=== PATIENT | female | born 1990 | race Caucasian/White ===

== ENCOUNTER → 2016-09-16 | Outpatient (CLI) | payer BC ==
[~2016-09-16] MED LIST: HYDR-5688 PO; IBUP-1450 PO; PRENTAB26 PO
== END | disposition home or self-care (01) ==
LOC: C.LABSPEC 17:40
PROVIDERS: ATTEND Obstetrics & Gynecology
DX: Z34.83 Encounter for supervision of other normal pregnancy, third trimester (principal)

== ENCOUNTER → 2016-09-21 | Outpatient (CLI) | payer BC ==
[2016-09-21 08:37] LABS: BASO % 0.3 %; BASO ABS # 0.02 K/uL (0-0.2); COMPLETE YES; EOS % 0.8 %; HEMATOCRIT 36.2 % (37-47); IG% 0.3 %; LYMPH % 18.8 %; LYMPH ABS # 1.37 K/uL (1.2-3.4); MEAN CELL VOLUME 92.8 fL (80-100); MEAN CORPUSCULAR HEMOGLOBIN 32.3 pg (25-34); MEAN CORPUSCULAR HGB CONC 34.8 g/dl (32-36); MEAN PLATELET VOLUME 12.1 fL (7.4-10.4); MONO % 7.8 %; PLATELET COUNT 153 K/uL (130-400)
[2016-09-21 08:56] LABS: ALT/SGPT 14 U/L (12-78); AST/SGOT 20 U/L (15-37); CREATININE 0.62 mg/dl (0.60-1.20)
[2016-09-21 09:01] LABS: URIC ACID 3.7 mg/dl (2.6-7.2)
[2016-09-21 10:10] LABS: URINE TOTAL PROTEIN 5.1 mg/dl (0-11.9)
[2016-09-21 11:58] LABS: CREATININE 0.62 mg/dl (0.6-1.2); URINE TOTAL PROTEIN CALC 183.6 mg/24 hr (0-149.1)
== END | disposition home or self-care (01) ==
LOC: C.LAB 07:44
PROVIDERS: ATTEND Obstetrics & Gynecology
DX: O13.9 Gestational [pregnancy-induced] hypertension without significant proteinuria, unspecified trimester (principal)

== ENCOUNTER 2016-09-25 07:48 | Inpatient (IN) | payer BC ==
[~2016-09-25] VITALS: Ht 162.6 cm; Wt 79.1 kg
[~2016-09-25 07:48] MED LIST changes: -HYDR-5688 PO; -IBUP-1450 PO
[2016-09-25] MEDS ORDERED: MISOPROSTOL 25 MCG TAB ONE (08:40)
[2016-09-25 08:46] VITALS: Ht 162.6 cm; Wt 79.1 kg
[2016-09-25] MEDS ORDERED: LACTATED RINGER'S 1000ML 1,000 ML IV PRN (09:19)
[2016-09-25] MEDS ORDERED: MISOPROSTOL 25 MCG TAB PV PRN (09:30)
[2016-09-25 10:10] LABS: HEMATOCRIT 35.8 % (37-47); MEAN CORPUSCULAR HEMOGLOBIN 32.5 pg (25-34); MEAN CORPUSCULAR HGB CONC 34.6 g/dl (32-36); MEAN PLATELET VOLUME 12.2 fL (7.4-10.4); PLATELET COUNT 160 K/uL (130-400); RED BLOOD COUNT 3.81 M/uL (4.2-5.4); WHITE BLOOD COUNT 8.26 K/uL (4.8-10.8)
[2016-09-25 10:37] LABS: CREATININE 0.59 mg/dl (0.60-1.20)
[2016-09-25 10:38] LABS: ALKALINE PHOSPHATASE 141 U/L (45-117); ALT/SGPT 16 U/L (12-78); AST/SGOT 16 U/L (15-37)
[2016-09-25] MEDS ORDERED: LACTATED RINGER'S 1000ML 500 ML IV PRN ×2 (14:32→16:27)
[2016-09-25] MEDS ORDERED: OXYTOCIN 30 UNITS/500ML NSS IV PRN ×2 (14:45→20:00)
[2016-09-25] MEDS ORDERED: BUPIVACAINE 0.25% 30 ML VIAL ONE (15:14)
[2016-09-25] MEDS ORDERED: FENTANYL CITRATE INJ 50 MCG/1 ML 2 ML VIAL ONE (15:15)
[2016-09-25] MEDS ORDERED: FENTANYL 2MCG/ML ROPIV 1.25MG/ML 100ML BAG EPI ONE (15:15)
[2016-09-25] MEDS ORDERED: EpHEDrine SULFATE INJ 50 MG/ML AMP ONE (15:15)
[2016-09-25] MEDS: LACTATED RINGER'S 1000ML 1,000 ML IV SCH ×2 (16:10→17:19)
[2016-09-25] MEDS ORDERED: NALOXONE HCL INJ 1 MG in SODIUM CHLORIDE 0.9% 1000ML 1,000 ML IV PRN (16:27)
[2016-09-25] MEDS ORDERED: NALBUPHINE HCL INJ 10 MG/ML AMP IV PRN (16:30)
[2016-09-25] MEDS ORDERED: NALOXONE HCL INJ 0.4 MG/1 ML VIAL/CARP IV PRN (16:30)
[2016-09-25] MEDS ORDERED: EpHEDrine SULFATE INJ 50 MG/ML AMP IV PRN (16:30)
[2016-09-25] MEDS ORDERED: FENTANYL 2MCG/ML ROPIV 1.25MG/ML 100ML BAG EPI PRN (16:30)
[2016-09-25] MEDS ORDERED: DiphenhydrAMINE HCL 50 MG/ML VIAL IV PRN (16:30)
[2016-09-25] MEDS ORDERED: PROMETHAZINE HCL INJ 25 MG in SODIUM CHLORIDE 0.9% 50ML 50 ML IV PRN (16:30)
[2016-09-25] MEDS ORDERED: ONDANSETRON INJ 2 MG/ML 2 ML VIAL IV PRN (16:30)
--- NOTE | 2016-09-25 18:28 | Medical Student: [facility] ---
Med Student History & Physical Date of Service Sep 25, 2016. Chief Complaint Induction History of Present Illness Source: patient FAN: 10/13/16 Jie Gramajo is a 26 year old female at 37-3 weeks gestation who presents to labor and delivery for induction of labor due to gestational hypertension. Her prior was a normal spontaneous vaginal deliver at 39 -6 weeks gestation, complicated by hypertension at time of delivery and post hemorrhage. At her office visit 9 days ago, she had a BP of 140/94, and at her visit 2 days ago a BP of 140/82. She has had no proteinuria, no seizures, and no signs or symptoms of organ failure. Her current has otherwise been unremarkable. She is blood type O negative with a negative antibody screen.She was given an anti-D immunoglobin on 07/22/16. GBS negative as of 09/16/16. Her family history is notable for 2 cousins with CP. OB History 08/27/13 - at 39-6 weeks of female child. Hypertension at time of delivery and post hemorrhage. 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 Past Surgical History Appendectomy and wisdom teeth removal Family History History of heart disease in Paternal Grandfather History of DM and breast cancer in maternal grandmother History of Hypertension and depression in paternal grandmother Family history of cerebral palsy Social History Smoking Status: Never Smoker Drug Use: none Marital Status: , in relationship Housing status: lives with family Occupational Status: employed Allergies Coded Allergies: No Known Allergies (Verified , 08/29/13) Home Medications Multivit/Min/Iron/Fol Ac/Pren ( Vitamin), 1 TAB PO DAILY Review of Systems Constitutional: No chills, No fever, No problem reported, No sweats, No weakness, No weight loss Eyes: No diplopia, No discharge, No eye pain, No problem reported, No redness, No worsening of vision ENT: No hearing loss, No nasal symptoms, No problem reported, No sore throat, No trouble swallowing, No unusual epistaxis Respiratory: No cough, No problem reported, No sputum, No wheezing Cardiovascular: No chest pain, No palpitations, No problem reported Abdomen: No GI bleeding, No diarrhea, No nausea, No problem reported, No vomiting Musculoskeletal: No problem reported Genitourinary - Female: + , No hematuria, No vaginal bleeding Neurologic: No numbness/tingling, No problem reported, No weakness Psychiatric: No depression symptoms, No problem reported Endocrine: No problem reported Hematologic / Lymphatic: No abnormal bleeding/bruising, No problem reported Integumentary: No itch, No problem reported, No rash Physical Exam General Appearance: WD/WN, + mild distress Head: normocephalic, atraumatic ENT: hearing grossly normal Neck: supple, no adenopathy, trachea midline Respiratory/Chest: chest non-tender, lungs clear, normal breath sounds, no respiratory distress, no accessory muscle use Cardiovascular: regular rate, rhythm, no gallop, no JVD, normal peripheral pulses Genitourinary - Female: uterus normal shape and size Monitoring External Monitor: monitoring and tocodynamometer is reassuring with early decelerations, normal rate, and frequent contractions Laboratory Results 09/25/16 09:35 09/25/16 09:35 Test 09/25/16 09:35 Red Blood Count 3.81 M/uL (4.2-5.4) Mean Corpuscular Volume 94.0 fL (80-100) Mean Corpuscular Hemoglobin 32.5 pg (25-34) Mean Corpuscular Hemoglobin Concent 34.6 g/dl (32-36) RDW Standard Deviation 43.3 fL (36.4-46.3) RDW Coefficient of Variation 12.7 % (11.5-14.5) Mean Platelet Volume 12.2 fL (7.4-10.4) Est Creatinine Clear Calc Drug Dose 149.7 ml/min Estimated GFR () 148.7 Estimated GFR (Non- 128.3 Total Bilirubin 0.2 mg/dl (0.2-1) Direct Bilirubin < 0.1 mg/dl (0-0.2) Aspartate Amino Transf (AST/SGOT) 16 U/L (15-37) Alanine Aminotransferase (ALT/SGPT) 16 U/L (12-78) Alkaline Phosphatase 141 U/L (45-117) Total Protein 6.2 gm/dl (6.4-8.2) Albumin 2.6 gm/dl (3.4-5.0) Assessment and Plan Induce delivery with IV 25 mcg of misoprostol and 0.002 units/min oxytocin, increasing by 0.002 units/min every 30 minutes up to 0.02 units/min maximum. Provide epidural anesthesia if patient desires. Regular checks, examinations, and monitoring of progression of labor. Monitor blood pressure. Continue to monitor FHR and contractions. Provide IV fluids as needed.
[2016-09-25] MEDS ORDERED: HYDROCORTISONE ACETATE 25 MG SUPP PR PRN (20:00)
[2016-09-25] MEDS ORDERED: BENZOCAINE 20% AER SPR 82.5 GM CAN EXT PRN (20:00)
[2016-09-25] MEDS ORDERED: LANOLIN OINT EXT PRN ×2 (20:00)
[2016-09-25] MEDS ORDERED: DIPHTHERIA/TETANUS/PERTUSSIS 0.5 ML SYR/VIAL IM. ONE (20:00)
[2016-09-25] MEDS ORDERED: ACETAMINOPHEN/CODEINE 300/30MG TAB PO PRN ×2 (20:00)
[2016-09-25] MEDS ORDERED: SUPERCREAM 0.870 % 15GM JAR EXT PRN (20:00)
[2016-09-25] MEDS ORDERED: ACETAMINOPHEN 325 MG TAB PO PRN (20:00)
--- NOTE | 2016-09-25 20:00 | Medical Student: [facility] ---
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 Subjective conversation w/ patient, conversation w/ family, review of studies Ambulation: limited ambulation Voiding: no voiding problems Notes: Jie is 7cm Dilated, 100% effacement, and -2 station. She is currently receiving 0.007 units/min of oxytocin via IV. She had a mention of nausea, and this was addressed with 4 mg Ondansetron. She is now feeling better and the nausea is resolved. However, shortly after placement of her epidural, she developed a weak sensation of her arms. This has seemed to improved some, but still is present. She can however beader tender her arms, they just feel heavy to her. She denies any pain at this time and appears comfortable. The FHR monitor and tocodynamometer are reassuring with contractions about every 4 minutes with occasional early FHR decelerations, moderate variability, baseline in the 140's, no late decelerations, and no variable decelerations. Review of Systems Constitutional: No chills, No fever, No problem reported Respiratory: No problem reported, No shortness of breath Cardiac: No chest pain, No problem reported Breast: No problem reported Abdomen: No nausea, No problem reported Female : No abnormal vaginal bleeding, No incontinence, No problem reported Objective Physical Exam General Appearance: WELL-APPEARING, WD/WN, uncomfortable Laboratory Results Last 24 Hours Test 09/25/16 09:35 White Blood Count 8.26 K/uL Red Blood Count 3.81 M/uL Hemoglobin 12.4 g/dL Hematocrit 35.8 % Mean Corpuscular Volume 94.0 fL Mean Corpuscular Hemoglobin 32.5 pg Mean Corpuscular Hemoglobin Concent 34.6 g/dl RDW Standard Deviation 43.3 fL RDW Coefficient of Variation 12.7 % Platelet Count 160 K/uL Mean Platelet Volume 12.2 fL Creatinine 0.59 mg/dl Est Creatinine Clear Calc Drug Dose 149.7 ml/min Estimated GFR () 148.7 Estimated GFR (Non- 128.3 Total Bilirubin 0.2 mg/dl Direct Bilirubin < 0.1 mg/dl Aspartate Amino Transf (AST/SGOT) 16 U/L Alanine Aminotransferase (ALT/SGPT) 16 U/L Alkaline Phosphatase 141 U/L Total Protein 6.2 gm/dl Albumin 2.6 gm/dl Assessment and Plan Continue Routine Care: Active phase of stage 1 of labor: Continue to monitor, provide oxytocin, and fluids as needed. Anticipate imminent delivery.
--- NOTE | 2016-09-25 20:05 | Medical Student: [facility] ---
Medical Student Delivery Note Female child delivered at 19:42 by induced vaginal delivery. No lacerations requiring sutures. 3 vessels present in cord. Cord blood gas obtained. Placenta delivered with all lobes intact and no abnormalities notable. Mother is stable and recovering well. No complications were encountered during the delivery.
--- NOTE | 2016-09-25 20:34 | Anesthesia Procedure Note ---
Anesthesia Epidural Removal Nt Date & Time Sep 25, 2016 at 20:33 Vital Signs Pain Intensity: 0.0 Notes Mental Status: alert / awake / arousable, participated in evaluation Nausea / Vomiting: adequately controlled Pain: adequately controlled Airway Patency, RR, SpO2: stable & adequate BP & HR: stable & adequate Hydration State: stable & adequate Neuraxial Anesthesia: was administered Anesthetic Complications: no major complications apparent, pt satisfied with anesthetic care Epidural: removed without complications, with tip intact
--- NOTE | 2016-09-25 20:43 | DELIVERY SUMMARY ---
DATE OF OPERATION: 09/25/2016 FINDINGS: A viable female infant with Apgars of 8 and 9. Baby delivered over intact perineum. Cord gases, cord blood samples obtained. Placenta delivered spontaneously. Estimated blood loss was 300 mL. LABOR NOTE: The patient is a 26-year-old 2, para 1 with an EDC of 13 October by first trimester ultrasound, who is admitted at 37+ weeks gestational age for an induction for gestational hypertension. The patient received the diagnosis at 36 weeks gestational age with elevated blood pressures with normal PIH labs. She was admitted for the induction. The patient's first remarkable for a hemorrhage requiring a D\T\C. The patient's blood type is O negative, antibody negative, she received RhoGAM on July 22. She is rubella immune, hepatitis B negative. She declined the quad screen. She had the normal 1 hour Glucola x2 and a negative 3rd trimester beta strep culture done. Upon admission, the patient's blood pressure 135/85. She was 1-2 cm dilated, 50% effaced and minus 2 station. Tracing was category 1. She received Cytotec 25 mcg intravaginally for cervical ripening and induction, 4 hours later there had been minimal change. She had artificial rupture of membranes of the clear fluid. heart rate tracing was still category 1. Tracing and contractions increased in intensity and anesthesia was consulted and an epidural was placed. Following placement of the epidural, there had been no cervical change, so Pitocin was initiated per induction protocol. The patient over the next 6 hours progressed to full dilatation. She pushed for approximately 10 minutes delivering the viable female infant. Cord was clamped and cut. Cord gases, cord blood samples obtained. Placenta was delivered spontaneously. Inspection of the perineum showed no lacerations. Estimated blood loss was 300 mL. Sponge and needle count was correct. I attest to the content of the Intraoperative Record and any orders documented therein. Any exceptio ns are noted below.
[2016-09-25] MEDS: IBUPROFEN 600 MG TAB PO PRN (21:03)
[2016-09-25] MEDS: DOCUSATE SODIUM 100 MG CAP PO SCH (21:05)
[2016-09-25 22:45] VITALS: BP 110/63; PULSE 97; TEMP 36.9
[2016-09-26] MEDS: IBUPROFEN 600 MG TAB PO PRN ×4 (03:47→17:48)
[2016-09-26 04:05] VITALS: BP 120/69; PULSE 64; TEMP 36.7
--- NOTE | 2016-09-26 06:50 | Progress Note ---
Subjective Sep 26, 2016. Subjective conversation w/ patient Ambulation: ambulating normally Voiding: no voiding problems Passing Gas: Yes Diet Tolerance: Regular Diet Lochia: Small Feeding Type: Breast Feeding Pain: No pain reported this morning Review of Systems Constitutional: No chills, No fever Respiratory: No cough, No shortness of breath Cardiac: No chest pain Breast: No breast pain Abdomen: No nausea, No pain, No vomiting Female : No dysuria Objective Vital Signs Date Time Temp Pulse Resp B/P Pulse Ox O2 Delivery O2 Flow Rate FiO2 09/26/16 04:05 36.7 64 18 120/69 Room Air 09/25/16 22:45 Room Air 09/25/16 22:45 36.9 97 20 110/63 Room Air Physical Exam General Appearance: WELL-APPEARING, WD/WN, NO APPARENT DISTRESS Respiratory/Chest: lungs clear, normal breath sounds Cardiovascular: regular rate, rhythm, no gallop, no murmur Abdomen: normal bowel sounds, non tender, soft Fundus: Firm, Relation to Umbilicus (At umbilicus) Extremities: no calf tenderness Laboratory Results Last 24 Hours Test 09/25/16 09:35 09/26/16 04:44 White Blood Count 8.26 K/uL Red Blood Count 3.81 M/uL Hemoglobin 12.4 g/dL Hematocrit 35.8 % Mean Corpuscular Volume 94.0 fL Mean Corpuscular Hemoglobin 32.5 pg Mean Corpuscular Hemoglobin Concent 34.6 g/dl RDW Standard Deviation 43.3 fL RDW Coefficient of Variation 12.7 % Platelet Count 160 K/uL Mean Platelet Volume 12.2 fL Creatinine 0.59 mg/dl Est Creatinine Clear Calc Drug Dose 149.7 ml/min Estimated GFR () 148.7 Estimated GFR (Non- 128.3 Total Bilirubin 0.2 mg/dl Direct Bilirubin < 0.1 mg/dl Aspartate Amino Transf (AST/SGOT) 16 U/L Alanine Aminotransferase (ALT/SGPT) 16 U/L Alkaline Phosphatase 141 U/L Total Protein 6.2 gm/dl Albumin 2.6 gm/dl Medications Current Inpatient Medications Medications (Trade) Dose Ordered Sig/Sami Route Start Time Stop Time Status Last Admin Dose Admin Lactated Ringer's 1,000 ml @ 125 mls/hr Q8H IV 09/25/16 09:19 09/27/16 09:18 1/11/17 16:10 125 MLS/HR Lactated Ringer's (Lr 1000ml) 1,000 ml @ 999 mls/hr Q1H1M PRN IV 09/25/16 09:19 10/25/16 09:18 09/25/16 16:10 999 MLS/HR Misoprostol 25 mcg 25 mcg Q4H PRN PV 09/25/16 09:30 10/25/16 09:29 Lactated Ringer's (Lr 1000ml) 500 ml @ 999 mls/hr Q31M PRN IV 09/25/16 14:32 10/25/16 14:31 Oxytocin (Pitocin IV) 30 units UD PRN IV 09/25/16 20:00 10/25/16 19:59 Benzocaine (Dermoplast Aero Spr) 1 appln PRN PRN EXT 09/25/16 20:00 10/25/16 19:59 Cocaine HCl (Supercream 0.870% Cr) BID PRN EXT 09/25/16 20:00 10/09/16 19:59 Hydrocortisone Acetate (Anusol Hc Supp) 25 mg BID PRN [place] 09/25/16 20:00 10/25/16 19:59 Lanolin (Lanolin Oint) PRN PRN EXT 09/25/16 20:00 10/25/16 19:59 Prenat Multivit/ [place]/Iron/Folic Ac ( Vitamin Tab) 1 tab DAILY PO 09/26/16 08:00 10/26/16 07:59 Ibuprofen (Motrin Tab) 600 mg Q4H PRN PO 09/25/16 20:00 10/25/16 19:59 09/26/16 03:47 600 MG Acetaminophen (Tylenol Tab) 650 mg Q6H PRN PO 09/25/16 20:00 10/25/16 19:59 Acetaminophen/ Codeine Phosphate (Tylenol w/ Codeine #3 Tab) 1 tab Q4H PRN PO 09/25/16 20:00 10/25/16 19:59 Acetaminophen/ Codeine Phosphate (Tylenol w/ Codeine #3 Tab) 2 tab Q4H PRN PO 09/25/16 20:00 10/25/16 19:59 Bisacodyl (Dulcolax Tab) 5 mg 20 PO 09/26/16 20:00 09/26/16 20:01 Docusate Sodium (coLACE CAP) 100 mg BID PO 09/25/16 20:00 10/25/16 19:59 09/25/16 21:05 100 MG Ferrous Sulfate (Feosol Tab) 325 mg DAILY PO 09/26/16 08:00 10/26/16 07:59 Assessment and Plan Post- Day#: 1 Continue Routine Care: - Vital Signs reviewed and WNL (temp max 36.7) - Blood Type: O-, GBS- , Rubella Immune - Patient doing well clinically - Encourage Ambulation today - Pain well controlled - Tolerating PO Diet Well Resident Physician Supervision Note: I interviewed and examined the patient. Discussed with Dr. Mirza and agree with findings and plan as documented in the note. Any exceptions or clarifications are listed here: [None] Documented By: Bahman Ventura
--- NOTE | 2016-09-26 06:59 | Medical Student: [facility] ---
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 Subjective conversation w/ patient, physical exam, chart review Ambulation: ambulating normally Voiding: no voiding problems, no incontinence Passing Gas: Yes Diet Tolerance: Regular Diet Lochia: Moderate Feeding Type: Breast Feeding Notes: Jie is approximately 11 hours post delivery of a female via induced vaginal delivery. There were no complications at the time of delivery. Today she feels well, no complaints in particular. She says vaginal bleeding is still occurring but has greatly decreased over the night. She has not had a bowel movement but says she is passing gas. There are no difficulties with urination. She is eating well. She has started attempting to breast feed. She denies any fevers. Denies feelings of depression. Her BP was 120/69 as of this morning. In general, she appears to be recovering well and has no concerns at this time. Review of Systems Constitutional: No chills, No fever, No problem reported, No sweats Respiratory: No cough, No problem reported, No shortness of breath Cardiac: No chest pain, No claudication, No problem reported Breast: No problem reported Abdomen: No constipation, No diarrhea, No nausea, No problem reported, No vomiting Female : + vaginal discharge (lochia), No dysuria, No incontinence, No urinary frequency Objective Vital Signs Date Time Temp Pulse Resp B/P Pulse Ox O2 Delivery O2 Flow Rate FiO2 09/26/16 04:05 36.7 64 18 120/69 Room Air 09/25/16 22:45 Room Air 09/25/16 22:45 36.9 97 20 110/63 Room Air Physical Exam General Appearance: WELL-APPEARING, WD/WN, NO APPARENT DISTRESS Respiratory/Chest: lungs clear, normal breath sounds, no respiratory distress, no accessory muscle use Cardiovascular: regular rate, rhythm, no murmur Fundus: Firm, Non-Tender, Relation to Umbilicus (Approximately at the level of the umbilicus) Laboratory Results Last 24 Hours Test 09/25/16 09:35 09/26/16 04:44 White Blood Count 8.26 K/uL Red Blood Count 3.81 M/uL Hemoglobin 12.4 g/dL Hematocrit 35.8 % Mean Corpuscular Volume 94.0 fL Mean Corpuscular Hemoglobin 32.5 pg Mean Corpuscular Hemoglobin Concent 34.6 g/dl RDW Standard Deviation 43.3 fL RDW Coefficient of Variation 12.7 % Platelet Count 160 K/uL Mean Platelet Volume 12.2 fL Creatinine 0.59 mg/dl Est Creatinine Clear Calc Drug Dose 149.7 ml/min Estimated GFR () 148.7 Estimated GFR (Non- 128.3 Total Bilirubin 0.2 mg/dl Direct Bilirubin < 0.1 mg/dl Aspartate Amino Transf (AST/SGOT) 16 U/L Alanine Aminotransferase (ALT/SGPT) 16 U/L Alkaline Phosphatase 141 U/L Total Protein 6.2 gm/dl Albumin 2.6 gm/dl Assessment and Plan Day Number: 1 Continue Routine Care: Jie is recovering well and I did not identify any concerns at this time. She should continue to try to breast feed, ambulate, have a regular diet, and her vitals be monitored.
[2016-09-26 07:41] LABS: HEMATOCRIT 34.5 % (37-47)
[2016-09-26 08:30] VITALS: BP 122/81; PULSE 74; TEMP 36.4
[2016-09-26] MEDS: PRENATAL VITAMIN TAB PO SCH (08:38)
[2016-09-26] MEDS: DOCUSATE SODIUM 100 MG CAP PO SCH ×2 (08:38→20:16)
[2016-09-26] MEDS: FERROUS SULFATE 325 MG TAB PO SCH (08:38)
[2016-09-26 12:00] VITALS: BP 126/81; PULSE 58; TEMP 36.5
[2016-09-26 15:45] VITALS: BP 139/92; PULSE 62; TEMP 36.6
[2016-09-26] MEDS ORDERED: BISACODYL 5 MG TABEC PO SCH (20:00)
[2016-09-26 20:20] VITALS: BP 119/71; PULSE 79; TEMP 36.6; O2SAT 96
[2016-09-27 00:05] VITALS: BP 119/68; PULSE 68; TEMP 36.5; O2SAT 95
[2016-09-27] MEDS: IBUPROFEN 600 MG TAB PO PRN ×3 (00:50→09:30)
[2016-09-27 04:10] VITALS: BP 117/74; PULSE 71; TEMP 36.6; O2SAT 97
--- NOTE | 2016-09-27 06:46 | Progress Note ---
Subjective Sep 27, 2016. Subjective conversation w/ patient, physical exam Ambulation: ambulating normally Voiding: no voiding problems, no incontinence Passing Gas: Yes Diet Tolerance: Regular Diet Lochia: Small Feeding Type: Breast Feeding Pain: No pain reported this morning Review of Systems Constitutional: No chills, No fever Respiratory: No cough, No shortness of breath Cardiac: No chest pain Breast: No breast pain Abdomen: No nausea, No pain, No vomiting Female : No dysuria Objective Vital Signs Date Time Temp Pulse Resp B/P Pulse Ox O2 Delivery O2 Flow Rate FiO2 09/27/16 04:10 36.6 71 18 117/74 97 Room Air 09/27/16 00:05 36.5 68 16 119/68 95 Room Air 09/27/16 00:05 95 Room Air 09/26/16 20:20 36.6 79 20 119/71 96 Room Air 09/26/16 15:45 Room Air 09/26/16 15:45 36.6 62 18 139/92 Room Air 09/26/16 12:00 36.5 58 18 126/81 Room Air 09/26/16 08:30 36.4 74 18 122/81 Room Air 09/26/16 08:30 Room Air Physical Exam General Appearance: WELL-APPEARING, WD/WN, NO APPARENT DISTRESS Respiratory/Chest: lungs clear, normal breath sounds Cardiovascular: regular rate, rhythm, no gallop, no murmur Abdomen: non tender, soft Fundus: Firm, Relation to Umbilicus (At level of umbilicus) Extremities: no calf tenderness Laboratory Results Last 24 Hours Test 09/26/16 07:20 Hemoglobin 11.9 g/dL Hematocrit 34.5 % Medications Current Inpatient Medications Medications (Trade) Dose Ordered Sig/Sami Route Start Time Stop Time Status Last Admin Dose Admin Lactated Ringer's 1,000 ml @ 125 mls/hr Q8H IV 09/25/16 09:19 09/27/16 09:18 09/25/16 16:10 125 MLS/HR Lactated Ringer's (Lr 1000ml) 1,000 ml @ 999 mls/hr Q1H1M PRN IV 09/25/16 09:19 10/25/16 09:18 09/25/16 16:10 999 MLS/HR Misoprostol 25 mcg 25 mcg Q4H PRN PV 09/25/16 09:30 10/25/16 09:29 Lactated Ringer's (Lr 1000ml) 500 ml @ 999 mls/hr Q31M PRN IV 09/25/16 14:32 10/25/16 14:31 Oxytocin (Pitocin IV) 30 units UD PRN IV 09/25/16 20:00 10/25/16 19:59 Benzocaine (Dermoplast Aero Spr) 1 appln PRN PRN EXT 09/25/16 20:00 10/25/16 19:59 Cocaine HCl (Supercream 0.870% Cr) BID PRN EXT 09/25/16 20:00 10/09/16 19:59 Hydrocortisone Acetate (Anusol Hc Supp) 25 mg BID PRN [place] 09/25/16 20:00 10/25/16 19:59 Lanolin (Lanolin Oint) PRN PRN EXT 09/25/16 20:00 10/25/16 19:59 Prenat Multivit/ [place]/Iron/Folic Ac ( Vitamin Tab) 1 tab DAILY PO 09/26/16 08:00 10/26/16 07:59 09/26/16 08:38 1 TAB Ibuprofen (Motrin Tab) 600 mg Q4H PRN PO 09/25/16 20:00 10/25/16 19:59 09/27/16 05:59 600 MG Acetaminophen (Tylenol Tab) 650 mg Q6H PRN PO 09/25/16 20:00 10/25/16 19:59 Acetaminophen/ Codeine Phosphate (Tylenol w/ Codeine #3 Tab) 1 tab Q4H PRN PO 09/25/16 20:00 10/25/16 19:59 Acetaminophen/ Codeine Phosphate (Tylenol w/ Codeine #3 Tab) 2 tab Q4H PRN PO 09/25/16 20:00 10/25/16 19:59 Docusate Sodium (coLACE CAP) 100 mg BID PO 09/25/16 20:00 10/25/16 19:59 09/26/16 20:16 100 MG Ferrous Sulfate (Feosol Tab) 325 mg DAILY PO 09/26/16 08:00 10/26/16 07:59 09/26/16 08:38 325 MG Assessment and Plan Post- Day#: 2 Continue Routine Care: - Vital Signs reviewed and WNL (temp max 36.6) - Blood Type: O+, GBS- , Rubella Immune - Patient doing well clinically - Ambulating well - Pain well controlled - Tolerating PO Diet - Discharge today Resident Physician Supervision Note: I was present with Dr. Mirza during the history and exam. I discussed the case with the resident and agree with the findings and plan as documented in the note. Any exceptions or clarifications are listed here: Pt doing well. Bps good. D/c home instructions reviewed. f/u 6wks pp check. Documented By: Anne Banks
--- NOTE | 2016-09-27 06:48 | Discharge Instructions ---
Discharge Instructions Admission Reason for Admission: Induction Discharge Discharge Diagnosis / Problem: Vaginal Delivery Discharge Goals Goal(s): Routine recovery after delivery Medications Continue Dispensed Medications: supercream, dermaplast, tucks, lansinoh Activity Recommendations Activity Limitations: per Instructions/Follow-up section . Instructions / Follow-Up Instructions / Follow-Up ACTIVITY RECOMMENDATIONS: * Gradual return to full activity over the next 2-3 weeks. * No lifting - nothing heavier than baby over the next 2-3 weeks. * Do not engage in vigorous exercise, sexual activity or sports until cleared by your physician. * Do not drive or operate any motorized equipment until cleared by your physician. * You may shower/bathe daily. MEDICATIONS: For discomfort or pain, you may use Acetaminophen (Tylenol), Ibuprofen (Advil), or Naproxen (Aleve) following the package directions. For constipation you may use Colace following the package directions. BREAST CARE: If you are not breast feeding: * Wear a supportive bra 24 hours a day for one to two weeks. * Avoid stimulating your breasts and nipples as much as possible during the first few weeks after delivery. * When taking a shower, have the warm water hit your back, not breasts. * When your breasts feel full, apply ice packs. Usually three to four times a day helps ease the discomfort. * Take a mild pain medication (Tylenol / Motrin) when you are uncomfortable. If breast feeding: * Use breast milk to lubricate nipples. Lansinoh cream may be used for sore nipples. You do not need to remove cream prior to breast feeding. If using a different brand of cream, check the label for directions regarding removal of cream prior to nursing. * Wear a supportive bra. * If having problems with breasts or breast feeding, call a oncology consultant or your health care provider. EPISIOTOMY CARE: After delivery, if you have an episiotomy (stitches), the following steps will ease discomfort and aid healing. * For the first 24 hours after delivery, place ice packs next to your episiotomy to help reduce swelling. * After the first 24 hour-period, sitz baths, either portable or in the tub, are suggested. A shower with a shower arm sprayed over the episiotomy may be comforting. * Colleen care should be done after each voiding and bowel movement. Squirt warm water from a plastic bottle over the perineum (region of the body between the anus and urinary opening) and pat dry. * Use Dermoplast to ease discomfort. Shake container. [place] directly over the episiotomy. Place a Tucks on a clean sanitary pad next to your episiotomy. SPECIAL CARE INSTRUCTIONS: When you are discharged from the hospital, it is important for you to follow the instructions listed below: * During the first week at home, you should be able to care for yourself and your baby. In addition, the usual light household activities are encouraged. * Limit your activities to the way you feel. Do not try to clean the house or move furniture. Be sensible. * If you actively engage in sports and have done so up until the time of your delivery, you may resume these activities as soon as you feel able. This may take up to one month or even longer. Use good judgment. * Continue to take your vitamins for at least six weeks after the of your baby. * Your diet need not be limited unless you were on a special diet before your delivery. Breast-feeding mothers need around 2500 calories per day and at least 64-80 ounces of fluid per day (8 to 10 glasses). * You should eat foods from the four major food groups. Crash diets or fad diets are to be avoided. Eating lean meats, fresh fruits and vegetables, low-fat dairy products, high fiber foods and a regular exercise program, will help you get back to your pre- weight without putting your health at risk. * Constipation is sometimes a problem after delivery. Take a mild laxative as needed. If breast feeding, Milk of Magnesia is acceptable to use. You may use a suppository or Fleets enema if no episiotomy. * A daily shower or tub bath is suggested. Be sure to thoroughly and gently dry the perineum. * A bloody vaginal discharge will usually continue until around four weeks post . A small amount of bleeding may continue for as long as six weeks. Vaginal discharge changes from the bright red bleeding after delivery to pink then brownish and finally yellowish-pink before becoming white and disappearing. * Bleeding may increase with activity. Your first period may come in 4-8 weeks. If you are breast feeding, your period may be delayed even longer. * [place] (sex) can begin whenever both you and your partner feel comfortable and do not have any form of genital infection. It is recommended that you wait at least six weeks for internal and external healing to occur. If you have questions, please talk to your health care practitioner. A condom should be used to prevent infection and . * Foreplay, gentle intercourse and lubrication is very important the first several times to prevent pain. A water-based lubricant such as K-Y jelly or Astroglide may be used. * If you have RH negative blood and your baby is RH positive, you will receive RHOGAM by injection prior to discharge. The nurse will give you a card to keep with you that has the date and place that you received RHOGAM after delivery. * During your care, you had a Rubella screen done to check for the presence of rubella antibodies in your blood. If your test was negative, you will receive a Rubella vaccine prior to discharge. This vaccine may cause a fever, soreness at the injection site and flu-like symptoms. If these symptoms persist, notify your health care practitioner. is not advised for one month after a Rubella vaccine. * Verbalizes understanding of car seat law as reviewed with patient nursing. * Car Seat hand-out given and reviewed with patient by nursing. * Shaken baby information reviewed with patient by nursing. Call you doctor if: * Heavy bleeding (saturating several pads an hour) or passing clots the size of your fist. * A fever >101 degrees F (38.3 degrees C) on two occasions four hours apart and /or chills. * Unusual pain in the pelvic or vaginal areas. * "Baby Blues" lasting longer than two weeks. If you have any questions or concerns, call your health care practitioner at . FOLLOW UP VISIT: * Please call the office at to schedule a 6 week examination. It is important you keep this appointment. It is important for you to make arrangements for either yearly or twice yearly check-ups thereafter. Current Hospital Diet Patient's current hospital diet: Regular OB Diet Discharge Diet Recommended Diet: Regular Diet Pending Studies Studies pending at discharge: no Medical Emergencies . Who to Call and When: Medical Emergencies: If at any time you feel your situation is an emergency, please call 911 immediately. . Non-Emergent Contact Non-Emergency issues call your: Supervisor Film Processing . . "Provider Documentation" section prepared by Orlin Mirza. VTE Core Measure Inpt VTE Proph given/why not?: Treatment not indicated
[2016-09-27 08:00] VITALS: BP 113/68; TEMP 36.5
[2016-09-27] MEDS: DOCUSATE SODIUM 100 MG CAP PO SCH (09:28)
[2016-09-27] MEDS: PRENATAL VITAMIN TAB PO SCH (09:28)
[2016-09-27] MEDS: FERROUS SULFATE 325 MG TAB PO SCH (09:28)
[2016-09-27 10:05] VITALS: BP_DIAS 68; PULSE 71; TEMP 36.5
[2017-03-07] MEDS ORDERED: IBUP-1450 PO (05:43)
[2017-03-07] MEDS ORDERED: HYDR-5688 PO (07:15)
== END 2016-09-27 10:15 | disposition home or self-care (01) | DRG 775 ==
LOC: C.LD 07:48 → C.OBG 22:37
PROVIDERS: ADMIT Obstetrics & Gynecology; ATTEND Obstetrics & Gynecology
PROC: 10907ZC Drainage of Amniotic Fluid, Therapeutic from Products of Conception, Via Natural or Artificial Opening (ICD-10-PCS; principal; 2016-09-25)
PROC: 10E0XZZ Delivery of Products of Conception, External Approach (ICD-10-PCS; principal; 2016-09-25)
PROC: 3E0P7GC Introduction of Other Therapeutic Substance into Female Reproductive, Via Natural or Artificial Opening (ICD-10-PCS; principal; 2016-09-25)
PROC: 3E033VJ Introduction of Other Hormone into Peripheral Vein, Percutaneous Approach (ICD-10-PCS; principal; 2016-09-25)
DX: O13.4 Gestational [pregnancy-induced] hypertension without significant proteinuria, complicating childbirth (principal); O36.0130 Maternal care for anti-D [Rh] antibodies, third trimester, not applicable or unspecified; Z68.41 Body mass index [BMI] 40.0-44.9, adult; Z37.0 Single live birth; O76 Abnormality in fetal heart rate and rhythm complicating labor and delivery; Z3A.37 37 weeks gestation of pregnancy

== ENCOUNTER 2016-10-25 18:34 | Emergency (ER) | payer BC ==
[~2016-10-25] VITALS: Ht 162.6 cm; Wt 70.6 kg
[2016-10-25] MEDS ORDERED: METHYLERGONOVINE MALEATE 0.2 MG TAB PO ONE (18:37)
[2016-10-25 18:51] VITALS: Ht 162.6 cm; Wt 70.6 kg
[2016-10-25] MEDS ORDERED: ONDANSETRON INJ 2 MG/ML 2 ML VIAL IV STA (19:23)
[2016-10-25] MEDS ORDERED: SODIUM CHLORIDE 0.9% 1000ML 1,000 ML IV STA (19:23)
--- NOTE | 2016-10-25 19:39 | EMERGENCY ROOM VISIT NOTE ---
History Report prepared by Antonio: King Bennett Under the Supervision of: Angelina PerazaO. First contact with patient: 19:20 Chief Complaint: ED VAG BLEEDING Stated Complaint: BLEEDING, 4 WEEKS POSTPARDUM,CLOTS,LIGHTHEAD,DIZZY History of Present Illness The patient is a 26 year old female who presents to the Emergency Room with complaints of worsening vaginal bleeding beginning a few hours prior to arrival. She currently rates her discomfort as a 5/10 in severity. The patient associates dizziness, nausea, and abdominal cramping with today's symptoms. She states she was driving today, when she sneezed or coughed and felt a large gush of blood. The patient notes she went to the restroom and expelled a clot the size of her hand. She states the bleeding has worsened since then. The patient notes she is four weeks . The patient notes she is O- and was given a shot of RhoGAM. She states she delivered her second child vaginally at 36 weeks. The patient notes she had a hemorrhage immediately following her first and experienced retained products. She denies vomiting, urinary symptoms, fevers, chills, swelling in the legs, and tobacco or alcohol use. 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 Review of Systems See HPI for pertinent positives & negatives. A total of 10 systems reviewed and were otherwise negative. Past Medical & Surgical Medical Problems: (1) Appendectomy (2) Complicated (3) Gestational [-induced] hypertension without significant proteinuria , third trimester (4) Scoliosis Family History Cancer Diabetes mellitus Heart disease Hypertension Lung disease Social History Smoking Status: Never Smoker Alcohol Use: none Drug Use: none Marital Status: , in relationship Housing Status: lives with family Occupation Status: employed Current/Historical Medications Scheduled Multivit/Min/Iron/Fol Ac/Pren ( Vitamin), 1 TAB PO DAILY Allergies Coded Allergies: No Known Allergies (Verified , 10/25/16) Physical Exam Vital Signs Date Time Temp Pulse Resp B/P Pulse Ox O2 Delivery O2 Flow Rate FiO2 10/25/16 23:55 66 16 116/71 100 Mask 7 10/25/16 23:46 36.5 95 16 131/84 100 Mask 7 10/25/16 22:28 71 18 114/68 98 Room Air 10/25/16 20:55 68 18 108/73 99 Room Air 10/25/16 19:57 66 10/25/16 18:51 36.9 114 18 128/85 99 Room Air Physical Exam GENERAL: Patient is awake, alert, and mildly anxious appearing but overall comfortable. EYES: The conjunctivae are clear. The pupils are round and reactive. EARS, NOSE, MOUTH AND THROAT: The nose is without any evidence of any deformity. Mucous membranes are moist tongue is midline NECK: The neck is nontender and supple. RESPIRATORY: Normal respiratory effort is noted there is no evidence of wheezing rhonchi or rales CARDIOVASCULAR: Regular rate and rhythm noted there no murmurs rubs or gallops normal S1 normal S2 GASTROINTESTINAL: The abdomen is soft. Bowel sounds are present in all quadrants. Abdomen is nontender PELVIC EXAM: External genitalia were normal in appearance. There were no lesions. Speculum exam revealed no active bleeding. There was tissue noted in the cervical os. Manual exam revealed cervical os was open to fingertip. There was no uterine tenderness. There was no adnexal fullness or tenderness noted. MUSCULOSKELETAL/EXTREMITIES: There is no evidence of gross deformity full range of motion is noted in the hips and shoulders SKIN: There is no obvious evidence of any rash. There are no petechiae, pallor or cyanosis noted. NEUROLOGIC: Patient is awake alert and oriented x3. Medical Decision & Procedures ER Provider Diagnostic Interpretation: US results as stated below per my review and radiologist interpretation. PELVIC ULTRASOUND CLINICAL HISTORY: Vaginal bleeding 4 weeks . COMPARISON STUDY: Pelvic ultrasound June 20, 2009. TECHNIQUE: Transabdominal sonography of the pelvis was performed. Transvaginal imaging was not performed in this patient. FINDINGS: The uterus measures 9.1 x 6 x 6.6 cm. The endometrium is thickened, measuring 2.1 cm in thickness. The endometrium is heterogeneous. There is a 2.3 x 1.9 cm heterogeneous echogenic focus adjacent to the endometrium within the uterine fundus with increased adjacent vascularity. The right ovary measures 3 x 1.8 x 2.3 cm and the left measures 3.6 x 2 x 2.7 cm. The ovaries are partially obscured on this examination. Color flow is identified within each ovary. IMPRESSION: Thickened endometrium with a heterogeneous 2.3 cm echogenic focus adjacent to the endometrium within the uterine fundus with increased vascularity within the adjacent myometrium. The findings suggest retained products of conception. Electronically signed by: Kris Aden M.D. 10/25/2016 8:42 PM Laboratory Results 10/25/16 19:38 Red Blood Count 4.35, Mean Corpuscular Volume 91.5, Mean Corpuscular Hemoglobin 32.2, Mean Corpuscular Hemoglobin Concent 35.2, Mean Platelet Volume 9.8, Neutrophils (%) (Auto) 75.7, Lymphocytes (%) (Auto) 17.5, Monocytes (%) (Auto) 5.6, Eosinophils (%) (Auto) 0.8, Basophils (%) (Auto) 0.2, Neutrophils # (Auto) 7.57, Lymphocytes # (Auto) 1.75, Monocytes # (Auto) 0.56, Eosinophils # (Auto) 0.08, Basophils # (Auto) 0.02 10/25/16 19:38 Test 10/25/16 19:38 10/25/16 19:47 White Blood Count 10.00 K/uL (4.8-10.8) Red Blood Count 4.35 M/uL (4.2-5.4) Hemoglobin 14.0 g/dL (12.0-16.0) Hematocrit 39.8 % (37-47) Mean Corpuscular Volume 91.5 fL (80-100) Mean Corpuscular Hemoglobin 32.2 pg (25-34) Mean Corpuscular Hemoglobin Concent 35.2 g/dl (32-36) Platelet Count 236 K/uL (130-400) Mean Platelet Volume 9.8 fL (7.4-10.4) Neutrophils (%) (Auto) 75.7 % Lymphocytes (%) (Auto) 17.5 % Monocytes (%) (Auto) 5.6 % Eosinophils (%) (Auto) 0.8 % Basophils (%) (Auto) 0.2 % Neutrophils # (Auto) 7.57 K/uL (1.4-6.5) Lymphocytes # (Auto) 1.75 K/uL (1.2-3.4) Monocytes # (Auto) 0.56 K/uL (0.11-0.59) Eosinophils # (Auto) 0.08 K/uL (0-0.5) Basophils # (Auto) 0.02 K/uL (0-0.2) RDW Standard Deviation 40.0 fL (36.4-46.3) RDW Coefficient of Variation 11.9 % (11.5-14.5) Immature Granulocyte % (Auto) 0.2 % Immature Granulocyte # (Auto) 0.02 K/uL (0.00-0.02) Prothrombin Time 10.5 SECONDS (9.0-12.0) Prothromb Time International Ratio 1.0 (0.9-1.1) Activated Partial Thromboplast Time 26.8 SECONDS (21.0-31.0) Partial Thromboplastin Ratio 1.0 Anion Gap 12.0 mmol/L (3-11) Est Creatinine Clear Calc Drug Dose 144.2 ml/min Estimated GFR () 149.5 Estimated GFR (Non- 129.0 BUN/Creatinine Ratio 24.5 (10-20) Calcium Level 8.7 mg/dl (8.5-10.1) Total Bilirubin 0.3 mg/dl (0.2-1) Aspartate Amino Transf (AST/SGOT) 14 U/L (15-37) Alanine Aminotransferase (ALT/SGPT) 25 U/L (12-78) Alkaline Phosphatase 81 U/L (45-117) Total Protein 7.6 gm/dl (6.4-8.2) Albumin 3.7 gm/dl (3.4-5.0) Globulin 3.9 gm/dl (2.5-4.0) Albumin/Globulin Ratio 0.9 (0.9-2) Human Chorionic Gonadotropin, Quant 87 mIU/mL Urine Color YELLOW Urine Appearance CLEAR (CLEAR) Urine pH 6.0 (4.5-7.5) Urine Specific [place] 1.004 (1.000-1.030) Urine Protein NEG (NEG) Urine Glucose (UA) NEG (NEG) Urine Ketones NEG (NEG) Urine Occult Blood 3+ (NEG) Urine Nitrite NEG (NEG) Urine Bilirubin NEG (NEG) Urine Urobilinogen NEG (NEG) Urine Leukocyte Esterase NEG (NEG) Urine WBC (Auto) 1-5 /hpf (0-5) Urine RBC (Auto) 10-30 /hpf (0-4) Urine Hyaline Casts (Auto) 0 /lpf (0-5) Urine Epithelial Cells (Auto) 5-10 /lpf (0-5) Urine Bacteria (Auto) NEG (NEG) Laboratory results per my review. Medications Administered Medications (Trade) Dose Ordered Sig/Sami Route Start Time Stop Time Status Last Admin Dose Admin Ondansetron HCl 4 mg 4 mg NOW STAT IV 10/25/16 19:23 10/25/16 19:25 DC 10/25/16 19:43 4 MG Sodium Chloride (Nss 1000ml) 1,000 ml @ 999 mls/hr Q1H1M STAT IV 10/25/16 19:23 10/25/16 20:23 DC 10/25/16 19:44 999 MLS/HR Doxycycline Hyclate (Vibramycin Cap) 100 mg TODAY@2230 PO 10/25/16 22:30 10/25/16 23:59 10/25/16 22:30 100 MG Methylergonovine Maleate (Methergine Inj) 0.2 mg ONE ONCE IM 10/25/16 23:28 10/25/16 23:29 DC 10/25/16 23:28 0.2 MG ED Course 1920: The patient was evaluated in room B5. A complete history and physical examination were performed. 1922: Ordered Sodium Chloride 1,000 ml @ 999 mls/hr IV, Zofran Inj 4 mg. 2047: I spoke to MARK Marks (PEST CONTROL OPERATOR) about the patient's case, and she will perform a pelvic exam. 2209: I spoke to MARK Marks (PEST CONTROL OPERATOR) about the patient's case, and she will take the patient to the OR to perform a D&E. Medical Decision Etiologies such as ectopic , dysfunction uterine bleeding, bleeding dyscrasia, trauma, infection, as well as others were entertained. Nursing notes reviewed. The patient is a 26-year-old female who presented to the emergency department for an evaluation of vaginal bleeding. The patient is 4 weeks . She has no abdominal tenderness on physical exam. Her cervix was open and she had some retained products noted on ultrasound. She was not febrile. Her white blood cell count was not elevated. Her vital signs are hemoglobin are stable. I discussed her case with the on-call octavio Hinson PEST CONTROL OPERATOR physician. She has agreed to evaluate patient in the emergency [place] for further management and disposition. The patient was treated with IV fluids and IV antiemetics in the emergency department. On subsequent reevaluation she was feeling much better. Given the patient's findings on ultrasound as well as pelvic exam the on-call [facility] PEST CONTROL OPERATOR physician is felt that this may require surgical management for further management of this retained products. The patient was agreeable this plan. Consults Time Called: 2044 Consulting Physician: MARK Marks (PEST CONTROL OPERATOR) Returned Call: 2047 I spoke to MARK Marks (PEST CONTROL OPERATOR) about the patient's case, and she will perform a pelvic exam. Additional Consults: Time Called: 2207 Consulted Physician: MARK Marks (PEST CONTROL OPERATOR) Returned Call: 2209 Additional Comments: I spoke to MARK Marks (PEST CONTROL OPERATOR) about the patient's case, and she will follow the patient for further evaluation. Impression Primary Impression: Retained products of conception Additional Impression: hemorrhage of vagina Scribe Attestation The scribe's documentation has been prepared under my direction and personally reviewed by me in its entirety. I confirm that the note above accurately reflects all work, treatment, procedures, and medical decision making performed by me. Departure Information Dispostion Being Evaluated By Surgeon (MARK Marks (PEST CONTROL OPERATOR)) Referrals RV. Marcum MD (PCP) Problem Qualifiers
[2016-10-25 19:48] LABS: BASO % 0.2 %; BASO ABS # 0.02 K/uL (0-0.2); COMPLETE YES; EOS % 0.8 %; HEMATOCRIT 39.8 % (37-47); IG% 0.2 %; LYMPH % 17.5 %; LYMPH ABS # 1.75 K/uL (1.2-3.4); MEAN CELL VOLUME 91.5 fL (80-100); MEAN CORPUSCULAR HEMOGLOBIN 32.2 pg (25-34); MEAN CORPUSCULAR HGB CONC 35.2 g/dl (32-36); MEAN PLATELET VOLUME 9.8 fL (7.4-10.4); MONO % 5.6 %; NEUT % 75.7 %; PLATELET COUNT 236 K/uL (130-400); RED BLOOD COUNT 4.35 M/uL (4.2-5.4)
[2016-10-25 20:05] LABS: PROTHROMBIN TIME (PATIENT) 10.5 SECONDS (9.0-12.0)
[2016-10-25 20:07] LABS: BUN/CREATININE RATIO 24.5 (10-20); CALCIUM 8.7 mg/dl (8.5-10.1); CREATININE 0.58 mg/dl (0.60-1.20); POTASSIUM 3.5 mmol/L (3.5-5.1)
[2016-10-25 20:10] LABS: ALB/GLOB RATIO 0.9 (0.9-2)
--- NOTE | 2016-10-25 20:43 | DIAGNOSTIC IMAGING REPORT ---
PELVIC ULTRASOUND CLINICAL HISTORY: Vaginal bleeding 4 weeks . COMPARISON STUDY: Pelvic ultrasound June 20, 2009. TECHNIQUE: Transabdominal sonography of the pelvis was performed. Transvaginal imaging was not performed in this patient. FINDINGS: The uterus measures 9.1 x 6 x 6.6 cm. The endometrium is thickened, measuring 2.1 cm in thickness. The endometrium is heterogeneous. There is a 2.3 x 1.9 cm heterogeneous echogenic focus adjacent to the endometrium within the uterine fundus with increased adjacent vascularity. The right ovary measures 3 x 1.8 x 2.3 cm and the left measures 3.6 x 2 x 2.7 cm. The ovaries are partially obscured on this examination. Color flow is identified within each ovary. IMPRESSION: Thickened endometrium with a heterogeneous 2.3 cm echogenic focus adjacent to the endometrium within the uterine fundus with increased vascularity within the adjacent myometrium. The findings suggest retained products of conception. Electronically signed by: Kris Aden M.D. 10/25/2016 8:42 PM Dictated Date/Time: 10/25/2016 8:39 PM
[2016-10-25 20:45] LABS: URINE APPEARANCE CLEAR (CLEAR); URINE BILIRUBIN NEG (NEG); URINE COLOR YELLOW; URINE NITRITE NEG (NEG); URINE SPECIFIC GRAVITY 1.004 (1.000-1.030); UROBILINOGEN NEG (NEG)
[2016-10-25 20:48] LABS: MANUAL MICROSCOPIC REQUIRED? NO; REVIEW REQ? NO
[2016-10-25] MEDS ORDERED: PROPOFOL IV EMULSION 10 MG/ML 20 ML VIAL IV ONE (22:27)
[2016-10-25] MEDS ORDERED: DEXAMETHASONE SOD INJ 4 MG/ML VIAL ONE (22:27)
[2016-10-25] MEDS ORDERED: ONDANSETRON INJ 2 MG/ML 2 ML VIAL ONE (22:27)
[2016-10-25] MEDS ORDERED: SUCCINYLCHOLINE CHLORIDE 20 MG/ML 10 ML VIAL IV ONE (22:27)
[2016-10-25] MEDS ORDERED: LIDOCAINE HCL 2% 2 ML VIAL (20MG/ML) ONE (22:27)
[2016-10-25] MEDS ORDERED: ROCURONIUM BROMIDE 10 MG/ML 5 ML VIAL ONE (22:27)
[2016-10-25 22:28] VITALS: O2SAT 98
[2016-10-25] MEDS ORDERED: MIDAZOLAM HCL 1 MG/ML 2ML VIAL ONE (22:28)
[2016-10-25] MEDS ORDERED: FENTANYL CITRATE INJ 50 MCG/1 ML 2 ML VIAL ONE (22:28)
[2016-10-25] MEDS ORDERED: DOXYCYCLINE HYCLATE 100 MG CAP PO SCH (22:30)
[2016-10-25] MEDS ORDERED: DOXYCYCLINE HYCLATE 100 MG CAP PO ONE (22:32)
[2016-10-25] MEDS ORDERED: KETOROLAC TROMETHAMINE 30 MG/ML VIAL ONE (22:35)
[2016-10-25] MEDS ORDERED: LACTATED RINGER'S 1000ML 1,000 ML IV PRN (22:57)
--- NOTE | 2016-10-25 22:59 | History & Physical Bridge Note ---
H&P Re-Evaluation Bridge Note: I have examined the patient, reviewed the History & Physical and in the interval since the performance of the History & Physical I have noted the following changes of clinical significance: No changes noted. The history and physical is dictated. We are proceeding as this is emergent.
[2016-10-25] MEDS ORDERED: DiphenhydrAMINE HCL 50 MG/ML VIAL IV PRN (23:00)
[2016-10-25] MEDS ORDERED: FENTANYL CITRATE INJ 50 MCG/1 ML 2 ML VIAL IV PRN (23:00)
[2016-10-25] MEDS ORDERED: METOCLOPRAMIDE HCL INJ 5 MG/ML 2 ML VIAL IV PRN (23:00)
[2016-10-25] MEDS ORDERED: ONDANSETRON INJ 2 MG/ML 2 ML VIAL IV PRN ×2 (23:00→23:45)
[2016-10-25] MEDS ORDERED: OXYTOCIN INJ 10 UNITS/ML VIAL ONE ×3 (23:26→23:52)
[2016-10-25] MEDS ORDERED: METHYLERGONOVINE MALEATE 0.2 MG/ML AMP IM ONE (23:28)
[2016-10-25] MEDS ORDERED: DOXYCYCLINE HYCLATE 100 MG CAP PO STA (23:40)
--- NOTE | 2016-10-25 23:43 | [facility] Post Operative Brief Note ---
Immediate Operative Summary Operative Date Oct 25, 2016. Pre-Operative Diagnosis Delayed Hemorrhage, Abnormal u/s findings. Post-Operative Diagnosis Same, retained pocs Procedure(s) Performed Dilation and Evacuation and [place] With Ultrasound Guidance Surgeon Dr. Banks Exhaust Emissions Inspector Surgeon(s) none Estimated Blood Loss 150ml Findings large pocs/retained placenta fragment. uterus sounds to 9cm preprocedure. Os dilated about 1cm. Small mobile and firm postop. U/S findings with no evidence of retained tissues post procedure. Fluids (cc crystalloids) 1000 Specimens A. Products of Conception - Retained Placenta Drains none Anesthesia general Complication(s) None Disposition Recovery Room / PACU
[2016-10-25] MEDS ORDERED: PROMETHAZINE HCL INJ 25 MG in SODIUM CHLORIDE 0.9% 50ML 50 ML IV PRN (23:45)
[2016-10-25] MEDS ORDERED: IBUPROFEN 600 MG TAB PO PRN (23:45)
[2016-10-25] MEDS ORDERED: KETOROLAC TROMETHAMINE 30 MG/ML VIAL IV. PRN (23:45)
[2016-10-25] MEDS ORDERED: OXYTOCIN INJ 20 UNITS in LACTATED RINGER'S 1000ML 1,000 ML IV SCH (23:45)
[2016-10-25] MEDS ORDERED: OXYCODONE/ACETAMINOPHEN 5-325 TAB PO PRN ×2 (23:45)
--- NOTE | 2016-10-25 23:47 | Discharge Instructions ---
Discharge Instructions Admission Reason for Admission: Bleeding, 4 Weeks Postpardum,Clots,Lighthead,Dizzy Discharge Discharge Diagnosis / Problem: after surgery Discharge Goals Goal(s): Routine recovery after surgery Activity Recommendations Activity Limitations: as noted below . Instructions / Follow-Up Instructions / Follow-Up ACTIVITY RECOMMENDATIONS: * Avoid tampons, douching, hot tubs, pools, and intercourse until bleeding has stopped and after your 6 week appt. * May shower as usual. * No strenuous activity for 24-48 hours. After 24-48 hours, you may do anything you feel like doing (driving and sports are okay). SPECIAL CARE INSTRUCTIONS: Special Diet: * Mild nausea may occur in the immediate post-operative period. * Take clear liquids such as tea, cola or bouillon until all nausea has subsided; you may then resume your normal diet. Special Care: * Light bleeding and vaginal spotting can last from a few days to 3-4 weeks. Call your doctor if bleeding becomes heavier than the heaviest part of your period. * Check your temperature twice a day for one week. If it goes above 100.4 degrees Fahrenheit (38.0 Celsius), notify your doctor. * Call your doctor's office for an appointment for 6 weeks if you have not already made it. * Please hand picker and take course of flagyl antibiotic for 5 days as directed on bottle * Please take methergine tabs sent home with you from hospital in 3 additional doses, first about 6am on 10/26/16 and then every 6hrs until done. FOLLOW-UP VISIT: As noted above Current Hospital Diet Patient's current hospital diet: Discharge Diet Recommended Diet: Regular Diet Procedures Procedures Performed: Dilation and Evacuation and [place] With Ultrasound Guidance Pending Studies Studies pending at discharge: yes List of pending studies: pathology Medical Emergencies . Who to Call and When: Medical Emergencies: If at any time you feel your situation is an emergency, please call 911 immediately. . Non-Emergent Contact Non-Emergency issues call your: Transfer And Line Up Worker Call Non-Emergent contact if: you have a fever, your pain is not controlled, you have any medication questions . . "Provider Documentation" section prepared by Anne Banks. VTE Core Measure Inpt VTE Proph given/why not?: Treatment not indicated
--- NOTE | 2016-10-25 23:54 | DIAGNOSTIC IMAGING REPORT ---
ULTRASOUND OF THE PELVIS FOR INTRAOPERATIVE GUIDANCE CLINICAL HISTORY: Retained products of conception. COMPARISON STUDY: Pelvic ultrasound performed the same day 10/25/16. FINDINGS: 27 intraoperative sonographic images of the uterus from a D\T\C procedure are presented. Only the wafer polishing worker was present during the procedure. The initial sonographic images show complex echogenic material filling the endometrial canal which measure up to 2.6 cm in thickness. This shows internal vascularity on color imaging and is consistent with retained products of conception. Progressive images show this material been removed, and this has resolved on the final images. There is only trace fluid remaining within the endometrial canal. IMPRESSION: Intraoperative images of the uterus from a D\T\C procedure as above. See operative report for detailed findings. Electronically signed by: Clark Dorman M.D. 10/25/2016 11:53 PM Dictated Date/Time: 10/25/2016 11:47 PM
--- NOTE | 2016-10-25 23:54 | GYNECOLOGICAL CONSULTATION ---
DATE OF CONSULTATION: 10/25/2016 CHIEF COMPLAINT: Heavy vaginal bleeding 4 weeks . HISTORY OF PRESENT ILLNESS: A 26-year-old 2, para 1-0-0-1, now 4 weeks post- from a normal spontaneous vaginal delivery who I am asked to see in consult by Dr. Hylton for the above chief complaint. The patient called earlier this evening, noting that she was in her usual state of health when she suddenly passed a large clot the size of her fist, followed by some heavy bleeding that dripped down her leg and was continuing to flow. She noticed feeling "funny" and due to this was instructed that she would likely need to proceed to the Emergency Department. I was called by the Emergency Department upon this patient's evaluation. At that time she had noted to have much slowed bleeding. Her hemoglobin was 14. She had an ultrasound performed that showed a 9.1 x 6 x 6.6 cm uterus with an area of the endometrium measuring 2.3 x 1.9 cm that was echogenic and adjacent to an area within the fundus with increased vascularity. The concern was raised for products of conception. The patient underwent a pelvic exam by the ER physician who noted that the cervical os was patent. There was some apparent tissue at the os. OB HISTORY: Spontaneous vaginal delivery x2. First complicated by immediate hemorrhage, requiring immediate D\\T\\C. GYNECOLOGIC HISTORY: No abnormal Pap smears, no STDs. PAST MEDICAL HISTORY: None. PAST SURGICAL HISTORY: Open appendectomy, D\\T\\C x1. ALLERGIES: None. MEDICATIONS: Vitamins. SOCIAL HISTORY: No tobacco or alcohol. FAMILY HISTORY: Noncontributory. REVIEW OF SYSTEMS: As noted per the HPI. The patient currently denies any problems with chest pain or shortness of breath. She feels overall well. She is pumping at the bedside. PHYSICAL EXAMINATION: VITAL SIGNS: Temp 36.9, pulse 68, respirations 18, blood pressure 108/73, pulse ox 99% on room air. ABDOMEN: Soft, nontender, nondistended with no rebound or guarding. EXTREMITIES: Nontender calves. BACK: Without any CVA tenderness. VAGINAL: Per ER physician. ASSESSMENT: 1. Delayed hemorrhage. 2. Abnormal ultrasound findings suspicious for retained products of conception. PLAN: I discussed with the patient and her spouse, her treatment options. She could naturally do nothing and see if the tissue, if there was any, would pass spontaneously. She could also use outpatient oral medications to contract the uterus to try to pass any remaining tissue. She also could elect to proceed with surgical dilatation, evacuation and curettage. She is aware of the risks, alternatives and complications of each and desires the latter. She does not want to wait. Consent form is reviewed and signed. She last ate at 4:30. The anesthesia md and the operating room have been notified. She is aware that she will require some antibiotics preoperatively as well as postoperatively. Naturally, her risks include bleeding, infection, risk of anesthesia, scarring to her uterus, further hemorrhage requiring further treatments or surgeries, delayed complications, perforation of uterus. Again, she desires to proceed. CAROLIN
--- NOTE | 2016-10-26 00:03 | Anesthesiology Progress Note ---
Anesthesia Post Op Note Date & Time Oct 26, 2016 at 00:03 Vital Signs Pain Intensity: 5.0 Vital Signs Past 12 Hours Date Time Temp Pulse Resp B/P Pulse Ox O2 Delivery O2 Flow Rate FiO2 10/25/16 23:55 66 16 116/71 100 Mask 7 10/25/16 23:46 36.5 95 16 131/84 100 Mask 7 10/25/16 22:28 71 18 114/68 98 Room Air 10/25/16 20:55 68 18 108/73 99 Room Air 10/25/16 19:57 66 10/25/16 18:51 36.9 114 18 128/85 99 Room Air Notes Mental Status: alert / awake / arousable, participated in evaluation Pt Amnestic to Procedure: Yes Nausea / Vomiting: adequately controlled Pain: adequately controlled Airway Patency, RR, SpO2: stable & adequate BP & HR: stable & adequate Hydration State: stable & adequate Anesthetic Complications: no major complications apparent Pt doing very well.
[2016-10-26 00:27] VITALS: BP 106/69; PULSE 63; TEMP 36.5; O2SAT 99
[2016-10-26 00:55] VITALS: BP 109/57; PULSE 67; O2SAT 100
--- NOTE | 2016-10-26 02:25 | OPERATIVE REPORT ---
DATE OF OPERATION: 10/25/2016 PREOPERATIVE DIAGNOSES: 1. Delayed hemorrhage. 2. Abnormal ultrasound findings. POSTOPERATIVE DIAGNOSES: 1. Same. 2. Retained placental tissue. PROCEDURE: 1. Dilatation and evacuation and curettage. 2. Ultrasound guidance. SURGEON: Dr. Anne Banks. FURNITURE RENTAL CONSULTANT: None. ANESTHESIA: General. IV FLUIDS: 1 liter. ESTIMATED BLOOD LOSS: 150 mL. FINDINGS: Uterus sounds to 9 cm. Products of conception/retained tissue noted at the fundus. Large amount of tissue particularly placental fragment removed, uterus small and mobile post-procedure with no evidence of retained tissue by ultrasound. INDICATIONS: A 26-year-old 2, para 1-0-0-1 now 4 weeks from normal vaginal delivery with acute onset of heavy vaginal bleeding and ultrasound findings suspicious for retained products of conception. She desired surgical management and alternatives and complications were reviewed. DESCRIPTION OF PROCEDURE: The patient was taken to the operating room and identified. After adequate general anesthesia was obtained, she was placed in the dorsal lithotomy position and prepped and draped in the usual sterile fashion. Ultrasound was present. With abdominal ultrasound in place, the bladder was drained to an appropriate level such that visualization could still be clear. A weighted speculum and anterior retractor were placed. Cervix was grasped in its anterior lip with an Allis clamp. The cervix was already dilated. An 8 mm suction curette was gently placed through the cervical os into the uterine cavity after the uterus was gently sounded. The suction curettage took place in multiple passes. There persisted to be an echogenic foci at the fundus for which a medium curet was used to curettage the uterus to a gritty consistency in multiple passes. With multiple followed passes with the suction curette, a large chunk of tissue approximately 2 x 1 cm was removed. The uterus was recurettaged a gritty consistency and additional passes with the suction curette removed any remaining tissue and clot. The ultrasound findings were most consistent with no further retained tissue. IM Methergine 0.2 mg was administered as well as dilute Pitocin. The bleeding was monitored and the uterus did contract down. The bleeding seemed under good control. At this point the procedure was terminated. The patient was returned to supine position after all the instruments were removed. She was awoken from anesthesia and transferred to the recovery room in stable condition. All sponge, lap, needle counts were correct x2. The patient is notably Rh negative; however, did receive RhoGAM of full dose approximately 4 weeks ago . I attest to the content of the Intraoperative Record and any orders documented therein. Any exceptio ns are noted below.
[2016-10-26] MEDS ORDERED: METHYLERGONOVINE MALEATE 0.2 MG TAB PO SCH (06:00)
[2017-03-07] MEDS ORDERED: IBUP-1450 PO (05:43)
[2017-03-07] MEDS ORDERED: HYDR-5688 PO (07:15)
== END 2016-10-25 22:39 | disposition still patient (30) ==
LOC: C.EDB 18:36
DX: O72.2 Delayed and secondary postpartum hemorrhage (principal); Z98.890 Other specified postprocedural states; Z80.9 Family history of malignant neoplasm, unspecified; Z83.3 Family history of diabetes mellitus; Z82.49 Family history of ischemic heart disease and other diseases of the circulatory system

== ENCOUNTER → 2017-02-17 | Outpatient (CLI) | payer BC ==
[~2017-02-17] MED LIST changes: +HYDR-5688 PO; +IBUP-1450 PO
--- NOTE | 2017-02-17 16:01 | MAMMOGRAPHY REPORT ---
BILATERAL DIGITAL DIAGNOSTIC MAMMOGRAM TOMOSYNTHESIS WITH CAD AND TARGETED RIGHT ULTRASOUND: 02/17/2017 CLINICAL HISTORY: 27-year-old lactating female 4 months presents with a palpable lump in t he upper outer quadrant of the right breast that she noticed approximately 2 weeks prior to delivery and does not feel as though it has changed in size since that time. No skin erythema or blood-tinged nipple discharge. Family history of breast cancer = grandmother. TECHNIQUE: Bilateral CC and MLO 2-D digital and tomosynthesis images, spot magnification right CC an d ML views were obtained. Current study was also evaluated with a Computer Aided Detection (CAD) sys tem. COMPARISON: No prior exams were available for comparison. BREAST COMPOSITION: The tissue of both breasts is extremely dense, which lowers the sensitivity of m ammography. FINDINGS: Given the patient's age less than 30, the evaluation began with real-time high-resolution ultrasound focus in the area of palpable lump pointed out by the patient (the 9:00 right breast appro ximately 12 cm from the nipple). On palpation, there is a firm mass approximately 3 cm in diameter. On ultrasound, in the 9:00 axis, 12 cm from the nipple, there is an ill-defined hypoechoic shadowing mass that extends inferiorly to the 8:00 axis and superior to the 9:30 axis. There are internal susanne ear reflectors which could represent microcalcifications and some of the borders of this mass are lob ulated and angular. It measures approximately 31.4 x 21.6 x 31.7 mm. Additional sonographic evaluat ion of the lateral right breast demonstrates a second mass with angular borders, hypoechoic and solid in appearance. This is located in the 9:00 axis, 2 cm from the nipple and measures 12.3 x 10.2 x 13 .1 mm. Given the possible calcifications associated with ill-defined palpable mass in the 9:00 axis, which are suspicious findings, unilateral right mammography was performed. Ultimately bilateral liz mography was performed to provide comparison purposes of the left breast. Bilateral CC and MLO 2-D digital digital and tomosynthesis images and spot magnification views of the right breast were obtained. In the upper outer approximate 9:00 to 10:00 posterior right breast, th ere is a lobulated and angular solid mass with associated fine pleomorphic microcalcification and mil d associated architectural distortion. This mass measures approximately 4.6 x 4.4 x 3.6 cm. The ass ociated microcalcifications 3.8 x 2.4 cm but are predominantly within the mass. There are other mass es identified within the right breast. The most conspicuous is located in the 12:30 posterior right breast measuring 13 x 13 x 14 mm. This also has associated fine pleomorphic microcalcification. Ano ther 8 mm cluster of pleomorphic microcalcification is identified in the upper outer middle to anteri or right breast and the other mass identified on ultrasound in the 9:00 right breast is not as well s een mammographically but thought to be located in the lateral anterior aspect of the breast. There i s a 10 mm round, circumscribed mass in the far posterior superior right breast projecting over the pe ctoralis muscle on the MLO view (tomosynthesis slice 23) that could represent a lymph node. Addition al evaluation with ultrasound was performed in the right axilla and medial superior right breast. There is no evidence of a suspicious mass, focal area of architectural distortion or suspicious micro calcifications in the left breast. Additional targeted ultrasound was performed in the upper inner quadrant of the right breast and righ t axilla. In the 12:30 axis, 8 cm from the nipple, there is an angular solid hypoechoic mass with as sociated microcalcification measuring 15.5 x 10.7 x 15.0 mm. Internal vascularity is demonstrated. In the right axilla, there is a lobulated hypoechoic to anechoic solid-appearing mass that could repr esent an abnormal enlarged lymph node. The cortex measures 1.2 cm. This is indeterminate and defini tive characterization with tissue sampling is recommended. The 10 mm circumscribed mass is not defini tely identified on ultrasound. IMPRESSION: ACR BI-RADS CATEGORY 4C: MODERATE SUSPICION FOR MALIGNANCY, TARGETED ULTRASOUND ACR BI-R ADS CATEGORY 4C: MODERATE SUSPICION FOR MALIGNANCY 1. Ultrasound guided core needle biopsy 2 is recommended in the right breast, for a dominant suspic ious palpable mass with associated fine pleomorphic microcalcification in the 9:00 axis that measures approximately 4 cm, and another solid-appearing mass with associated clustered microcalcification in the 12:30 right breast that measures 1.5 cm, concerning for multicentric disease. 2. Ultrasound-guided core biopsy is also recommended for morphologically abnormal right axillary lym ph node with a cortex measuring up to 1.2 cm. These results and recommendations were discussed with the patient at the time of the exam. She tenta tively scheduled the right breast biopsies prior to leaving our department. It was explained to the patient that since she is currently lactating, there is a small risk of milk fistulae from the proced ures. Approximately 10% of breast cancers are not detected with mammography. A negative mammographic report should not delay biopsy if a clinically suggestive mass is present. Dora Puente M.D. ay/:02/17/2017 15:07:39 Assembly Machine Set Up Mechanic: Samina BECK(Arley)(Kvng), [facility] letter sent: Abnormal 4/5 BI-RADS Code: ACR BI-RADS Category 4C: Moderate Suspicion For Malignancy Ultrasound BI-RADS: ACR BI- RADS Category 4C: Moderate Suspicion For Malignancy
== END | disposition home or self-care (01) ==
LOC: C.MAMM 13:51
PROVIDERS: ATTEND Internal Medicine
DX: N63 Unspecified lump in breast (principal); R92.0 Mammographic microcalcification found on diagnostic imaging of breast

== ENCOUNTER → 2017-03-05 | Outpatient (CLI) | payer BC ==
--- NOTE | 2017-03-06 09:05 | MAMMOGRAPHY REPORT ---
FINE NEEDLE ASPIRATION RIGHT BREAST: 03/05/2017 CLINICAL HISTORY: Ultrasound-guided fine-needle aspiration of a morphologically abnormal right axilla ry lymph node. Patient has a history of recent biopsy proven multicentric right breast cancer. COMPARISON: Comparison is made to exams dated: 02/17/2017 mammogram, 02/19/2017 mammogram, 02/19/2017 ultr asound biopsy, and 02/17/2017 ultrasound - [facility]. PROCEDURE: After explaining the risks, benefits and alternatives of the procedure to the patient, inf ormed consent was obtained both verbally and in writing. A time out was performed and the right axil la was agreed as the site for fine needle aspiration. The skin of the right axilla was cleansed with Betadine, and prepped and draped in the usual sterile fashion. 1% buffered lidocaine without epinephrine was administered subcutaneously and intraparenchy hernandez as local anesthesia. A 22-gauge needle was advanced to the site of the morphologically abnorma l lymph node and aspiration was performed. The aspirate was rinsed in CytoLyt. This was repeated 2 more times with a 22-gauge needles and additional blood-tinged fluid was rinsed in CytoLyt. The kelvin ent tolerated the procedure well and there was no immediate competition. The samples were sent to [facility] pathology department in an appropriately labeled container. IMPRESSION: FINE NEEDLE ASPIRATION Status post ultrasound-guided fine-needle aspiration of a morphologically abnormal right axillary lym ph node. The patient will receive notification of the results from her referring physician. Dora Puente M.D. ay/:03/05/2017 15:49:42 Attending Technologist: Chance BECK(Arley)(M), [facility] [employer] Supervisor: Dr. Dora Puente, [facility]
== END | disposition home or self-care (01) ==
LOC: C.MAMM 14:29
PROVIDERS: ATTEND Internal Medicine
DX: N64.89 Other specified disorders of breast (principal); C77.3 Secondary and unspecified malignant neoplasm of axilla and upper limb lymph nodes

== ENCOUNTER → 2017-03-05 | Outpatient (CLI) | payer BC ==
[2017-03-05 15:42] LABS: BASO % 0.7 %; BASO ABS # 0.05 K/uL (0-0.2); COMPLETE YES; EOS % 0.9 %; HEMATOCRIT 41.4 % (37-47); IG% 0.1 %; LYMPH % 27.9 %; LYMPH ABS # 2.07 K/uL (1.2-3.4); MEAN CELL VOLUME 88.3 fL (80-100); MEAN CORPUSCULAR HEMOGLOBIN 29.6 pg (25-34); MEAN CORPUSCULAR HGB CONC 33.6 g/dl (32-36); MEAN PLATELET VOLUME 10.8 fL (7.4-10.4); MONO % 9.2 %; NEUT % 61.2 %; PLATELET COUNT 240 K/uL (130-400); RED BLOOD COUNT 4.69 M/uL (4.2-5.4); WHITE BLOOD COUNT 7.41 K/uL (4.8-10.8)
[2017-03-05 15:50] LABS: BLOOD UREA NITROGEN 16 mg/dl (7-18); BUN/CREATININE RATIO 20.2 (10-20); CALCIUM 8.7 mg/dl (8.5-10.1); CARBON DIOXIDE 27 mmol/L (21-32); CHLORIDE 105 mmol/L (98-107); CREATININE 0.78 mg/dl (0.60-1.20); GLUCOSE 84 mg/dl (70-99); POTASSIUM 3.8 mmol/L (3.5-5.1); SODIUM 140 mmol/L (136-145)
== END | disposition home or self-care (01) ==
LOC: C.LAB1850 14:13
PROVIDERS: ATTEND Internal Medicine
DX: C50.911 Malignant neoplasm of unspecified site of right female breast (principal)

== ENCOUNTER → 2017-03-07 | Day surgery (SDC) | payer BC ==
[2017-03-06 14:16] VITALS: BMI 25.0
[~2017-03-07] VITALS: Ht 162.6 cm; Wt 65.9 kg
[~2017-03-07] MED LIST changes: +ATROPINE SULFATE 0.1 MG/ML 5ML SYR IV PRN; +CEFAZOLIN 2000 MG/60 ML D5W 60 ML IV SCH; +CEFAZOLIN SOD 1 GM VIAL ONE; +CONRAY 60% 50 ML VIAL ONE; +EpHEDrine SULFATE INJ 50 MG/ML AMP IV PRN; +FENTANYL CITRATE INJ 50 MCG/1 ML 2 ML VIAL IV PRN; +FENTANYL CITRATE INJ 50 MCG/1 ML 2 ML VIAL ONE; +FLUMAZENIL 0.1 MG/1 ML 10 ML VIAL IV PRN; +HEPARIN SOD (PORCINE) 1000 UNIT/ML 10 ML VIAL ONE; +HYDROCODONE/ACETAMOPHEN 5/325MG TAB PO PRN; +LACTATED RINGER'S 1000ML 1,000 ML IV SCH; +LACTATED RINGER'S 1000ML 500 ML IV ONE; +LIDOCAINE HCL 1% 20 ML VIAL ONE; +MIDAZOLAM HCL 1 MG/ML 2ML VIAL ONE; +MoRPHine SULFATE 2 MG/ML CARP IV PRN; +NALOXONE HCL 0.4 MG/1 ML VIAL/CARP IV PRN; +ONDANSETRON INJ 2 MG/ML 2 ML VIAL IV PRN; +ONDANSETRON INJ 2 MG/ML 2 ML VIAL ONE; +PROMETHAZINE HCL INJ 12.5 MG in SODIUM CHLORIDE 0.9% 50ML 50 ML IV PRN; +PROPOFOL IV EMULSION 10 MG/ML 20 ML VIAL IV ONE; +THROMBIN FOR SOLN 20000 UNIT KIT ONE
[2017-03-07 05:37] VITALS: BP 107/68; PULSE 72; TEMP 36.9; O2SAT 97; Ht 162.6 cm; Wt 65.9 kg
--- NOTE | 2017-03-07 07:00 | History & Physical Bridge Note ---
H&P Re-Evaluation Bridge Note: I have examined the patient, reviewed the History & Physical and in the interval since the performance of the History & Physical I have noted the following changes of clinical significance: No changes noted
--- NOTE | 2017-03-07 07:17 | Discharge Instructions ---
Discharge Instructions Date of Service Mar 07, 2017. Visit Reason for Visit: Right Breast Cancer Discharge Discharge Diagnosis / Problem: A-port placement Discharge Goals Goal(s): Improve disease control Activity Recommendations Activity Limitations: as noted below Shower/Bathe: keep incision dry (for 2 days) Driving or Machine Use: resume 3 days after discharge (if not taking [place]) Anesthesia . Post Anesthesia Instructions: If you have had General Anesthesia or IV Sedation: * Do not drive today. * Resume driving when surgeon permits. * Do not make important decisions or sign legal documents today. * Call surgeon for: 1. Temperature elevations greater than 101 degrees F. 2. Uncontrollable pain. 3. Excessive bleeding. 4. Persistent nausea and vomiting. 5. Medication intolerance (nausea, vomiting or rash). * For nausea and vomiting use only clear liquids such as: tea, soda, bouillon until nausea subsides, then gradually increase diet as tolerated. * If you have any concerns or questions, call your surgeon's office. If physician is unavailable and it is an emergency, call 911 or go to the nearest emergency room. . Instructions / Follow-Up Instructions / Follow-Up Dr. Grimes's office in 2 weeks for suture removal, call [phone] if you do not already have an appt or if you have any questions Diet Recommendations Recommended Home Diet: no limitations Pending Studies Studies pending at discharge: no Medical Emergencies . Who to Call and When: Medical Emergencies: If at any time you feel your situation is an emergency, please call 911 immediately. . Non-Emergent Contact Non-Emergency issues call your: Surgeon Call Non-Emergent contact if: you have a fever, temperature is above 101.5, your pain is not controlled, wound has increased redness . . "Provider Documentation" section prepared by Mynor Garcia. .
--- NOTE | 2017-03-07 08:12 | [facility] Post Operative Brief Note ---
Immediate Operative Summary Operative Date Mar 07, 2017. Pre-Operative Diagnosis Right Breast Cancer Post-Operative Diagnosis Same as preop Procedure(s) Performed port placement Surgeon Dr. Grimes Sand Mixer Operator Surgeon(s) None Estimated Blood Loss 10cc Findings placed via Lt subclavian vein Specimens None per Surgeon Anesthesia local/ sedation Complication(s) None Disposition Recovery Room / PACU
--- NOTE | 2017-03-07 08:39 | OPERATIVE REPORT ---
DATE OF OPERATION: 03/07/2017 PREOPERATIVE DIAGNOSIS: Breast cancer. POSTOPERATIVE DIAGNOSIS: Same. NAME OF OPERATION: Port placement. STAFF SURGEON: Dr. Grimes. ANESTHESIA: 1% plain lidocaine with sedation. OPERATION AND FINDINGS: PROCEDURE: The patient was brought in the operating room and placed on the operating table in supine position. Her left chest was prepped and draped in usual fashion. Using 1% plain lidocaine, the skin and subcutaneous tissue over the left deltopectoral groove were anesthetized. Incision made carrying dissection down identifying the cephalic vein which appeared to be large enough for the catheter; however, I was unable to pass the catheter into the subclavian vein. I was unable to pass the wire through this vein, therefore it was ligated. I then placed the patient in Trendelenburg position. Using a puncture technique, the left subclavian vein was localized, a wire passed under fluoroscopy. A dilator and introducer passed over the wire. The dilator and wire removed. The catheter passed through the introducer into the superior vena cava and then the dilator and the introducer removed. The catheter was aspirated and flushed with heparinized solution. A pocket was fashioned in the subcutaneous tissue. The port was attached to the catheter, placed into the pocket and secured using 3-0 Prolene suture. The site was irrigated with antibiotic solution. Subcutaneous tissue was reapproximated using 2-0 chromic catgut suture then the skin reapproximated using 5-0 Prolene suture. The patient was transferred to recovery room in stable condition. I attest to the content of the Intraoperative Record and any orders documented therein. Any exception s are noted below.
--- NOTE | 2017-03-07 08:42 | Anesthesiology Progress Note ---
Anesthesia Post Op Note Date & Time Mar 07, 2017 at 08:41 Vital Signs Pain Intensity: 2 Vital Signs Past 12 Hours Date Time Temp Pulse Resp B/P (MAP) Pulse Ox O2 Delivery O2 Flow Rate FiO2 03/07/17 08:30 36.9 63 14 118/78 99 Nasal Cannula 2 03/07/17 08:20 84 18 124/78 100 Nasal Cannula 2 03/07/17 08:12 35.8 91 17 123/74 99 Nasal Cannula 2 03/07/17 05:37 36.9 72 18 107/68 (81) 97 Room Air Notes Mental Status: alert / awake / arousable, participated in evaluation Pt Amnestic to Procedure: Yes Nausea / Vomiting: adequately controlled Pain: adequately controlled Airway Patency, RR, SpO2: stable & adequate BP & HR: stable & adequate Hydration State: stable & adequate Anesthetic Complications: no major complications apparent
--- NOTE | 2017-03-07 08:56 | DIAGNOSTIC IMAGING REPORT ---
CHEST ONE VIEW PORTABLE CLINICAL HISTORY: port placement COMPARISON STUDY: 02/22/2013 FINDINGS: The cardiac and mediastinal contours remain stable. There is a minor thoracic scoliosis. There is no failure. There is no focal pulmonary consolidation. There has been interval placement of a left subclavian A-Port catheter. The tip projects over superior vena cava. There is no pneumothorax.[ IMPRESSION: No active disease in the chest. No evidence of pneumothorax status post placement of a left-sided A-Port catheter. The tip projects over the superior vena cava. Electronically signed by: Eric Neri M.D. 03/07/2017 8:54 AM Dictated Date/Time: 03/07/2017 8:53 AM
[2017-03-07 09:05] VITALS: BP 106/59; PULSE 73; TEMP 36.4; O2SAT 98
[2017-03-07 09:35] VITALS: BP 114/73; PULSE 73; TEMP 36.4; O2SAT 99
== END | disposition home or self-care (01) ==
LOC: C.OR 05:01
PROVIDERS: ATTEND Surgery
DX: C50.411 Malignant neoplasm of upper-outer quadrant of right female breast (principal); C77.3 Secondary and unspecified malignant neoplasm of axilla and upper limb lymph nodes; F43.22 Adjustment disorder with anxiety; M41.9 Scoliosis, unspecified; Z79.899 Other long term (current) drug therapy

== ENCOUNTER → 2017-03-10 | Outpatient (CLI) | payer BC ==
[~2017-03-10] MED LIST changes: -ATROPINE SULFATE 0.1 MG/ML 5ML SYR IV PRN; -CEFAZOLIN 2000 MG/60 ML D5W 60 ML IV SCH; +CEFAZOLIN 2000 MG/60 ML D5W IV SCH; -CEFAZOLIN SOD 1 GM VIAL ONE; -CONRAY 60% 50 ML VIAL ONE; -EpHEDrine SULFATE INJ 50 MG/ML AMP IV PRN; -FENTANYL CITRATE INJ 50 MCG/1 ML 2 ML VIAL IV PRN; -FENTANYL CITRATE INJ 50 MCG/1 ML 2 ML VIAL ONE; -FLUMAZENIL 0.1 MG/1 ML 10 ML VIAL IV PRN; -HEPARIN SOD (PORCINE) 1000 UNIT/ML 10 ML VIAL ONE; -HYDROCODONE/ACETAMOPHEN 5/325MG TAB PO PRN; -LIDOCAINE HCL 1% 20 ML VIAL ONE; -MIDAZOLAM HCL 1 MG/ML 2ML VIAL ONE; -MoRPHine SULFATE 2 MG/ML CARP IV PRN; -NALOXONE HCL 0.4 MG/1 ML VIAL/CARP IV PRN; -ONDANSETRON INJ 2 MG/ML 2 ML VIAL IV PRN; -ONDANSETRON INJ 2 MG/ML 2 ML VIAL ONE; -PROMETHAZINE HCL INJ 12.5 MG in SODIUM CHLORIDE 0.9% 50ML 50 ML IV PRN; -PROPOFOL IV EMULSION 10 MG/ML 20 ML VIAL IV ONE; -THROMBIN FOR SOLN 20000 UNIT KIT ONE
--- NOTE | 2017-03-10 15:15 | ECHOCARDIOGRAM REPORT ---
*NOTICE TO RECEIVING LIBERTARIAN AGENCY This information is strictly Confidential and protected under [place] law. [place] law prohibits you from making any further disclosure of this information unless further disclosure is expressly permitted by the written consent of the person to whom it pertains or is authorized by law. A general authorization for the release of medical or other information is not sufficient for this purpose. Hospital accepts no responsibility if the information is made available to any other person, INCLUDING THE PATIENT. Interpretation Summary * Name: JEANETTE CROSS Study Date: 03/10/2017 01:12 PM BP: 115/53 mmHg * Patient Location: [facility] HR: 70 * : 1990 (M/d/yyyy) Gender: Female Height: 64 in * Age: 27 yrs Ethnicity: CA Weight: 145 lb * Ordering Physician: Pablo Banks * Referring Physician: Pablo Banks * Performed By: Jaylen Roger RCS * * BSA: 1.7 m2 * Normal biventricular systolic function. * Normal chamber dimensions. * Trace mitral and pulmonic regurgitation. * No significant valvular abnormalities. Procedure Details * A complete two-dimensional transthoracic echocardiogram was performed (2D, M-mode, Doppler and color flow Doppler). Left Ventricle * The left ventricle is normal in size. * There is normal left ventricular wall thickness. * Ejection Fraction = 55-60%. * Left ventricular systolic function is normal. * The left ventricular wall motion is normal. Right Ventricle * The right ventricle is normal in size and function. * There is normal right ventricular wall thickness. Atria * The left atrial size is normal. * Right atrial size is normal. * No ASD detected; PFO is not assessed. Mitral Valve * The mitral valve is normal. * There is no mitral valve stenosis. * There is trace mitral regurgitation. Tricuspid Valve * The tricuspid valve is normal. * There is no tricuspid stenosis. * No tricuspid regurgitation. Aortic Valve * The aortic valve is trileaflet. * The aortic valve opens well. * Aortic stenosis is absent. * No aortic regurgitation is present. Pulmonic Valve * The pulmonic valve is not well seen, but is grossly normal. * There is no pulmonic valvular stenosis. * Trace pulmonic valvular regurgitation. Great Vessels * The aortic root is normal size. Pericardium/Pleural * There is no pericardial effusion. Great Vessels * Normal inferior vena cava diameter and respiratory variation suggests normal central venous pressure. MMode 2D Measurements and Calculations IVSd 0.83 cm IVSs 1.2 cm LVIDd 5.2 cm LVIDs 3.2 cm LVPWd 0.74 cm LVPWs 1.6 cm IVS/LVPW 1.1 FS 39.3 % EDV(Teich) 130.8 ml ESV(Teich) 40.0 ml EF(Teich) 69.4 % EDV(cubed) 142.4 ml ESV(cubed) 31.8 ml EF(cubed) 77.7 % % IVS thick 48.8 % % LVPW thick 113.2 % LV mass(C)d 143.6 grams LV mass(C)dI 84.2 grams/m\S\2 LV mass(C)s 153.3 grams LV mass(C)sI 89.8 grams/m\S\2 SV(Teich) 90.8 ml SI(Teich) 53.2 ml/m\S\2 SV(cubed) 110.6 ml SI(cubed) 64.8 ml/m\S\2 Ao root diam 2.6 cm Ao root area 5.3 cm\S\2 LA dimension 3.3 cm LA/Ao 1.3 LVAd ap4 22.4 cm\S\2 LVLd ap4 7.5 cm EDV(MOD-sp4) 55.2 ml EDV(sp4-el) 56.5 ml LVAs ap4 13.1 cm\S\2 LVLs ap4 5.8 cm ESV(MOD-sp4) 26.9 ml ESV(sp4-el) 25.2 ml EF(MOD-sp4) 51.2 % EF(sp4-el) 55.3 % LVAd ap2 28.7 cm\S\2 LVLd ap2 7.8 cm EDV(MOD-sp2) 89.4 ml EDV(sp2-el) 89.8 ml LVAs ap2 16.4 cm\S\2 LVLs ap2 6.3 cm ESV(MOD-sp2) 35.8 ml ESV(sp2-el) 36.4 ml EF(MOD-sp2) 60.0 % EF(sp2-el) 59.5 % LVLd %diff 3.4 % EDV(MOD-bp) 70.8 ml LVLs %diff 7.7 % ESV(MOD-bp) 32.0 ml EF(MOD-bp) 54.8 % SV(MOD-sp4) 28.3 ml SI(MOD-sp4) 16.6 ml/m\S\2 SV(MOD-sp2) 53.6 ml SI(MOD-sp2) 31.4 ml/m\S\2 SV(MOD-bp) 38.8 ml SI(MOD-bp) 22.8 ml/m\S\2 SV(sp4-el) 31.3 ml SI(sp4-el) 18.3 ml/m\S\2 SV(sp2-el) 53.4 ml SI(sp2-el) 31.3 ml/m\S\2 Doppler Measurements and Calculations MV E max servando 79.0 cm/sec MV A max servando 37.3 cm/sec MV E/A 2.1 MV dec time 0.35 sec Ao V2 max 134.2 cm/sec Ao max PG 7.2 mmHg Ao max PG (full) 3.0 mmHg LV V1 max PG 4.2 mmHg LV V1 max 102.5 cm/sec
== END | disposition home or self-care (01) ==
LOC: C.CPL 12:36
PROVIDERS: ATTEND Internal Medicine Hematology
DX: Z01.818 Encounter for other preprocedural examination (principal); C50.411 Malignant neoplasm of upper-outer quadrant of right female breast; C77.3 Secondary and unspecified malignant neoplasm of axilla and upper limb lymph nodes

== ENCOUNTER → 2017-03-10 | Outpatient (CLI) | payer BC ==
[~2017-03-10] MED LIST changes: -CEFAZOLIN 2000 MG/60 ML D5W IV SCH; -LACTATED RINGER'S 1000ML 1,000 ML IV SCH; -LACTATED RINGER'S 1000ML 500 ML IV ONE
--- NOTE | 2017-03-10 16:06 | DIAGNOSTIC IMAGING REPORT ---
PET/CT CLINICAL HISTORY: Right breast cancer. TECHNIQUE: A PET/CT was performed from the skull base through the upper thighs following intravenous injection of 15.41 mCi of F 18 FDG IV. The injection was performed at 7:45 AM on March 10, 2017 and imaging began at 8:49 AM on March 10, 2017. Unenhanced CT was performed for attenuation correction purposes and anatomic localization. COMPARISON STUDY: Chest CT February 22, [address] of the abdomen and pelvis December 30, 2005. FINDINGS: Head and neck: Uptake within the pharynx is symmetric and likely physiologic. There is no cervical lymphadenopathy. Chest: A left subclavian [id number] is in place. Minimal soft tissue gas and mild FDG uptake is postprocedural. No pulmonary nodules are visualized. Note is made of multiple moderately enlarged FDG avid right axillary lymph nodes. An index right axillary lymph node shown on image 69 of 263 measures 2.3 x 1.5 cm and has an SUV max of 3.9. There is also a borderline enlarged 1 cm right retropectoral lymph node shown on image 62 with mild FDG uptake with an SUV max of 1.6. A dominant mass within the upper outer quadrant of the right breast is better depicted on prior ultrasound and mammogram. This measures approximately 2.7 x 2.2 cm. The SUV max for this mass is 5.3. There is also a 1.4 x 1.4 cm mass within the upper inner quadrant of the right breast with an SUV max of 3.7. There are several smaller FDG avid right breast masses consistent with multicentric breast cancer. Abdomen and Pelvis: No suspicious FDG uptake is identified within the abdomen or the pelvis. There is no abdominal or pelvic lymphadenopathy. An IUD is in place. Musculoskeletal: Note is made of a 1 cm lytic lesion within the left posterior aspect of the L3 vertebral body with moderate FDG uptake. The SUV max of this lesion is 5.3. There is also mild FDG uptake within the left transverse process of C7 with an SUV max of 1.8. A corresponding lesion is not currently identified on the CT. IMPRESSION: 1. Multiple FDG avid right breast masses, including a dominant upper outer quadrant mass. The findings reflect multicentric right breast cancer. 2. Multiple moderately enlarged FDG avid right axillary lymph nodes consistent with galileo spread of disease. In addition, borderline enlarged right retropectoral lymph node suspicious for galileo spread of disease. 3. 1 cm FDG avid lytic lesion within the L3 vertebral body which is suspicious for a skeletal metastasis. An acute Schmorl's node could appear similar but is considered less likely. An MRI of the lumbar spine could be obtained for further evaluation. 4. Mild FDG uptake within the left transverse process of C7 which may reflect an additional skeletal metastasis. Electronically signed by: Kris Aden M.D. 03/10/2017 4:05 PM Dictated Date/Time: 03/10/2017 9:37 AM
== END | disposition home or self-care (01) ==
LOC: C.PET 07:20
PROVIDERS: ATTEND Internal Medicine Hematology
DX: C50.411 Malignant neoplasm of upper-outer quadrant of right female breast (principal); C77.3 Secondary and unspecified malignant neoplasm of axilla and upper limb lymph nodes

== ENCOUNTER → 2017-03-14 | Outpatient (CLI) | payer BC ==
[~2017-03-14] MED LIST changes: +GADAVIST IV PRN
--- NOTE | 2017-03-14 11:55 | DIAGNOSTIC IMAGING REPORT ---
LUMBAR SPINE MRI WITH AND WITHOUT CONTRAST HISTORY: Breast carcinoma BREAST CA TECHNIQUE: Multiplanar multisequence MRI of the lumbar spine was performed both before and after the intravenous administration of contrast. COMPARISON: PET scan 03/10/2017 FINDINGS: For the purpose of the report the L5-S1 disc space will be located on axial image of . Focus of diminished signal on T1 images posterior margin of the L3 vertebral body. This measures 1.0 x 1.4 cm. And shows is contrast enhancement as well as increased signal on T2 images. No additional enhancing foci are appreciated. Possibility of a punctate 3 mm focus of postcontrast enhancement posterior aspect of the L2 vertebral body is considered. No enhancement of the spinal canal contents are present is done in the sagittal images. There is a focus of potential meningeal enhancement, however posterior to the T10-T11 level based exclusively on the sagittal images. L1-L2: No significant central canal or neural foraminal narrowing. Possible focus of slight postcontrast enhancement right posterior aspect of the vertebral body measuring no more than 3 mm. L2-L3: No significant central canal or neural foraminal narrowing. L3-L4: Enhancing focus in the posterior aspect of the vertebral body measuring 10 x 8 mm in cross-section. L4-L5: No significant central canal or neural foraminal narrowing. L5-S1: No significant central canal or neural foraminal narrowing. IMPRESSION: 1. No evidence for disc herniation or spinal stenosis. 2. Probable metastatic deposit right posterior aspect L3 vertebral body 3. Possible 3 mm metastatic deposit right posterior aspect L2. 4. Potential meningeal metastatic deposit left lateral aspect spinal canal T10-T11. MRI of the thoracic spine is suggested as follow-up. Electronically signed by: Geronimo Trevino M.D. 03/14/2017 11:54 AM Dictated Date/Time: 03/14/2017 11:35 AM
--- NOTE | 2017-03-14 11:57 | DIAGNOSTIC IMAGING REPORT ---
CERVICAL SPINE MRI WITH AND WITHOUT CONTRAST HISTORY: Breast cancer. Abnormal PET/CT. TECHNIQUE: Multiplanar multisequence MRI of the cervical spine was performed both before and after the use of intravenous contrast. COMPARISON STUDY: PET CT 03/10/2017. FINDINGS: There is a 1 cm T2 hyperintense, T1 hypointense enhancing lesion within the left C7 transverse process. This corresponds to the PET CT abnormality and is consistent with a metastatic focus. This is best seen on sagittal STIR sequence image 15. No additional lesions identified within the cervical spine. The cervical spinal cord is normal in course, caliber, and signal intensity. The visualized posterior fossa is unremarkable. No disc herniations. No significant central canal or neural foraminal narrowing. Prevertebral soft tissues and the C1-C2 interval are intact. IMPRESSION: A 1 cm T2 hyperintense, T1 hypointense enhancing lesion within the left C7 transverse process. This corresponds to the PET CT abnormality and is consistent with a metastatic focus. Electronically signed by: Rafal Vigil M.D. 03/14/2017 11:55 AM Dictated Date/Time: 03/14/2017 11:47 AM
== END | disposition home or self-care (01) ==
LOC: C.MRIBC 09:35
PROVIDERS: ATTEND Internal Medicine Hematology
DX: C50.411 Malignant neoplasm of upper-outer quadrant of right female breast (principal); C77.3 Secondary and unspecified malignant neoplasm of axilla and upper limb lymph nodes; M89.9 Disorder of bone, unspecified; R93.7 Abnormal findings on diagnostic imaging of other parts of musculoskeletal system

== ENCOUNTER → 2017-03-27 | Outpatient (CLI) | payer BC ==
--- NOTE | 2017-03-28 14:09 | DIAGNOSTIC IMAGING REPORT ---
MRI OF THE THORACIC SPINE WITH AND WITHOUT CONTRAST CLINICAL HISTORY: Metastatic breast cancer. COMPARISON STUDY: PET/CT March 10, 2017 and MRI of the lumbar spine March 14, 2017. TECHNIQUE: Utilizing a 1.5 Kenzie magnet, multiplanar, multi echo imaging of the thoracic spine was performed pre and postcontrast administration. Injection of 6.3 cc of Gadavist IV was uneventful. FINDINGS: Alignment of the thoracic spine is anatomic. Vertebral body heights are maintained. There is slight dilatation of the central canal of the thoracic spine. No intracanalicular mass or fluid collection is present. There is no abnormal intracanalicular enhancement within the thoracic canal. The finding on MRI the lumbar spine of March 14, 2017 likely reflected normal vessels. Paravertebral soft tissues are unremarkable. A 9 mm enhancing T2 hyperintense focus within the right pedicle of T10 reflects a metastatic lesion. There is also a 1 cm metastasis within the left transverse process of C7. No additional lesions are identified. IMPRESSION: 1. 1 cm enhancing lesion within the left transverse process of C7 and 9 mm enhancing lesion within the right pedicle of T10 consistent with skeletal metastases. 2. No abnormal intracanalicular enhancement. The possible meningeal enhancement shown on MRI of the lumbar spine likely reflected normal vessels. Electronically signed by: Kris Aden M.D. 03/28/2017 2:08 PM Dictated Date/Time: 03/27/2017 4:07 PM
== END | disposition home or self-care (01) ==
LOC: C.MRI 14:47
PROVIDERS: ATTEND Internal Medicine Hematology
DX: C50.411 Malignant neoplasm of upper-outer quadrant of right female breast (principal); C79.51 Secondary malignant neoplasm of bone; C77.3 Secondary and unspecified malignant neoplasm of axilla and upper limb lymph nodes

== ENCOUNTER 2017-04-18 18:26 | Inpatient (IN) | payer BC ==
[~2017-04-18] VITALS: Ht 152.4 cm; Wt 62.2 kg
[~2017-04-18 18:26] MED LIST changes: -GADAVIST IV PRN
[2017-04-18] MEDS ORDERED: SODIUM CHLORIDE 0.9% 1000ML 1,000 ML IV STA (18:43)
[2017-04-18] MEDS ORDERED: ACETAMINOPHEN 325 MG TAB PO STA (18:43)
[2017-04-18] MEDS ORDERED: SODIUM CHLORIDE 0.9% 1000ML 1,000 ML IV ONE (18:43)
--- NOTE | 2017-04-18 18:44 | EMERGENCY ROOM VISIT NOTE ---
History Report prepared by Antonio: Brett Jimenes Under the Supervision of: Dr. César Terrell M.D. First contact with patient: 18:31 Chief Complaint: FEVER Stated Complaint: FEVER, NO RELIEF W/TYLENOL, CHEMO PT History of Present Illness The patient is a 27 year old female who presents to the Emergency Room after developing a persistent fever at 0000 this morning, 18.5 hours ago. The patient is currently receiving Adriamycin and Cytoxan as chemotherapy treatments for breast cancer. She most recently received the Cytoxan treatments this past Friday, five days ago. The patient went in for a nurse visit today and was given IV fluids and oral clindamycin for her fever. She also had low blood pressure readings on this visit. She was informed that if her fever worsened/ persisted she should come into the Emergency Department. Her fever worsened to 102.0 degrees after her visit with the nurse. The patient also notes that she has been coughing for the past two weeks. She was on Augmentin for a sinus infection recently as well. She denies any headaches, or urinary irregularities. The patient is currently complaining of low back pain, but this has become baseline as her breast cancer metastasized to her lumbar spine. She denies any vomiting or diarrhea recently. She is not on any Bactrim prophylactically. 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 A total of 10 systems reviewed and were otherwise negative. Past Medical & Surgical Medical Problems: (1) Appendectomy (2) Complicated (3) FUO (fever of unknown origin) (4) Gestational [-induced] hypertension without significant proteinuria , third trimester (5) Scoliosis Old medical records were reviewed. Nurse's notes were reviewed and I agree with. Family History Cancer Diabetes mellitus Heart disease Hypertension Lung disease Social History Smoking Status: Never Smoker Alcohol Use: none Drug Use: none Marital Status: , in relationship Housing Status: lives with family Occupation Status: employed Current/Historical Medications Scheduled Multivit/Min/Iron/Fol Ac/Pren ( Vitamin), 1 TAB PO DAILY Scheduled PRN Hydrocodone/Acetaminophen 5MG/325MG ([place] 5MG/325MG), 1 TABLET PO Q4H PRN for Pain Ibuprofen (Motrin), 600 MG PO Q6H PRN for Pain Allergies Coded Allergies: No Known Allergies (Verified , 04/18/17) Physical Exam Vital Signs Date Time Temp Pulse Resp B/P (MAP) Pulse Ox O2 Delivery O2 Flow Rate FiO2 04/18/17 21:03 37.7 111 18 117/70 96 04/18/17 20:41 111 18 117/70 96 Room Air 04/18/17 18:27 37.7 133 16 109/75 99 Room Air Physical Exam General: Young female who has a frequent dry cough, NAD. HEENT: Normal cephalic atraumatic. Pupils are equal round and reactive to light. Extraocular movements are intact. Oropharynx is pink with moist mucous membranes. No swelling of the mouth lips or tongue. Neck: Supple with a midline trachea. No meningeal signs or stiffness, no JVD or bruits. No Stridor. Chest: There is a port present in the left chest. Clear to auscultation bilaterally. No wheezes or rhonchi. No increased work of breathing. Heart: Tachycardic rate and normal rhythm. Abdomen: Soft nontender, nondistended without rebound guarding or rigidity. Extremities: No cyanosis clubbing or edema. No calf tenderness or assymetry Spine/Back. Non tender to palpation. No CVA tenderness Skin: Good turgor without rashes. Neurologic exam: Cranial nerves two through 12 are intact. Motor and sensation are intact and symmetrical throughout. Medical Decision & Procedures ER Provider Diagnostic Interpretation: Radiology results as stated below per my review and radiologist interpretation: CHEST ONE VIEW PORTABLE HISTORY: Atypical CHEST PAIN COMPARISON: Chest 03/07/2017. FINDINGS: The lungs are clear. Cardiac silhouette is normal in size. No pleural effusions. No pneumothorax. Left subclavian Port-A-Cath terminates in the SVC. IMPRESSION: No acute process. Electronically signed by: Rafal Vigil M.D. 04/18/2017 8:42 PM Dictated Date/Time: 04/18/2017 8:41 PM Laboratory Results 04/18/17 18:57 Red Blood Count 3.14, Mean Corpuscular Volume 90.8, Mean Corpuscular Hemoglobin 29.9, Mean Corpuscular Hemoglobin Concent 33.0, Mean Platelet Volume 9.6 04/18/17 18:57 Test 04/18/17 18:57 04/18/17 19:05 04/18/17 21:00 White Blood Count 1.43 K/uL (4.8-10.8) Red Blood Count 3.14 M/uL (4.2-5.4) Hemoglobin 9.4 g/dL (12.0-16.0) Hematocrit 28.5 % (37-47) Mean Corpuscular Volume 90.8 fL (80-100) Mean Corpuscular Hemoglobin 29.9 pg (25-34) Mean Corpuscular Hemoglobin Concent 33.0 g/dl (32-36) Platelet Count 140 K/uL (130-400) Mean Platelet Volume 9.6 fL (7.4-10.4) RDW Standard Deviation 48.3 fL (36.4-46.3) RDW Coefficient of Variation 14.7 % (11.5-14.5) Neutrophils % (Manual) 86.1 % Lymphocytes % (Manual) 11.3 % Monocytes % (Manual) 0.9 % Metamyelocytes % 1.7 % Neutrophils # (Manual) 1.23 K/uL (1.4-6.5) Total Absolute Neutrophils 1.23 K/uL (1.4-6.5) Lymphocytes # (Manual) 0.16 K/uL (1.2-3.4) Total Absolute Lymphocytes 0.16 K/uL (1.2-3.4) Monocytes # (Manual) 0.01 K/uL (0.11-0.59) Metamyelocytes # 0.02 K/uL (0-0) Toxic Granulation 1+ Dohle Bodies 2+ Anion Gap 8.0 mmol/L (3-11) Est Creatinine Clear Calc Drug Dose 154.8 ml/min Estimated GFR () > 150.0 Estimated GFR (Non- 136.3 BUN/Creatinine Ratio 17.1 (10-20) Calcium Level 7.4 mg/dl (8.5-10.1) Total Bilirubin 0.7 mg/dl (0.2-1) Direct Bilirubin 0.1 mg/dl (0-0.2) Aspartate Amino Transf (AST/SGOT) 12 U/L (15-37) Alanine Aminotransferase (ALT/SGPT) 16 U/L (12-78) Alkaline Phosphatase 68 U/L (45-117) Total Protein 6.5 gm/dl (6.4-8.2) Albumin 3.1 gm/dl (3.4-5.0) Lipase 112 U/L (73-393) Human Chorionic Gonadotropin, Qual NEG (NEG) Bedside Lactic Acid Venous 0.68 mmol/L (0.90-1.70) Laboratory studies as stated above per my review. Medications Administered Medications (Trade) Dose Ordered Sig/Sami Route Start Time Stop Time Status Last Admin Dose Admin Sodium Chloride 1,000 ml @ 999 mls/hr Q1H1M STAT IV 04/18/17 18:43 04/18/17 19:43 DC 04/18/17 19:20 999 MLS/HR Sodium Chloride 1,000 ml @ 200 mls/hr Q5H ONCE IV 04/18/17 18:43 04/18/17 23:42 04/18/17 19:19 200 MLS/HR Acetaminophen (Tylenol Tab) 650 mg NOW STAT PO 04/18/17 18:43 04/18/17 18:47 DC 04/18/17 19:19 650 MG Cefepime HCl 1000 mg/Dextrose 111.3 ml @ 200 mls/hr NOW STAT IV 04/18/17 18:46 04/18/17 19:19 DC 04/18/17 19:19 200 MLS/HR Cefepime HCl 1000 mg/Dextrose 111.3 ml @ 200 mls/hr NOW STAT IV 04/18/17 20:00 04/18/17 20:33 DC 04/18/17 20:37 200 MLS/HR ED Course 1831: Past medical records reviewed. The patient was evaluated in room B5, and a complete history and physical examination were performed. 3: Ordered Tylenol 650 mg PO, Sodium Chloride 1000 mL @ 200 mL/hr IV, Sodium Chloride 1000 mL @ 999 mL/hr IV. 1845: Ordered Cefepime HCl 111.3 mL @ 200 mL/hr IV. 1908: I checked on the patient at this time. She was comfortable, her lactic is not elevated. Her port has been accessed successfully. 1954: I discussed the case with Dr. Field - Oncology at this time. She agrees to admission for the patient. She also agrees with Cefepime dosing and does not suggest adding any Vancomycin. 1999: Ordered Cefepime HCl 111.3 mL @ 200 mL/hr IV. 2002: I discussed the case with the patient's mother at this time. I informed her of the Dr. Field consult. 2044: I discussed the case with Dr. Andreia FLORES Hospitalist. He will evaluate the patient for further treatment. I reevaluated the patient at this time. Her BP is still stable at 117 systolic. Medical Decision Differential Diagnosis includes; Fever, Sepsis, pneumonia, dehydration, electrolyte or metabolic abnormality. This patient comes in as described above. She is currently being treated for breast cancer and is on chemotherapy. She does have an a port. She was in her doctor's office today with a fever and had hypotension with a systolic blood pressure in the 80s. She was given IV fluids and went home and spiked a temperature to 102. She is tachycardic here but normotensive initially her a port was accessed she was given a fluid bolus. Blood work was obtained including blood cultures. The also gave her cefepime 1 g IV. I looked at her labs from [facility] while we are waiting for repeat labs here her white count was 5.1 with 97% neutrophils. She was neutropenic however when I rechecked her blood work here her and see has dropped to 1200 which is still not neutropenic but heading in that direction. I did give her an additional gram of cefepime she did receive IV hydration in the ER she's been normotensive her lactic is not elevated chest x-ray does not show pneumonia she has no signal electrode or metabolic abnormality blood and urine cultures are pending. I did discuss case with Dr. Boudreaux, the oncologist, who agrees with admitting the patient for IV antibiotics and observation. I discussed the case with Dr. Kolb as well who saw the patient ER and will admit her. Medication Reconcilliation Current Medication List: was personally reviewed by me Blood Pressure Screening Patient's blood pressure: Normal blood pressure Consults Time Called: 1947 Consulting Physician: Dr. Field - Oncology Returned Call: 1954 I discussed the case with Dr. Emir Ye at this time. She agrees to admission for the patient. She also agrees with Cefepime dosing and does not suggest adding any Vancomycin. Additional Consults: Time Called: 2039 Consulted Physician: Dr. Andreia FLORES Hospitalist Returned Call: 2044 Additional Comments: I discussed the case with Dr. Andreia FLORES Hospitalist. He will evaluate the patient for further treatment. Impression Primary Impression: Sepsis Additional Impressions: Neutropenic fever Breast cancer Scribe Attestation The scribe's documentation has been prepared under my direction and personally reviewed by me in its entirety. I confirm that the note above accurately reflects all work, treatment, procedures, and medical decision making performed by me. Departure Information Dispostion Being Evaluated By Hospitalist Referrals RV. Marcum MD (PCP) Patient Instructions My [facility] Problem Qualifiers
[2017-04-18] MEDS ORDERED: CEFEPIME IV 1,000 MG in DEXTROSE 5% 100ML 100 ML IV STA ×2 (18:46→20:00)
[2017-04-18 19:13] LABS: HEMATOCRIT 28.5 % (37-47); MEAN CELL VOLUME 90.8 fL (80-100); MEAN CORPUSCULAR HEMOGLOBIN 29.9 pg (25-34); MEAN PLATELET VOLUME 9.6 fL (7.4-10.4); PLATELET COUNT 140 K/uL (130-400); RED BLOOD COUNT 3.14 M/uL (4.2-5.4); WHITE BLOOD COUNT 1.43 K/uL (4.8-10.8)
[2017-04-18 19:30] LABS: ALT/SGPT 16 U/L (12-78); AST/SGOT 12 U/L (15-37); BLOOD UREA NITROGEN 8 mg/dl (7-18); BUN/CREATININE RATIO 17.1 (10-20); CALCIUM 7.4 mg/dl (8.5-10.1); CARBON DIOXIDE 23 mmol/L (21-32); CHLORIDE 106 mmol/L (98-107); CREATININE 0.48 mg/dl (0.60-1.20); GLUCOSE 101 mg/dl (70-99); POTASSIUM 3.2 mmol/L (3.5-5.1); SODIUM 137 mmol/L (136-145)
[2017-04-18 19:33] LABS: ALKALINE PHOSPHATASE 68 U/L (45-117)
[2017-04-18 19:44] LABS: PREG INTERNAL NEGATIVE QC NEG CLEAR BACKGROUND; PREG INTERNAL POSITIVE QC POS CONTROL LINE
[2017-04-18 19:52] LABS: COMPLETE YES; DOHLE BODIES 2+; LYMPH ABS # 0.16 K/uL (1.2-3.4); LYMPHOCYTE % 11.3 %; META ABS # 0.02 K/uL (0-0); METAMYELOCYTE % 1.7 %; NEUTROPHILS % 86.1 %; TOXIC GRANULATION 1+
--- NOTE | 2017-04-18 20:43 | DIAGNOSTIC IMAGING REPORT ---
CHEST ONE VIEW PORTABLE HISTORY: Atypical CHEST PAIN COMPARISON: Chest 03/07/2017. FINDINGS: The lungs are clear. Cardiac silhouette is normal in size. No pleural effusions. No pneumothorax. Left subclavian Port-A-Cath terminates in the SVC. IMPRESSION: No acute process. Electronically signed by: Rafal Vigil M.D. 04/18/2017 8:42 PM Dictated Date/Time: 04/18/2017 8:41 PM
[2017-04-18] MEDS ORDERED: MAGNESIUM HYDROXIDE SUSP 30 ML UDC PO PRN (21:00)
[2017-04-18] MEDS ORDERED: ZOLPIDEM TARTRATE 5 MG TAB PO PRN (21:00)
[2017-04-18] MEDS ORDERED: ACETAMINOPHEN 325 MG TAB PO PRN (21:00)
[2017-04-18] MEDS ORDERED: ALUMINUM/MAGNESIUM/SIMETH (MAALOX MAX) 30 ML UDC PO PRN (21:00)
[2017-04-18] MEDS ORDERED: CEFEPIME IV 1,000 MG in DEXTROSE 5% 100ML 100 ML IV SCH (21:00)
[2017-04-18] MEDS ORDERED: POLYETHYLENE (MIRALAX) 17 GM PACK PO PRN (21:00)
[2017-04-18 21:10] LABS: URINE APPEARANCE CLEAR (CLEAR); URINE BILIRUBIN NEG (NEG); URINE COLOR YELLOW; URINE NITRITE NEG (NEG); URINE PH 8.5 (4.5-7.5); URINE SPECIFIC GRAVITY 1.006 (1.000-1.030); UROBILINOGEN NEG (NEG)
[2017-04-18 21:30] LABS: MANUAL MICROSCOPIC REQUIRED? NO; REVIEW REQ? NO
[2017-04-18 21:32] VITALS: BP 110/71; PULSE 102; TEMP 36.8; O2SAT 95
--- NOTE | 2017-04-18 21:40 | History and Physical ---
History & Physical Date & Time of Service: Apr 18, 2017 at 20:59 Chief Complaint: Fever, No Relief W/Tylenol, Chemo Pt Primary Care Physician: RV. Marcum MD History of Present Illness Source: patient 27 y/o F Hx metastatic breast CA - post 3rd cycle of chemo with with Adriamycin and Cytoxan. Pt was recently treated with Augmentin for a sinus infection and related cough. She completed her antibiotics four days ago. She developed nausea, vomiting and then fevers over the past 2 days. She also describes generalized aches and pains. Her cough has persisted. She does not have SOB, diarrhea or dysuria. She is neutropenic on initial labs. She may have been hypotensive when she visited her MD earlier in the day. Past Medical/Surgical History Medical Problems: 1) Metastatic breast CA - spinal mets 2) Scoliosis 3) -induced hypertension 4) Appendectomy Family History Cancer Diabetes mellitus Heart disease Hypertension Lung disease Social History Smoking Status: Never Smoker Drug Use: none Marital Status: , in relationship Housing status: lives with family Occupational Status: employed Immunizations History of Influenza Vaccine: No History of Tetanus Vaccine?: Unknown History of Pneumococcal: No History of Hepatitis B Vaccine: Unknown Multi-Drug Resistant Organisms History of MDRO: No Allergies Coded Allergies: No Known Allergies (Verified , 04/18/17) Home Medications Scheduled Multivit/Min/Iron/Fol Ac/Pren ( Vitamin), 1 TAB PO DAILY Scheduled PRN Hydrocodone/Acetaminophen 5MG/325MG ([place] 5MG/325MG), 1 TABLET PO Q4H PRN for Pain Ibuprofen (Motrin), 600 MG PO Q6H PRN for Pain Review of Systems Constitutional: + fever, + chills, + sweats, + problem reported (generalized aches/pains) Eyes: No worsening of vision, No eye pain ENT: No hearing loss, No unusual epistaxis, No nasal symptoms Respiratory: + cough, + sputum, No wheezing, No shortness of breath Cardiovascular: No chest pain, No orthopnea, No PND Abdomen: No pain, No nausea, No vomiting Musculoskeletal: No joint pain Genitourinary - Female: No dysuria, No urinary frequency Neurologic: No memory loss, No paralysis, No weakness Psychiatric: No depression symptoms Endocrine: No fatigue Hematologic / Lymphatic: No abnormal bleeding/bruising Integumentary: No rash Allergic / Immunologic: No environmental allergies Physical Exam Vital Signs Date Time Temp Pulse Resp B/P (MAP) Pulse Ox O2 Delivery O2 Flow Rate FiO2 04/18/17 18:27 37.7 133 16 109/75 99 Room Air General Appearance: WD/WN, no apparent distress Head: normocephalic Eyes: normal inspection, PERRL, EOMI ENT: normal ENT inspection, pharynx normal Neck: supple, no JVD Respiratory/Chest: chest non-tender, lungs clear, normal breath sounds, + pertinent finding (PORT in L chest - no induration) Cardiovascular: regular rate, rhythm, no edema, no gallop, no JVD Abdomen/GI: normal bowel sounds, non tender, soft Back: normal inspection, no CVA tenderness, no muscle spasm, normal range of motion Extremities/Musculoskelatal: normal inspection, no calf tenderness, normal capillary refill 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 as tested, no motor/sensory deficits, alert, oriented x 3 Skin: normal color, warm/dry, no rash Diagnostics Laboratory Results Results Past 24 Hours Test 04/18/17 18:57 04/18/17 19:05 Range/Units White Blood Count 1.43 4.8-10.8 K/uL Red Blood Count 3.14 4.2-5.4 M/uL Hemoglobin 9.4 12.0-16.0 g/dL Hematocrit 28.5 37-47 % Mean Corpuscular Volume 90.8 80-100 fL Mean Corpuscular Hemoglobin 29.9 25-34 pg Mean Corpuscular Hemoglobin Concent 33.0 32-36 g/dl Platelet Count 140 130-400 K/uL Mean Platelet Volume 9.6 7.4-10.4 fL RDW Standard Deviation 48.3 36.4-46.3 fL RDW Coefficient of Variation 14.7 11.5-14.5 % Neutrophils % (Manual) 86.1 % Lymphocytes % (Manual) 11.3 % Monocytes % (Manual) 0.9 % Metamyelocytes % 1.7 % Neutrophils # (Manual) 1.23 1.4-6.5 K/uL Total Absolute Neutrophils 1.23 1.4-6.5 K/uL Lymphocytes # (Manual) 0.16 1.2-3.4 K/uL Total Absolute Lymphocytes 0.16 1.2-3.4 K/uL Monocytes # (Manual) 0.01 0.11-0.59 K/uL Metamyelocytes # 0.02 0-0 K/uL Toxic Granulation 1+ Dohle Bodies 2+ Sodium Level 137 136-145 mmol/L Potassium Level 3.2 3.5-5.1 mmol/L Chloride Level 106 98-107 mmol/L Carbon Dioxide Level 23 21-32 mmol/L Anion Gap 8.0 3-11 mmol/L Blood Urea Nitrogen 8 7-18 mg/dl Creatinine 0.48 0.60-1.20 mg/dl Est Creatinine Clear Calc Drug Dose 154.8 ml/min Estimated GFR () > 150.0 Estimated GFR (Non- 136.3 BUN/Creatinine Ratio 17.1 10-20 Random Glucose 101 70-99 mg/dl Calcium Level 7.4 8.5-10.1 mg/dl Total Bilirubin 0.7 0.2-1 mg/dl Direct Bilirubin 0.1 0-0.2 mg/dl Aspartate Amino Transf (AST/SGOT) 12 15-37 U/L Alanine Aminotransferase (ALT/SGPT) 16 12-78 U/L Alkaline Phosphatase 68 45-117 U/L Total Protein 6.5 6.4-8.2 gm/dl Albumin 3.1 3.4-5.0 gm/dl Lipase 112 73-393 U/L Human Chorionic Gonadotropin, Qual NEG NEG Bedside Lactic Acid Venous 0.68 0.90-1.70 mmol/L Microbiology Results 04/18/17 Blood Culture, Received Pending 04/18/17 Blood Culture, Received Pending CXR normal Impression Assessment and Plan 27 y/o F Hx metastatic breast CA - post 3rd cycle of chemo with with Adriamycin and Cytoxan. Pt was recently treated with Augmentin for a sinus infection and related cough. She completed her antibiotics four days ago. She developed nausea, vomiting and then fevers over the past 2 days. She also describes generalized aches and pains. Her cough has persisted. She does not have SOB, diarrhea or dysuria. She is neutropenic on initial labs. She may have been hypotensive when she visited her MD earlier in the day. 1) FUO - potential sources include respiratory/sinus, GI and line-related. Pt started on Cefepime. She was treated with a course of Augmentin recently however, so we will add Vanc pending culture results. 2) CA - received Cytoxan 5 days ago - f/u as outpt 3) Neutropenia and anemia - we will trend her CBC and may need to consult H/O if progresses or persists 4) Hypokalemia - repleated Full code - Heparin prophylaxis Total time for this admit including review of labs, meds, EKG - discussion with pt and ER attending - 35 min Level of Care Med/Surg Resuscitation Status FULL RESUSCITATION VTE Prophylaxis VTE Risk Assessment Done? Y/N: Yes Risk Level: Moderate Given or contraindicated: Enoxaparin (Lovenox)SQ
[2017-04-18] MEDS ORDERED: POTASSIUM CHLORIDE 20 MEQ TABCR PO ONE (22:00)
[2017-04-18] MEDS ORDERED: MAGNESIUM SULFATE 1GM / D5W 1 GM in PREMIXED IN D5W 100 ML IV SCH (22:00)
[2017-04-18 22:09] VITALS: BP 110/71; PULSE 102; TEMP 36.8; O2SAT 95; BMI 24.4
[2017-04-18] MEDS: NSS + 20MEQ KCL 1000ML 1,000 ML IV SCH (22:14)
[2017-04-18 22:25] LABS: PARTIAL THROMBOPLASTIN RATIO 1.2
[2017-04-18] MEDS ORDERED: VANCOMYCIN INJ 1,600 MG in SODIUM CHLORIDE 0.9% 500ML 500 ML IV SCH (22:30)
[2017-04-18] MEDS ORDERED: VANCOMYCIN CONSULT ACTIVE PRN (22:30)
[2017-04-18] MEDS ORDERED: CEFEPIME CONSULT ACTIVE PRN ×2 (22:30)
--- NOTE | 2017-04-18 22:36 | Pharmacy Progress Note ---
Pharmacy Antibiotic Consult Date of Service: Apr 18, 2017. Pharmacy Dosing Scope Pharmacy is consulted to initiate VANCOMYCIN / CEFEPIME IV dosing therapy, order appropriate labs and adjust drug dose/frequency. Subjective The patient is a 27 year old female admitted on Apr 18, 2017 at 20:49. Objective Height (Feet): 5 Height (Inches): 4.00 Weight (Kilograms): 64.600 Lab Results (24hrs): Test 04/18/17 18:57 04/18/17 19:05 04/18/17 21:00 White Blood Count 1.43 K/uL (4.8-10.8) Red Blood Count 3.14 M/uL (4.2-5.4) Hemoglobin 9.4 g/dL (12.0-16.0) Hematocrit 28.5 % (37-47) Mean Corpuscular Volume 90.8 fL (80-100) Mean Corpuscular Hemoglobin 29.9 pg (25-34) Mean Corpuscular Hemoglobin Concent 33.0 g/dl (32-36) Platelet Count 140 K/uL (130-400) Mean Platelet Volume 9.6 fL (7.4-10.4) RDW Standard Deviation 48.3 fL (36.4-46.3) RDW Coefficient of Variation 14.7 % (11.5-14.5) Neutrophils % (Manual) 86.1 % Lymphocytes % (Manual) 11.3 % Monocytes % (Manual) 0.9 % Metamyelocytes % 1.7 % Neutrophils # (Manual) 1.23 K/uL (1.4-6.5) Total Absolute Neutrophils 1.23 K/uL (1.4-6.5) Lymphocytes # (Manual) 0.16 K/uL (1.2-3.4) Total Absolute Lymphocytes 0.16 K/uL (1.2-3.4) Monocytes # (Manual) 0.01 K/uL (0.11-0.59) Metamyelocytes # 0.02 K/uL (0-0) Toxic Granulation 1+ Dohle Bodies 2+ Prothrombin Time 11.0 SECONDS (9.0-12.0) Prothromb Time International Ratio 1.0 (0.9-1.1) Activated Partial Thromboplast Time 31.1 SECONDS (21.0-31.0) Partial Thromboplastin Ratio 1.2 Sodium Level 137 mmol/L (136-145) Potassium Level 3.2 mmol/L (3.5-5.1) Chloride Level 106 mmol/L (98-107) Carbon Dioxide Level 23 mmol/L (21-32) Anion Gap 8.0 mmol/L (3-11) Blood Urea Nitrogen 8 mg/dl (7-18) Creatinine 0.48 mg/dl (0.60-1.20) Est Creatinine Clear Calc Drug Dose 154.8 ml/min Estimated GFR () > 150.0 Estimated GFR (Non- 136.3 BUN/Creatinine Ratio 17.1 (10-20) Random Glucose 101 mg/dl (70-99) Calcium Level 7.4 mg/dl (8.5-10.1) Total Bilirubin 0.7 mg/dl (0.2-1) Direct Bilirubin 0.1 mg/dl (0-0.2) Aspartate Amino Transf (AST/SGOT) 12 U/L (15-37) Alanine Aminotransferase (ALT/SGPT) 16 U/L (12-78) Alkaline Phosphatase 68 U/L (45-117) Total Protein 6.5 gm/dl (6.4-8.2) Albumin 3.1 gm/dl (3.4-5.0) Lipase 112 U/L (73-393) Human Chorionic Gonadotropin, Qual NEG (NEG) Bedside Lactic Acid Venous 0.68 mmol/L (0.90-1.70) Urine Color YELLOW Urine Appearance CLEAR (CLEAR) Urine pH 8.5 (4.5-7.5) Urine Specific [place] 1.006 (1.000-1.030) Urine Protein NEG (NEG) Urine Glucose (UA) NEG (NEG) Urine Ketones NEG (NEG) Urine Occult Blood TRACE (NEG) Urine Nitrite NEG (NEG) Urine Bilirubin NEG (NEG) Urine Urobilinogen NEG (NEG) Urine Leukocyte Esterase NEG (NEG) Urine WBC (Auto) 0 /hpf (0-5) Urine RBC (Auto) 0-4 /hpf (0-4) Urine Hyaline Casts (Auto) 0 /lpf (0-5) Urine Epithelial Cells (Auto) 5-10 /lpf (0-5) Urine Bacteria (Auto) NEG (NEG) Micro Results: * 04/18/17 -- Blood Cx x 2 -- pending * 04/18/17 -- Urine Cx -- pending Assessment & Plan 27yo female with hx of metastatic breast cancer, ordered VANCOMYCIN / CEFEPIME for neutropenia/confirmed bacteremia. Renal function is good. VANCOMYCIN: * Loading dose: VANCOMYCIN 1600mg (~25mg/kg) IV X 1 dose then VANCOMYCIN 1000mg (~15mg/kg) IV every 8 hours. * Estimated Pk parameters: Vd ~0.7 L/kg Ke ~0.133 t 1/2 ~6 hours * Goal trough level estimate: between 15 - 20 mcg/mL. * Trough level has been ordered for: @ 0600. Pharmacy will continue to follow and will adjust dose/frequency as necessary. Thank you
[2017-04-18 23:41] VITALS: BP 108/72; PULSE 117; TEMP 36.6; O2SAT 100
[2017-04-19] VITALS (7 sets, daily range): BP systolic 97–121; BP diastolic 64–77; PULSE 95–122; TEMP 36.7–38.1; O2SAT 97–100
[2017-04-19] MEDS: ONDANSETRON INJ 2 MG/ML 2 ML VIAL IV PRN (01:12)
[2017-04-19] MEDS ORDERED: BENZONATATE 100MG CAP PO ONE (01:31)
[2017-04-19] MEDS ORDERED: HYDROCODONE/HOMATROPINE SYRUP 5MG/1.5MG 5ML UDP PO STA (01:31)
[2017-04-19] MEDS: NSS + 20MEQ KCL 1000ML 1,000 ML IV SCH (02:58)
[2017-04-19] MEDS: CEFEPIME IV 2000 MG in DEXTROSE 5% 100ML IV SCH ×3 (04:46→20:03)
[2017-04-19] MEDS: VANCOMYCIN INJ 1,000 MG in SODIUM CHLORIDE 0.9% 250ML 250 ML IV SCH ×3 (06:14→21:12)
[2017-04-19 07:04] LABS: BLOOD UREA NITROGEN 7 mg/dl (7-18); BUN/CREATININE RATIO 15.7 (10-20); CALCIUM 6.8 mg/dl (8.5-10.1); CARBON DIOXIDE 24 mmol/L (21-32); CHLORIDE 112 mmol/L (98-107); CREATININE 0.42 mg/dl (0.60-1.20); GLUCOSE 94 mg/dl (70-99); MAGNESIUM 2.5 mg/dl (1.8-2.4); POTASSIUM 4.3 mmol/L (3.5-5.1); SODIUM 140 mmol/L (136-145)
[2017-04-19 07:36] LABS: HEMATOCRIT 23.2 % (37-47); MEAN CELL VOLUME 91.7 fL (80-100); MEAN CORPUSCULAR HEMOGLOBIN 31.6 pg (25-34); MEAN CORPUSCULAR HGB CONC 34.5 g/dl (32-36); MEAN PLATELET VOLUME 9.8 fL (7.4-10.4); PLATELET COUNT 131 K/uL (130-400); RED BLOOD COUNT 2.53 M/uL (4.2-5.4); WHITE BLOOD COUNT 0.74 K/uL (4.8-10.8)
[2017-04-19 07:37] LABS: DOHLE BODIES 2+; GIANT PLATELETS 1+; TOXIC GRANULATION 2+
[2017-04-19 07:38] LABS: BASO ABS # 0.01 K/uL (0-0.2); BASOPHIL % 1.4 %; COMPLETE YES; LYMPH ABS # 0.24 K/uL (1.2-3.4); LYMPHOCYTE % 32.6 %; NEUTROPHILS % 65.3 %
[2017-04-19] MEDS: BENZONATATE 100MG CAP PO SCH ×3 (08:36→20:03)
[2017-04-19] MEDS: PRENATAL VITAMIN TAB PO SCH (08:36)
[2017-04-19] MEDS: ENOXAPARIN 40 MG/0.4 ML SYR SQ SCH (08:37)
[2017-04-19] MEDS: HYDROCODONE/ACETAMOPHEN 5/325MG TAB PO PRN ×3 (08:37→23:53)
--- NOTE | 2017-04-19 09:39 | Progress Note ---
Progress Note Date of Service Apr 19, 2017. Progress Note ID consult Dictated # [id number] A/P: 1. Neutropenic Fever -continue abx, follow cultures -check sputum culture as well with cough -Will follow, thank you
--- NOTE | 2017-04-19 10:18 | Family Medicine Progress Note ---
Progress Note Date of Service Apr 19, 2017. Subjective Pt evaluation today including: conversation w/ patient, physical exam, chart review, lab review, review of studies Pain: none PO Intake: good Voiding: no voiding problems Patient with cough that intermittently is productive of yellow/green sputum. No fevers, chills, nausea or vomiting overnight. Still having some muscle aches intermittent headaches, no photophobia, neck stiffness, confusion, dysuria, haematuria Abdominal pain, diarrhea, constipation No joint pain or rashes No pain around port site, no chest pain or palpitations Additional Comments: see note for ROS Medications Current Inpatient Medications Medications (Trade) Dose Ordered Sig/Sami Route Start Time Stop Time Status Last Admin Dose Admin Vancomycin HCl 1000 mg/Sodium Chloride 270 ml @ 125 mls/hr Q8H IV 04/19/17 06:00 05/03/17 05:59 04/19/17 06:14 125 MLS/HR Acetaminophen/ Hydrocodone Bitart ([place] 5/325 Tab) 1 tab Q4H PRN PO 04/18/17 20:45 05/02/17 20:44 04/19/17 08:37 1 TAB Ibuprofen (Motrin Tab) 600 mg Q6H PRN PO 04/18/17 20:45 05/18/17 20:44 Prenat Multivit/ [place]/Iron/Folic Ac ( Vitamin Tab) 1 tab DAILY PO 04/19/17 08:00 05/19/17 08:59 04/19/17 08:36 1 TAB Enoxaparin Sodium (Lovenox Inj) 40 mg Q24H SQ 04/19/17 09:00 05/19/17 08:59 04/19/17 08:37 40 MG Acetaminophen (Tylenol Tab) 650 mg Q4H PRN PO 04/18/17 21:00 05/18/17 20:59 Al Hydrox/Mg Hydrox/Simethicone (Maalox Max Susp) 15 ml Q4H PRN PO 04/18/17 21:00 05/18/17 20:59 Magnesium Hydroxide (Milk Of Magnesia Susp) 30 ml Q6H PRN PO 04/18/17 21:00 05/18/17 20:59 Polyethylene (Miralax Powder Packet) 17 gm DAILY PRN PO 04/18/17 21:00 05/18/17 20:59 Zolpidem Tartrate (Ambien Tab) 5 mg HSZ PRN PO 04/18/17 21:00 05/18/17 20:59 04/19/17 01:12 5 MG Ondansetron HCl (Zofran Inj) 4 mg Q6H PRN IV 04/18/17 21:00 05/18/17 20:59 04/19/17 01:12 4 MG Vancomycin HCl (Consult) 1 ea UD PRN N/A 04/18/17 22:30 05/18/17 22:29 Cefepime HCl 2000 mg/Dextrose 112.5 ml @ 225 mls/hr Q8H IV 04/19/17 04:00 05/03/17 03:59 04/19/17 04:46 225 MLS/HR Cefepime HCl (Consult) 1 ea UD PRN N/A 04/18/17 22:30 05/18/17 22:29 Heparin Sodium (Porcine) (Heparin 100 Unit/ml 5ml Flush) 5 ml PRN PRN IV 04/19/17 00:30 05/19/17 00:29 04/19/17 09:07 5 ML Benzonatate (Tessalon Perles Cap) 100 mg TID PO 04/19/17 08:00 05/19/17 07:59 04/19/17 08:36 100 MG Objective Vital Signs Date Time Temp Pulse Resp B/P (MAP) Pulse Ox O2 Delivery O2 Flow Rate FiO2 04/19/17 07:05 36.7 122 22 121/77 (92) 98 Room Air 04/19/17 00:30 Room Air 04/18/17 23:41 36.6 117 18 108/72 (84) 100 Room Air 04/18/17 22:09 36.8 102 20 110/71 95 Room Air 04/18/17 21:32 36.8 102 20 110/71 (84) 95 Room Air 04/18/17 21:03 37.7 111 18 117/70 96 04/18/17 20:41 111 18 117/70 96 Room Air 04/18/17 18:27 37.7 133 16 109/75 99 Room Air Physical Exam General Appearance: WD/WN, no apparent distress Eyes: normal inspection, EOMI ENT: + pharyngeal erythema Neck: supple, no adenopathy, no JVD, no carotid bruits, trachea midline Respiratory/Chest: lungs clear, no respiratory distress, no accessory muscle use Cardiovascular: regular rate, rhythm, no edema, no murmur Abdomen: normal bowel sounds, non tender, soft Extremities: non-tender, no pedal edema, no calf tenderness Neurologic/Psychiatric: alert, normal mood/affect, oriented x 3 Skin: normal color, warm/dry, no rash Laboratory Results Results Past 24 Hours Test 04/18/17 18:57 04/18/17 19:05 04/18/17 21:00 04/19/17 05:48 Range/Units White Blood Count 1.43 0.74 4.8-10.8 K/uL Red Blood Count 3.14 2.53 4.2-5.4 M/uL Hemoglobin 9.4 8.0 12.0-16.0 g/dL Hematocrit 28.5 23.2 37-47 % Mean Corpuscular Volume 90.8 91.7 80-100 fL Mean Corpuscular Hemoglobin 29.9 31.6 25-34 pg Mean Corpuscular Hemoglobin Concent 33.0 34.5 32-36 g/dl Platelet Count 140 131 130-400 K/uL Mean Platelet Volume 9.6 9.8 7.4-10.4 fL RDW Standard Deviation 48.3 49.7 36.4-46.3 fL RDW Coefficient of Variation 14.7 15.0 11.5-14.5 % Neutrophils % (Manual) 86.1 65.3 % Lymphocytes % (Manual) 11.3 32.6 % Monocytes % (Manual) 0.9 0.7 % Metamyelocytes % 1.7 % Neutrophils # (Manual) 1.23 0.48 1.4-6.5 K/uL Total Absolute Neutrophils 1.23 0.48 1.4-6.5 K/uL Lymphocytes # (Manual) 0.16 0.24 1.2-3.4 K/uL Total Absolute Lymphocytes 0.16 0.24 1.2-3.4 K/uL Monocytes # (Manual) 0.01 0.01 0.11-0.59 K/uL Metamyelocytes # 0.02 0-0 K/uL Toxic Granulation 1+ 2+ Dohle Bodies 2+ 2+ Prothrombin Time 11.0 9.0-12.0 SECONDS Prothromb Time International Ratio 1.0 0.9-1.1 Activated Partial Thromboplast Time 31.1 21.0-31.0 SECONDS Partial Thromboplastin Ratio 1.2 Sodium Level 137 140 136-145 mmol/L Potassium Level 3.2 4.3 3.5-5.1 mmol/L Chloride Level 106 112 98-107 mmol/L Carbon Dioxide Level 23 24 21-32 mmol/L Anion Gap 8.0 4.0 3-11 mmol/L Blood Urea Nitrogen 8 7 7-18 mg/dl Creatinine 0.48 0.42 0.60-1.20 mg/dl Est Creatinine Clear Calc Drug Dose 154.8 176.9 ml/min Estimated GFR () > 150.0 > 150.0 Estimated GFR (Non- 136.3 142.5 BUN/Creatinine Ratio 17.1 15.7 10-20 Random Glucose 101 94 70-99 mg/dl Calcium Level 7.4 6.8 8.5-10.1 mg/dl Total Bilirubin 0.7 0.2-1 mg/dl Direct Bilirubin 0.1 0-0.2 mg/dl Aspartate Amino Transf (AST/SGOT) 12 15-37 U/L Alanine Aminotransferase (ALT/SGPT) 16 12-78 U/L Alkaline Phosphatase 68 45-117 U/L Total Protein 6.5 6.4-8.2 gm/dl Albumin 3.1 3.4-5.0 gm/dl Lipase 112 73-393 U/L Human Chorionic Gonadotropin, Qual NEG NEG Bedside Lactic Acid Venous 0.68 0.90-1.70 mmol/L Urine Color YELLOW Urine Appearance CLEAR CLEAR Urine pH 8.5 4.5-7.5 Urine Specific [place] 1.006 1.000-1.030 Urine Protein NEG NEG Urine Glucose (UA) NEG NEG Urine Ketones NEG NEG Urine Occult Blood TRACE NEG Urine Nitrite NEG NEG Urine Bilirubin NEG NEG Urine Urobilinogen NEG NEG Urine Leukocyte Esterase NEG NEG Urine WBC (Auto) 0 0-5 /hpf Urine RBC (Auto) 0-4 0-4 /hpf Urine Hyaline Casts (Auto) 0 0-5 /lpf Urine Epithelial Cells (Auto) 5-10 0-5 /lpf Urine Bacteria (Auto) NEG NEG Basophils % (Manual) 1.4 % Basophils # (Manual) 0.01 0-0.2 K/uL Giant Platelets 1+ Ionized Calcium 1.00 1.12-1.32 mmol/l Magnesium Level 2.5 1.8-2.4 mg/dl Test 04/19/17 08:09 Range/Units 25-Hydroxy Vitamin D Total 26.9 30-100 ng/ml Microbiology Results 04/18/17 Blood Culture, Received Pending 04/18/17 Blood Culture, Received Pending 04/18/17 Urine Culture, Received Pending Assessment and Plan 27 y/o F Hx metastatic breast CA - post 3rd cycle of chemo with Adriamycin and Cytoxan. Patients last round of chemo was on Friday. Presented with persistent fever and was found to be neutropenic FUO - potential sources include respiratory/sinus, GI and line-related - on cefipime and vanc - blood cultures, urine cultures and sputum cultures pending - CXR normal and initial UA unremarkable - ID on board. Pt started on Cefepime - neutropenic precautions Metastatic Breast Cancer - received Cytoxan 6 days ago - f/u as outpt Neutropenia and anemia - we will trend her CBC - Hgb 8.0, WBC 0.7, ANC 0.48 Hypokalemia - repleated Low Vit D - will replete orally Full code - Heparin prophylaxis Resident Physician Supervision Note: I interviewed and examined the patient. Discussed with Dr. Rob and agree with findings and plan as documented in the note. Any exceptions or clarifications are listed here: None Documented By: Arias Zuniga feeling good. slight cough and sputum, low grade temp this afternoon but no true fever. explained treatment and rationale to pt who agrees vitals noted nad breathing unlabored no diaphoresis/pallor/icterus. neutropenic fever - subtle sx but with cough would have to favor respiratory source. continue treatment as above, continue to follow Continued [facility] stay due to: multiple IV medications needed
--- NOTE | 2017-04-19 10:26 | INFECT. DISEASE CONSULTATION ---
DATE OF CONSULTATION: 04/19/2017 DATE OF CONSULTATION: 04/19/2017 REQUESTING PHYSICIAN: Dr. Boswell. HISTORY OF PRESENT ILLNESS: This is a 27-year-old female who was admitted for neutropenic fever. She was recently diagnosed with metastatic breast cancer. She did have a port placed at the end of February to begin chemotherapy. She states she had just completed her third session. She does get Neulasta with each chemotherapy session but states she has not been neutropenic since she began treatment. She did have neutropenia on arrival and she also had a fever of 37.7 yesterday. She states that she has had a cough for the past 2-3 weeks which is intermittently productive. She was on Augmentin as an outpatient with little relief. Today she states she is feeling significantly better. She did have a chest x-ray in the Emergency Room, which was negative for infiltrate. She was started on vancomycin and cefepime. Blood and urine cultures are pending. Her urinalysis was unremarkable. Her white blood cell count today is only 0.7. She denies any cough on my exam today. She denies any shortness of breath, chest pain, pleuritic chest pain, wheezing or hemoptysis. She denies any nausea, vomiting, diarrhea or abdominal pain. She has no urinary complaints. She denies any recent scrapes or bruises. She denies any pain at the port site. She states it has been working well and she has not had any difficulty since it was placed at the end of February. All remaining review of systems were reviewed and are negative. PAST MEDICAL HISTORY: Significant for metastatic breast cancer to the spine, scoliosis, induced hypertension. PAST SURGICAL HISTORY: Significant for appendectomy. FAMILY HISTORY: Noncontributory. SOCIAL HISTORY: Negative for tobacco use, alcohol use or drug use. She lives with her family. She denies any recent sick contacts. ALLERGIES: She has no known drug allergies. CURRENT MEDICATIONS: Include Lovenox, vitamins, Tessalon Perles, vancomycin, cefepime, subQ heparin, Tylenol, Maalox, milk of magnesia, MiraLax, Ambien, Zofran, Percocet, Motrin. PHYSICAL EXAMINATION: VITAL SIGNS: Her T-max is 37.7. Her current temperature is 36.7, pulse is in the 120s, respiratory rate is 22, blood pressure is 121/77, oxygen saturation is 98-100% on room air. GENERAL: She is awake, alert and oriented x3. She is in no acute distress. HEAD, EYES, EARS, NOSE, AND THROAT: Mucous membranes are moist. Extraocular muscles are intact. HEART: Regular. There is no murmur. LUNGS: Clear bilaterally. ABDOMEN: Soft, nontender, nondistended. There is no lower extremity edema. SKIN: Without rash. Port site is clean, dry and intact. There is surrounding erythema, edema, induration, warmth or tenderness. LABORATORY STUDIES: CBC today reveals a white blood cell count of 0.74, hemoglobin 8 and platelets are 131. Chemistry panel reveals a sodium of 140, potassium 4.3, chloride 112, bicarbonate 24, BUN 7, creatinine 0.42. Glucose is 94. Vitamin D level is 26.9. test was negative in the Emergency Room. LFTs are within normal limits in the Emergency Room. A 04/18/2017 urinalysis is unremarkable. Blood and urine cultures are pending. Chest x-ray done in the Emergency Room shows no acute disease. ASSESSMENT AND PLAN: Neutropenic fever. At this time, she will be maintained on broad-spectrum antibiotics pending the results of blood and urine cultures. She does admit to some intermittent cough and a sputum culture should be collected as well. Thank you for this consultation.
[2017-04-19] MEDS ORDERED: COUGH DROP (SUGAR FREE) LOZ 24 LOZ/1 BOX ONE (12:24)
[2017-04-19] MEDS ORDERED: NURSING VERBAL MED ORDER ONE (13:30)
[2017-04-19] MEDS ORDERED: COUGH DROP (SUGAR FREE) LOZ 24 LOZ/1 BOX PO PRN (13:45)
[2017-04-19] MEDS: IBUPROFEN 600 MG TAB PO PRN (15:11)
[2017-04-20] VITALS (7 sets, daily range): BP systolic 98–114; BP diastolic 64–76; PULSE 87–101; TEMP 36.5–38; O2SAT 93–100; BMI 27.3
[2017-04-20] MEDS: IBUPROFEN 600 MG TAB PO PRN (02:16)
[2017-04-20] MEDS: CEFEPIME IV 2000 MG in DEXTROSE 5% 100ML IV SCH ×3 (03:30→20:26)
[2017-04-20] MEDS ORDERED: VANCOMYCIN TROUGH SCH (05:30)
[2017-04-20] MEDS: VANCOMYCIN INJ 1,000 MG in SODIUM CHLORIDE 0.9% 250ML 250 ML IV SCH (05:53)
[2017-04-20 07:03] LABS: HEMATOCRIT 26.1 % (37-47); MEAN CELL VOLUME 90.9 fL (80-100); MEAN PLATELET VOLUME 9.9 fL (7.4-10.4); PLATELET COUNT 149 K/uL (130-400); RED BLOOD COUNT 2.87 M/uL (4.2-5.4)
[2017-04-20 07:13] LABS: ALT/SGPT 16 U/L (12-78); AST/SGOT 14 U/L (15-37); BLOOD UREA NITROGEN 10 mg/dl (7-18); BUN/CREATININE RATIO 20.8 (10-20); CALCIUM 7.5 mg/dl (8.5-10.1); CARBON DIOXIDE 24 mmol/L (21-32); CHLORIDE 108 mmol/L (98-107); CREATININE 0.48 mg/dl (0.60-1.20); GLUCOSE 90 mg/dl (70-99); POTASSIUM 3.7 mmol/L (3.5-5.1); SODIUM 139 mmol/L (136-145)
[2017-04-20 07:15] LABS: ALB/GLOB RATIO 0.9 (0.9-2); ALKALINE PHOSPHATASE 51 U/L (45-117)
[2017-04-20 07:25] LABS: BASO ABS # 0.04 K/uL (0-0.2); COMPLETE YES; DOHLE BODIES 2+; LARGE PLATELETS 2+; LYMPH ABS # 0.36 K/uL (1.2-3.4); TOXIC GRANULATION 2+
[2017-04-20] MEDS: HYDROCODONE/ACETAMOPHEN 5/325MG TAB PO PRN ×3 (07:35→23:27)
[2017-04-20] MEDS: BENZONATATE 100MG CAP PO SCH ×3 (07:35→20:26)
[2017-04-20] MEDS: PRENATAL VITAMIN TAB PO SCH (07:35)
[2017-04-20] MEDS: ENOXAPARIN 40 MG/0.4 ML SYR SQ SCH (09:50)
--- NOTE | 2017-04-20 10:25 | Family Medicine Progress Note ---
Progress Note Date of Service Apr 20, 2017. Subjective Pt evaluation today including: conversation w/ patient, physical exam, chart review, lab review, conversation w/ php consultant, review of inpatient medication list Pain: pain under right breast when she coughs, also mild pain near port site Voiding: no voiding problems Patient with persistent cough with white sputum, pain with coughing underneath her right breast Vomited 3 times overnight in association with cough Jaspreet fever of 38 yesterday evening Has also started experiencing some pain on medial aspect of port site, but no erythema around port Constitutional: + fever, No chills Respiratory: + cough, + sputum, No wheezing, No shortness of breath, No hemoptysis Cardiovascular: + chest pain, No edema, No palpitations Abdomen: No pain, No nausea, No vomiting, No diarrhea Musculoskeletal: No joint pain, No muscle pain Female : No dysuria, No urinary frequency Skin: No rash, No itch, No new/changing skin lesions Medications Current Inpatient Medications Medications (Trade) Dose Ordered Sig/Sami Route Start Time Stop Time Status Last Admin Dose Admin Vancomycin HCl 1000 mg/Sodium Chloride 270 ml @ 125 mls/hr Q8H IV 04/19/17 06:00 05/03/17 05:59 04/20/17 05:53 125 MLS/HR Acetaminophen/ Hydrocodone Bitart ([place] 5/325 Tab) 1 tab Q4H PRN PO 04/18/17 20:45 05/02/17 20:44 04/20/17 07:35 1 TAB Ibuprofen (Motrin Tab) 600 mg Q6H PRN PO 04/18/17 20:45 05/18/17 20:44 04/20/17 02:16 600 MG Prenat Multivit/ Mandarin Chinese Teacher/Iron/Folic Ac ( Vitamin Tab) 1 tab DAILY PO 04/19/17 08:00 05/19/17 08:59 04/20/17 07:35 1 TAB Enoxaparin Sodium (Lovenox Inj) 40 mg Q24H SQ 04/19/17 09:00 05/19/17 08:59 04/20/17 09:50 40 MG Acetaminophen (Tylenol Tab) 650 mg Q4H PRN PO 04/18/17 21:00 05/18/17 20:59 Al Hydrox/Mg Hydrox/Simethicone (Maalox Max Susp) 15 ml Q4H PRN PO 04/18/17 21:00 05/18/17 20:59 Magnesium Hydroxide (Milk Of Magnesia Susp) 30 ml Q6H PRN PO 04/18/17 21:00 05/18/17 20:59 Polyethylene (Miralax Powder Packet) 17 gm DAILY PRN PO 04/18/17 21:00 05/18/17 20:59 Zolpidem Tartrate (Ambien Tab) 5 mg HSZ PRN PO 04/18/17 21:00 05/18/17 20:59 04/19/17 01:12 5 MG Ondansetron HCl (Zofran Inj) 4 mg Q6H PRN IV 04/18/17 21:00 05/18/17 20:59 04/19/17 01:12 4 MG Vancomycin HCl (Consult) 1 ea UD PRN N/A 04/18/17 22:30 05/18/17 22:29 Cefepime HCl 2000 mg/Dextrose 112.5 ml @ 225 mls/hr Q8H IV 04/19/17 04:00 05/03/17 03:59 04/20/17 03:30 225 MLS/HR Cefepime HCl (Consult) 1 ea UD PRN N/A 04/18/17 22:30 05/18/17 22:29 Heparin Sodium (Porcine) (Heparin 100 Unit/ml 5ml Flush) 5 ml PRN PRN IV 04/19/17 00:30 05/19/17 00:29 04/20/17 09:41 5 ML Benzonatate (Tessalon Perles Cap) 100 mg TID PO 04/19/17 08:00 05/19/17 07:59 04/20/17 07:35 100 MG Menthol (Nice Edgardo) 1 edgardo PRN PRN PO 04/19/17 13:45 05/19/17 13:44 Objective Vital Signs Date Time Temp Pulse Resp B/P (MAP) Pulse Ox O2 Delivery O2 Flow Rate FiO2 04/20/17 09:30 Room Air 04/20/17 07:29 36.5 87 16 105/67 (80) 98 04/20/17 03:30 36.7 93 16 107/66 (80) 94 Room Air 04/20/17 02:00 38.0 04/20/17 00:00 Room Air 04/19/17 23:22 37.0 97 18 111/72 (85) 100 Room Air 04/19/17 20:00 Room Air 04/19/17 19:45 36.7 95 18 97/64 (75) 97 Room Air 04/19/17 16:03 37.2 04/19/17 16:00 Room Air 04/19/17 15:34 38.1 98 18 108/69 (82) 97 Room Air 04/19/17 15:09 37.4 04/19/17 11:34 36.8 97 18 106/70 (82) 98 Room Air 04/19/17 10:16 Room Air Physical Exam General Appearance: WD/WN, no apparent distress ENT: hearing grossly normal, pharynx normal, + pharyngeal erythema Neck: no adenopathy, no JVD, no carotid bruits, trachea midline Respiratory/Chest: lungs clear, no respiratory distress, no accessory muscle use, + pertinent finding (chest tender just lateral to A-port, no erythema or warmth around port, patient also with mild pain to palpation along rib under rR breast) Cardiovascular: regular rate, rhythm, no JVD, no murmur Abdomen: normal bowel sounds, non tender, soft Extremities: no pedal edema, no calf tenderness, normal capillary refill Neurologic/Psychiatric: alert, normal mood/affect, oriented x 3 Skin: normal color, warm/dry, no rash Laboratory Results Results Past 24 Hours Test 04/20/17 05:50 Range/Units White Blood Count 0.50 4.8-10.8 K/uL Red Blood Count 2.87 4.2-5.4 M/uL Hemoglobin 8.6 12.0-16.0 g/dL Hematocrit 26.1 37-47 % Mean Corpuscular Volume 90.9 80-100 fL Mean Corpuscular Hemoglobin 30.0 25-34 pg Mean Corpuscular Hemoglobin Concent 33.0 32-36 g/dl Platelet Count 149 130-400 K/uL Mean Platelet Volume 9.9 7.4-10.4 fL Neutrophils (%) (Auto) 4.0 % Lymphocytes (%) (Auto) 72.0 % Monocytes (%) (Auto) 10.0 % Eosinophils (%) (Auto) 6.0 % Basophils (%) (Auto) 8.0 % Neutrophils # (Auto) 0.02 1.4-6.5 K/uL Lymphocytes # (Auto) 0.36 1.2-3.4 K/uL Monocytes # (Auto) 0.05 0.11-0.59 K/uL Eosinophils # (Auto) 0.03 0-0.5 K/uL Basophils # (Auto) 0.04 0-0.2 K/uL RDW Standard Deviation 49.1 36.4-46.3 fL RDW Coefficient of Variation 14.8 11.5-14.5 % Immature Granulocyte % (Auto) 0.0 % Immature Granulocyte # (Auto) 0.00 0.00-0.02 K/uL Toxic Granulation 2+ Dohle Bodies 2+ Large Platelets 2+ Sodium Level 139 136-145 mmol/L Potassium Level 3.7 3.5-5.1 mmol/L Chloride Level 108 98-107 mmol/L Carbon Dioxide Level 24 21-32 mmol/L Anion Gap 7.0 3-11 mmol/L Blood Urea Nitrogen 10 7-18 mg/dl Creatinine 0.48 0.60-1.20 mg/dl Est Creatinine Clear Calc Drug Dose 148.6 ml/min Estimated GFR () > 150.0 Estimated GFR (Non- 136.3 BUN/Creatinine Ratio 20.8 10-20 Random Glucose 90 70-99 mg/dl Calcium Level 7.5 8.5-10.1 mg/dl Total Bilirubin 0.5 0.2-1 mg/dl Aspartate Amino Transf (AST/SGOT) 14 15-37 U/L Alanine Aminotransferase (ALT/SGPT) 16 12-78 U/L Alkaline Phosphatase 51 45-117 U/L Total Protein 6.5 6.4-8.2 gm/dl Albumin 3.0 3.4-5.0 gm/dl Globulin 3.5 2.5-4.0 gm/dl Albumin/Globulin Ratio 0.9 0.9-2 Vancomycin Level Trough 6.0 SEE COMMENT mcg/ml Microbiology Results 04/20/17 Gram Stain, Received Pending 04/20/17 Sputum Culture, Received Pending Assessment and Plan 27 y/o F Hx metastatic breast CA - post 3rd cycle of chemo with Adriamycin and Cytoxan. Patients last round of chemo was on Friday. Presented with persistent fever and was found to be neutropenic Patient with persistence of cough with yellow sputum and pain with coughing under R breast, could either be pneumonia or mets from Breast Ca. Still unsure of source of infection wither could be Port site as patient has new symptoms near port site, pneumonia as patient has right sided chest pain with cough, could be endocarditis. FUO - potential sources Respiratory, line infection, heart, sinuses - on cefipime and vanc - blood cultures, and urine cultures negative to date and sputum cultures pending - CXR normal and initial UA unremarkable - ID on board. - neutropenic precautions - Repeat CT with no focal consolidations Metastatic Breast Cancer - received Cytoxan 6 days ago - f/u as outpt - phone her oncologist tomorrow to ask about dose of nupagen - Dr. Banks with [facility] is her oncologist Neutropenia and anemia - we will trend her CBC - Blood counts trending down (currently day 7 post chemo) Hypokalemia - repleated Low Vit D - will replete orally - 50,000 units per week for 8 weeks (first dose tomorrow) Full code - Heparin prophylaxis Resident Physician Supervision Note: I interviewed and examined the patient. Discussed with Dr. Rob and agree with findings and plan as documented in the note. Any exceptions or clarifications are listed here: None Documented By: Arias Zuniga feeling good except for cough. R sided CP w cough. had a fever last night otherwise feeling OK. vitals noted nad breathing unlabored no pallor or icterus, R middle lung field faint crackle, no r/w good effort. mildly tachycardic no r/m/g. ost/msk - R sided ribs ~4-5 exhaled/decreased ROM and somewhat TTP - muscle energy utilizing pec minor done x 3 w improvement, pt tolerated well neutropenic fever - seemed most c/w pneumonia - due to neg Xray and ?helping in determining course of abx coverage, CT chest obtained - clear. ?ENT vs viral given cough. continue empiric abx for now, follow cultures neutropenic worsening - seems in line w shweta for the chemo she was given. notes she got colony stimulating factor after treatment - will d/w heme/onc if repeated dosing would be of benefit. otherwise clinically appears improving chest pain/ rib somatic dysfunction - OMT as above Continued [facility] stay due to: multiple IV medications needed
--- NOTE | 2017-04-20 12:19 | Pharmacy Progress Note ---
Pharmacy Abx Dose Progress Nt Date of Service Apr 20, 2017. Pharmacy Dosing Scope The patient is currently receiving the following antimicrobial agents per Pharmacy consult: Vancomycin 1gm IV q8h (15mg/kg) Cefepime 2gm IV q8h Objective Height (Feet): 5 Height (Inches): 4.00 Weight (Kilograms): 63.100 Vital Signs (Past 12Hrs) Vital Signs Past 12 Hours Date Time Temp Pulse Resp B/P (MAP) Pulse Ox O2 Delivery O2 Flow Rate FiO2 04/20/17 11:54 36.7 91 16 98/64 (75) 100 Room Air 04/20/17 09:30 Room Air 04/20/17 07:29 36.5 87 16 105/67 (80) 98 04/20/17 03:30 36.7 93 16 107/66 (80) 94 Room Air 04/20/17 02:00 38.0 Lab Results (24Hrs) Laboratory Tests (24 Hours) Item Value Date Time Vancomycin Level Trough 6.0 mcg/ml 04/20/17 0550 Test 04/20/17 05:50 White Blood Count 0.50 K/uL (4.8-10.8) *L Red Blood Count 2.87 M/uL (4.2-5.4) L Hemoglobin 8.6 g/dL (12.0-16.0) L Hematocrit 26.1 % (37-47) L Mean Corpuscular Volume 90.9 fL (80-100) Mean Corpuscular Hemoglobin 30.0 pg (25-34) Mean Corpuscular Hemoglobin Concent 33.0 g/dl (32-36) Platelet Count 149 K/uL (130-400) Mean Platelet Volume 9.9 fL (7.4-10.4) Neutrophils (%) (Auto) 4.0 % Lymphocytes (%) (Auto) 72.0 % Monocytes (%) (Auto) 10.0 % Eosinophils (%) (Auto) 6.0 % Basophils (%) (Auto) 8.0 % Neutrophils # (Auto) 0.02 K/uL (1.4-6.5) *L Lymphocytes # (Auto) 0.36 K/uL (1.2-3.4) L Monocytes # (Auto) 0.05 K/uL (0.11-0.59) L Eosinophils # (Auto) 0.03 K/uL (0-0.5) Basophils # (Auto) 0.04 K/uL (0-0.2) Micro Results Date/Time Source Procedure Growth Status 04/18/17 19:05 Blood Blood Culture - Preliminary NO GROWTH TO DATE. Resulted 04/18/17 18:57 Blood Blood Culture - Preliminary NO GROWTH TO DATE. Resulted 04/20/17 07:35 Sputum Expectorated Sputum Gram Stain Pending Received 04/20/17 07:35 Sputum Expectorated Sputum Sputum Culture Pending Received 04/18/17 21:00 Urine , Clean Catch Urine Culture - Final NO GROWTH - LESS THAN 1,000 COLONIES/ML Complete Risk Factors for Resistance * Immunocompromised (chronic steroid therapy, chemotherapy, immunomodulators) * Antimicrobial use within the last 90 days (Augmentin prior to admission) Assessment & Plan Assessment 27 yo F with metastatic breast cancer admitted for neutropenic fever Day #3 of antimicrobial therapy Plan Vancomycin IV * Trough level of 6mcg/mL is: subtherapeutic * Change dose to: Vancomycin 1250mg IV q8h (~20mg/kg) * Goal trough level for neutropenic fever: 15-20mcg/mL * Trough level ordered for: 04/21/17 1400 dose * Increased dose rather than dosing interval due to both vanco/cefepime dosing at q8h & they are not compatible with each other Pharmacy will continue to follow and will adjust dose/frequency as necessary. Thank you.
[2017-04-20] MEDS: VANCOMYCIN INJ 1,250 MG in SODIUM CHLORIDE 0.9% 250ML 250 ML IV SCH ×2 (13:07→21:31)
--- NOTE | 2017-04-20 15:55 | DIAGNOSTIC IMAGING REPORT ---
CHEST CT WITHOUT INTRAVENOUS CONTRAST CT DOSE: 174.84 mGy.cm HISTORY: Persistent cough and atypical chest pain TECHNIQUE: Multiaxial CT images of the chest were performed without contrast. A dose lowering technique was utilized adhering to the principles of ALARA. COMPARISON: Chest CTA 02/22/2013. FINDINGS: The lungs are clear. The mediastinal vascular structures are within normal limits. No mediastinal or hilar lymphadenopathy. No pleural effusion or pneumothorax. Trace pericardial fluid. A 2.5 cm hypodense right adrenal gland nodule. This is consistent with a benign adenoma. Punctate density within the medial upper right breast which may represent a surgical clip or calcification. A few mildly enlarged right axillary lymph nodes comparison to the left. Dominant lymph node measures 1.6 x 1.2 cm. These have slightly increased in size. Limited views of the upper abdomen demonstrate a normal liver and spleen. No fractures. Left subclavian Port-A-Cath terminates in the distal SVC. Mild dextroscoliosis of the thoracic spine. IMPRESSION: 1. No focal lung consolidations to suggest pneumonia. 2. Trace pericardial fluid. 3. Mild right axillary lymphadenopathy. Please refer to the prior breast care center dedicated mammogram/ultrasound for further evaluation. Electronically signed by: Rafal Vigil M.D. 04/20/2017 3:54 PM Dictated Date/Time: 04/20/2017 3:42 PM
[2017-04-21 04:09] VITALS: BP 104/68; PULSE 92; TEMP 36.8; O2SAT 95
[2017-04-21] MEDS: CEFEPIME IV 2000 MG in DEXTROSE 5% 100ML IV SCH ×3 (04:13→20:56)
[2017-04-21] MEDS: VANCOMYCIN INJ 1,250 MG in SODIUM CHLORIDE 0.9% 250ML 250 ML IV SCH (06:01)
[2017-04-21 07:02] LABS: HEMATOCRIT 23.5 % (37-47); MEAN CELL VOLUME 89.7 fL (80-100); MEAN CORPUSCULAR HEMOGLOBIN 31.3 pg (25-34); MEAN CORPUSCULAR HGB CONC 34.9 g/dl (32-36); MEAN PLATELET VOLUME 10.4 fL (7.4-10.4); PLATELET COUNT 133 K/uL (130-400); RED BLOOD COUNT 2.62 M/uL (4.2-5.4)
[2017-04-21 07:04] VITALS: BP 102/63; PULSE 101; TEMP 36.6; O2SAT 97; BMI 27.5
[2017-04-21 07:09] LABS: CREATININE 0.32 mg/dl (0.60-1.20)
[2017-04-21 07:36] LABS: BASO ABS # 0.03 K/uL (0-0.2); BASOPHIL % 5.6 %; COMPLETE YES; EOSINOPHIL % 8.5 %; GIANT PLATELETS 3+; LYMPH ABS # 0.47 K/uL (1.2-3.4); LYMPHOCYTE % 78.9 %; META ABS # 0.01 K/uL (0-0); METAMYELOCYTE % 1.4 %; NEUTROPHILS % 1.4 %
[2017-04-21] MEDS: PRENATAL VITAMIN TAB PO SCH (08:01)
[2017-04-21] MEDS: BENZONATATE 100MG CAP PO SCH ×3 (08:02→20:53)
[2017-04-21] MEDS: ENOXAPARIN 40 MG/0.4 ML SYR SQ SCH (08:03)
[2017-04-21] MEDS: HYDROCODONE/ACETAMOPHEN 5/325MG TAB PO PRN (08:05)
[2017-04-21] MEDS ORDERED: ERGOCALCIFEROL 50,000 INTER.UNIT CAP PO SCH (09:00)
--- NOTE | 2017-04-21 11:06 | Progress Note ---
Subjective Date of Service: Apr 21, 2017. Subjective Pt evaluation today including: conversation w/ patient, physical exam, chart review, lab review pt still with intermittent fevers. tamx 37.9, having sweats with fever but denies rigors. still with cough, improving, did have episode of vomiting after coughing last night. ct chest negative. sputum culture obtained, pending. blood and urine culture negative. tolerating abx, remains on broad spectrum abx. counts remain low, wbc 0.6 today. has 5 y/o and 6month old at home. states all kids up to date with immunizations, 5 y/o recently had uti but otherwise no sick contacts. She states she is up to date with pertussis boosters and did have booster during recent . no hemopytsis. eating well. no abd pain, no diarrhea, no rash, no gu symptoms. remaining ros reviewed and are negative. Problem List Medical Problems: (1) Breast cancer Status: Acute (2) Neutropenic fever Status: Acute (3) Pneumonia Status: Acute (4) hemorrhage of vagina Status: Acute (5) Retained products of conception Status: Acute (6) Sepsis Status: Acute Objective Vital Signs Date Time Temp Pulse Resp B/P (MAP) Pulse Ox O2 Delivery O2 Flow Rate FiO2 04/21/17 09:00 Room Air 04/21/17 07:04 36.6 101 18 102/63 (76) 97 Room Air 04/21/17 04:09 36.8 92 18 104/68 (80) 95 Room Air 04/21/17 00:00 Room Air 04/20/17 23:46 37.3 92 18 112/76 (88) 93 Room Air 04/20/17 19:45 36.7 98 18 104/65 (78) 96 Room Air 04/20/17 15:56 Room Air 04/20/17 15:56 37.9 101 18 114/71 (85) 99 Room Air 04/20/17 11:54 36.7 91 16 98/64 (75) 100 Room Air Physical Exam General Appearance: WD/WN, no apparent distress Eyes: normal inspection, PERRL ENT: normal ENT inspection, pharynx normal Neck: supple, no adenopathy Respiratory/Chest: lungs clear, normal breath sounds, no respiratory distress Cardiovascular: regular rate, rhythm, no edema, no murmur, + tachycardia Abdomen: non tender, soft Extremities: non-tender, normal inspection, no pedal edema Neurologic/Psychiatric: alert, oriented x 3 Skin: normal color, warm/dry, no rash Comments: port c/d/i, no surrounding erythema, edema, induration, warmth, tenderness Laboratory Results Item Value Date Time Blood Culture - Preliminary Resulted 04/18/17 1857 Blood NO GROWTH TO DATE. Blood Culture - Preliminary Resulted 04/18/17 1905 Blood NO GROWTH TO DATE. Urine Culture - Final Complete 04/18/17 2100 Urine , Clean Catch NO GROWTH - LESS THAN 1,000 COLONIES/ML Gram Stain - Final Resulted 04/20/17 0735 Sputum Expectorated Sputum Last 24 Hours Test 04/21/17 05:43 White Blood Count 0.60 K/uL Red Blood Count 2.62 M/uL Hemoglobin 8.2 g/dL Hematocrit 23.5 % Mean Corpuscular Volume 89.7 fL Mean Corpuscular Hemoglobin 31.3 pg Mean Corpuscular Hemoglobin Concent 34.9 g/dl Platelet Count 133 K/uL Mean Platelet Volume 10.4 fL RDW Standard Deviation 47.9 fL RDW Coefficient of Variation 14.6 % Neutrophils % (Manual) 1.4 % Lymphocytes % (Manual) 78.9 % Monocytes % (Manual) 4.2 % Eosinophils % (Manual) 8.5 % Basophils % (Manual) 5.6 % Metamyelocytes % 1.4 % Neutrophils # (Manual) 0.01 K/uL Total Absolute Neutrophils 0.01 K/uL Lymphocytes # (Manual) 0.47 K/uL Total Absolute Lymphocytes 0.47 K/uL Monocytes # (Manual) 0.03 K/uL Eosinophils # (Manual) 0.05 K/uL Basophils # (Manual) 0.03 K/uL Metamyelocytes # 0.01 K/uL Giant Platelets 3+ Creatinine 0.32 mg/dl Est Creatinine Clear Calc Drug Dose 224.3 ml/min Estimated GFR () > 150.0 Estimated GFR (Non- > 150.0 Assessment and Plan (1) Neutropenic fever Assessment & Plan: continue abx for now, follow cultures. suggest heme onc eval , persistent neutropenia, ? g-csf. If she persists with fevers, would add fluconazole 400mg IV daily. will repeat blood cultures today. will also check legionella antigen and pertussis swab and ab although she states recent booster in Sep. will follow. Continued [facility] stay due to: multiple IV medications needed
[2017-04-21 11:55] VITALS: BP_SYST 95; BP_SYST 97; BP_DIAS 61; BP_DIAS 62; PULSE 74; TEMP 36.4; O2SAT 99
[2017-04-21] MEDS ORDERED: VANCOMYCIN TROUGH SCH (13:30)
--- NOTE | 2017-04-21 14:21 | DIAGNOSTIC IMAGING REPORT ---
BILATERAL LOWER EXTREMITY VENOUS DOPPLER HISTORY: Acute right-sided calf tenderness with history of breast cancer. COMPARISON STUDY: None. FINDINGS: There is normal compressibility, flow, and augmentation within the right lower extremity deep venous system. IMPRESSION: No DVT within the right lower extremity. Electronically signed by: Chace Sewell M.D. 04/21/2017 2:19 PM Dictated Date/Time: 04/21/2017 2:18 PM
--- NOTE | 2017-04-21 15:23 | Family Medicine Progress Note ---
Progress Note Date of Service Apr 21, 2017. Subjective Pt evaluation today including: conversation w/ patient, physical exam, chart review, lab review The patient was seen and examined at bedside. Pt is experiencing severe chills overnight and a new onset right calf pain. The calf pain has improved but is still present on calf flexion. Patient is resting comfortably in bed. Eating and urinating well. Still has cough. Tmax overnight was 37.3. Plan of care was described to the patient and all questions were answered. Constitutional: + fever, No chills, No sweats, No weight loss Respiratory: + cough, No sputum, No wheezing, No shortness of breath Cardiovascular: No chest pain Abdomen: No pain, No nausea, No vomiting, No diarrhea Musculoskeletal: + calf pain (right calf pain) Psychiatric: No depression symptoms Skin: No rash Objective Physical Exam General Appearance: WD/WN, no apparent distress Neck: supple, no adenopathy, thyroid normal, no JVD Respiratory/Chest: chest non-tender, lungs clear, normal breath sounds, no respiratory distress, no accessory muscle use Cardiovascular: regular rate, rhythm, no edema, no gallop, no JVD, no murmur Abdomen: normal bowel sounds, non tender, soft, no organomegaly, no pulsatile mass Extremities: normal range of motion, non-tender, normal inspection, + pertinent finding (no calf tenderness on exam bilaterally, right calf flexion produces pain in the distal right calf. ) Assessment and Plan 27F with a PMHx metastatic breast CA - post 3rd cycle of chemo with Adriamycin and Cytoxan. [facility] last round of chemo was on Friday. Presented with persistent fever and was found to be neutropenic. According to conversation with Dr. Boudreaux, she received a dose of GSF with her chemo and another Neupogen dose isn't indicated. Clinical symptoms including cough and night sweats persist. FUO - potential sources Respiratory, line infection, heart, sinuses. Leaning toward URI symptoms. - s/p cefipime and vanc (Vanco never reached therapeutic levels because it was being renally cleared too quickly). - Blood cultures, and urine cultures negative to date and sputum gram stain showed many yeast, sputum culture showed normal myron. - CXR normal and initial UA unremarkable. - ID (Dr. St) recommends broadening ABx coverage. Checking legionella antigen and pertussis swab and ab. - Continue neutropenic precautions. - Repeat CT with no focal consolidations. - Abx will be changed to Cefepime 2mg TID, Linezolid 600mg IV BID and Fluconasole 400mg BID IV. - Repeat Blood Cultures pending. Metastatic Breast Cancer - received Cytoxan 6 days ago - f/u as outpt - phone her oncologist tomorrow to ask about dose of nupagen - [id number] - Heme/onc on board. Neutropenia and anemia - we will trend her CBC - No Neupogen indicated at this time. - Consulted Heme/Onc with T[facility]. Hypokalemia - repleted, will monitor. Low Vit D - will replete orally - 50,000 units per week for 8 weeks (first dose tomorrow) Full code - Lovenox 40meq SQ Resident Physician Supervision Note: I interviewed and examined the patient. Discussed with Dr. Calles and agree with findings and plan as documented in the note. Any exceptions or clarifications are listed here: None Documented By: Arias Zuniga feeling ok only lower grade temp last night. no new sx. chest pain better, cough persists but improved. vitals noted nad breathing unlabored no pallor or icterus neutropenic fever - continue empiric abx pending culture results and further clinical developments. Dr Calles d/w [place] [facility] who did not feel colony stimulating factor would be of benefit. conitnue to follow. suspect WBC will start to trend up. continue supportive care Resident Involvement: Resident Care Provided Care Provided: Adult Hospital Medicine
[2017-04-21 15:34] VITALS: BP 102/58; PULSE 89; TEMP 36.5; O2SAT 100
[2017-04-21] MEDS: LINEZOLID 600MG / D5W IV SCH (16:00)
[2017-04-21] MEDS: FLUCONAZOLE 200MG / NSS IV SCH ×2 (17:50→19:26)
[2017-04-21 19:31] VITALS: BP 102/66; PULSE 106; TEMP 36.4; O2SAT 98
--- NOTE | 2017-04-21 20:02 | Medical Consult ---
Consultation Date of Consultation: Apr 21, 2017. Attending Physician: Arias Zuniga D.O. Reason for Consultation: Neutropenia in the setting of neoadjuvant chemotherapy for Stage IV breast cancer History of Present Illness Mrs. Gramajo is a 27 yo CF well known to [facility]. She has infiltrating ductal carcinoma, ER positive, IA negative, Her2/Sola-- negative , she was at least T2 N1 M0, stage IIB AT DIAGNOSIS. Then in staging evaluation , she had suspicious lesions in cervical, thoracic and lumbar spine. In March 2017, she had biopsy of L3 which was positive for breast primary. She still requires definitive breast surgery, so her primary medical oncologist, Dr. Banks , recommended to proceed with dose dense Adriamycin/Cytoxan with Neulasta support. Her 3rd cycle was 04/14/17. She will also have neoadjuvant Taxol subsequent to AC. She started on Zometa last week for bone metastasis. While at her appt for Zometa, she discussed with nursing that she was having fever. The covering medical oncologist wrote patient a Rx for Cipro; CBCD was negative for neutropenia in office. She also received 1 L NSS for mild dehydration. However, later on 04/18/17 she reported to [facility]. Current admission: 2 days prior to admission she was having nausea, vomiting and fever. She had generalized malaise and myalgia. She was treated for sinusitis with Augmentin prior to starting her 3rd cycle of chemotherapy; at the time her symptoms were almost resolved and she had no fever. On workup, she was noted to be neutropenic and was admitted for febrile neutropenia. She was started on vancomycin and cefepime. She has had pancultures; blood culture x2 to date negative. Her respiratory culture an urinary cultures were negative. ID has been consulted. Recommendations today include if fever persists since had on fluconazole. Question need for further G CSF. Additional history obtained from the patient at bedside. She continues to have a cough productive of green phlegm. She denies dyspnea. She does have some right-sided chest pain with cough. She does not have a headache currently. She has rhinorrhea and sore throat. She tends to have fever at night; she has had low-grade the last few nights of around 100 Fahrenheit. She also has of us is a vomiting when she has fever. She does not have significant nausea or bowel issues. She has no bleeding from any sites. She denies dysuria or urinary frequency. She did have right calf pain today, mainly with ambulation. Doppler obtained today of the right lower extremity was negative. Past Medical/Surgical History Medical Problems: (1) Breast cancer Status: Acute (2) Neutropenic fever Status: Acute (3) Pneumonia Status: Acute (4) hemorrhage of vagina Status: Acute (5) Retained products of conception Status: Acute (6) Sepsis Status: Acute Family History Cancer Diabetes mellitus Heart disease Hypertension Lung disease Social History Smoking Status: Never Smoker Drug Use: none Marital Status: , in relationship Housing Status: lives with family Occupation Status: employed Allergies Coded Allergies: No Known Allergies (Verified , 04/18/17) Current Inpatient Medications Current Inpatient Medications Medications (Trade) Dose Ordered Sig/Sami Route Start Time Stop Time Status Last Admin Dose Admin Acetaminophen/ Hydrocodone Bitart ([place] 5/325 Tab) 1 tab Q4H PRN PO 04/18/17 20:45 05/02/17 20:44 04/21/17 08:05 1 TAB Ibuprofen (Motrin Tab) 600 mg Q6H PRN PO 04/18/17 20:45 05/18/17 20:44 04/20/17 02:16 600 MG Prenat Multivit/ Streeter/Iron/Folic Ac ( Vitamin Tab) 1 tab DAILY PO 04/19/17 08:00 05/19/17 08:59 04/21/17 08:01 1 TAB Enoxaparin Sodium (Lovenox Inj) 40 mg Q24H SQ 04/19/17 09:00 05/19/17 08:59 04/21/17 08:03 40 MG Acetaminophen (Tylenol Tab) 650 mg Q4H PRN PO 04/18/17 21:00 05/18/17 20:59 Al Hydrox/Mg Hydrox/Simethicone (Maalox Max Susp) 15 ml Q4H PRN PO 04/18/17 21:00 05/18/17 20:59 Magnesium Hydroxide (Milk Of Magnesia Susp) 30 ml Q6H PRN PO 04/18/17 21:00 05/18/17 20:59 Polyethylene (Miralax Powder Packet) 17 gm DAILY PRN PO 04/18/17 21:00 05/18/17 20:59 Zolpidem Tartrate (Ambien Tab) 5 mg HSZ PRN PO 04/18/17 21:00 05/18/17 20:59 04/19/17 01:12 5 MG Ondansetron HCl (Zofran Inj) 4 mg Q6H PRN IV 04/18/17 21:00 05/18/17 20:59 04/19/17 01:12 4 MG Cefepime HCl 2000 mg/Dextrose 112.5 ml @ 225 mls/hr Q8H IV 04/19/17 04:00 05/03/17 03:59 04/21/17 12:37 225 MLS/HR Cefepime HCl (Consult) 1 ea UD PRN N/A 04/18/17 22:30 05/18/17 22:29 Heparin Sodium (Porcine) (Heparin 100 Unit/ml 5ml Flush) 5 ml PRN PRN IV 04/19/17 00:30 05/19/17 00:29 04/21/17 11:56 5 ML Benzonatate (Tessalon Perles Cap) 100 mg TID PO 04/19/17 08:00 05/19/17 07:59 04/21/17 14:40 100 MG Menthol (Nice Edgardo) 1 edgardo PRN PRN PO 04/19/17 13:45 05/19/17 13:44 Ergocalciferol (Vitamin D Cap) 50,000 interunit Mo@0900 PO 04/21/17 09:00 05/21/17 08:59 04/21/17 08:02 50,000 INTERUNIT Linezolid 600 mg/ Prmx 300 ml @ 200 mls/hr Q12H IV 04/21/17 16:00 04/28/17 15:59 04/21/17 16:00 200 MLS/HR Fluconazole/ Sodium Chloride 200 mg/Prmx 100 ml @ 100 mls/hr DAILY@1800,1900 IV 04/21/17 18:00 04/28/17 17:59 04/21/17 19:26 100 MLS/HR Review of Systems Constitutional: + fever, + chills ENT: + nasal symptoms, + sore throat Respiratory: + cough, + sputum, No shortness of breath Cardiovascular: + edema (RLE) Abdomen: + vomiting, No pain, No nausea, No diarrhea, No constipation, No GI bleeding Musculoskeletal: + calf pain (RLE) Genitourinary - Female: No dysuria, No urinary frequency, No hematuria Integumentary: No rash, No itch Physical Exam Date Time Temp Pulse Resp B/P (MAP) Pulse Ox O2 Delivery O2 Flow Rate FiO2 04/21/17 16:00 Room Air 04/21/17 15:34 36.5 89 18 102/58 (73) 100 Room Air 04/21/17 11:55 36.4 74 20 95/62 (73) 99 Room Air 97/61 (73) 04/21/17 09:00 Room Air 04/21/17 07:04 36.6 101 18 102/63 (76) 97 Room Air 04/21/17 04:09 36.8 92 18 104/68 (80) 95 Room Air 04/21/17 00:00 Room Air 04/20/17 23:46 37.3 92 18 112/76 (88) 93 Room Air 04/20/17 19:45 36.7 98 18 104/65 (78) 96 Room Air General Appearance: WD/WN, no apparent distress ENT: hearing grossly normal Neck: supple, no adenopathy Respiratory/Chest: lungs clear, normal breath sounds, no respiratory distress, no accessory muscle use Cardiovascular: regular rate, rhythm Abdomen/GI: normal bowel sounds, non tender, soft Extremities/Musculoskelatal: no calf tenderness, + pertinent finding (RLE >LLE) Neurologic/Psych: alert, normal mood/affect, oriented x 3 Skin: warm/dry, no rash Laboratory Results 04/19/17 05:48 Red Blood Count 2.53, Mean Corpuscular Volume 91.7, Mean Corpuscular Hemoglobin 31.6, Mean Corpuscular Hemoglobin Concent 34.5, Mean Platelet Volume 9.8 04/20/17 05:50 Red Blood Count 2.87, Mean Corpuscular Volume 90.9, Mean Corpuscular Hemoglobin 30.0, Mean Corpuscular Hemoglobin Concent 33.0, Mean Platelet Volume 9.9, Neutrophils (%) (Auto) 4.0, Lymphocytes (%) (Auto) 72.0, Monocytes (%) (Auto) 10.0, Eosinophils (%) (Auto) 6.0, Basophils (%) (Auto) 8.0, Neutrophils # (Auto ) 0.02, Lymphocytes # (Auto) 0.36, Monocytes # (Auto) 0.05, Eosinophils # (Auto ) 0.03, Basophils # (Auto) 0.04 04/21/17 05:43 Red Blood Count 2.62, Mean Corpuscular Volume 89.7, Mean Corpuscular Hemoglobin 31.3, Mean Corpuscular Hemoglobin Concent 34.9, Mean Platelet Volume 10.4 04/19/17 05:48 04/20/17 05:50 04/21/17 05:43 Test 04/18/17 21:00 04/19/17 05:48 04/19/17 08:09 04/20/17 05:50 Urine Color YELLOW Urine Appearance CLEAR (CLEAR) Urine pH 8.5 (4.5-7.5) Urine Specific [place] 1.006 (1.000-1.030) Urine Protein NEG (NEG) Urine Glucose (UA) NEG (NEG) Urine Ketones NEG (NEG) Urine Occult Blood TRACE (NEG) Urine Nitrite NEG (NEG) Urine Bilirubin NEG (NEG) Urine Urobilinogen NEG (NEG) Urine Leukocyte Esterase NEG (NEG) Urine WBC (Auto) 0 /hpf (0-5) Urine RBC (Auto) 0-4 /hpf (0-4) Urine Hyaline Casts (Auto) 0 /lpf (0-5) Urine Epithelial Cells (Auto) 5-10 /lpf (0-5) Urine Bacteria (Auto) NEG (NEG) White Blood Count 0.74 K/uL (4.8-10.8) 0.50 K/uL (4.8-10.8) Red Blood Count 2.53 M/uL (4.2-5.4) 2.87 M/uL (4.2-5.4) Hemoglobin 8.0 g/dL (12.0-16.0) 8.6 g/dL (12.0-16.0) Hematocrit 23.2 % (37-47) 26.1 % (37-47) Mean Corpuscular Volume 91.7 fL (80-100) 90.9 fL (80-100) Mean Corpuscular Hemoglobin 31.6 pg (25-34) 30.0 pg (25-34) Mean Corpuscular Hemoglobin Concent 34.5 g/dl (32-36) 33.0 g/dl (32-36) Platelet Count 131 K/uL (130-400) 149 K/uL (130-400) Mean Platelet Volume 9.8 fL (7.4-10.4) 9.9 fL (7.4-10.4) RDW Standard Deviation 49.7 fL (36.4-46.3) 49.1 fL (36.4-46.3) RDW Coefficient of Variation 15.0 % (11.5-14.5) 14.8 % (11.5-14.5) Neutrophils % (Manual) 65.3 % Lymphocytes % (Manual) 32.6 % Monocytes % (Manual) 0.7 % Basophils % (Manual) 1.4 % Neutrophils # (Manual) 0.48 K/uL (1.4-6.5) Total Absolute Neutrophils 0.48 K/uL (1.4-6.5) Lymphocytes # (Manual) 0.24 K/uL (1.2-3.4) Total Absolute Lymphocytes 0.24 K/uL (1.2-3.4) Monocytes # (Manual) 0.01 K/uL (0.11-0.59) Basophils # (Manual) 0.01 K/uL (0-0.2) Toxic Granulation 2+ 2+ Dohle Bodies 2+ 2+ Giant Platelets 1+ Anion Gap 4.0 mmol/L (3-11) 7.0 mmol/L (3-11) Est Creatinine Clear Calc Drug Dose 176.9 ml/min 148.6 ml/min Estimated GFR () > 150.0 > 150.0 Estimated GFR (Non- 142.5 136.3 BUN/Creatinine Ratio 15.7 (10-20) 20.8 (10-20) Calcium Level 6.8 mg/dl (8.5-10.1) 7.5 mg/dl (8.5-10.1) Ionized Calcium 1.00 mmol/l (1.12-1.32) Magnesium Level 2.5 mg/dl (1.8-2.4) 25-Hydroxy Vitamin D Total 26.9 ng/ml (30-100) Neutrophils (%) (Auto) 4.0 % Lymphocytes (%) (Auto) 72.0 % Monocytes (%) (Auto) 10.0 % Eosinophils (%) (Auto) 6.0 % Basophils (%) (Auto) 8.0 % Neutrophils # (Auto) 0.02 K/uL (1.4-6.5) Lymphocytes # (Auto) 0.36 K/uL (1.2-3.4) Monocytes # (Auto) 0.05 K/uL (0.11-0.59) Eosinophils # (Auto) 0.03 K/uL (0-0.5) Basophils # (Auto) 0.04 K/uL (0-0.2) Immature Granulocyte % (Auto) 0.0 % Immature Granulocyte # (Auto) 0.00 K/uL (0.00-0.02) Large Platelets 2+ Total Bilirubin 0.5 mg/dl (0.2-1) Aspartate Amino Transf (AST/SGOT) 14 U/L (15-37) Alanine Aminotransferase (ALT/SGPT) 16 U/L (12-78) Alkaline Phosphatase 51 U/L (45-117) Total Protein 6.5 gm/dl (6.4-8.2) Albumin 3.0 gm/dl (3.4-5.0) Globulin 3.5 gm/dl (2.5-4.0) Albumin/Globulin Ratio 0.9 (0.9-2) Vancomycin Level Trough 6.0 mcg/ml (SEE COMMENT) Test 04/21/17 05:43 04/21/17 12:55 04/21/17 15:03 04/21/17 15:10 White Blood Count 0.60 K/uL (4.8-10.8) Red Blood Count 2.62 M/uL (4.2-5.4) Hemoglobin 8.2 g/dL (12.0-16.0) Hematocrit 23.5 % (37-47) Mean Corpuscular Volume 89.7 fL (80-100) Mean Corpuscular Hemoglobin 31.3 pg (25-34) Mean Corpuscular Hemoglobin Concent 34.9 g/dl (32-36) Platelet Count 133 K/uL (130-400) Mean Platelet Volume 10.4 fL (7.4-10.4) RDW Standard Deviation 47.9 fL (36.4-46.3) RDW Coefficient of Variation 14.6 % (11.5-14.5) Neutrophils % (Manual) 1.4 % Lymphocytes % (Manual) 78.9 % Monocytes % (Manual) 4.2 % Eosinophils % (Manual) 8.5 % Basophils % (Manual) 5.6 % Metamyelocytes % 1.4 % Neutrophils # (Manual) 0.01 K/uL (1.4-6.5) Total Absolute Neutrophils 0.01 K/uL (1.4-6.5) Lymphocytes # (Manual) 0.47 K/uL (1.2-3.4) Total Absolute Lymphocytes 0.47 K/uL (1.2-3.4) Monocytes # (Manual) 0.03 K/uL (0.11-0.59) Eosinophils # (Manual) 0.05 K/uL (0-0.5) Basophils # (Manual) 0.03 K/uL (0-0.2) Metamyelocytes # 0.01 K/uL (0-0) Giant Platelets 3+ Est Creatinine Clear Calc Drug Dose 224.3 ml/min Estimated GFR () > 150.0 Estimated GFR (Non- > 150.0 Vancomycin Level Trough 7.0 mcg/ml (SEE COMMENT) Date/Time Source Procedure Growth Status 04/18/17 21:00 Urine , Clean Catch Urine Culture - Final NO GROWTH - LESS THAN 1,000 COLONIES/ML Complete CT chest from 04/20/17: No focal lung consolidations to suggest pneumonia. 2. Trace pericardial fluid. 3. Mild right axillary lymphadenopathy. RLE Doppler from 04/21/17: No DVT within the right lower extremity. Assessment & Plan 1. Febrile neutropenia secondary to chemotherapy, last Adriamycin/Cytoxan on * Patient received Neulasta on 04/15/17 * Will not require further G CSF as Neulasta to last for about 14 days * Pancultures are negative * ANC expected to increase in the next few days * Repeat blood culture x 2 today, bordetella studies and Legionella testing pending per ID * Per ID, to add on fluconazole is fever persists * Continue broad spectrum antibiotics per ID (linezolid, cefepime) * Strict neutropenia precautions * Check CBCD daily * Noninfectious cause less likely (CT chest on 04/20/17, limited for identification of PE because without contrast) 2. Stage IV hormonal positive, Her 2 negative breast cancer with bone metastasis * On neoadjuvant Adriamycin/Cytoxan with supportive Neulasta (to be followed by Taxol) prior to definitive surgical intervention * Zometa for bone metastasis 3. Anemia of multiple mechanisms * Including bone marrow suppression from recent chemotherapy * Acute major illness * Continue to monitor CBCD daily Thanks for the consult. Dr. Field is attending medical oncologist. Attending Note: Patient seen and examained and discussed with Payal Heredia PA-C and agree with her note 27 year old female with clinical stage IV breast ca with bone mets on AC with neulasta support, and zometa for bone mets, admitted with fever, source is unclear, but has cough. She is neutropenic. She received neulasta on 04/15/17. She has cough, states occasional greenish phlegm, no hemoptysis. Throat sore from cough sometimes, no thrush No shortness of breath. She states has cough at home now. Gen: awake and alert NAD Lungs: CTAB CV: S1 S2 RRR Abd: soft NT Ext no edema 27 year old female Breast cancer: D8 of Adrimaycin cytoxan chemo; she has already received neulasta on day 2 Neutropenic fever: continue BS antibiotics per ID. On cefepime and linezolid. Neutropenia precautions Monitor CBCw/diff.
[2017-04-22 00:08] VITALS: BP 103/70; PULSE 89; TEMP 36.7; O2SAT 97
[2017-04-22] MEDS: LINEZOLID 600MG / D5W IV SCH ×2 (03:05→16:00)
[2017-04-22 03:07] VITALS: BP 103/69; PULSE 90; TEMP 36.6; O2SAT 96
[2017-04-22] MEDS: CEFEPIME IV 2000 MG in DEXTROSE 5% 100ML IV SCH ×3 (04:39→20:59)
[2017-04-22] MEDS: ONDANSETRON INJ 2 MG/ML 2 ML VIAL IV PRN ×2 (05:32→14:12)
[2017-04-22 06:23] LABS: HEMATOCRIT 24.3 % (37-47); MEAN CELL VOLUME 89.7 fL (80-100); MEAN CORPUSCULAR HEMOGLOBIN 31.4 pg (25-34); MEAN PLATELET VOLUME 10.5 fL (7.4-10.4); PLATELET COUNT 143 K/uL (130-400); RED BLOOD COUNT 2.71 M/uL (4.2-5.4); WHITE BLOOD COUNT 0.92 K/uL (4.8-10.8)
[2017-04-22 06:24] VITALS: BMI 27.0
[2017-04-22 07:05] LABS: BLOOD UREA NITROGEN 5 mg/dl (7-18); CALCIUM 8.3 mg/dl (8.5-10.1); CARBON DIOXIDE 30 mmol/L (21-32); CHLORIDE 107 mmol/L (98-107); CREATININE 0.49 mg/dl (0.60-1.20); GLUCOSE 88 mg/dl (70-99); POTASSIUM 3.6 mmol/L (3.5-5.1); SODIUM 141 mmol/L (136-145)
[2017-04-22 07:19] VITALS: BP 92/64; PULSE 105; TEMP 36.6; O2SAT 98
[2017-04-22] MEDS: BENZONATATE 100MG CAP PO SCH ×3 (07:58→21:00)
[2017-04-22] MEDS: PRENATAL VITAMIN TAB PO SCH (07:58)
[2017-04-22] MEDS: ENOXAPARIN 40 MG/0.4 ML SYR SQ SCH (07:59)
--- NOTE | 2017-04-22 09:15 | Family Medicine Progress Note ---
Progress Note Date of Service Apr 22, 2017. Subjective Pt evaluation today including: conversation w/ patient, physical exam, chart review, lab review The patient was seen and examined at bedside. Afebrile overnight. Pt wants to go home - has two children at home. Patient is resting comfortably in bed. Eating and urinating well. Still has cough. Plan of care was described to the patient and all questions were answered. Constitutional: No chills, No sweats, No weight loss Respiratory: + cough, No sputum, No wheezing, No shortness of breath Cardiovascular: No chest pain Abdomen: No pain, No nausea, No vomiting, No diarrhea Musculoskeletal: no calf pain Psychiatric: No depression symptoms Skin: No rash Objective Physical Exam Neurologic/Psychiatric: alert, normal mood/affect, oriented x 3 Notes: General Appearance: WD/WN, no apparent distress Neck: supple, no adenopathy, thyroid normal, no JVD Respiratory/Chest: chest non-tender, lungs clear, normal breath sounds, no respiratory distress, no accessory muscle use Cardiovascular: regular rate, rhythm, no edema, no gallop, no JVD, no murmur Abdomen: normal bowel sounds, non tender, soft, no organomegaly, no pulsatile mass Extremities: normal range of motion, non-tender, normal inspection. Assessment and Plan 27F with a PMHx metastatic breast CA - post 3rd cycle of chemo with Adriamycin and Cytoxan. [facility] last round of chemo was on Friday. Presented with persistent fever and was found to be neutropenic. According to conversation with Dr. Boudreaux, she received a dose of G-CSF with her chemo and another Neupogen dose isn't indicated. Clinical symptoms including cough persist. FUO - potential sources Respiratory, line infection, heart, sinuses. Leaning toward URI symptoms. - s/p cefipime and vanc (Vanco never reached therapeutic levels because it was being renally cleared too quickly). - Blood cultures, and urine cultures negative to date and sputum gram stain showed many yeast, sputum culture showed normal myron. - CXR normal and initial UA unremarkable. - ID (Dr. St) recommends broadening ABx coverage. - Checking legionella antigen and pertussis swab and ab. - PENDING - Continue neutropenic precautions. - Repeat CT with no focal consolidations. - Abx - Continue Cefepime 2mg TID, Linezolid 600mg IV BID and Fluconazole 400mg BID IV. - Repeat Blood Cultures pending. - Appreciate ID and Heme/Onc recommendations as to when pt is appropriate for discharge. Metastatic Breast Cancer - received Cytoxan 6 days ago - f/u as outpt - phone her oncologist tomorrow to ask about dose of nupagen - Dr. Banks with [facility] is her oncologist. - Heme/onc ([facility]) on board. Neutropenia and anemia - WBC is improving albeit slowly. Consider target discharge WBC count >1000. - No Neupogen indicated at this time. - Heme/onc ([facility]) on board. Hypokalemia - Repleted, will monitor. Low Vit D - will replete orally - 50,000 units per week for 8 weeks (first dose tomorrow) Full code - Lovenox 40meq SQ Resident Physician Supervision Note: I interviewed and examined the patient. Discussed with Dr. Calles and agree with findings and plan as documented in the note. Any exceptions or clarifications are listed here: None Documented By: Arias Zuniga feeling ok. no further fevers. cough. vitals noted nad breathing unlabored no pallor or icterus neutropenic fever - improving. seems most likely respiratory source although cultures/etc not showing any telling findings. anticipate ongoing improvement. likely home once ANC > 1 Resident Involvement: Resident Care Provided Care Provided: Adult Hospital Medicine
[2017-04-22 11:26] VITALS: BP 98/62; PULSE 73; TEMP 36.6; O2SAT 97
--- NOTE | 2017-04-22 14:50 | Progress Note ---
Subjective Date of Service: Apr 22, 2017. Subjective cultures remain negative, sputum culture with nml myron. vanco level low, changed to zyvox, tolerating well. afebrile overnight, heme once eval yesterday , no need for additional g-csf, expect count recovery, wbc slightly better today. legionella antigen, pertussis swab pending. no overnight events. Problem List Medical Problems: (1) Breast cancer Status: Acute (2) Neutropenic fever Status: Acute (3) Pneumonia Status: Acute (4) hemorrhage of vagina Status: Acute (5) Retained products of conception Status: Acute (6) Sepsis Status: Acute Objective Vital Signs Date Time Temp Pulse Resp B/P (MAP) Pulse Ox O2 Delivery O2 Flow Rate FiO2 04/22/17 11:26 36.6 73 16 98/62 (74) 97 Room Air 04/22/17 08:00 Room Air 04/22/17 07:19 36.6 105 16 92/64 (73) 98 Room Air 04/22/17 03:07 36.6 90 16 103/69 (80) 96 Room Air 04/22/17 00:08 36.7 89 16 103/70 (81) 97 Room Air 04/21/17 23:53 Room Air 04/21/17 19:31 36.4 106 18 102/66 (78) 98 Room Air 04/21/17 16:00 Room Air 04/21/17 15:34 36.5 89 18 102/58 (73) 100 Room Air Laboratory Results Item Value Date Time Blood Culture - Preliminary Resulted 04/18/17 1857 Blood NO GROWTH TO DATE. Blood Culture - Preliminary Resulted 04/18/17 1905 Blood NO GROWTH TO DATE. Urine Culture - Final Complete 04/18/17 2100 Urine , Clean Catch NO GROWTH - LESS THAN 1,000 COLONIES/ML Gram Stain - Final Complete 04/20/17 0735 Sputum Expectorated Sputum Last 24 Hours Test 04/21/17 15:03 04/21/17 15:10 04/22/17 02:48 04/22/17 05:39 Vancomycin Level Trough 7.0 mcg/ml White Blood Count 0.92 K/uL Red Blood Count 2.71 M/uL Hemoglobin 8.5 g/dL Hematocrit 24.3 % Mean Corpuscular Volume 89.7 fL Mean Corpuscular Hemoglobin 31.4 pg Mean Corpuscular Hemoglobin Concent 35.0 g/dl RDW Standard Deviation 48.1 fL RDW Coefficient of Variation 14.7 % Platelet Count 143 K/uL Mean Platelet Volume 10.5 fL Sodium Level 141 mmol/L Potassium Level 3.6 mmol/L Chloride Level 107 mmol/L Carbon Dioxide Level 30 mmol/L Anion Gap 4.0 mmol/L Blood Urea Nitrogen 5 mg/dl Creatinine 0.49 mg/dl Est Creatinine Clear Calc Drug Dose 145.1 ml/min Estimated GFR () > 150.0 Estimated GFR (Non- 135.4 BUN/Creatinine Ratio 10.0 Random Glucose 88 mg/dl Calcium Level 8.3 mg/dl Assessment and Plan (1) Neutropenic fever Assessment & Plan: continue abx for now, no clear infection found. follow serologies, cultures. follow cbc. Continued [facility] stay due to: multiple IV medications needed
[2017-04-22 15:11] LABS: BASO % 4.5 %; BASO ABS # 0.04 K/uL (0-0.2); COMPLETE YES; EOS % 4.5 %; IG% 7.9 %; LARGE PLATELETS 2+; LYMPH % 42.7 %; LYMPH ABS # 0.38 K/uL (1.2-3.4); MONO % 22.5 %; NEUT % 17.9 %
[2017-04-22 16:06] VITALS: BP 110/70; PULSE 82; TEMP 36.6; O2SAT 98
--- NOTE | 2017-04-22 16:50 | Hematology/Oncology Prog Note ---
Hematology/Onc Progress Note Date of Service Apr 22, 2017. Subjective Patient was rounded on at bedside. She reports feeling stable, wants to go home. She has dry cough still. No dyspnea. She has no documented fever in past 24 hrs, had sweats though early this AM. She is eating well, no nausea or bowel issues. She has no further right calf pain. Review of Systems: Respiratory: + see HPI Abdomen: + see HPI Vital Signs Vital Signs Past 12 Hours Date Time Temp Pulse Resp B/P (MAP) Pulse Ox O2 Delivery O2 Flow Rate FiO2 04/22/17 16:06 36.6 82 18 110/70 (83) 98 Room Air 04/22/17 11:26 36.6 73 16 98/62 (74) 97 Room Air 04/22/17 08:00 Room Air 04/22/17 07:19 36.6 105 16 92/64 (73) 98 Room Air Physical Exam Constitutional: General Apperance: heathly-appearing Level of Distress: NAD Lungs: Respiratory Effort: no dyspnea Auscuitation: breath sounds normal Cardiovascular: Heart Auscultation: RRR Abdomen: Inspection & Palpation: soft, non-distended, no tenderness, guarding & rebound Extremities: no edema Laboratory 04/22/17 05:39 Red Blood Count 2.71, Mean Corpuscular Volume 89.7, Mean Corpuscular Hemoglobin 31.4, Mean Corpuscular Hemoglobin Concent 35.0, Mean Platelet Volume 10.5, Neutrophils (%) (Auto) 17.9, Lymphocytes (%) (Auto) 42.7, Monocytes (%) (Auto) 22.5, Eosinophils (%) (Auto) 4.5, Basophils (%) (Auto) 4.5, Neutrophils # (Auto ) 0.16, Lymphocytes # (Auto) 0.38, Monocytes # (Auto) 0.20, Eosinophils # (Auto ) 0.04, Basophils # (Auto) 0.04 04/22/17 05:39 Test 04/22/17 02:48 04/22/17 05:39 White Blood Count 0.92 K/uL (4.8-10.8) Red Blood Count 2.71 M/uL (4.2-5.4) Hemoglobin 8.5 g/dL (12.0-16.0) Hematocrit 24.3 % (37-47) Mean Corpuscular Volume 89.7 fL (80-100) Mean Corpuscular Hemoglobin 31.4 pg (25-34) Mean Corpuscular Hemoglobin Concent 35.0 g/dl (32-36) Platelet Count 143 K/uL (130-400) Mean Platelet Volume 10.5 fL (7.4-10.4) Neutrophils (%) (Auto) 17.9 % Lymphocytes (%) (Auto) 42.7 % Monocytes (%) (Auto) 22.5 % Eosinophils (%) (Auto) 4.5 % Basophils (%) (Auto) 4.5 % Neutrophils # (Auto) 0.16 K/uL (1.4-6.5) Lymphocytes # (Auto) 0.38 K/uL (1.2-3.4) Monocytes # (Auto) 0.20 K/uL (0.11-0.59) Eosinophils # (Auto) 0.04 K/uL (0-0.5) Basophils # (Auto) 0.04 K/uL (0-0.2) RDW Standard Deviation 48.1 fL (36.4-46.3) RDW Coefficient of Variation 14.7 % (11.5-14.5) Immature Granulocyte % (Auto) 7.9 % Immature Granulocyte # (Auto) 0.07 K/uL (0.00-0.02) Large Platelets 2+ Anion Gap 4.0 mmol/L (3-11) Est Creatinine Clear Calc Drug Dose 145.1 ml/min Estimated GFR () > 150.0 Estimated GFR (Non- 135.4 BUN/Creatinine Ratio 10.0 (10-20) Calcium Level 8.3 mg/dl (8.5-10.1) Assessment & Plan 1. Febrile neutropenia secondary to chemotherapy, last Adriamycin/Cytoxan on * Patient received Neulasta on 04/15/17 * Will not require further G CSF as Neulasta to last for about 14 days * Pancultures are negative * ANC increased slightly today * Repeat blood culture x 2 yesterday pending, bordetella studies and Legionella testing pending per ID * Continue broad spectrum antibiotics per ID (linezolid, cefepime) + fluconazole * Strict neutropenia precautions * Check CBCD daily * Counseled patient that would like ANC > 1000 prior to discharge as well ID to be involved to transition patient oral medications when appropriate 2. Stage IV hormonal positive, Her 2 negative breast cancer with bone metastasis * On neoadjuvant Adriamycin/Cytoxan with supportive Neulasta (to be followed by Taxol) prior to definitive surgical intervention * Zometa for bone metastasis 3. Anemia of multiple mechanisms * Including bone marrow suppression from recent chemotherapy * Acute major illness * Continue to monitor CBCD daily * Hgb stable
[2017-04-22] MEDS: FLUCONAZOLE 200MG / NSS IV SCH ×2 (17:54→19:30)
[2017-04-22 19:07] VITALS: BP 95/61; PULSE 78; TEMP 36.2; O2SAT 98
[2017-04-23 00:04] VITALS: BP 97/64; PULSE 75; TEMP 36.5; O2SAT 98
[2017-04-23] MEDS: LINEZOLID 600MG / D5W IV SCH ×2 (03:29→16:37)
[2017-04-23] MEDS: CEFEPIME IV 2000 MG in DEXTROSE 5% 100ML IV SCH ×3 (03:35→20:43)
[2017-04-23 04:39] VITALS: BP 100/65; PULSE 98; TEMP 36.6; O2SAT 98
[2017-04-23 05:11] VITALS: BMI 27.3
[2017-04-23 05:57] LABS: BLOOD UREA NITROGEN 6 mg/dl (7-18); BUN/CREATININE RATIO 10.5 (10-20); CALCIUM 8.2 mg/dl (8.5-10.1); CARBON DIOXIDE 29 mmol/L (21-32); CHLORIDE 105 mmol/L (98-107); CREATININE 0.56 mg/dl (0.60-1.20); GLUCOSE 116 mg/dl (70-99); POTASSIUM 3.5 mmol/L (3.5-5.1); SODIUM 140 mmol/L (136-145)
[2017-04-23 06:04] LABS: HEMATOCRIT 24.2 % (37-47); MEAN CELL VOLUME 89.3 fL (80-100); MEAN CORPUSCULAR HEMOGLOBIN 31.4 pg (25-34); MEAN CORPUSCULAR HGB CONC 35.1 g/dl (32-36); MEAN PLATELET VOLUME 10.6 fL (7.4-10.4); PLATELET COUNT 142 K/uL (130-400); RED BLOOD COUNT 2.71 M/uL (4.2-5.4); WHITE BLOOD COUNT 1.32 K/uL (4.8-10.8)
[2017-04-23 06:16] LABS: DOHLE BODIES 1+; LARGE PLATELETS 1+; TOXIC GRANULATION 1+; VACUOLIZATION 1+
[2017-04-23 06:25] LABS: BASO ABS # 0.28 K/uL (0-0.2); BASOPHIL % 21.4 %; COMPLETE YES; EOSINOPHIL % 9.5 %; LYMPHOCYTE % 45.3 %; NEUTROPHILS % 16.7 %
[2017-04-23] MEDS: BENZONATATE 100MG CAP PO SCH ×3 (08:23→20:43)
[2017-04-23] MEDS: PRENATAL VITAMIN TAB PO SCH (08:23)
[2017-04-23] MEDS: ENOXAPARIN 40 MG/0.4 ML SYR SQ SCH (08:24)
--- NOTE | 2017-04-23 10:25 | Progress Note ---
Subjective Date of Service: Apr 23, 2017. Subjective pt with improving ANC, not yet > 500. All culture negative. continues on broad spectrum abx. afebrile > 24 hours. heme onc following, no g csf for now. Legionella antigen pending, pertussis swab pending. No overnight events. Problem List Medical Problems: (1) Breast cancer Status: Acute (2) Neutropenic fever Status: Acute (3) Pneumonia Status: Acute (4) hemorrhage of vagina Status: Acute (5) Retained products of conception Status: Acute (6) Sepsis Status: Acute Objective Vital Signs Date Time Temp Pulse Resp B/P (MAP) Pulse Ox O2 Delivery O2 Flow Rate FiO2 04/23/17 08:00 Room Air 04/23/17 04:39 36.6 98 20 100/65 (77) 98 Room Air 04/23/17 00:04 36.5 75 18 97/64 (75) 98 Room Air 04/23/17 00:00 Room Air 04/22/17 19:07 36.2 78 20 95/61 (72) 98 Room Air 04/22/17 16:06 36.6 82 18 110/70 (83) 98 Room Air 04/22/17 16:00 Room Air 04/22/17 11:26 36.6 73 16 98/62 (74) 97 Room Air Laboratory Results Item Value Date Time Blood Culture - Preliminary Resulted 04/21/17 1157 Blood NO GROWTH TO DATE. Blood Culture - Preliminary Resulted 04/21/17 1153 Blood NO GROWTH TO DATE. Gram Stain - Final Complete 04/20/17 0735 Sputum Expectorated Sputum Urine Culture - Final Complete 04/18/17 2100 Urine , Clean Catch NO GROWTH - LESS THAN 1,000 COLONIES/ML Blood Culture - Preliminary Resulted 04/18/17 1905 Blood NO GROWTH TO DATE. Blood Culture - Preliminary Resulted 04/18/17 1857 Blood NO GROWTH TO DATE. Last 24 Hours Test 04/23/17 05:11 White Blood Count 1.32 K/uL Red Blood Count 2.71 M/uL Hemoglobin 8.5 g/dL Hematocrit 24.2 % Mean Corpuscular Volume 89.3 fL Mean Corpuscular Hemoglobin 31.4 pg Mean Corpuscular Hemoglobin Concent 35.1 g/dl Platelet Count 142 K/uL Mean Platelet Volume 10.6 fL RDW Standard Deviation 46.9 fL RDW Coefficient of Variation 14.6 % Neutrophils % (Manual) 16.7 % Lymphocytes % (Manual) 45.3 % Monocytes % (Manual) 7.1 % Eosinophils % (Manual) 9.5 % Basophils % (Manual) 21.4 % Neutrophils # (Manual) 0.22 K/uL Total Absolute Neutrophils 0.22 K/uL Lymphocytes # (Manual) 0.60 K/uL Total Absolute Lymphocytes 0.60 K/uL Monocytes # (Manual) 0.09 K/uL Eosinophils # (Manual) 0.13 K/uL Basophils # (Manual) 0.28 K/uL Toxic Granulation 1+ Toxic Vacuolation 1+ Dohle Bodies 1+ Large Platelets 1+ Sodium Level 140 mmol/L Potassium Level 3.5 mmol/L Chloride Level 105 mmol/L Carbon Dioxide Level 29 mmol/L Anion Gap 6.0 mmol/L Blood Urea Nitrogen 6 mg/dl Creatinine 0.56 mg/dl Est Creatinine Clear Calc Drug Dose 127.8 ml/min Estimated GFR () > 150.0 Estimated GFR (Non- 129.6 BUN/Creatinine Ratio 10.5 Random Glucose 116 mg/dl Calcium Level 8.2 mg/dl Assessment and Plan (1) Neutropenic fever Assessment & Plan: will stop fluconazole at this time, no yeast identified. continue zyvox and cefepime for now. all culture negative. has received multiple days abx to date. will continue pending count improvement. continue to monitor. Continued [facility] stay due to: multiple IV medications needed
[2017-04-23 11:18] VITALS: BP 100/67; PULSE 106; TEMP 36.8; O2SAT 98
--- NOTE | 2017-04-23 13:52 | Family Medicine Progress Note ---
Progress Note Date of Service Apr 23, 2017. Subjective Pt evaluation today including: conversation w/ patient, physical exam, chart review, lab review The patient was seen and examined at bedside. No acute overnight events. Cough persists. Pt is complaining that her left A Port is bothering her and would like it looked at, replaced or moved. Patient is resting comfortably in bed. Denies having any pain. Eating and urinating well. Eager to go home. Plan of care was described to the patient and all questions were answered. Constitutional: No chills, No sweats, No weight loss Respiratory: + cough, No sputum, No wheezing, No shortness of breath Cardiovascular: No chest pain Abdomen: No pain, No nausea, No vomiting, No diarrhea Musculoskeletal: no calf pain Psychiatric: No depression symptoms Skin: No rash Objective Physical Exam Notes: General Appearance: WD/WN, no apparent distress Neck: supple, no adenopathy, thyroid normal, no JVD Respiratory/Chest: chest non-tender, lungs clear, normal breath sounds, no respiratory distress, no accessory muscle use. (A port on Left Chest does not look inflamed, non tender) Cardiovascular: regular rate, rhythm, no edema, no gallop, no JVD, no murmur Abdomen: normal bowel sounds, non tender, soft, no organomegaly, no pulsatile mass Extremities: normal range of motion, non-tender, normal inspection. Neurologic/Psychiatric: alert, normal mood/affect, oriented x 3 Assessment and Plan 27F with a PMHx metastatic breast CA - post 3rd cycle of chemo with Adriamycin and Cytoxan. She follows with Dr. Banks in [facility]. Patients last round of chemo was on Friday. Presented with persistent fever and was found to be neutropenic. According to conversation with Dr. Boudreaux, she received a dose of G-CSF with her chemo and another Neupogen dose isn't indicated. Clinical symptoms including cough persist. FUO - potential sources Respiratory, line infection, heart, sinuses. Leaning toward URI symptoms. - s/p cefipime and vanc (Vanco never reached therapeutic levels because it was being renally cleared too quickly). - Blood cultures, and urine cultures negative to date and sputum gram stain showed many yeast, sputum culture showed normal myron. - CXR normal and initial UA unremarkable. - ID (Dr. St) recommends stopping Fluconazole. - Checking legionella antigen and pertussis swab and ab. - PENDING - Continue neutropenic precautions. - Repeat CT with no focal consolidations. - Abx - Continue Cefepime 2mg TID, Linezolid 600mg IV BID and stop Fluconazole 400mg BID IV. - Repeat Blood Cultures - no growth. - DC Goal with ANC >1 Metastatic Breast Cancer - received Cytoxan 6 days ago - f/u as outpt - phone her oncologist tomorrow to ask about dose of nupagen - [facility] her [facility]. - Heme/onc ([facility]) on board. Neutropenia and anemia - WBC is improving albeit slowly. Consider target discharge when ANC count > 1000. - No Neupogen indicated at this time. - Heme/onc ([facility]) on board. Hypokalemia - Repleted, will monitor. Low Vit D - will replete orally - 50,000 units per week for 8 weeks DVT Proph - Lovenox 40meq SQ Full code Resident Physician Supervision Note: I interviewed and examined the patient. Discussed with Dr. Calles and agree with findings and plan as documented in the note. Any exceptions or clarifications are listed here: None Documented By: Arias Zuniga feeling better no fevers. overall improved. no new complaints. ANC slowly trending up. vitals noted nad breathing unlabored no pallor or icterus neutropenic fever - improving. ANC slowly trending up. continue empiric abx, otherwise as above Resident Involvement: Resident Care Provided Care Provided: Adult Hospital Medicine
[2017-04-23 14:33] LABS: HEMATOCRIT 24.7 % (37-47); MEAN CELL VOLUME 89.8 fL (80-100); MEAN CORPUSCULAR HEMOGLOBIN 31.6 pg (25-34); MEAN CORPUSCULAR HGB CONC 35.2 g/dl (32-36); MEAN PLATELET VOLUME 10.4 fL (7.4-10.4); PLATELET COUNT 157 K/uL (130-400); RED BLOOD COUNT 2.75 M/uL (4.2-5.4); WHITE BLOOD COUNT 1.53 K/uL (4.8-10.8)
[2017-04-23 14:41] LABS: DOHLE BODIES 2+; GIANT PLATELETS 3+; SPHEROCYTE 1+; TOXIC GRANULATION 2+
[2017-04-23 14:56] LABS: BASO ABS # 0.17 K/uL (0-0.2); BASOPHIL % 11.3 %; COMPLETE YES; EOSINOPHIL % 3.5 %; LYMPH ABS # 0.52 K/uL (1.2-3.4); LYMPHOCYTE % 33.9 %; META ABS # 0.03 K/uL (0-0); METAMYELOCYTE % 1.7 %; NEUTROPHILS % 30.4 %
[2017-04-23 15:47] VITALS: BP 106/70; PULSE 100; TEMP 36.4; O2SAT 96
[2017-04-23 20:16] VITALS: BP 123/80; PULSE 90; TEMP 36.3; O2SAT 97
[2017-04-23] MEDS: HYDROCODONE/ACETAMOPHEN 5/325MG TAB PO PRN (22:22)
[2017-04-23 23:55] VITALS: BP 105/69; PULSE 83; TEMP 36.3; O2SAT 97
[2017-04-24] MEDS: CEFEPIME IV 2000 MG in DEXTROSE 5% 100ML IV SCH ×2 (04:06→11:55)
[2017-04-24] MEDS: LINEZOLID 600MG / D5W IV SCH (04:40)
[2017-04-24 05:57] LABS: HEMATOCRIT 24.8 % (37-47); MEAN CELL VOLUME 91.2 fL (80-100); MEAN CORPUSCULAR HEMOGLOBIN 30.5 pg (25-34); MEAN CORPUSCULAR HGB CONC 33.5 g/dl (32-36); MEAN PLATELET VOLUME 10.9 fL (7.4-10.4); PLATELET COUNT 154 K/uL (130-400); RED BLOOD COUNT 2.72 M/uL (4.2-5.4); WHITE BLOOD COUNT 2.82 K/uL (4.8-10.8)
[2017-04-24 06:23] LABS: DOHLE BODIES 2+; LARGE PLATELETS 1+; TOXIC GRANULATION 2+
[2017-04-24 06:31] LABS: BLOOD UREA NITROGEN 8 mg/dl (7-18); BUN/CREATININE RATIO 14.5 (10-20); CALCIUM 8.1 mg/dl (8.5-10.1); CARBON DIOXIDE 30 mmol/L (21-32); CHLORIDE 104 mmol/L (98-107); CREATININE 0.53 mg/dl (0.60-1.20); GLUCOSE 147 mg/dl (70-99); POTASSIUM 3.6 mmol/L (3.5-5.1); SODIUM 139 mmol/L (136-145)
[2017-04-24 06:55] LABS: BASO ABS # 0.31 K/uL (0-0.2); COMPLETE YES; EOSINOPHIL % 4.4 %; LYMPHOCYTE % 46.1 %; META ABS # 0.03 K/uL (0-0); METAMYELOCYTE % 1.1 %; MYELOCYTE % 2.2 %; NEUTROPHILS % 24.2 %
[2017-04-24 07:02] VITALS: Ht 152.4 cm; Wt 62.2 kg
[2017-04-24 07:28] VITALS: BP 99/64; PULSE 93; TEMP 36.4; O2SAT 97
[2017-04-24 08:00] VITALS: O2SAT 97
[2017-04-24] MEDS: BENZONATATE 100MG CAP PO SCH (08:25)
[2017-04-24] MEDS: PRENATAL VITAMIN TAB PO SCH (08:25)
[2017-04-24] MEDS: ENOXAPARIN 40 MG/0.4 ML SYR SQ SCH ×2 (08:25→08:26)
[2017-04-24] MEDS ORDERED: GUAIFENESIN/CODEINE 100MG/10MG 5ML UDC PO PRN (09:30)
[2017-04-24 10:33] LABS: LEGIONELLA ANTIGEN NOT DETECTED (NOT DETECTED)
[2017-04-24 10:45] VITALS: BP 103/58; PULSE 93; TEMP 36.6; O2SAT 98
--- NOTE | 2017-04-24 10:58 | Discharge Instructions ---
Discharge Instructions Date of Service Apr 24, 2017. Admission Reason for Admission: Fever Of Unknown Origin Discharge Discharge Diagnosis / Problem: Neutropenic Fever Discharge Goals Goal(s): Decrease discomfort, Improve function, Improve nutritional status, Learn about illness, Diagnostic testing Activity Recommendations Activity Limitations: per Instructions/Follow-up section . Instructions / Follow-Up Instructions / Follow-Up Please follow up with the following appointments: * Primary Care Shara Rea PA-C FridayApr 28 10am * Oncology JET Desai mani May 06 9:30AM. You have been waitlisted for an earlier appointment. As per recommendations from our Infectious Disease doctor, you do not need to be on Antibiotics on Discharge. Please be sure to wash your hands regularly and stay away from individuals who are sick or are exhibiting infectious symptoms. (cough, sneezing, fevers, chills) Current Hospital Diet Patient's current hospital diet: Regular Diet Discharge Diet Recommended Diet: Regular Diet Pending Studies Studies pending at discharge: no Medical Emergencies . Who to Call and When: Medical Emergencies: If at any time you feel your situation is an emergency, please call 911 immediately. . Non-Emergent Contact Non-Emergency issues call your: Primary Care Provider, Oncologist . . "Provider Documentation" section prepared by Geronimo Calles. . VTE Core Measure Inpt VTE Proph given/why not?: Enoxaparin (Lovenox)SQ Resident Involvement: Resident Care Provided Care Provided: Adult Hospital Medicine
[2017-04-24 11:16] VITALS: BP 103/58; PULSE 93; TEMP 36.6; O2SAT 98
[2017-04-24 14:33] LABS: BORDETELLA PERTUSSIS SOURCE Nasal Swab
--- NOTE | 2017-04-24 17:51 | Discharge Summary ---
Discharge Summary Date of Service Apr 24, 2017. (Geronimo Calles M.D.) Discharge Summary Admission Date: Apr 18, 2017 at 20:49 Discharge Date: Apr 24, 2017 Discharge Disposition: Home Principal Diagnosis: Neutropenic Fever Immunizations: Have You Had Influenza Vaccine: No History of Tetanus Vaccine?: Unknown History of Pneumococcal: No History of Hepatitis B Vaccine: Unknown Procedures: BILATERAL LOWER EXTREMITY VENOUS DOPPLER HISTORY: Acute right-sided calf tenderness with history of breast cancer. COMPARISON STUDY: None. FINDINGS: There is normal compressibility, flow, and augmentation within the right lower extremity deep venous system. IMPRESSION: No DVT within the right lower extremity. CHEST CT WITHOUT INTRAVENOUS CONTRAST CT DOSE: 174.84 mGy.cm HISTORY: Persistent cough and atypical chest pain TECHNIQUE: Multiaxial CT images of the chest were performed without contrast. A dose lowering technique was utilized adhering to the principles of ALARA. COMPARISON: Chest CTA 02/22/2013. FINDINGS: The lungs are clear. The mediastinal vascular structures are within normal limits. No mediastinal or hilar lymphadenopathy. No pleural effusion or pneumothorax. Trace pericardial fluid. A 2.5 cm hypodense right adrenal gland nodule. This is consistent with a benign adenoma. Punctate density within the medial upper right breast which may represent a surgical clip or calcification. A few mildly enlarged right axillary lymph nodes comparison to the left. Dominant lymph node measures 1.6 x 1.2 cm. These have slightly increased in size. Limited views of the upper abdomen demonstrate a normal liver and spleen. No fractures. Left subclavian Port-A-Cath terminates in the distal SVC. Mild dextroscoliosis of the thoracic spine. IMPRESSION: 1. No focal lung consolidations to suggest pneumonia. 2. Trace pericardial fluid. 3. Mild right axillary lymphadenopathy. Please refer to the prior breast care center dedicated mammogram/ultrasound for further evaluation. CHEST ONE VIEW PORTABLE HISTORY: Atypical CHEST PAIN COMPARISON: Chest 03/07/2017. FINDINGS: The lungs are clear. Cardiac silhouette is normal in size. No pleural effusions. No pneumothorax. Left subclavian Port-A-Cath terminates in the SVC. IMPRESSION: No acute process. (Geronimo Calles M.D.) Medication Reconciliation Continued Medications: Hydrocodone/Acetaminophen 5MG/325MG ([place] 5MG/325MG) Tab 1 TABLET PO Q4H PRN for Pain, #15 TAB Ibuprofen (Motrin) 600 Mg Tab 600 MG PO Q6H PRN for Pain, TAB TAKE WITH FOOD Multivit/Min/Iron/Fol Ac/Pren ( Vitamin) Tab 1 TAB PO DAILY, TAB pt stopped about a week ago, wasn't sure about pre op instructions..informed to hold am of surgery Discharge Exam The patient was seen and examined at bedside. No acute overnight events. Cough persists. Left A Port is no longer bother pt after it was looked at by the IV team. Patient is resting comfortably in bed. Denies having any pain. Eating and urinating well. Plan of care was described to the patient and all questions were answered. Constitutional: No chills, No sweats, No weight loss Respiratory: + cough, No sputum, No wheezing, No shortness of breath Cardiovascular: No chest pain Abdomen: No pain, No nausea, No vomiting, No diarrhea Musculoskeletal: no calf pain Psychiatric: No depression symptoms Skin: No rash Physical Exam Notes: General Appearance: WD/WN, no apparent distress Neck: supple, no adenopathy, thyroid normal, no JVD Respiratory/Chest: chest non-tender, lungs clear, normal breath sounds, no respiratory distress, no accessory muscle use. (A port on Left Chest does not look inflamed, non tender) Cardiovascular: regular rate, rhythm, no edema, no gallop, no JVD, no murmur Abdomen: normal bowel sounds, non tender, soft, no organomegaly, no pulsatile mass Extremities: normal range of motion, non-tender, normal inspection. Neurologic/Psychiatric: alert, normal mood/affect, oriented x 3 (Geronimo Calles M.D.) Hospital Course 27F with a PMHx metastatic breast CA - post 3rd cycle of chemo with Adriamycin and Cytoxan. She follows with Dr. Banks in [facility]. Patients last round of chemo was on Friday. Presented with persistent fever and was found to be neutropenic. According to conversation with Dr. Boudreaux, she received a dose of G-CSF with her chemo and another Neupogen dose isn't indicated. Pt was started on empiric broad spectrum antibiotics x 3 days and Fluconazole x 1 day. Blood cultures were negative. Pt's WBC and ANC count were trended up to 2.82 and 0.68 respectively and pt was cleared for discharged by Heme/ Onc team with close outpatient follow up. Per our infectious disease team it was decided that the pt did not need Abx on discharge. Follow up with PCP and Heme/ Onc was arranged prior to discharge. Bordetella Antigen was pending on discharge. Pt was discharged in good condition. Total Time Spent: Greater than 30 minutes This includes examination of the patient, discharge planning, medication reconciliation, and communication with other providers. (eGronimo Calles M.D.) Resident Physician Supervision Note: I interviewed and examined the patient. Discussed with Dr. Calles and agree with findings and plan as documented in the note. Any exceptions or clarifications are listed here: None Documented By: Arias Zuniga feeling good wants to go home OK to go by ID (no abx) and heme/onc (ongoing outpt f/u) - encouraged handwashing at home vitals noted nad breathing unlabored no pallor or icterus labs noted neutropenic fever - improved. stable for home. no need for further abx. outpt f/u (Arias Zuniga, D.O.) Discharge Instructions Please refer to the electronic Patient Visit Report (Discharge Instructions) for additional information. (Geronimo Calles M.D.) Follow-Up Primary Care Shara Rea PA-C FridayApr 28 10am Oncology JET [place] May 06 93 (Geronimo Calles M.D.) Additional Copies To RV. Marcum MD; Pablo Banks M.D. Resident Involvement: Resident Care Provided Care Provided: Adult [facility] Medicine (Geronimo Calles M.D.)
== END 2017-04-24 13:06 | disposition home or self-care (01) | DRG 809 ==
LOC: C.EDB 18:26 → C.4E 20:49 → ENRESERV 20:58
PROVIDERS: ADMIT Internal Medicine; ATTEND Family Medicine
DX: D70.1 Agranulocytosis secondary to cancer chemotherapy (principal); C79.51 Secondary malignant neoplasm of bone; T45.1X5A Adverse effect of antineoplastic and immunosuppressive drugs, initial encounter; C50.919 Malignant neoplasm of unspecified site of unspecified female breast; Z17.0 Estrogen receptor positive status [ER+]; D63.0 Anemia in neoplastic disease; M41.9 Scoliosis, unspecified; R00.0 Tachycardia, unspecified; Z90.49 Acquired absence of other specified parts of digestive tract; Z80.9 Family history of malignant neoplasm, unspecified; Z83.3 Family history of diabetes mellitus; Z82.49 Family history of ischemic heart disease and other diseases of the circulatory system; Z83.6 Family history of other diseases of the respiratory system; Z79.899 Other long term (current) drug therapy

== ENCOUNTER → 2017-05-22 | Outpatient (CLI) | payer BC ==
[~2017-05-22] MED LIST changes: +GADAVIST IV PRN
--- NOTE | 2017-05-23 09:40 | MAMMOGRAPHY REPORT ---
BREAST MRI OF BOTH BREASTS : 05/22/2017 CLINICAL HISTORY: 27-year-old woman with a history of multicentric right breast cancer and metastatic disease to a right axillary lymph node, undergoing new adjuvant chemotherapy. She presents for MRI assessment of both breasts. COMPARISON: Comparison is made to exams dated: 02/17/2017 ultrasound, 02/17/2017 mammogram, 02/19/2017 ult rasound biopsy, 02/19/2017 mammogram, 02/19/2017 ultrasound biopsy, and 02/19/2017 ultrasound biopsy - [facility]. TECHNIQUE: Using a 1.5 Kenzie magnet and dedicated breast coil, multisequence axial images were obtain ed through the breasts. After uneventful IV administration of 6 mL of Gadavist, dynamic multiphase c ontrast-enhanced axial images, and sagittal postcontrast were obtained. Temporal subtraction axial i mages and 3-D MIP images are provided. Everything was then reviewed on a 3-D workstation, [employer]. FINDINGS: Right breast: There is no significant background parenchymal enhancement. Multiple masses and non-ma ss enhancement are identified in the right breast, mostly throughout the right upper outer and upper inner quadrants. Susceptibility artifact from biopsy marker clips are noted within a right axillary lymph node, a spiculated mass in the posterior 9:00 right breast, and a spiculated mass in the 1:00 m iddle to posterior right breast. The dominant spiculated mass in the 9:00 posterior right breast cur rently measures 11 x 30 x 24 mm. It is difficult to accurately compare measurements to prior exams, but on a prior diagnostic ultrasound it measured 32 x 31 x 22 mm. It is surrounded by non-mass enhan cement and this mass abuts the pectoralis muscle. However, no enhancement is detected within the pec toralis muscle itself to suggest muscle invasion. There is a suspicious rim-enhancing ovoid mass in the 9:00 middle one third of the right breast measuring 12 x 7 x 6 mm. This likely corresponds to a hypoechoic mass seen in the 9:00 right breast, 2 cm from the nipple on prior ultrasound and measured 12 x 10 x 13 mm in February 2017. There is clumped and nodular non-mass enhancement occupying the 11:00 middle to anterior one third of the right breast measuring approximately 29 mm in transverse by 19 mm in AP dimension (axial page 51/116), suspicious for DCIS. The biopsied spiculated mass in the 1:00 axis currently measures 10 mm in craniocaudal by 6 m in transverse by 7 mm in AP dimension, previousl y 16 x 11 x 15 mm. Another enhancing irregular 7 mm mass is located inferior to the biopsied mass, a lso in the 1:00 axis. Non-mass enhancement surrounds both of these masses measuring approximately 2 x 3 cm within the upper inner middle one third of the right breast. No focal area of skin thickening or nipple retraction is identified in the right breast. These findings are compatible with residual multicentric disease in the right breast. The previously biopsied right axillary lymph node currently measures 23 x 13 mm and there has been si gnificant decrease in the cortical thickness comparing to the prior diagnostic ultrasound performed 0 02/17/2017. The cortical thickness currently measures approximately 4 mm, previously 12 mm. Currentl y, no retropectoral or intramammary lymphadenopathy is identified. Left breast: There is no significant background parenchymal enhancement. There is no suspicious enha ncing mass, suspicious non-mass enhancement, or suspicious kinetics within the left breast. No focal skin thickening or nipple retraction. No suspicious left axillary lymphadenopathy. IMPRESSION: ACR BI-RADS CATEGORY 6: KNOWN BIOPSY PROVEN MALIGNANCY 1. Persistent multicentric disease within the right breast, including at least 4 persistent measurab le masses located in the 9:00, and 1:00 axes, but also non-mass clumped and nodular enhancement surro unding and between the masses within the upper inner and upper outer quadrants of the right breast, s uspicious for DCIS. At least 3 of the dominant masses were previously measured on diagnostic ultraso und performed 02/17/2017 and they all demonstrate interval decrease in size by varying degrees, altho ugh accurate measurements are somewhat difficult given different imaging modalities. These findings are compatible with partial response to treatment. 2. The dominant mass in the 9:00 posterior right breast abuts the pectoralis muscle but no definite abnormal enhancement to suggest pectoralis muscle invasion. 3. A previously biopsied right axillary lymph node demonstrates significant interval decrease in size and cortical thickness, compatible with response to treatment. 4. No suspicious mass, non-mass enhancement or suspicious kinetics in the left breast. No suspiciou s left axillary lymphadenopathy. The patient will receive written notification of the results. Dora Puente M.D. ay/:05/22/2017 16:37:40 Screen Tender Helper: interior design director, [facility] letter sent: Birad 6 BI-RADS Code: ACR BI-RADS Category 6: Known Biopsy Proven Malignancy
== END | disposition home or self-care (01) ==
LOC: C.MRI 14:38
PROVIDERS: ATTEND Physician Assistant
DX: C50.411 Malignant neoplasm of upper-outer quadrant of right female breast (principal); C79.51 Secondary malignant neoplasm of bone

== ENCOUNTER → 2017-07-07 | Outpatient (CLI) | payer BC ==
[~2017-07-07] MED LIST changes: -GADAVIST IV PRN
--- NOTE | 2017-07-07 13:28 | DIAGNOSTIC IMAGING REPORT ---
PET/CT SKULL-THIGH CLINICAL HISTORY: 27 years-old Female with BREAST CANCER. History of multicentric right breast sided breast cancer with right axillary galileo metastasis. History of chemotherapy. Subsequent treatment strategy. Partial response suggested on comparison breast MRI. 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 TECHNIQUE: The patient was injected with 13.6 mCi of F-18 fluorodeoxyglucose (FDG) and an emission scan was performed from the skull vertex to the toes. Noncontrast CT was performed for attenuation correction and anatomic localization. The blood glucose level was 95 mg/dl. FINDINGS: HEAD AND NECK: There is a physiologic distribution of activity, with no hypermetabolic foci. CHEST: There is a physiologic distribution of activity, with no hypermetabolic mediastinal, hilar or pulmonary foci. Surgical clip of the upper medial right breast is present in place of the previously described FDG avid mass within this distribution. The previously described multifocal right breast masses seen on comparison PET CT are no longer identified. No focal areas of FDG uptake within the right chest wall. There is also resolution of the previously described FDG avid right axillary and subpectoral galileo metastasis with largest previously biopsied lymph node measuring 7 mm within the right axilla seen on image 66 series 2, previously measuring up to 2.3 x 1.6 cm within this distribution. Biopsy clip within the inferior lateral aspect right breast is noted on image 89 of series 2 without corresponding breast mass. ABDOMEN AND PELVIS: There is a physiologic distribution of activity within the liver, spleen, adrenal glands, gastrointestinal and urinary tracts, with no hypermetabolic foci. MUSCULOSKELETAL SYSTEM AND EXTREMITIES: There is a physiologic distribution of activity within the bone marrow, with no hypermetabolic foci. There is homogeneously increased tracer uptake throughout the skeletal structures suggesting post treatment changes with colony-stimulating factor. No significant radiotracer uptake identified within the previously mentioned 10 mm lytic lesion of L3 which is now partially sclerotic. Previous described metastasis at T10 and C7, also not well seen. No new skeletal metastasis identified. ADDITIONAL CT FINDINGS: Mild convex right curvature of the midthoracic spine. Left subclavian [id number] catheter terminates just proximal to the superior cavoatrial junction. Mild dependent bibasilar atelectasis. No definite pulmonary nodules or focal mass is identified. Imaged bowel and abdominal solid organs are within normal limits. No focal soft tissue abnormality. Moderate mucosal thickening of the paranasal sinuses with left maxillary sinus volume loss. There is also mildly increased FDG uptake within the left maxillary sinus suggesting inflammatory changes. IMPRESSION: 1. Findings compatible with positive response to therapy with no measurable right chest mass or significant hypermetabolic right breast activity identified. 2. Markedly decreased size of right axillary and subpectoral adenopathy. 3. Decreased radiotracer uptake with sclerosis noted involving the previously described lytic bony metastasis. 4. Homogeneously increased radiotracer uptake throughout all of the skeletal structures suggests post-therapeutic changes with colony-stimulating factor administration. The above report was generated using voice recognition software. It may contain grammatical, syntax or spelling errors. Electronically signed by: Chace Sewell M.D. 07/07/2017 1:27 PM Dictated Date/Time: 07/07/2017 1:02 PM
== END | disposition home or self-care (01) ==
LOC: C.PET 07:26
PROVIDERS: ATTEND Internal Medicine Hematology
DX: C50.411 Malignant neoplasm of upper-outer quadrant of right female breast (principal); Z17.0 Estrogen receptor positive status [ER+]; C77.3 Secondary and unspecified malignant neoplasm of axilla and upper limb lymph nodes; C79.51 Secondary malignant neoplasm of bone

== ENCOUNTER → 2017-08-29 | Outpatient (CLI) | payer BC | END | disposition home or self-care (01) | LOC: C.LABSPEC 17:23 | PROVIDERS: ATTEND Physician Assistant | DX: L29.8 Other pruritus (principal) ==

== ENCOUNTER 2017-09-26 13:33 | Emergency (ER) | payer BC, OTHER ==
[~2017-09-26] VITALS: Ht 162.6 cm; Wt 62.0 kg
[~2017-09-26 13:33] MED LIST changes: +APRE80CA; +CALC600T PO; +CHOL1000 PO; +FMR25 PO; -HYDR-5688 PO; +ONDA8TAB6 PO; -PRENTAB26 PO; +PROC1TAB5 PO; +RIBO200T PO; +TRAM-10 PO
[2017-09-26 13:36] VITALS: Ht 162.6 cm; Wt 62.0 kg
[2017-09-26] MEDS ORDERED: IBUP-1105 PO (14:21)
--- NOTE | 2017-09-26 14:47 | DIAGNOSTIC IMAGING REPORT ---
SINGLE VIEW CHEST CLINICAL HISTORY: Chest tightness. FINDINGS: An AP, portable, upright chest radiograph is compared to study dated 04/18/2017 and correlated with chest CT dated 04/20/2017. The examination is degraded by portable technique and patient rotation. A left subclavian central venous infusion port is unchanged in position. The cardiomediastinal silhouette is unremarkable. The lungs and pleural spaces are clear. No pneumothorax is seen. The bony thorax is grossly intact. A device projecting over the right lower chest may be related to the right breast. There is mild S-shaped thoracolumbar scoliosis. IMPRESSION: The lungs are clear. Electronically signed by: Clark Dorman M.D. 09/26/2017 2:46 PM Dictated Date/Time: 09/26/2017 2:44 PM
[2017-09-26 15:05] LABS: BASO % 1.1 %; BASO ABS # 0.03 K/uL (0-0.2); EOS % 1.4 %; EOS ABS # 0.04 K/uL (0-0.5); HEMOGLOBIN 11.1 g/dL (12.0-16.0); LYMPH % 30.1 %; LYMPH ABS # 0.84 K/uL (1.2-3.4); MEAN CORPUSCULAR HEMOGLOBIN 29.6 pg (25-34); MEAN CORPUSCULAR HGB CONC 33.6 g/dl (32-36); MEAN PLATELET VOLUME 9.1 fL (7.4-10.4); MONO % 6.5 %; MONO ABS # 0.18 K/uL (0.11-0.59); NEUT % 60.9 %; PLATELET COUNT 176 K/uL (130-400); RED CELL DISTRIBUTION WIDTH CV 13.7 % (11.5-14.5); RED CELL DISTRIBUTION WIDTH SD 42.6 fL (36.4-46.3); WHITE BLOOD COUNT 2.79 K/uL (4.8-10.8)
[2017-09-26 15:28] LABS: ALBUMIN 3.7 gm/dl (3.4-5.0); ALT/SGPT 18 U/L (12-78); AST/SGOT 8 U/L (15-37); BLOOD UREA NITROGEN 16 mg/dl (7-18); CALCIUM 9.1 mg/dl (8.5-10.1); CARBON DIOXIDE 29 mmol/L (21-32); CREATININE 0.81 mg/dl (0.60-1.20); GLUCOSE 90 mg/dl (70-99); SODIUM 138 mmol/L (136-145)
[2017-09-26 15:39] LABS: ALKALINE PHOSPHATASE 55 U/L (45-117); TOTAL PROTEIN 7.7 gm/dl (6.4-8.2)
[2017-09-26 16:20] VITALS: BP 112/71; PULSE 62; O2SAT 95
[2017-09-26] MEDS ORDERED: OPTIRAY 320 IV PRN (16:30)
--- NOTE | 2017-09-26 16:31 | DIAGNOSTIC IMAGING REPORT ---
CHEST CTA for PULMONARY ARTERIES CT DOSE: 193.18 mGy.cm HISTORY: Short of breath. TECHNIQUE: Multiaxial CT images of the chest were performed following the intravenous administration of contrast to evaluate the pulmonary arteries. Maximal intensity projection images were also obtained. A dose lowering technique was utilized adhering to the principles of ALARA. COMPARISON STUDY: Chest CT 04/20/2017. FINDINGS: No mediastinal or hilar lymphadenopathy. No pleural or pericardial effusions. 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 No right axillary lymphadenopathy. Right lymph node dissection identified within the axilla. The visualized liver and spleen are unremarkable. Stable 2.7 cm right adrenal gland nodule which likely represents a benign adenoma. No suspicious lytic or blastic osseous lesions identified. Normal caliber thoracic aorta with no evidence for dissection. No filling defects within the pulmonary arteries to suggest pulmonary embolus. No pneumothorax. The central airways are patent. The lungs are clear. IMPRESSION: 1. No evidence for pulmonary embolus. 2. Postoperative changes within the right breast. 3. No evidence for metastatic disease within the chest. Electronically signed by: Rafal Vigil M.D. 09/26/2017 4:30 PM Dictated Date/Time: 09/26/2017 4:22 PM
[2017-09-26 16:43] VITALS: TEMP 37
--- NOTE | 2017-09-26 16:43 | EMERGENCY ROOM VISIT NOTE ---
History First contact with patient: 13:48 Chief Complaint: CARDIAC ASSESSMENT Stated Complaint: CHEST PAIN, HEART RACING Nursing Triage Summary: pt to the ED with c/o heart is racing and feels like she can't take deep breath started today oncologist dr mills sent her here pt being tx for breast CA states she started a new med kisquali History of Present Illness The patient is a 27 year old female who presents to the Emergency Room with complaints of intermittent chest tightness and difficulty taking a deep breath. The patient states that for the past few days, she has noticed a few episodes of chest tightness and feeling like she is unable to take a full breath. These symptoms last for a few minutes at a time and then resolved. The patient reports that she has breast cancer with metastasis to the spine. She just started a new chemotherapy, oral Kisquali, which is cardiotoxic. She contacted her oncologist and was to come here for evaluation. The patient denies any history of cardiac problems. She is not a smoker. She denies any symptoms at this time. She denies any lightheadedness or syncope. She denies fevers, cough or recent illness. Review of Systems A complete 10 point review of systems was reviewed with the patient with pertinent positives and negatives as per history of present illness. All else were negative. Past Medical/Surgical History Medical Problems: (1) Appendectomy (2) Complicated (3) FUO (fever of unknown origin) (4) Gestational [-induced] hypertension without significant proteinuria , third trimester (5) Scoliosis Family History Cancer Diabetes mellitus Heart disease Hypertension Lung disease Social History Smoking Status: Never Smoker Alcohol Use: none Drug Use: none Marital Status: , in relationship Housing Status: lives with family Occupation Status: employed Current/Historical Medications Scheduled Calcium Carbonate (Calcium 600), 1 TAB PO DAILY Cholecalciferol (Vitamin D3), 1 TAB PO DAILY Ibuprofen (Ibuprofen), 800 MG PO UD Letrozole (Femara), 1 TAB PO DAILY Ribociclib Succinate (Kisqali), 3 TABS PO DIRECTED Scheduled PRN Ondansetron Hcl (Zofran), 8 MG PO Q8 PRN for Nausea Prochlorperazine Maleate (Compazine), 1 TAB PO Q6 PRN for Nausea or Vomiting Tramadol (Ultram), 50 MG PO Q6H PRN for Pain Physical Exam Vital Signs Date Time Temp Pulse Resp B/P (MAP) Pulse Ox O2 Delivery O2 Flow Rate FiO2 09/26/17 16:43 37.0 09/26/17 16:20 62 18 112/71 95 09/26/17 14:52 57 09/26/17 14:45 73 18 107/63 97 Room Air Physical Exam VITALS: Vitals are noted on the nurse's note and reviewed by myself. Vital signs stable. GENERAL: This is a 27-year-old female, in no acute distress, nondiaphoretic, well-developed well-nourished. SKIN: The skin was without rashes. EARS: External auditory canals clear, tympanic membranes pearly pineda without erythema or effusion bilaterally. EYES: Pupils equal round and reactive to light and accommodation. MOUTH: Mucous membranes moist. Tonsils are not enlarged. Pharynx without erythema or exudate. NECK: Supple without nuchal rigidity. No lymphadenopathy. HEART: Regular rate and rhythm without murmurs gallops or rubs. LUNGS: Clear to auscultation bilaterally without wheezes, rales or rhonchi. No retractions or accessory muscle use. NEURO: Patient was alert and oriented to person place and time. Medical Decision & Procedures ER Provider Diagnostic Interpretation: SINGLE VIEW CHEST FINDINGS: An AP, portable, upright chest radiograph is compared to study dated 04/18/2017 and correlated with chest CT dated 04/20/2017. The examination is degraded by portable technique and patient rotation. A left subclavian central venous infusion port is unchanged in position. The cardiomediastinal silhouette is unremarkable. The lungs and pleural spaces are clear. No pneumothorax is seen. The bony thorax is grossly intact. A device projecting over the right lower chest may be related to the right breast. There is mild S-shaped thoracolumbar scoliosis. IMPRESSION: The lungs are clear. CHEST CTA for PULMONARY ARTERIES FINDINGS: No mediastinal or hilar lymphadenopathy. No pleural or pericardial effusions. 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 No right axillary lymphadenopathy. Right lymph node dissection identified within the axilla. The visualized liver and spleen are unremarkable. Stable 2.7 cm right adrenal gland nodule which likely represents a benign adenoma. No suspicious lytic or blastic osseous lesions identified. Normal caliber thoracic aorta with no evidence for dissection. No filling defects within the pulmonary arteries to suggest pulmonary embolus. No pneumothorax. The central airways are patent. The lungs are clear. IMPRESSION: 1. No evidence for pulmonary embolus. 2. Postoperative changes within the right breast. 3. No evidence for metastatic disease within the chest. Laboratory Results 09/26/17 14:47 Red Blood Count 3.75, Mean Corpuscular Volume 88.0, Mean Corpuscular Hemoglobin 29.6, Mean Corpuscular Hemoglobin Concent 33.6, Mean Platelet Volume 9.1, Neutrophils (%) (Auto) 60.9, Lymphocytes (%) (Auto) 30.1, Monocytes (%) (Auto) 6.5, Eosinophils (%) (Auto) 1.4, Basophils (%) (Auto) 1.1, Neutrophils # (Auto) 1.70, Lymphocytes # (Auto) 0.84, Monocytes # (Auto) 0.18, Eosinophils # (Auto) 0.04, Basophils # (Auto) 0.03 09/26/17 14:47 Test 09/26/17 14:47 White Blood Count 2.79 K/uL (4.8-10.8) Red Blood Count 3.75 M/uL (4.2-5.4) Hemoglobin 11.1 g/dL (12.0-16.0) Hematocrit 33.0 % (37-47) Mean Corpuscular Volume 88.0 fL (80-100) Mean Corpuscular Hemoglobin 29.6 pg (25-34) Mean Corpuscular Hemoglobin Concent 33.6 g/dl (32-36) Platelet Count 176 K/uL (130-400) Mean Platelet Volume 9.1 fL (7.4-10.4) Neutrophils (%) (Auto) 60.9 % Lymphocytes (%) (Auto) 30.1 % Monocytes (%) (Auto) 6.5 % Eosinophils (%) (Auto) 1.4 % Basophils (%) (Auto) 1.1 % Neutrophils # (Auto) 1.70 K/uL (1.4-6.5) Lymphocytes # (Auto) 0.84 K/uL (1.2-3.4) Monocytes # (Auto) 0.18 K/uL (0.11-0.59) Eosinophils # (Auto) 0.04 K/uL (0-0.5) Basophils # (Auto) 0.03 K/uL (0-0.2) RDW Standard Deviation 42.6 fL (36.4-46.3) RDW Coefficient of Variation 13.7 % (11.5-14.5) Immature Granulocyte % (Auto) 0.0 % Immature Granulocyte # (Auto) 0.00 K/uL (0.00-0.02) D-Dimer 1460 ug/L FEU (0-500) Anion Gap 3.0 mmol/L (3-11) Est Creatinine Clear Calc Drug Dose 91.7 ml/min Estimated GFR () 117.0 Estimated GFR (Non- 100.9 BUN/Creatinine Ratio 19.4 (10-20) Calcium Level 9.1 mg/dl (8.5-10.1) Total Bilirubin 0.2 mg/dl (0.2-1) Aspartate Amino Transf (AST/SGOT) 8 U/L (15-37) Alanine Aminotransferase (ALT/SGPT) 18 U/L (12-78) Alkaline Phosphatase 55 U/L (45-117) Troponin I < 0.015 ng/ml (0-0.045) Total Protein 7.7 gm/dl (6.4-8.2) Albumin 3.7 gm/dl (3.4-5.0) Globulin 4.0 gm/dl (2.5-4.0) Albumin/Globulin Ratio 0.9 (0.9-2) Thyroid Stimulating Hormone (TSH) 0.147 uIu/ml (0.300-4.500) Human Chorionic Gonadotropin, Qual NEG (NEG) ECG Indication: chest pain Rate (beats per minute): 61 Rhythm: normal sinus Findings: no acute ischemic change, no ectopy Change: no significant change ED Course The patient was evaluated as above. Labs were drawn and IV access was obtained. She was placed on the erp manager. D-dimer was found to be elevated. CTA of the chest was ordered. Patient was reevaluated and findings were discussed. Discharge instructions were reviewed with the patient. The patient verbalized understanding of my assessment and treatment plan and was discharged home in good condition. Medical Decision Differential diagnosis includes pulmonary embolism, arrhythmia, cardiomyopathy, anxiety, pneumonia, pneumothorax, among others. The patient is a 27-year-old female with past medical history metastatic breast cancer currently on chemotherapy who presents today complaining of intermittent chest tightness/difficulty taking a deep breath. Patient is in no acute distress on exam and vitals within normal limits. At the time of my evaluation she was asymptomatic. Labs revealed leukopenia and anemia consistent with patient's current chemotherapy. Troponin was not elevated. EKG shows a normal sinus rhythm with no evidence of ischemia or ectopy. D-dimer was found to be elevated and CTA of the chest was performed which fortunately showed no pulmonary embolism. The patient remained on the erp manager and no arrhythmias were identified. The patient's current chemotherapy is cardiotoxic and she certainly may require further workup including Holter monitor and/or echocardiogram. However, I do feel this can be ordered and performed outpatient. Patient was encouraged to contact her oncologist for follow-up. She understands to return to the emergency department with any worsening or new/ concerning symptoms, specifically worsening chest pain, shortness of breath, dizziness or lightheadedness. The patient's case was reviewed with Dr. Hylton, ED attending physician, who agreed with my assessment and treatment plan. Based on the patient's presentation and work up, I feel the patient is stable for outpatient treatment. The patient was educated to return to the emergency department for any worsening of their current condition or new/concerning symptoms. She will follow up with her oncologist and PCP. Medication Reconcilliation Current Medication List: was personally reviewed by me Blood Pressure Screening Patient's blood pressure: Normal blood pressure Impression Primary Impression: Chest tightness Departure Information Dispostion Home / Self-Care Condition GOOD Referrals RV. Marcum MD (PCP) Patient Instructions My [facility] Additional Instructions Contact your oncologist to let them know that you were in the emergency department today. They may need to schedule further follow-up such as an echocardiogram or Holter monitor as an outpatient. Return to the emergency department with any worsening or constant chest pain, shortness of breath or any other new/concerning symptoms.
== END 2017-09-26 16:49 | disposition home or self-care (01) ==
LOC: C.EDB 13:35 → C.EDC 16:49
DX: R07.89 Other chest pain (principal); C79.51 Secondary malignant neoplasm of bone; C50.919 Malignant neoplasm of unspecified site of unspecified female breast; Z79.899 Other long term (current) drug therapy; Z80.9 Family history of malignant neoplasm, unspecified; Z83.3 Family history of diabetes mellitus; Z82.49 Family history of ischemic heart disease and other diseases of the circulatory system

== ENCOUNTER → 2017-10-27 | Day surgery (SDC) | payer BC, OTHER ==
[2017-10-23 15:23] VITALS: Ht 162.6 cm; Wt 60.0 kg
[~2017-10-27] VITALS: Ht 162.6 cm; Wt 60.0 kg
[~2017-10-27] MED LIST changes: -APRE80CA; -IBUP-1450 PO; +LIDOCAINE HCL 2% 2 ML VIAL (20MG/ML) ONE; +MBXC PO; +PROPOFOL IV EMULSION 10 MG/ML 20 ML VIAL IV ONE; +SODIUM CHLORIDE 0.9% 500ML 500 ML IV ONE
[2017-10-27 09:30] VITALS: TEMP 36.7
--- NOTE | 2017-10-27 09:46 | Endo History and Physical ---
History & Physical Date of Service: Oct 27, 2017. Chief Complaint: RECTAL BLEEDING Referring Physician: DR. CONNIE MANN History of Present Illness 27 yo referred for Rectal bleeding in setting of known metastatic breast ca on XRT and chemotherapy. Past Surgical History Hx Cardiac Surgery: No Hx Internal Defibrillator: No Hx Pacemaker: No Hx Abdominal Surgery: Yes (APPENDECTOMY) Hx of Implantable Prosthesis: No Hx Post-Op Nausea and Vomiting: No Hx Cancer Surgery: Yes (RIGHT MASTECTOMY WITH LYMPH NODES) Hx Thoracic Surgery: No Hx Orthopedic: No Hx Urinary Tract Surgery: No Family History None Social History Smoking Status: Never Smoker Hx Substance Use: No Hx Alcohol Use: No Allergies Coded Allergies: No Known Allergies (Verified , 10/27/17) Current Medications Reported Home Medications Medications Dose Route/Sig Max Daily Dose Days Date Category Dose Instructions Magic Swizzle - SUCRALFA/ALUM/MAG/DIPHEN/LIDO (Magic Swizzle) 240 Ml Susp 1 Tsp PO ACHS 10/13/17 Reported 100ml Sucralfate 50ml Maalox 50ml Diphenhydramine 40ml 2% Aq. Lidocaine Swish and Swallow Vitamin D3 (Cholecalciferol) 1,000 Unit Tab 1 Tab PO QAM 09/03/17 Reported Calcium 600 (Calcium Carbonate) 600 Mg Tab 1 Tab PO DAILY 09/03/17 Reported Kisqali (Ribociclib Succinate) 200 Mg Tab 3 Tabs PO DIRECTED 09/03/17 Reported Takes for 21 days followed by 1 week off Ultram (Tramadol HCl) 50 Mg Tab 50 Mg PO Q6H PRN 09/03/17 Reported Compazine (Prochlorperazine Maleate) 10 Mg Tab 1 Tab PO Q6 PRN 7 09/03/17 Reported Zofran (Ondansetron HCl) 8 Mg Tab 8 Mg PO Q8 PRN 09/03/17 Reported Femara (Letrozole) 2.5 Mg Tab 1 Tab PO QPM 09/03/17 Reported Vital Signs Weight (Kilograms): 60 Height (Feet): 5 Height (Inches): 4 Date Time Temp Pulse Resp B/P (MAP) Pulse Ox O2 Delivery O2 Flow Rate FiO2 10/27/17 09:30 36.7 70 18 114/63 (80) 100 Room Air Physical Exam General Appearance: WD/WN, no apparent distress Respiratory/Chest: Respiratory effort: no dyspnea Auscultation: breath sounds normal, CTA except as noted Cardiovascular: Apical Impulse: not displaced Heart Auscultation: RRR, normal S1, normal S2 Abdomen: Bowel Sounds: normal Inspection & Palpation: soft, non-distended Assessment and Plan Plan for colonoscopy for rectal bleeding
--- NOTE | 2017-10-27 10:56 | GI REPORT ---
Procedure Date: 10/27/2017 10:20 AM Procedure: Colonoscopy Indications: Rectal bleeding Medicines: Monitored Anesthesia Care Complications: No immediate complications. Estimated blood loss: None. Estimated Blood Loss: Estimated blood loss: none. Procedure: Pre-Anesthesia Assessment: - Pre-Anesthesia Assessment: - Prior to the procedure, a History and Physical was performed, and patient medications, allergies and sensitivities were reviewed. The patient's tolerance of previous anesthesia was reviewed. Please see [facility] for complete details. - The risks and benefits of the procedure and the sedation options and risks were discussed with the patient. All questions were answered and informed consent was obtained. - Patient identification and proposed procedure were verified prior to the procedure by the physician and the nurse. The procedure was verified in the pre-procedure area in the procedure room. After obtaining informed consent, the endoscope was passed carefully and meticuously under direct vision and only advanced when the lumen was clearly identified, C02 insuflation was utilized throughout the entirity of the procedure. Throughout the procedure, the patient's blood pressure, pulse, and oxygen saturations were monitored continuously. After I obtained informed consent, the scope was passed under direct vision. Throughout the procedure, the patient's blood pressure, pulse, and oxygen saturations were monitored continuously. The scope was introduced through the anus and advanced to the terminal ileum, with identification of the appendiceal orifice and IC valve. The colonoscopy was performed without difficulty. The patient tolerated the procedure well. The quality of the bowel preparation was good. Findings: A 3 mm polyp was found in the ascending colon. The polyp was sessile. The polyp was removed with a cold snare. Resection and retrieval were complete. The terminal ileum appeared normal. Internal hemorrhoids were found during retroflexion. The exam was otherwise without abnormality on direct and retroflexion views. Impression: - One 3 mm polyp in the ascending colon, removed with a cold snare. Resected and retrieved. - The examined portion of the ileum was normal. - Internal hemorrhoids. - The examination was otherwise normal on direct and retroflexion views. Recommendation: - Discharge patient to home (with escort). - Recommend hemorrhoid medication PRN. - Await pathology results. - Repeat colonoscopy for surveillance based on pathology results. Zan Correia MD 10/27/2017 10:55:55 AM This report has been signed electronically. Note Initiated On: 10/27/2017 10:20 AM I attest to the content of the Intraoperative Record and orders documented therein, exceptions below
--- NOTE | 2017-10-27 11:11 | Discharge Instructions ---
Endoscopy Patient Instructions Date / Procedure(s) Performed Oct 27, 2017. Colonoscopy Allergy Information Coded Allergies: No Known Allergies (Verified , 10/27/17) Discharge Date / Findings Oct 27, 2017. - One 3 mm polyp in the ascending colon, removed with a cold snare. Resected and retrieved. - The examined portion of the ileum was normal. - Internal hemorrhoids. - The examination was otherwise normal on direct and retroflexion views. You will be contacted with the pathology results. Provider Instructions Activity Restrictions - No exercising or heavy lifting for 24 hours. - Do not drink alcohol the day of the procedure. - Do not drive a car or operate machinery until the day after the procedure. - Do not make any important decisions or sign important papers in 24 hours after the procedure. Following Day: - Return to full activity which may include returning to work/school. Diet Start your diet with liquids and light foods (jello, soup, juice, toast). Then eat your usual diet if not nauseated. Treatment For Common After Affects For mild abdominal pain, bloating, or excessive gas: - Rest - Eat lightly - Lie on right side Follow-Up Information Follow-up with DR. CONNIE MANN as scheduled Anesthesia Information What You Should Know You have had a procedure that required some medicine to reduce anxiety and discomfort. This treatment is called moderate sedation. After receiving the treatment, you may be sleepy, but you will be able to breathe on your own. The effects of the treatment may last for several hours. Follow these instructions along with Activity/Diet recommendations noted above: * Do NOT do anything where dizziness or clumsiness would be dangerous. * Rest quietly at home today, then you can be up and about tomorrow. * Have a responsible person stay with you the rest of today. * You may have had an I.V. today. If so, you may take the dressing off later today. Recommendations Call your doctor if: * Trouble breathing * Continuous vomiting for more than 24 hours * Temperature above 101 degrees * Severe abdominal pain or bloating * Pain not relieved by pain medicine ordered * There is increased drainage or redness from any incision * A large amount of rectal bleeding greater than 2-3 tablespoons. (If you had a polyp/s removed or have hemorrhoids, a small amount of blood - from the rectum is to be expected.) * You have any unanswered questions or concerns. IN THE EVENT OF A SERIOUS EMERGENCY, GO TO THE NEAREST EMERGENCY ROOM Your discharge instructions were prepared by provider Zan Correia. Patient Instructions Signature Page Jie Gramajo Patient (or Guardian) Signature/Date: I have read and understand the instructions given to me by my caregivers. Caregiver/RN/Doctor Signature/Date: The above-named patient and/or guardian has received patient instructions on this date. + Original Patient Signature Page (only) stays with chart. Please make copy for patient.
--- NOTE | 2017-10-27 11:13 | Anesthesiology Progress Note ---
Anesthesia Post Op Note Date & Time Oct 27, 2017 at 11:13 Vital Signs Pain Intensity: 0 Vital Signs Past 12 Hours Date Time Temp Pulse Resp B/P (MAP) Pulse Ox O2 Delivery O2 Flow Rate FiO2 10/27/17 11:05 75 18 104/64 (77) 99 Room Air 10/27/17 10:50 85 18 98/61 (73) 97 Room Air 10/27/17 09:30 36.7 70 18 114/63 (80) 100 Room Air Notes Mental Status: alert / awake / arousable, participated in evaluation Pt Amnestic to Procedure: Yes Nausea / Vomiting: adequately controlled Pain: adequately controlled Airway Patency, RR, SpO2: stable & adequate BP & HR: stable & adequate Hydration State: stable & adequate Anesthetic Complications: no major complications apparent
[2017-10-27 11:20] VITALS: BP 106/61; PULSE 69; O2SAT 99
== END | disposition home or self-care (01) ==
LOC: C.GI 09:05
PROVIDERS: ATTEND Internal Medicine
DX: K62.5 Hemorrhage of anus and rectum (principal); D12.2 Benign neoplasm of ascending colon; K64.8 Other hemorrhoids; Z85.3 Personal history of malignant neoplasm of breast; Z90.89 Acquired absence of other organs; Z90.11 Acquired absence of right breast and nipple; Z79.899 Other long term (current) drug therapy; Z98.890 Other specified postprocedural states

== ENCOUNTER 2017-11-11 08:26 | Emergency (ER) | payer BC, OTHER ==
[~2017-11-11] VITALS: Ht 162.6 cm; Wt 57.6 kg
[~2017-11-11 08:26] MED LIST changes: -LIDOCAINE HCL 2% 2 ML VIAL (20MG/ML) ONE; -PROPOFOL IV EMULSION 10 MG/ML 20 ML VIAL IV ONE; -SODIUM CHLORIDE 0.9% 500ML 500 ML IV ONE
[2017-11-11 08:28] VITALS: Ht 162.6 cm; Wt 57.6 kg
[2017-11-11] MEDS ORDERED: PROMETHAZINE HCL INJ 6.25 MG in SODIUM CHLORIDE 0.9% 50ML 50 ML IV STA (08:39)
[2017-11-11] MEDS ORDERED: ONDANSETRON INJ 2 MG/ML 2 ML VIAL IV STA (08:39)
[2017-11-11] MEDS ORDERED: SODIUM CHLORIDE 0.9% 1000ML 1,000 ML IV STA (08:39)
[2017-11-11] MEDS ORDERED: DRGTP12 TOP (08:44)
[2017-11-11] MEDS ORDERED: RIBO200T PO (08:44)
--- NOTE | 2017-11-11 09:10 | EMERGENCY ROOM VISIT NOTE ---
History Report prepared by Antonio: Maddy Keys Under the Supervision of: Dr. Clark Ramirez M.D. First contact with patient: 08:34 Chief Complaint: VOMITING Stated Complaint: VOMITING,CHILLS,FOGGINESS Nursing Triage Summary: Pt had right mastectomy in 2016, currently undergoing radiation and on oral chemo. Yesterday started with n/v, "feeling foggy and lethargic." Pt states, "The last time I felt like this I was neutropenic." History of Present Illness The patient is a 27 year old female who presents to the Emergency Room with complaints of intermittent vomiting beginning yesterday morning. The patient has a history of breast cancer is currently being treated with oral chemotherapy and radiation therapy. She gets radiating every day Friday - Friday. She states that she was feeling well yesterday morning. She went to radiation and started feeling nauseated after her treatment. The patient states that she vomited in the parking lot while she was leaving radiation. She thought maybe it was because she hadn't eaten anything. She tried eating and still continued to experience nausea and vomiting. These symptoms have persisted , although she was able to sleep throughout the night. This morning she tried to drink an Ensure, but was unable to keep it down. She has tried using Zofran without any relief. The patient reports feeling hot and having chills. She states that she feels "foggy." She has felt this way in the past when she has been neutropenic. The patient denies sore throat, abdominal pain, diarrhea, and urinary symptoms. She denies eating anything unusual. She denies any sick contacts. Source of History: patient Onset: yesterday morning Position: abdomen Quality: other (vomiting) Timing: intermittent Modifying Factors (Worsening): drinking, other (radiation therapy) Associated Symptoms: + chills, + nausea, No sorethroat, No abdominal pain, No diarrhea, No urinary symptoms Review of Systems See HPI for pertinent positives & negatives. A total of 10 systems reviewed and were otherwise negative. Past Medical & Surgical Medical Problems: (1) Appendectomy (2) Breast cancer (3) Complicated (4) FUO (fever of unknown origin) (5) Gestational [-induced] hypertension without significant proteinuria , third trimester (6) Scoliosis Surgical Problems: (1) Hx of mastectomy Family History Cancer Diabetes mellitus Heart disease Hypertension Lung disease Social History Smoking Status: Never Smoker Smokeless Tobacco Use: No Alcohol Use: none Drug Use: none Marital Status: Housing Status: lives with family Occupation Status: employed Current/Historical Medications Scheduled Calcium Carbonate (Calcium 600), 1 TAB PO DAILY Cephalexin Monohydrate (Keflex), 500 MG PO TID Cholecalciferol (Vitamin D3), 1 TAB PO QAM Fentanyl (Fentanyl), 12 MCG TOP [id number] Letrozole (Femara), 1 TAB PO QPM Magic Swizzle (Magic Swizzle - SUCRALFA/ALUM/MAG/DIPHEN/LIDO), 1 TSP PO ACHS Ribociclib Succinate (Kisqali), 300 MG PO DAILY Scheduled PRN Ondansetron Hcl (Zofran), 8 MG PO Q8 PRN for Nausea Prochlorperazine Maleate (Compazine), 1 TAB PO Q6 PRN for Nausea or Vomiting Tramadol (Ultram), 50 MG PO Q6H PRN for Pain Allergies Coded Allergies: No Known Allergies (Verified , 10/27/17) Physical Exam Vital Signs Date Time Temp Pulse Resp B/P (MAP) Pulse Ox O2 Delivery O2 Flow Rate FiO2 11/11/17 13:18 37.0 75 18 95/57 98 11/11/17 10:00 37.0 60 18 101/55 99 Room Air 11/11/17 08:28 36.3 88 16 113/76 99 Room Air Physical Exam GENERAL: Patient is in no acute distress. HEENT: No acute trauma, normocephalic atraumatic, mucous membranes dry, no nasal congestion, no scleral icterus. No throat erythema or exudate. NECK: No stridor, no adenopathy, no meningismus, trachea is midline. LUNGS: Clear to auscultation bilaterally, no wheeze, no rhonchi, breath sounds equal. HEART: Without murmurs gallops or rubs, regular rate and rhythm. ABDOMEN: Soft, nontender, bowel sounds positive, no hernias, no peritonitis. EXTREMITIES: No cyanosis or edema, full range of motion of all the joints without pain or difficulty, no signs for acute trauma. NEUROLOGIC: Oriented x 3, no acute motor or sensory deficits, no focal weakness. SKIN: There is erythema to the right anterior chest and shoulder consistent with radiation therapy, no cellulitis. Medical Decision & Procedures Laboratory Results 11/11/17 09:55 Red Blood Count 3.38, Mean Corpuscular Volume 91.1, Mean Corpuscular Hemoglobin 31.4, Mean Corpuscular Hemoglobin Concent 34.4, Mean Platelet Volume 9.0, Neutrophils (%) (Auto) 84.2, Lymphocytes (%) (Auto) 9.1, Monocytes (%) (Auto) 5.4, Eosinophils (%) (Auto) 0.3, Basophils (%) (Auto) 1.0, Neutrophils # (Auto) 2.51, Lymphocytes # (Auto) 0.27, Monocytes # (Auto) 0.16, Eosinophils # (Auto) 0.01, Basophils # (Auto) 0.03 11/11/17 09:55 Test 11/11/17 09:20 11/11/17 09:55 Urine Color DK YELLOW Urine Appearance CLOUDY (CLEAR) Urine pH 7.5 (4.5-7.5) Urine Specific [place] 1.025 (1.000-1.030) Urine Protein NEG (NEG) Urine Glucose (UA) NEG (NEG) Urine Ketones 1+ (NEG) Urine Occult Blood NEG (NEG) Urine Nitrite NEG (NEG) Urine Bilirubin NEG (NEG) Urine Urobilinogen NEG (NEG) Urine Leukocyte Esterase LARGE (NEG) Urine WBC (Auto) >30 /hpf (0-5) Urine RBC (Auto) 0-4 /hpf (0-4) Urine Hyaline Casts (Auto) 10-30 /lpf (0-5) Urine Epithelial Cells (Auto) >30 /lpf (0-5) Urine Bacteria (Auto) NEG (NEG) Urine Renal Epithelial Cells 0-5 /lpf (0-5) Urine Pathogenic Casts 0-3 GRANULAR CASTS /lpf (0) White Blood Count 2.98 K/uL (4.8-10.8) Red Blood Count 3.38 M/uL (4.2-5.4) Hemoglobin 10.6 g/dL (12.0-16.0) Hematocrit 30.8 % (37-47) Mean Corpuscular Volume 91.1 fL (80-100) Mean Corpuscular Hemoglobin 31.4 pg (25-34) Mean Corpuscular Hemoglobin Concent 34.4 g/dl (32-36) Platelet Count 229 K/uL (130-400) Mean Platelet Volume 9.0 fL (7.4-10.4) Neutrophils (%) (Auto) 84.2 % Lymphocytes (%) (Auto) 9.1 % Monocytes (%) (Auto) 5.4 % Eosinophils (%) (Auto) 0.3 % Basophils (%) (Auto) 1.0 % Neutrophils # (Auto) 2.51 K/uL (1.4-6.5) Lymphocytes # (Auto) 0.27 K/uL (1.2-3.4) Monocytes # (Auto) 0.16 K/uL (0.11-0.59) Eosinophils # (Auto) 0.01 K/uL (0-0.5) Basophils # (Auto) 0.03 K/uL (0-0.2) RDW Standard Deviation 57.6 fL (36.4-46.3) RDW Coefficient of Variation 17.3 % (11.5-14.5) Immature Granulocyte % (Auto) 0.0 % Immature Granulocyte # (Auto) 0.00 K/uL (0.00-0.02) Anion Gap 5.0 mmol/L (3-11) Est Creatinine Clear Calc Drug Dose 89.5 ml/min Estimated GFR () 113.6 Estimated GFR (Non- 98.0 BUN/Creatinine Ratio 14.3 (10-20) Calcium Level 8.6 mg/dl (8.5-10.1) Magnesium Level 2.6 mg/dl (1.8-2.4) Total Bilirubin 0.4 mg/dl (0.2-1) Aspartate Amino Transf (AST/SGOT) 15 U/L (15-37) Alanine Aminotransferase (ALT/SGPT) 22 U/L (12-78) Alkaline Phosphatase 53 U/L (45-117) Total Protein 7.3 gm/dl (6.4-8.2) Albumin 3.5 gm/dl (3.4-5.0) Globulin 3.8 gm/dl (2.5-4.0) Albumin/Globulin Ratio 0.9 (0.9-2) Thyroid Stimulating Hormone (TSH) 0.041 uIu/ml (0.300-4.500) Free Thyroxine 1.12 ng/dl (0.80-1.60) Human Chorionic Gonadotropin, Qual NEG (NEG) Laboratory results reviewed by me. Medications Administered Medications (Trade) Dose Ordered Sig/Sami Route Start Time Stop Time Status Last Admin Dose Admin Ondansetron HCl (Zofran Inj) 4 mg NOW STAT IV 11/11/17 08:39 11/11/17 08:41 DC 11/11/17 09:49 4 MG Sodium Chloride 1,000 ml @ 999 mls/hr Q1H1M STAT IV 11/11/17 08:39 11/11/17 09:39 DC 11/11/17 09:48 999 MLS/HR Promethazine HCl 6.25 mg/Sodium Chloride 50.25 ml @ 204 mls/hr NOW STAT IV 11/11/17 08:39 11/11/17 08:53 DC 11/11/17 08:39 204 MLS/HR Ceftriaxone Sodium (Rocephin Inj) 1 gm NOW STAT IV 11/11/17 11:03 11/11/17 11:05 DC 11/11/17 11:21 1 GM Sodium Chloride 500 ml @ 999 mls/hr Q31M STAT IV 11/11/17 12:23 11/11/17 12:53 DC 11/11/17 12:37 999 MLS/HR Heparin Sodium (Porcine) (Heparin 100 Unit/ml 5ml Flush) 5 ml STK-MED ONCE .ROUTE 11/11/17 13:10 11/11/17 13:14 DC 11/11/17 13:10 5 ML ECG Per My Interpretation Indication: vomiting Rate (beats per minute): 56 Rhythm: sinus bradycardia Findings: other (no PVCs; no ST elevation) ED Course 0834: The patient was evaluated in room B5. A complete history and physical exam was performed. 0839: Promethazine HCl 6.25 mg/Sodium Chloride 50.25 ml @ 204 mls/hr IV, NSS 1000 ml @ 999 mls/hr IV, Zofran 4 mg IV 1101: I updated the patient on her results. 1103: Rocephin 1 gm IV 1221: I reassessed the patient at this time. She is feeling better and resting comfortably. I discussed the results and treatment plan with the patient. I answered all pertaining questions that she had. She expressed understanding and verbalized agreement. The patient will be discharged home. 1223: NSS 500 ml @ 999 mls/hr IV Medical Decision Differential diagnoses includes dehydration, electrolyte imbalance, neutropenia , anemia, viral illness, foodborne illness, UTI. The patient's white count and hemoglobin are both slightly low, these values are baseline for her. She was not technically neutropenic. No evidence for renal failure or for significant electrolyte abnormality. No evidence for hepatitis. testing returned negative. The patient appears to be in a euthyroid state. Urinalysis is suggestive of infection, urine culture is pending. The patient received IV saline, 1.5 L. She received IV Zofran and IV Phenergan. She was given a dose of IV ceftriaxone. The patient is doing better, she feels improved. She will be discharged with Keflex for the potential UTI. She will use her Zofran and Compazine at home for vomiting. If she develops a fever, if she is worsening, she will return for reassessment. The vomiting could be from her cancer and chemotherapy, certainly, the potential UTI could be contributing. Medication Reconcilliation Current Medication List: was personally reviewed by me Blood Pressure Screening Patient's blood pressure: Normal blood pressure Impression Primary Impression: Dehydration Additional Impressions: Vomiting UTI (urinary tract infection) H/O malignant neoplasm of breast Scribe Attestation The scribe's documentation has been prepared under my direction and personally reviewed by me in its entirety. I confirm that the note above accurately reflects all work, treatment, procedures, and medical decision making performed by me. Departure Information Dispostion Home / Self-Care Prescriptions Cephalexin Monohydrate (Keflex) 500 Mg Cap 500 MG PO TID for 7 Days, #21 CAP Prov: Clark Ramirez M.D. 11/11/17 Referrals RV. Marcum MD (PCP) Forms HOME CARE DOCUMENTATION FORM, IMPORTANT VISIT INFORMATION Patient Instructions My [facility] Additional Instructions fluids rest slowly advance the diet---crackers, soup, toast, gatorade use the zofran and compazine you have at home for nausea keflex 3x per day for 1 week return for worsening symptoms or fever Problem Qualifiers
[2017-11-11 10:06] LABS: BASO ABS # 0.03 K/uL (0-0.2); EOS % 0.3 %; EOS ABS # 0.01 K/uL (0-0.5); HEMATOCRIT 30.8 % (37-47); HEMOGLOBIN 10.6 g/dL (12.0-16.0); LYMPH % 9.1 %; LYMPH ABS # 0.27 K/uL (1.2-3.4); MEAN CELL VOLUME 91.1 fL (80-100); MEAN CORPUSCULAR HEMOGLOBIN 31.4 pg (25-34); MEAN CORPUSCULAR HGB CONC 34.4 g/dl (32-36); MONO % 5.4 %; MONO ABS # 0.16 K/uL (0.11-0.59); NEUT % 84.2 %; NEUT ABS # 2.51 K/uL (1.4-6.5); PLATELET COUNT 229 K/uL (130-400); RED CELL DISTRIBUTION WIDTH CV 17.3 % (11.5-14.5); RED CELL DISTRIBUTION WIDTH SD 57.6 fL (36.4-46.3); WHITE BLOOD COUNT 2.98 K/uL (4.8-10.8)
[2017-11-11 10:33] LABS: ALBUMIN 3.5 gm/dl (3.4-5.0); CALCIUM 8.6 mg/dl (8.5-10.1); CREATININE 0.83 mg/dl (0.60-1.20); POTASSIUM 3.8 mmol/L (3.5-5.1)
[2017-11-11 10:44] LABS: TOTAL PROTEIN 7.3 gm/dl (6.4-8.2)
[2017-11-11] MEDS ORDERED: CEFTRIAXONE SOD INJ 1 GM ADDVIAL IV STA (11:03)
[2017-11-11] MEDS ORDERED: SODIUM CHLORIDE 0.9% 500ML 500 ML IV STA (12:23)
[2017-11-11] MEDS ORDERED: CEPH500C PO (12:28)
[2017-11-11 13:18] VITALS: BP 95/57; PULSE 75; TEMP 37; O2SAT 98
== END 2017-11-11 13:20 | disposition home or self-care (01) ==
LOC: C.EDB 08:27
DX: E86.0 Dehydration (principal); R11.2 Nausea with vomiting, unspecified; N39.0 Urinary tract infection, site not specified; Z85.3 Personal history of malignant neoplasm of breast; Z08 Encounter for follow-up examination after completed treatment for malignant neoplasm; Z90.11 Acquired absence of right breast and nipple; M41.9 Scoliosis, unspecified; Z80.9 Family history of malignant neoplasm, unspecified; Z83.3 Family history of diabetes mellitus; Z82.49 Family history of ischemic heart disease and other diseases of the circulatory system; Z83.6 Family history of other diseases of the respiratory system; Z79.899 Other long term (current) drug therapy

== ENCOUNTER → 2017-11-24 | Outpatient (CLI) | payer BC, OTHER ==
[~2017-11-24] MED LIST changes: +DRGTP12 TOP; -MBXC PO; +ONDA-170 PO; -ONDA8TAB6 PO; +OXYC1TAB3 PO
== END | disposition home or self-care (01) ==
LOC: C.LABSPEC 15:57
PROVIDERS: ATTEND Internal Medicine
DX: N32.9 Bladder disorder, unspecified (principal)

== ENCOUNTER 2017-11-25 11:03 | Emergency (ER) | payer BC, OTHER ==
[~2017-11-25] VITALS: Ht 162.6 cm; Wt 58.5 kg
[~2017-11-25 11:03] MED LIST changes: -OXYC1TAB3 PO
[2017-11-25 11:10] VITALS: TEMP 36.9; Ht 162.6 cm; Wt 58.5 kg
[2017-11-25] MEDS ORDERED: ONDANSETRON INJ 2 MG/ML 2 ML VIAL IV STA (11:29)
[2017-11-25] MEDS ORDERED: MoRPHine SULFATE 4 MG/ML 1 ML CARP\\VIAL IV STA (11:29)
[2017-11-25] MEDS ORDERED: SODIUM CHLORIDE 0.9% 1000ML 1,000 ML IV STA ×2 (11:29→16:02)
--- NOTE | 2017-11-25 11:49 | EMERGENCY ROOM VISIT NOTE ---
History First contact with patient: 11:22 Chief Complaint: BACK PAIN Stated Complaint: N/V, CHILLS, L-BACK PAIN History of Present Illness The patient is a 27 year old female who presents to the Emergency Room via private vehicle with complaints of "nausea, vomiting, chills, low back pain". The patient states that she has a history of breast cancer. She undergoes radiation and oral chemotherapy. Last radiation treatment was this morning. She states that she was seen here about 2 weeks ago and was given IV antibiotics for UTI. She was sent home on p.o. Keflex. She states that the nausea and vomiting subsided however the urinary frequency persists. She states that this past Friday she developed left-sided flank pain, and chills. It has persisted and worsened since that time. She finished antibiotics this past Friday. She denies any chest pain or shortness of breath. Review of Systems A complete 10-point Review of Systems was discussed with the patient, with pertinent positives and negatives listed in the History of Present Illness. All remaining Review of Systems questions can be considered negative unless otherwise specified. Past Medical/Surgical History Medical Problems: (1) Appendectomy (2) Breast cancer (3) Complicated (4) FUO (fever of unknown origin) (5) Gestational [-induced] hypertension without significant proteinuria , third trimester (6) Scoliosis Surgical Problems: (1) Hx of mastectomy Family History Cancer Diabetes mellitus Heart disease Hypertension Lung disease Social History Smoking Status: Never Smoker Alcohol Use: none Drug Use: none Marital Status: Housing Status: lives with family Occupation Status: employed Current/Historical Medications Scheduled Calcium Carbonate (Calcium 600), 600 MG PO DAILY Cholecalciferol (Vitamin D3), 1,000 UNITS PO QAM Letrozole (Femara), 2.5 MG PO QPM Ribociclib Succinate (Kisqali), 300 MG PO DAILY Scheduled PRN Ondansetron Hcl (Zofran), 8 MG PO Q8 PRN for Nausea Oxycodone Ir (Roxicodone Ir), 1-2 TAB PO Q4H PRN for Pain Prochlorperazine Maleate (Compazine), 10 MG PO Q6 PRN for Nausea or Vomiting Tramadol (Ultram), 50 MG PO Q6H PRN for Pain Physical Exam Vital Signs Date Time Temp Pulse Resp B/P (MAP) Pulse Ox O2 Delivery O2 Flow Rate FiO2 11/25/17 15:44 85 18 95/54 98 Room Air 11/25/17 14:46 75 18 98/52 99 11/25/17 13:00 66 18 103/64 100 Room Air 11/25/17 12:32 84 18 113/65 100 Room Air 11/25/17 11:10 36.9 104 18 120/85 97 Room Air Physical Exam VITAL SIGNS - Vital signs and nursing notes were reviewed. Stable. Afebrile. Slightly tachycardic at 10 4 bpm. GENERAL -27-year-old female appearing her stated age who is in no acute distress. Communicates well with provider and answers questions appropriately. SKIN - Without rashes. No petechial or meningeal rash. HEAD - NC/AT. EYES - PERRL with EOMI bilaterally. Sclera anicteric. EARS - No deformities of external structures noted on gross examination bilaterally. External auditory canals without discharge or otorrhea. Tympanic membranes pearly pineda without retraction or bulging. No fluid or purulent material visualized behind the TM. Handle of malleus, umbo, cone of light, pars tensa/flaccid all easily visualized. NOSE - Midline and without cyanosis. No epistaxis or purulent drainage noted. MOUTH/OROPHARYNX - Without perioral cyanosis. Buccal mucosa pink and moist and without leukoplakia. Tongue midline with equal elevation of palate bilaterally. No tonsillar hypertrophy, erythema, or exudates noted. There dentition noted. No thrush noted. NECK - Neck with FROM. No meningismus. LUNGS - Chest wall symmetric without accessory muscle use, intercostals retractions, or central cyanosis. Normal vesicular breath sounds CTA B/L. No wheezes, rales, or rhonchi appreciated. CARDIAC - RRR with S1/S2. No murmur, rubs, or gallops appreciated. ABDOMEN - Abdominal contour normal without pulsations or visible masses. BS normoactive all four quadrants. No tenderness, palpable masses, hepatosplenomegaly, or ascites noted. Positive CVA tenderness left greater than right. EXTREMITIES - No clubbing or peripheral cyanosis. No pretibial edema present. +5 /5 strength noted in UE/LE bilaterally. NEUROLOGIC - Cranial nerves II through XII grossly intact. Sensory intact to light touch throughout. PSYCH - A&O, and cooperates fully with examiner. Pt is very pleasant and interacts well with examiner. Medical Decision & Procedures ER Provider Diagnostic Interpretation: ULTRASOUND KIDNEYS AND BLADDER CLINICAL HISTORY: Left flank pain. Recent urinary tract infection. COMPARISON STUDY: Abdominal CT dated 12/30/2005. TECHNIQUE: Real-time, grayscale, and color flow sonography of the kidneys and bladder is performed. Images are reviewed in the transverse and longitudinal planes. FINDINGS: Kidneys: The kidneys are normal in size and echotexture. The right kidney measures 11.9 cm in length and the left kidney measures 11.2 cm in length. There is no hydronephrosis. No shadowing renal calculi are identified. There is no sonographic evidence of contour deforming renal mass lesion. No perinephric fluid is identified. Bladder: The bladder is normal in appearance. A right ureteral jet was seen. IMPRESSION: Unremarkable sonographic assessment of the kidneys and bladder. Electronically signed by: Clark Dorman M.D. 11/25/2017 2:51 PM Dictated Date/Time: 11/25/2017 2:49 PM Laboratory Results 11/25/17 12:00 Red Blood Count 3.34, Mean Corpuscular Volume 91.6, Mean Corpuscular Hemoglobin 32.3, Mean Corpuscular Hemoglobin Concent 35.3, Mean Platelet Volume 8.8, Neutrophils (%) (Auto) 89.2, Lymphocytes (%) (Auto) 5.2, Monocytes (%) (Auto) 4.6, Eosinophils (%) (Auto) 0.3, Basophils (%) (Auto) 0.7, Neutrophils # (Auto) 2.73, Lymphocytes # (Auto) 0.16, Monocytes # (Auto) 0.14, Eosinophils # (Auto) 0.01, Basophils # (Auto) 0.02 11/25/17 12:00 Test 11/25/17 12:00 11/25/17 12:24 White Blood Count 3.06 K/uL (4.8-10.8) Red Blood Count 3.34 M/uL (4.2-5.4) Hemoglobin 10.8 g/dL (12.0-16.0) Hematocrit 30.6 % (37-47) Mean Corpuscular Volume 91.6 fL (80-100) Mean Corpuscular Hemoglobin 32.3 pg (25-34) Mean Corpuscular Hemoglobin Concent 35.3 g/dl (32-36) Platelet Count 137 K/uL (130-400) Mean Platelet Volume 8.8 fL (7.4-10.4) Neutrophils (%) (Auto) 89.2 % Lymphocytes (%) (Auto) 5.2 % Monocytes (%) (Auto) 4.6 % Eosinophils (%) (Auto) 0.3 % Basophils (%) (Auto) 0.7 % Neutrophils # (Auto) 2.73 K/uL (1.4-6.5) Lymphocytes # (Auto) 0.16 K/uL (1.2-3.4) Monocytes # (Auto) 0.14 K/uL (0.11-0.59) Eosinophils # (Auto) 0.01 K/uL (0-0.5) Basophils # (Auto) 0.02 K/uL (0-0.2) RDW Standard Deviation 56.1 fL (36.4-46.3) RDW Coefficient of Variation 16.6 % (11.5-14.5) Immature Granulocyte % (Auto) 0.0 % Immature Granulocyte # (Auto) 0.00 K/uL (0.00-0.02) Prothrombin Time 10.2 SECONDS (9.0-12.0) Prothromb Time International Ratio 1.0 (0.9-1.1) Activated Partial Thromboplast Time 25.9 SECONDS (21.0-31.0) Partial Thromboplastin Ratio 1.0 Anion Gap 6.0 mmol/L (3-11) Est Creatinine Clear Calc Drug Dose 101.8 ml/min Estimated GFR () 132.7 Estimated GFR (Non- 114.5 BUN/Creatinine Ratio 10.8 (10-20) Lactic Acid Level 0.8 mmol/L (0.4-2.0) Calcium Level 8.9 mg/dl (8.5-10.1) Magnesium Level 2.3 mg/dl (1.8-2.4) Total Bilirubin 0.4 mg/dl (0.2-1) Aspartate Amino Transf (AST/SGOT) 17 U/L (15-37) Alanine Aminotransferase (ALT/SGPT) 20 U/L (12-78) Alkaline Phosphatase 54 U/L (45-117) Total Creatine Kinase 88 U/L (26-192) Creatine Kinase MB < 0.5 ng/ml (0.5-3.6) Creatine Kinase MB Ratio (0-3.0) Total Protein 7.4 gm/dl (6.4-8.2) Albumin 3.6 gm/dl (3.4-5.0) Globulin 3.8 gm/dl (2.5-4.0) Albumin/Globulin Ratio 0.9 (0.9-2) Urine Color YELLOW Urine Appearance CLEAR (CLEAR) Urine pH 7.5 (4.5-7.5) Urine Specific [place] 1.010 (1.000-1.030) Urine Protein NEG (NEG) Urine Glucose (UA) NEG (NEG) Urine Ketones NEG (NEG) Urine Occult Blood NEG (NEG) Urine Nitrite NEG (NEG) Urine Bilirubin NEG (NEG) Urine Urobilinogen NEG (NEG) Urine Leukocyte Esterase NEG (NEG) Urine Test NEG (NEG) Medications Administered Medications (Trade) Dose Ordered Sig/Sami Route Start Time Stop Time Status Last Admin Dose Admin Sodium Chloride 1,000 ml @ 999 mls/hr Q1H1M STAT IV 11/25/17 11:29 11/25/17 12:29 DC 11/25/17 12:33 999 MLS/HR Morphine Sulfate (MoRPHine SULFATE INJ) 4 mg NOW STAT IV 11/25/17 11:29 11/25/17 11:33 DC 11/25/17 12:34 4 MG Ondansetron HCl (Zofran Inj) 4 mg NOW STAT IV 11/25/17 11:29 11/25/17 11:33 DC 11/25/17 12:34 4 MG Morphine Sulfate (MoRPHine SULFATE INJ) 2 mg NOW STAT IV 11/25/17 14:49 11/25/17 14:50 DC 11/25/17 15:44 2 MG Sodium Chloride 1,000 ml @ 999 mls/hr Q1H1M STAT IV 11/25/17 16:02 11/25/17 17:02 11/25/17 16:07 999 MLS/HR Medical Decision Patient was seen and evaluated as above. Review was performed of nursing notes and vital signs. After obtaining a thorough history and physical examination the above work up was performed. L flank pain with + CVA tenderness. She is hemodynamically stable. There is concern that this could be continuing of her previous UTI. Therefore IV access was established with blood cultures drawn, particularly because of her likely immunocompromised state. Bedside EKG was performed prior to administering Zofran because of the QT prolonging meds and it was noted to be normal sinus rhythm per my interpretation. CBC does reveal decreased white blood cell count which is similar to previous as well as decreased hemoglobin at 10.8 which is also similar to previous. Coags normal. Metabolic panel reveals no evidence of kidney or liver failure. Lactic acid negative. Patient urine is negative. UPT negative. Ultrasound was obtained of the kidneys and were negative. This was looking for any potential abnormality. I did offer the patient is CT scan of her abdomen and pelvis for further evaluation however the decision was made to refrain from further radiation and to see how she clinically feels. She was given morphine for here for pain 2. Blood pressure did drop a little bit I suspect secondary from this and was given 1 L of normal saline wide open. BP improved. There is no abdominal pain on exam. It is simply in the lumbar paraspinous musculature, L side. This could certainly be a muscular skeletal strain. I do not suspect any emergent etiology. She will be given oxycodone at home for pain. She is to call her family doctor to schedule follow-up. The patient was educated upon management, had questions answered prior to discharge, and was discharged home in good condition. Case was discussed with the attending physician. I attest that I have personally reviewed the patient medication list. I attest that I have reviewed the patient's blood pressure and it was found to be normal and low. In the evaluation and treatment of this patient the following differential diagnoses were entertained: Septic, UTI, pyelonephritis, renal calculi, musculoskeletal strain, metastasis of cancer, among others. Impression Primary Impression: Left flank pain Departure Information Dispostion Home / Self-Care Condition GOOD Prescriptions Oxycodone Ir (Roxicodone Ir) 5 Mg Tab 1-2 TAB PO Q4H Y for Pain, #15 TAB For Initial Treatment Prov: José Antonio Sherwood PA-C 11/25/17 Referrals RV. Marcum MD (PCP) Patient Instructions My [facility] Additional Instructions You have been treated in the Emergency Department for Back Pain/L flank pain. You have received pain medicine in the emergency department which impairs your ability to operate a vehicle. It is illegal for you to drive after receiving these medicines. You have been prescribed Oxy IR to be used for pain control. This is a narcotic medication. You cannot drive or consume alcohol while on this medicine. This medicine should only be used for pain that cannot be controlled with over-the- counter pain medicines. For pain control, you can use the following [id number] medicines: - Regular strength (325mg/tab) Tylenol (acetaminophen) 2 tabs every 4-6 hours as needed. Do not exceed 12 tablets in a 24 hour period. Avoid taking more than 3 grams (3000 mg) of Tylenol per day. This includes any other sources of acetaminophen you may take on a regular basis. - Regular strength (200 mg/tab) Advil (ibuprofen) 1-2 tabs every 4-6 hours as needed. Do not exceed a dose of 3200 mg per day. If this is an acute injury, ice can be applied to the area of pain for the first 3 days to help decrease pain and inflammation. After the first 3 days, a heating pad can be used over the area for continued soothing relief. You should schedule a follow-up appointment as soon as possible with your Primary Care Provider for further evaluation and treatment of your back pain/ flank pain. Return to the Emergency Department if your current symptoms worsen despite treatment course outlined above, or if you develop any of the following symptoms : intractable pain despite aforementioned treatment course, loss of control of your bowel or bladder, numbness or tingling in your groin, or development of a fever.
[2017-11-25 12:20] LABS: BASO % 0.7 %; BASO ABS # 0.02 K/uL (0-0.2); EOS % 0.3 %; EOS ABS # 0.01 K/uL (0-0.5); HEMATOCRIT 30.6 % (37-47); HEMOGLOBIN 10.8 g/dL (12.0-16.0); LYMPH % 5.2 %; LYMPH ABS # 0.16 K/uL (1.2-3.4); MEAN CELL VOLUME 91.6 fL (80-100); MEAN CORPUSCULAR HEMOGLOBIN 32.3 pg (25-34); MEAN CORPUSCULAR HGB CONC 35.3 g/dl (32-36); MEAN PLATELET VOLUME 8.8 fL (7.4-10.4); MONO % 4.6 %; MONO ABS # 0.14 K/uL (0.11-0.59); NEUT % 89.2 %; NEUT ABS # 2.73 K/uL (1.4-6.5); PLATELET COUNT 137 K/uL (130-400); RED CELL DISTRIBUTION WIDTH CV 16.6 % (11.5-14.5); RED CELL DISTRIBUTION WIDTH SD 56.1 fL (36.4-46.3); WHITE BLOOD COUNT 3.06 K/uL (4.8-10.8)
[2017-11-25 12:28] LABS: PTT PATIENT 25.9 SECONDS (21.0-31.0)
[2017-11-25 12:37] LABS: ALBUMIN 3.6 gm/dl (3.4-5.0); ALT/SGPT 20 U/L (12-78); BLOOD UREA NITROGEN 8 mg/dl (7-18); CALCIUM 8.9 mg/dl (8.5-10.1); CARBON DIOXIDE 27 mmol/L (21-32); CREATININE 0.73 mg/dl (0.60-1.20); GLUCOSE 82 mg/dl (70-99); POTASSIUM 3.8 mmol/L (3.5-5.1); SODIUM 136 mmol/L (136-145)
[2017-11-25 12:42] LABS: ALKALINE PHOSPHATASE 54 U/L (45-117); AST/SGOT 17 U/L (15-37); CKMB < 0.5 ng/ml (0.5-3.6); TOTAL PROTEIN 7.4 gm/dl (6.4-8.2)
[2017-11-25] MEDS ORDERED: MoRPHine SULFATE 2 MG/ML CARP IV STA (14:49)
--- NOTE | 2017-11-25 14:52 | DIAGNOSTIC IMAGING REPORT ---
ULTRASOUND KIDNEYS AND BLADDER CLINICAL HISTORY: Left flank pain. Recent urinary tract infection. COMPARISON STUDY: Abdominal CT dated 12/30/2005. TECHNIQUE: Real-time, grayscale, and color flow sonography of the kidneys and bladder is performed. Images are reviewed in the transverse and longitudinal planes. FINDINGS: Kidneys: The kidneys are normal in size and echotexture. The right kidney measures 11.9 cm in length and the left kidney measures 11.2 cm in length. There is no hydronephrosis. No shadowing renal calculi are identified. There is no sonographic evidence of contour deforming renal mass lesion. No perinephric fluid is identified. Bladder: The bladder is normal in appearance. A right ureteral jet was seen. IMPRESSION: Unremarkable sonographic assessment of the kidneys and bladder. Electronically signed by: Clark Dorman M.D. 11/25/2017 2:51 PM Dictated Date/Time: 11/25/2017 2:49 PM
[2017-11-25] MEDS ORDERED: OXYC1TAB3 PO (15:03)
[2017-11-25 15:44] VITALS: O2SAT 98
[2017-11-25 17:12] VITALS: BP 112/63; PULSE 85
== END 2017-11-25 17:15 | disposition home or self-care (01) ==
LOC: C.EDB 11:05 → C.EDC 17:15
DX: R10.12 Left upper quadrant pain (principal); R10.32 Left lower quadrant pain; C50.919 Malignant neoplasm of unspecified site of unspecified female breast; M41.9 Scoliosis, unspecified; Z90.10 Acquired absence of unspecified breast and nipple; Z83.3 Family history of diabetes mellitus; Z82.49 Family history of ischemic heart disease and other diseases of the circulatory system

== ENCOUNTER 2017-11-27 11:14 | Emergency (ER) | payer BC, OTHER ==
[~2017-11-27 11:14] MED LIST changes: -DRGTP12 TOP; +OXYC1TAB3 PO
[2017-11-27 11:21] VITALS: TEMP 36.5
[2017-11-27] MEDS ORDERED: PROCHLORPERAZINE 5 MG/ML 2 ML VIAL IV STA (11:42)
[2017-11-27] MEDS ORDERED: AMPICILLIN IV 1 GM in SODIUM CHLOR 0.9% AD-VAN 50ML 50 ML IV STA (11:42)
[2017-11-27] MEDS ORDERED: SODIUM CHLORIDE 0.9% 1000ML 1,000 ML IV STA (11:42)
[2017-11-27] MEDS ORDERED: MoRPHine SULFATE 10 MG/ML CARP/VIAL IV STA (11:42)
[2017-11-27 12:24] LABS: BASO % 0.7 %; BASO ABS # 0.02 K/uL (0-0.2); EOS % 0.4 %; EOS ABS # 0.01 K/uL (0-0.5); HEMOGLOBIN 12.5 g/dL (12.0-16.0); LYMPH % 3.2 %; LYMPH ABS # 0.09 K/uL (1.2-3.4); MEAN CELL VOLUME 91.6 fL (80-100); MEAN CORPUSCULAR HEMOGLOBIN 32.7 pg (25-34); MEAN CORPUSCULAR HGB CONC 35.7 g/dl (32-36); MEAN PLATELET VOLUME 8.7 fL (7.4-10.4); MONO % 4.2 %; MONO ABS # 0.12 K/uL (0.11-0.59); NEUT % 91.5 %; PLATELET COUNT 152 K/uL (130-400); RED CELL DISTRIBUTION WIDTH CV 16.3 % (11.5-14.5); RED CELL DISTRIBUTION WIDTH SD 54.4 fL (36.4-46.3); WHITE BLOOD COUNT 2.84 K/uL (4.8-10.8)
[2017-11-27] MEDS ORDERED: MoRPHine SULFATE 4 MG/ML 1 ML CARP\\VIAL ONE (12:26)
[2017-11-27] MEDS ORDERED: MoRPHine SULFATE 2 MG/ML CARP ONE (12:27)
[2017-11-27 12:38] LABS: BLOOD UREA NITROGEN 12 mg/dl (7-18); CALCIUM 9.7 mg/dl (8.5-10.1); CARBON DIOXIDE 28 mmol/L (21-32); CREATININE 0.83 mg/dl (0.60-1.20); GLUCOSE 88 mg/dl (70-99); POTASSIUM 3.9 mmol/L (3.5-5.1); SODIUM 136 mmol/L (136-145)
[2017-11-27] MEDS ORDERED: PROC1TAB5 PO (13:51)
--- NOTE | 2017-11-27 13:52 | EMERGENCY ROOM VISIT NOTE ---
History First contact with patient: 11:25 Chief Complaint: VOMITING Stated Complaint: N/V, UTI Nursing Triage Summary: pt to the ED with c/o lower back pain and n/v that won't stop pt states this has been ongoing since friday and was seen here and given IVF sent home History of Present Illness The patient is a 27 year old female who presents to the Emergency Room with complaints of persistent nausea and vomiting. 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 She is currently getting radiation to her lower back. She has chronic low back pain secondary to the metastases. The patient is currently on oral chemo 3 weeks on 1 week off. The patient is currently taking oral chemo this coming Friday will be her last dose and she will have 1 week off. The patient was seen at her PCP on Friday and was just called yesterday and was told that she had a UTI and was placed on ampicillin. The patient states that she cannot keep anything down therefore she has been vomiting up the ampicillin after taking it. The patient is currently taking Phenergan at home for the nausea and vomiting without any relief. The patient was seen here on Friday for similar symptoms. She was hydrated and given the Phenergan to take at home at this is not working. The patient denies any urinary symptoms of frequency, urgency or dysuria. The patient denies any fever. She states she just feels very tired. Review of Systems 10 system review was performed and was negative unless stated otherwise history of present illness. Past Medical/Surgical History Medical Problems: (1) Appendectomy (2) Breast cancer (3) Complicated (4) FUO (fever of unknown origin) (5) Gestational [-induced] hypertension without significant proteinuria , third trimester (6) Scoliosis Surgical Problems: (1) Hx of mastectomy Metastatic cancer to the lumbar spine Family History Cancer Diabetes mellitus Heart disease Hypertension Lung disease Social History Smoking Status: Never Smoker Alcohol Use: none Drug Use: none Marital Status: Housing Status: lives with family Occupation Status: employed Current/Historical Medications Scheduled Calcium Carbonate (Calcium 600), 600 MG PO DAILY Cholecalciferol (Vitamin D3), 1,000 UNITS PO QAM Letrozole (Femara), 2.5 MG PO QPM Ribociclib Succinate (Kisqali), 300 MG PO DAILY Scheduled PRN Ondansetron Hcl (Zofran), 8 MG PO Q8 PRN for Nausea Oxycodone Ir (Roxicodone Ir), 1-2 TAB PO Q4H PRN for Pain Prochlorperazine Maleate (Compazine), 10 MG PO Q6 PRN for Nausea or Vomiting Tramadol (Ultram), 50 MG PO Q6H PRN for Pain Physical Exam Vital Signs Date Time Temp Pulse Resp B/P (MAP) Pulse Ox O2 Delivery O2 Flow Rate FiO2 11/27/17 13:10 70 18 114/74 100 Room Air 11/27/17 11:21 36.5 144 16 116/83 98 Room Air Physical Exam GENERAL: 27-year-old white male appears in no acute distress. MENTAL Status: Alert and oriented 3. MOUTH: Mucosa is slightly dry. NECK: Supple, no lymphadenopathy noted. No carotid bruits noted. LUNGS: Clear auscultation without wheezes rales or rhonchi. CARDIAC: Regular rate and rhythm without murmur. Pulses is full and equal throughout. BACK: Bilateral CVA tenderness noted. ABDOMEN: Positive bowel sounds all 4 quadrants. Soft, nontender to palpation without organomegaly or masses. EXTREMITIES: No cyanosis or edema noted. Medical Decision & Procedures Laboratory Results 11/27/17 11:10 Red Blood Count 3.82, Mean Corpuscular Volume 91.6, Mean Corpuscular Hemoglobin 32.7, Mean Corpuscular Hemoglobin Concent 35.7, Mean Platelet Volume 8.7, Neutrophils (%) (Auto) 91.5, Lymphocytes (%) (Auto) 3.2, Monocytes (%) (Auto) 4.2, Eosinophils (%) (Auto) 0.4, Basophils (%) (Auto) 0.7, Neutrophils # (Auto) 2.60, Lymphocytes # (Auto) 0.09, Monocytes # (Auto) 0.12, Eosinophils # (Auto) 0.01, Basophils # (Auto) 0.02 11/27/17 11:10 Test 11/27/17 11:10 White Blood Count 2.84 K/uL (4.8-10.8) Red Blood Count 3.82 M/uL (4.2-5.4) Hemoglobin 12.5 g/dL (12.0-16.0) Hematocrit 35.0 % (37-47) Mean Corpuscular Volume 91.6 fL (80-100) Mean Corpuscular Hemoglobin 32.7 pg (25-34) Mean Corpuscular Hemoglobin Concent 35.7 g/dl (32-36) Platelet Count 152 K/uL (130-400) Mean Platelet Volume 8.7 fL (7.4-10.4) Neutrophils (%) (Auto) 91.5 % Lymphocytes (%) (Auto) 3.2 % Monocytes (%) (Auto) 4.2 % Eosinophils (%) (Auto) 0.4 % Basophils (%) (Auto) 0.7 % Neutrophils # (Auto) 2.60 K/uL (1.4-6.5) Lymphocytes # (Auto) 0.09 K/uL (1.2-3.4) Monocytes # (Auto) 0.12 K/uL (0.11-0.59) Eosinophils # (Auto) 0.01 K/uL (0-0.5) Basophils # (Auto) 0.02 K/uL (0-0.2) RDW Standard Deviation 54.4 fL (36.4-46.3) RDW Coefficient of Variation 16.3 % (11.5-14.5) Immature Granulocyte % (Auto) 0.0 % Immature Granulocyte # (Auto) 0.00 K/uL (0.00-0.02) Anion Gap 7.0 mmol/L (3-11) Estimated GFR () 113.6 Estimated GFR (Non- 98.0 BUN/Creatinine Ratio 14.2 (10-20) Calcium Level 9.7 mg/dl (8.5-10.1) Medications Administered Medications (Trade) Dose Ordered Sig/Sami Route Start Time Stop Time Status Last Admin Dose Admin Sodium Chloride 1,000 ml @ 999 mls/hr Q1H1M STAT IV 11/27/17 11:42 11/27/17 12:42 DC 11/27/17 12:32 999 MLS/HR Prochlorperazine Edisylate (Compazine Inj) 10 mg NOW STAT IV 11/27/17 11:42 11/27/17 11:45 DC 11/27/17 12:32 10 MG Ampicillin Sodium 1 gm/Sodium Chloride 50 ml @ 100 mls/hr NOW STAT IV 11/27/17 11:42 11/27/17 12:11 DC 11/27/17 12:32 100 MLS/HR Morphine Sulfate (MoRPHine SULFATE INJ) 4 mg STK-MED ONCE .ROUTE 11/27/17 12:26 11/27/17 12:27 DC 11/27/17 12:32 4 MG Morphine Sulfate (MoRPHine SULFATE INJ) 2 mg STK-MED ONCE .ROUTE 11/27/17 12:27 11/27/17 12:28 DC 11/27/17 12:32 2 MG ED Course The patient was evaluated. The patient's EMR medication list were reviewed. The patient urine culture grew out group B strep with sensitivity to follow. Ampicillin is the is 1 of the drugs of choice for this bacteria. I also reviewed the patient's ER visit from Friday. At that time urinalysis was performed which was negative and therefore was not sent for culture. Labs are unremarkable. The patient was hydrated and given morphine for pain and Phenergan for nausea. Patient was discharged home in stable condition at that time. Today IV access was obtained. She was given 1 L normal saline wide open. CBC differential and renal profile was ordered. Patient was given ampicillin 1 g IV. The patient was given morphine 6 mg IV for pain and Compazine 10 mg IV for nausea and vomiting. The patient was reevaluated and was feeling better. The patient's labs are reviewed. The patient's white count was low but consistent with her prior. Renal profile was unremarkable. Patient was given a p.o. challenge with chantel soraya and crackers. The patient was able to keep the chantel soraya and crackers down. The patient was discharged home in stable condition. Medical Decision The patient was diagnosed with a UTI by her PCP therefore she was given IV ampicillin since she was unable to keep the p.o. medication down today. She was hydrated and did not have any further episodes of nausea vomiting while in the emergency room . She was able to tolerate a p.o. challenge therefore she was discharged home. [place] Drug Monitoring Program Search Results: patient reviewed within database Medication Reconcilliation Current Medication List: was personally reviewed by me Blood Pressure Screening Patient's blood pressure: Normal blood pressure Impression Primary Impression: Nausea and vomiting Additional Impressions: UTI (urinary tract infection) Metastatic cancer Departure Information Dispostion Home / Self-Care Condition GOOD Prescriptions Prochlorperazine Maleate (COMPAZINE) 10 Mg Tab 1 TAB PO Q6 for Nausea for 7 Days, #30 TAB 3 Refills Prov: Belinda, Kaylah M., PA-C 11/27/17 Referrals RV. Marcum MD (PCP) Forms HOME CARE DOCUMENTATION FORM, IMPORTANT VISIT INFORMATION Patient Instructions ED Nausea Vomiting, ED UTI Cystitis Female, My [facility] Additional Instructions Push fluids. Take Compazine as needed for nausea. Make sure you are taking your antibiotics. You may want to take them after taking the Compazine. If symptoms persist or worsen, return to ER. Problem Qualifiers Primary Impression: Nausea and vomiting Vomiting type: unspecified Vomiting Intractability: non-intractable Qualified Codes: R11.2 - Nausea with vomiting, unspecified Additional Impressions: UTI (urinary tract infection) Urinary tract infection type: acute cystitis Hematuria presence: without hematuria Qualified Codes: N30.00 - Acute cystitis without hematuria
[2017-11-27 14:10] VITALS: BP 96/58; PULSE 78; O2SAT 100
[2017-12-01] MEDS ORDERED: AMPI500C9 PO (08:25)
== END 2017-11-27 14:11 | disposition home or self-care (01) ==
LOC: C.EDB 11:16 → C.EDC 14:11
DX: R11.2 Nausea with vomiting, unspecified (principal); N30.00 Acute cystitis without hematuria; C50.919 Malignant neoplasm of unspecified site of unspecified female breast; M41.9 Scoliosis, unspecified; Z82.49 Family history of ischemic heart disease and other diseases of the circulatory system; Z83.3 Family history of diabetes mellitus

== ENCOUNTER 2017-12-06 20:38 | Emergency (ER) | payer BC, OTHER ==
[~2017-12-06] VITALS: Ht 162.6 cm; Wt 58.0 kg
[~2017-12-06 20:38] MED LIST changes: +AMPI500C9 PO
[2017-12-06 20:42] VITALS: TEMP 36.7; Ht 162.6 cm; Wt 58.0 kg
[2017-12-06 21:00] VITALS: O2SAT 96
[2017-12-06] MEDS ORDERED: ONDANSETRON INJ 2 MG/ML 2 ML VIAL IV STA (21:03)
[2017-12-06] MEDS ORDERED: SODIUM CHLORIDE 0.9% 1000ML 1,000 ML IV STA (21:03)
[2017-12-06] MEDS ORDERED: ALUMINUM/MAGNESIUM SUSP 30 ML UDC PO STA (21:03)
[2017-12-06 21:11] LABS: BASO % 1.5 %; BASO ABS # 0.05 K/uL (0-0.2); EOS % 1.8 %; EOS ABS # 0.06 K/uL (0-0.5); HEMATOCRIT 32.5 % (37-47); HEMOGLOBIN 11.2 g/dL (12.0-16.0); LYMPH % 13.5 %; LYMPH ABS # 0.44 K/uL (1.2-3.4); MEAN CELL VOLUME 95.3 fL (80-100); MEAN CORPUSCULAR HEMOGLOBIN 32.8 pg (25-34); MEAN CORPUSCULAR HGB CONC 34.5 g/dl (32-36); MONO % 13.2 %; MONO ABS # 0.43 K/uL (0.11-0.59); NEUT ABS # 2.28 K/uL (1.4-6.5); PLATELET COUNT 172 K/uL (130-400); RED CELL DISTRIBUTION WIDTH CV 16.1 % (11.5-14.5); RED CELL DISTRIBUTION WIDTH SD 56.4 fL (36.4-46.3); WHITE BLOOD COUNT 3.26 K/uL (4.8-10.8)
--- NOTE | 2017-12-06 21:23 | DIAGNOSTIC IMAGING REPORT ---
CHEST ONE VIEW PORTABLE CLINICAL HISTORY: ABDOMINAL PAIN/GI pain. Nausea. COMPARISON STUDY: 09/26/2017 FINDINGS: Lungs are considered clear. Central catheter ends. Cava. Tissue citrus picker with the right breast region. IMPRESSION: No acute process. The above report was generated using voice recognition software. It may contain grammatical, syntax or spelling errors. Electronically signed by: Geronimo Trevino M.D. 12/06/2017 9:22 PM Dictated Date/Time: 12/06/2017 9:21 PM
[2017-12-06 21:29] LABS: ALBUMIN 3.5 gm/dl (3.4-5.0); ALT/SGPT 18 U/L (12-78); BLOOD UREA NITROGEN 10 mg/dl (7-18); CALCIUM 8.4 mg/dl (8.5-10.1); CARBON DIOXIDE 28 mmol/L (21-32); CREATININE 0.71 mg/dl (0.60-1.20); GLUCOSE 90 mg/dl (70-99); LIPASE 99 U/L (73-393); POTASSIUM 3.6 mmol/L (3.5-5.1); SODIUM 137 mmol/L (136-145)
[2017-12-06 21:30] LABS: PTT PATIENT 33.6 SECONDS (21.0-31.0)
[2017-12-06 21:34] LABS: ALKALINE PHOSPHATASE 56 U/L (45-117); AST/SGOT 12 U/L (15-37); CKMB < 0.5 ng/ml (0.5-3.6); TOTAL PROTEIN 7.3 gm/dl (6.4-8.2)
[2017-12-06] MEDS ORDERED: RIBO200T PO (21:37)
[2017-12-06] MEDS ORDERED: ACET-1256 PO (21:41)
[2017-12-06] MEDS ORDERED: OPTIRAY 320 IV PRN (21:45)
--- NOTE | 2017-12-06 21:57 | DIAGNOSTIC IMAGING REPORT ---
(CHEST FOR PE) ANGIO WITH CT DOSE: 228.73 mGy.cm HISTORY: Chest pain dyspnea TECHNIQUE: Multiaxial CT images of the chest were performed following the intravenous administration of contrast to evaluate the pulmonary arteries. Maximal intensity projection images were also obtained. A dose lowering technique was utilized adhering to the principles of ALARA. COMPARISON STUDY: 09/26/2017 FINDINGS: There is a normal caliber thoracic aorta with no evidence for dissection. There is no evidence for pulmonary embolus. No pleural effusions. No pneumothorax. The liver and spleen are unremarkable. No mediastinal or hilar lymphadenopathy. The central airways are patent. The lungs are clear. Soft tissue laborer demolition within the right breast. IMPRESSION: No evidence for pulmonary embolus. The lungs are clear.. Tissue laborer demolition within the right breast. No change from the prior study. The above report was generated using voice recognition software. It may contain grammatical, syntax or spelling errors. Electronically signed by: Geronimo Trevino M.D. 12/06/2017 9:55 PM Dictated Date/Time: 12/06/2017 9:54 PM
[2017-12-06 22:34] VITALS: BP 113/75; PULSE 80; O2SAT 98
--- NOTE | 2017-12-06 23:25 | EMERGENCY ROOM VISIT NOTE ---
History Report prepared by Antonio: Meeta Munoz Under the Supervision of: Dr. Odell Hylton D.O. First contact with patient: 20:54 Chief Complaint: CHEST PAIN Stated Complaint: CHEST PAIN, PAIN WHEN INHALE History of Present Illness The patient is a 27 year old female who presents to the Emergency Room with complaints of worsening chest pain starting 4 days ago. The pain is in the center of her chest. She describes it as burning. It worsens with eating. She has tried taking an antacid and Zantac to no significant relief. She denies any leg pain, leg swelling, or abdominal pain. She has had a mastectomy and appendectomy. She has a history of breast cancer. She denies any history of reflux, blood clots, or gallbladder issues. She does not get a period. She denies any tobacco or alcohol use. She is on oral chemo daily. Source of History: patient Onset: 4 days ago Position: chest (central) Quality: burning Timing: worsening Modifying Factors (Worsening): eating Associated Symptoms: No abdominal pain Note: Pt denies leg pain/swelling. Review of Systems See HPI for pertinent positives & negatives. A total of 10 systems reviewed and were otherwise negative. Past Medical & Surgical Medical Problems: (1) Appendectomy (2) Breast cancer (3) Complicated (4) FUO (fever of unknown origin) (5) Gestational [-induced] hypertension without significant proteinuria , third trimester (6) Scoliosis Surgical Problems: (1) Hx of mastectomy Family History Cancer Diabetes mellitus Heart disease Hypertension Lung disease Social History Smoking Status: Never Smoker Alcohol Use: none Drug Use: none Marital Status: Housing Status: lives with family Occupation Status: employed Current/Historical Medications Scheduled Calcium Carbonate (Calcium 600), 600 MG PO DAILY Cholecalciferol (Vitamin D3), 1,000 UNITS PO QAM Letrozole (Femara), 2.5 MG PO QPM Ribociclib Succinate (Kisqali), 600 MG PO DAILY/UD Scheduled PRN Acetaminophen (Tylenol), 1,000 MG PO Q8 PRN for Pain Ondansetron Hcl (Zofran), 8 MG PO Q8 PRN for Nausea Prochlorperazine Maleate (Compazine), 10 MG PO Q6 PRN for Nausea or Vomiting Tramadol (Ultram), 50 MG PO Q6H PRN for Pain Allergies Coded Allergies: No Known Allergies (Verified , 11/27/17) Physical Exam Vital Signs Date Time Temp Pulse Resp B/P (MAP) Pulse Ox O2 Delivery O2 Flow Rate FiO2 12/06/17 22:34 80 16 113/75 98 12/06/17 22:01 121/81 12/06/17 21:45 98 Room Air 12/06/17 21:40 83 15 99 12/06/17 21:31 110/66 12/06/17 21:10 70 18 97 12/06/17 21:06 85 12/06/17 21:00 85 17 102/70 96 Room Air 12/06/17 21:00 96 Room Air 12/06/17 20:42 36.7 89 20 116/77 96 Room Air Physical Exam GENERAL: Patient is awake, alert, somewhat anxious appearing. EYES: The conjunctivae are clear. The pupils are round and reactive. EARS, NOSE, MOUTH AND THROAT: The nose is without any evidence of any deformity. Mucous membranes are moist tongue is midline NECK: The neck is nontender and supple. RESPIRATORY: Normal respiratory effort is noted there is no evidence of wheezing rhonchi or rales CARDIOVASCULAR: Regular rate and rhythm noted there no murmurs rubs or gallops normal S1 normal S2 GASTROINTESTINAL: The abdomen is soft. Bowel sounds are present in all quadrants. Abdomen is nontender MUSCULOSKELETAL/EXTREMITIES: There is no evidence of gross deformity full range of motion is noted in the hips and shoulders SKIN: There is no obvious evidence of any rash. There are no petechiae, pallor or cyanosis noted. NEUROLOGIC: Patient is awake alert and oriented x3 Medical Decision & Procedures ER Provider Diagnostic Interpretation: X-ray results as stated below per interpretation by me and the radiologist. Radiology results as stated below per my review and radiologist interpretation: CHEST ONE VIEW PORTABLE CLINICAL HISTORY: ABDOMINAL PAIN/GI pain. Nausea. COMPARISON STUDY: 09/26/2017 FINDINGS: Lungs are considered clear. Central catheter ends. Cava. Tissue sanforizer with the right breast region. IMPRESSION: No acute process. The above report was generated using voice recognition software. It may contain grammatical, syntax or spelling errors. Electronically signed by: Geronimo Trevino M.D. 12/06/2017 9:22 PM Dictated Date/Time: 12/06/2017 9:21 PM (CHEST FOR PE) ANGIO WITH CT DOSE: 228.73 mGy.cm HISTORY: Chest pain dyspnea TECHNIQUE: Multiaxial CT images of the chest were performed following the intravenous administration of contrast to evaluate the pulmonary arteries. Maximal intensity projection images were also obtained. A dose lowering technique was utilized adhering to the principles of ALARA. COMPARISON STUDY: 09/26/2017 FINDINGS: There is a normal caliber thoracic aorta with no evidence for dissection. There is no evidence for pulmonary embolus. No pleural effusions. No pneumothorax. The liver and spleen are unremarkable. No mediastinal or hilar lymphadenopathy. The central airways are patent. The lungs are clear. Soft tissue sanforizer within the right breast. IMPRESSION: No evidence for pulmonary embolus. The lungs are clear.. Tissue sanforizer within the right breast. No change from the prior study. The above report was generated using voice recognition software. It may contain grammatical, syntax or spelling errors. Electronically signed by: Geronimo Trevino M.D. 12/06/2017 9:55 PM Dictated Date/Time: 12/06/2017 9:54 PM Laboratory Results 12/06/17 21:00 Red Blood Count 3.41, Mean Corpuscular Volume 95.3, Mean Corpuscular Hemoglobin 32.8, Mean Corpuscular Hemoglobin Concent 34.5, Mean Platelet Volume 9.0, Neutrophils (%) (Auto) 70.0, Lymphocytes (%) (Auto) 13.5, Monocytes (%) (Auto) 13.2, Eosinophils (%) (Auto) 1.8, Basophils (%) (Auto) 1.5, Neutrophils # (Auto ) 2.28, Lymphocytes # (Auto) 0.44, Monocytes # (Auto) 0.43, Eosinophils # (Auto ) 0.06, Basophils # (Auto) 0.05 12/06/17 21:00 Test 12/06/17 21:00 12/06/17 21:12 12/06/17 21:55 White Blood Count 3.26 K/uL (4.8-10.8) Red Blood Count 3.41 M/uL (4.2-5.4) Hemoglobin 11.2 g/dL (12.0-16.0) Hematocrit 32.5 % (37-47) Mean Corpuscular Volume 95.3 fL (80-100) Mean Corpuscular Hemoglobin 32.8 pg (25-34) Mean Corpuscular Hemoglobin Concent 34.5 g/dl (32-36) Platelet Count 172 K/uL (130-400) Mean Platelet Volume 9.0 fL (7.4-10.4) Neutrophils (%) (Auto) 70.0 % Lymphocytes (%) (Auto) 13.5 % Monocytes (%) (Auto) 13.2 % Eosinophils (%) (Auto) 1.8 % Basophils (%) (Auto) 1.5 % Neutrophils # (Auto) 2.28 K/uL (1.4-6.5) Lymphocytes # (Auto) 0.44 K/uL (1.2-3.4) Monocytes # (Auto) 0.43 K/uL (0.11-0.59) Eosinophils # (Auto) 0.06 K/uL (0-0.5) Basophils # (Auto) 0.05 K/uL (0-0.2) RDW Standard Deviation 56.4 fL (36.4-46.3) RDW Coefficient of Variation 16.1 % (11.5-14.5) Immature Granulocyte % (Auto) 0.0 % Immature Granulocyte # (Auto) 0.00 K/uL (0.00-0.02) Prothrombin Time 10.1 SECONDS (9.0-12.0) Prothromb Time International Ratio 1.0 (0.9-1.1) Activated Partial Thromboplast Time 33.6 SECONDS (21.0-31.0) Partial Thromboplastin Ratio 1.3 Anion Gap 5.0 mmol/L (3-11) Est Creatinine Clear Calc Drug Dose 104.7 ml/min Estimated GFR () 137.2 Estimated GFR (Non- 118.4 BUN/Creatinine Ratio 13.5 (10-20) Calcium Level 8.4 mg/dl (8.5-10.1) Total Bilirubin 0.2 mg/dl (0.2-1) Direct Bilirubin < 0.1 mg/dl (0-0.2) Aspartate Amino Transf (AST/SGOT) 12 U/L (15-37) Alanine Aminotransferase (ALT/SGPT) 18 U/L (12-78) Alkaline Phosphatase 56 U/L (45-117) Total Creatine Kinase 55 U/L (26-192) Creatine Kinase MB < 0.5 ng/ml (0.5-3.6) Creatine Kinase MB Ratio (0-3.0) Troponin I < 0.015 ng/ml (0-0.045) Total Protein 7.3 gm/dl (6.4-8.2) Albumin 3.5 gm/dl (3.4-5.0) Lipase 99 U/L (73-393) Human Chorionic Gonadotropin, Qual NEG (NEG) Bedside D-Dimer > 450 ng/mlFEU (0-450) Urine Color YELLOW Urine Appearance CLEAR (CLEAR) Urine pH 7.5 (4.5-7.5) Urine Specific [place] 1.024 (1.000-1.030) Urine Protein NEG (NEG) Urine Glucose (UA) NEG (NEG) Urine Ketones NEG (NEG) Urine Occult Blood NEG (NEG) Urine Nitrite NEG (NEG) Urine Bilirubin NEG (NEG) Urine Urobilinogen NEG (NEG) Urine Leukocyte Esterase NEG (NEG) Laboratory results per my review. Medications Administered Medications (Trade) Dose Ordered Sig/Sami Route Start Time Stop Time Status Last Admin Dose Admin Al Hydroxide/Mg Hydroxide (Maalox Susp) 30 ml NOW STAT PO 12/06/17 21:03 12/06/17 21:04 DC 12/06/17 21:20 30 ML Sodium Chloride 1,000 ml @ 999 mls/hr Q1H1M STAT IV 12/06/17 21:03 12/06/17 22:03 DC 12/06/17 21:20 999 MLS/HR Ondansetron HCl (Zofran Inj) 4 mg NOW STAT IV 12/06/17 21:03 12/06/17 21:04 DC 12/06/17 21:20 4 MG Heparin Sodium (Porcine) (Heparin 100 Unit/ml 5ml Flush) 5 ml STK-MED ONCE .ROUTE 12/06/17 22:28 12/06/17 22:29 DC 12/06/17 22:34 5 ML ECG Per My Interpretation Indication: chest pain Rate (beats per minute): 76 Rhythm: normal sinus Findings: ST depression (Inferior, Lateral), other (no PVC) Comparison ECG Date: 25-Nov-2017 Change: no significant change ED Course 2100: The patient was evaluated in room B2. A complete history and physical examination were performed. 2103: Zofran Inj 4 mg IV, NSS 1000 ml @ 999 mls/hr IV, Maalox Susp 30 ml PO. 2133: I reevaluated the patient. I updated her on the results. 2224: Upon reevaluation, the patient is resting comfortably. I discussed the results and treatment plan with her. She verbalized agreement of the treatment plan. She was discharged home. Medical Decision Prior records/ancillary studies reviewed. Triage Nursing notes reviewed. Differential diagnosis: Etiologies such as cardiac ischemia, aortic dissection, pulmonary embolism, pneumonia, pneumothorax, musculoskeletal, infections, pericarditis, myocarditis , esophageal rupture, gastrointestinal, as well as others were entertained. The patient is a 27-year-old female who presented to the emergency department for an evaluation of chest pain. The patient noticed chest pain which was worsened with deep breathing. The patient's pleuritic chest pain could have been related to a pulmonary embolism. She does have a history of breast cancer. She was treated with Maalox in the emergency department. I discussed patient's laboratory and radiographic studies with her. She had a CT the chest because of a positive d-dimer. This did not reveal any signs of venous thromboembolic disease. The patient was encouraged to rest and avoid any strenuous activity. I also encouraged her to continue all medications as prescribed and follow-up with her primary care physician as soon as possible. Otherwise she was encouraged to return the emergency department immediately if symptoms change worsen or the need arises. Medication Reconcilliation Current Medication List: was personally reviewed by me Blood Pressure Screening Patient's blood pressure: Normal blood pressure Blood pressure disposition: Did not require urgent referral Impression Primary Impression: Chest pain Scribe Attestation The scribe's documentation has been prepared under my direction and personally reviewed by me in its entirety. I confirm that the note above accurately reflects all work, treatment, procedures, and medical decision making performed by me. Departure Information Dispostion Home / Self-Care Referrals RV. Marcum MD (PCP) Pablo Banks M.D. Forms HOME CARE DOCUMENTATION FORM, IMPORTANT VISIT INFORMATION Patient Instructions ED Chest Pain Atypical Unkn Cause, My [facility] Additional Instructions Call your family doctor on Friday to schedule a follow-up appointment. Continue all medications as prescribed. Rest and avoid any strenuous activity. Problem Qualifiers Primary Impression: Chest pain Chest pain type: unspecified Qualified Codes: R07.9 - Chest pain, unspecified
== END 2017-12-06 22:34 | disposition home or self-care (01) ==
LOC: C.EDB 20:38
DX: R07.9 Chest pain, unspecified (principal); Z83.3 Family history of diabetes mellitus; Z82.49 Family history of ischemic heart disease and other diseases of the circulatory system

== ENCOUNTER 2017-12-08 10:39 | Emergency (ER) | payer BC, OTHER ==
[~2017-12-08] VITALS: Ht 162.6 cm; Wt 58.2 kg
[~2017-12-08 10:39] MED LIST changes: +ACET-1256 PO; -AMPI500C9 PO; -OXYC1TAB3 PO
[2017-12-08 10:49] VITALS: TEMP 36.4; Ht 162.6 cm; Wt 58.2 kg
[2017-12-08] MEDS ORDERED: SODIUM CHLORIDE 0.9% 1000ML 1,000 ML IV STA (11:19)
[2017-12-08] MEDS ORDERED: LIDOCAINE HCL 2% VISC SOLN 20 ML UDC MT STA (11:19)
[2017-12-08] MEDS ORDERED: ALUMINUM/MAGNESIUM SUSP 30 ML UDC PO STA (11:19)
[2017-12-08 12:08] LABS: BASO % 1.9 %; BASO ABS # 0.05 K/uL (0-0.2); EOS % 1.5 %; EOS ABS # 0.04 K/uL (0-0.5); HEMATOCRIT 34.9 % (37-47); HEMOGLOBIN 12.2 g/dL (12.0-16.0); LYMPH % 10.6 %; LYMPH ABS # 0.28 K/uL (1.2-3.4); MEAN CELL VOLUME 95.4 fL (80-100); MEAN CORPUSCULAR HEMOGLOBIN 33.3 pg (25-34); MONO % 9.5 %; MONO ABS # 0.25 K/uL (0.11-0.59); NEUT % 76.5 %; NEUT ABS # 2.02 K/uL (1.4-6.5); PLATELET COUNT 167 K/uL (130-400); RED CELL DISTRIBUTION WIDTH CV 15.5 % (11.5-14.5); RED CELL DISTRIBUTION WIDTH SD 54.2 fL (36.4-46.3); WHITE BLOOD COUNT 2.64 K/uL (4.8-10.8)
[2017-12-08 12:26] LABS: CREATININE 0.83 mg/dl (0.60-1.20)
[2017-12-08 12:27] LABS: CALCIUM 9.3 mg/dl (8.5-10.1); POTASSIUM 3.9 mmol/L (3.5-5.1)
--- NOTE | 2017-12-08 12:53 | DIAGNOSTIC IMAGING REPORT ---
ABDOMINAL ULTRASOUND, RIGHT UPPER QUADRANT HISTORY: Abdominal pain. COMPARISON: CT of the abdomen December 30, 2005. FINDINGS: Liver is sonographically normal. There is no biliary ductal dilatation. The gallbladder is normal. No gallstones are identified. A 2.6 cm right adrenal nodule corresponds to a nodule shown on prior chest CT. This suggests an adenoma. The size of the spleen is normal. IMPRESSION: 1. No gallstones or biliary ductal dilatation. 2. 2.6 cm right adrenal nodule suggestive of an adenoma when correlating with prior CT. Electronically signed by: Kris Aden M.D. 12/08/2017 12:51 PM Dictated Date/Time: 12/08/2017 12:48 PM
[2017-12-08] MEDS ORDERED: PANT40TA PO (15:02)
[2017-12-08 15:47] VITALS: BP 101/65; PULSE 65; O2SAT 99
--- NOTE | 2017-12-08 18:23 | EMERGENCY ROOM VISIT NOTE ---
History Report prepared by Antonio: Brett Jimenes Under the Supervision of: Dr. César Terrell M.D. First contact with patient: 11:07 Chief Complaint: ABDOMINAL PAIN Stated Complaint: PAIN BELOW STERNUM & UPPER LEFT QUADRANT Nursing Triage Summary: Pt reports sharp pain in my sternum into my left side. It hurts worse when I eat and drink. I called my primary care and they told me to come here. Left upper abd pain. Nausea. Pt reports hx of breast cancer, taking oral chemo. History of Present Illness The patient is a 27 year old female who presents to the Emergency Room with complaints of worsening pain in the center of her chest that began 6 days ago. She describes her pain as a "burning" sensation that she rates as a 6/10 in severity. She states that she initially thought her pain was heartburn so she took Antacids and Maalox. These medications did not improve her symptoms. Her pain is now worsened by eating and drinking. She did comet to the ER on the , two days ago. She had a CT scan at this time that was unremarkable. The patient does have a history of breast cancer and she just finished radiation last week. She is currently taking oral chemotherapy daily. Her breast cancer has metastasized to her C7, T10, and L5 over her spine. She does not have a fever today. Source of History: patient Onset: 6 days ago. Position: chest Symptom Intensity: 6/10 in severity Quality: burning Timing: worsening Associated Symptoms: No fevers Review of Systems See HPI for pertinent positives & negatives. A total of 10 systems reviewed and were otherwise negative. Past Medical & Surgical Medical Problems: (1) Appendectomy (2) Breast cancer (3) Complicated (4) FUO (fever of unknown origin) (5) Gestational [-induced] hypertension without significant proteinuria , third trimester (6) Scoliosis Surgical Problems: (1) Hx of mastectomy Old medical records were reviewed. Nurse's notes were reviewed and I agree with. Family History Cancer Diabetes mellitus Heart disease Hypertension Lung disease Social History Smoking Status: Never Smoker Alcohol Use: none Drug Use: none Marital Status: Housing Status: lives with family Occupation Status: employed Current/Historical Medications Scheduled Calcium Carbonate (Calcium 600), 600 MG PO DAILY Cholecalciferol (Vitamin D3), 1,000 UNITS PO QAM Letrozole (Femara), 2.5 MG PO QPM Pantoprazole (Protonix), 40 MG PO DAILY Ribociclib Succinate (Kisqali), 600 MG PO DAILY/UD Scheduled PRN Acetaminophen (Tylenol), 1,000 MG PO Q8 PRN for Pain Ondansetron Hcl (Zofran), 8 MG PO Q8 PRN for Nausea Prochlorperazine Maleate (Compazine), 10 MG PO Q6 PRN for Nausea or Vomiting Tramadol (Ultram), 50 MG PO Q6H PRN for Pain Allergies Coded Allergies: No Known Allergies (Verified , 12/08/17) Physical Exam Vital Signs Date Time Temp Pulse Resp B/P (MAP) Pulse Ox O2 Delivery O2 Flow Rate FiO2 12/08/17 15:47 65 20 101/65 99 12/08/17 14:54 65 16 103/62 97 Room Air 12/08/17 12:45 67 20 95/56 97 Room Air 12/08/17 10:49 36.4 79 18 110/66 98 Room Air Physical Exam General: Non-ill appearing young female in no acute distress. HEENT: Normal cephalic atraumatic. Pupils are equal round and reactive to light. Extraocular movements are intact. Oropharynx is pink with moist mucous membranes. No swelling of the mouth lips or tongue. Neck: Supple with a midline trachea. No meningeal signs or stiffness, no JVD or bruits. No Stridor. Chest: Clear to auscultation bilaterally. No wheezes or rhonchi. No increased work of breathing. Heart: regular rate and rhythm. Abdomen: Soft and mildly tender in the epigastric region, nondistended without rebound guarding or rigidity. Extremities: No cyanosis clubbing or edema. No calf tenderness or assymetry Spine/Back. Non tender to palpation. No CVA tenderness Skin: Good turgor without rashes. Neurologic exam: Cranial nerves two through 12 are intact. Motor and sensation are intact and symmetrical throughout. Medical Decision & Procedures ER Provider Diagnostic Interpretation: Radiology results as stated below per my review and radiologist interpretation: ABDOMINAL ULTRASOUND, RIGHT UPPER QUADRANT HISTORY: Abdominal pain. COMPARISON: CT of the abdomen December 30, 2005. FINDINGS: Liver is sonographically normal. There is no biliary ductal dilatation. The gallbladder is normal. No gallstones are identified. A 2.6 cm right adrenal nodule corresponds to a nodule shown on prior chest CT. This suggests an adenoma. The size of the spleen is normal. IMPRESSION: 1. No gallstones or biliary ductal dilatation. 2. 2.6 cm right adrenal nodule suggestive of an adenoma when correlating with prior CT. Electronically signed by: Kris Aden M.D. 12/08/2017 12:51 PM Dictated Date/Time: 12/08/2017 12:48 PM Laboratory Results 12/08/17 11:48 Red Blood Count 3.66, Mean Corpuscular Volume 95.4, Mean Corpuscular Hemoglobin 33.3, Mean Corpuscular Hemoglobin Concent 35.0, Mean Platelet Volume 9.0, Neutrophils (%) (Auto) 76.5, Lymphocytes (%) (Auto) 10.6, Monocytes (%) (Auto) 9.5, Eosinophils (%) (Auto) 1.5, Basophils (%) (Auto) 1.9, Neutrophils # (Auto) 2.02, Lymphocytes # (Auto) 0.28, Monocytes # (Auto) 0.25, Eosinophils # (Auto) 0.04, Basophils # (Auto) 0.05 12/08/17 11:48 Test 12/08/17 11:48 12/08/17 11:55 White Blood Count 2.64 K/uL (4.8-10.8) Red Blood Count 3.66 M/uL (4.2-5.4) Hemoglobin 12.2 g/dL (12.0-16.0) Hematocrit 34.9 % (37-47) Mean Corpuscular Volume 95.4 fL (80-100) Mean Corpuscular Hemoglobin 33.3 pg (25-34) Mean Corpuscular Hemoglobin Concent 35.0 g/dl (32-36) Platelet Count 167 K/uL (130-400) Mean Platelet Volume 9.0 fL (7.4-10.4) Neutrophils (%) (Auto) 76.5 % Lymphocytes (%) (Auto) 10.6 % Monocytes (%) (Auto) 9.5 % Eosinophils (%) (Auto) 1.5 % Basophils (%) (Auto) 1.9 % Neutrophils # (Auto) 2.02 K/uL (1.4-6.5) Lymphocytes # (Auto) 0.28 K/uL (1.2-3.4) Monocytes # (Auto) 0.25 K/uL (0.11-0.59) Eosinophils # (Auto) 0.04 K/uL (0-0.5) Basophils # (Auto) 0.05 K/uL (0-0.2) RDW Standard Deviation 54.2 fL (36.4-46.3) RDW Coefficient of Variation 15.5 % (11.5-14.5) Immature Granulocyte % (Auto) 0.0 % Immature Granulocyte # (Auto) 0.00 K/uL (0.00-0.02) Anion Gap 5.0 mmol/L (3-11) Est Creatinine Clear Calc Drug Dose 89.5 ml/min Estimated GFR () 113.6 Estimated GFR (Non- 98.0 BUN/Creatinine Ratio 14.7 (10-20) Calcium Level 9.3 mg/dl (8.5-10.1) Total Bilirubin 0.4 mg/dl (0.2-1) Direct Bilirubin 0.1 mg/dl (0-0.2) Aspartate Amino Transf (AST/SGOT) 18 U/L (15-37) Alanine Aminotransferase (ALT/SGPT) 22 U/L (12-78) Alkaline Phosphatase 55 U/L (45-117) Total Protein 8.0 gm/dl (6.4-8.2) Albumin 4.0 gm/dl (3.4-5.0) Lipase 111 U/L (73-393) Urine Color YELLOW Urine Appearance CLEAR (CLEAR) Urine pH 7.0 (4.5-7.5) Urine Specific [place] 1.024 (1.000-1.030) Urine Protein TRACE (NEG) Urine Glucose (UA) NEG (NEG) Urine Ketones TRACE (NEG) Urine Occult Blood NEG (NEG) Urine Nitrite NEG (NEG) Urine Bilirubin NEG (NEG) Urine Urobilinogen NEG (NEG) Urine Leukocyte Esterase TRACE (NEG) Urine WBC (Auto) 1-5 /hpf (0-5) Urine RBC (Auto) 0-4 /hpf (0-4) Urine Hyaline Casts (Auto) 1-5 /lpf (0-5) Urine Epithelial Cells (Auto) 10-20 /lpf (0-5) Urine Bacteria (Auto) NEG (NEG) Laboratory studies as stated above per my review. Medications Administered Medications (Trade) Dose Ordered Sig/Sami Route Start Time Stop Time Status Last Admin Dose Admin Sodium Chloride 1,000 ml @ 999 mls/hr Q1H1M STAT IV 12/08/17 11:19 12/08/17 12:19 DC 12/08/17 11:50 999 MLS/HR Al Hydroxide/Mg Hydroxide (Maalox Susp) 30 ml NOW STAT PO 12/08/17 11:19 12/08/17 11:21 DC 12/08/17 11:49 30 ML Lidocaine HCl (Viscous Lidocaine 2% Soln) 10 ml NOW STAT MT 12/08/17 11:19 12/08/17 11:21 DC 12/08/17 11:49 10 ML ECG Per My Interpretation Rate (beats per minute): 63 Rhythm: normal sinus Findings: other (No MAREK/STD no PVCs. ) Comparison ECG Date: 12/06/2017 Change: no significant change ED Course 1108: Past medical records reviewed. The patient was evaluated in room B7, and a complete history and physical examination were performed. 1119: Ordered Lidocaine HCl 10 mL, Maalox Susp 30 mL PO, Sodium Chloride 1000 mL @ 999 mL/hr IV. 1206: I checked on the patient. She appears comfortable. 1249: The patient is at ultra sound at this time. 1435: The patient appears comfortable. 1452: I discussed the case with the Dr. Banks - Oncology. She will go home on a proton pump inhibitor. The patient is in agreement and will follow-up in the office. She will be discharged home. Medical Decision Differential diagnosis includes; cholecystitis, pancreatitis, cancer complications, cardiac disease, dehydration. This patient comes in as described above. She has been having some epigastric discomfort. She seen here over the weekend and had a significant evaluation including negative CAT scan of her chest. There is no evidence that this is PE. She does have history of metastatic breast cancer. She has been afebrile. Her A-Port was asked that she was hydrated normal saline she is given a GI cocktail. She appears comfortable. She has no white count or fever to suggest infection. She is no acute electrolyte or metabolic abnormalities. She has no elevation of her liver function or lipase. Ultrasound was unremarkable. I think most likely this is more of a gastritis, peptic ulcer disease. I will start her Protonix once a day. I did discuss case with Dr. Banks , her oncologist, and he agrees. he is going to ensure there is no interactions with her chemo agents as well. She will be discharged home encouraged to have close follow-up with her regular doctor and return the ER for increasing pain, worsening symptoms, any new problems or concerns Medication Reconcilliation Current Medication List: was personally reviewed by me Blood Pressure Screening Patient's blood pressure: Normal blood pressure Consults Time Called: 1440 Consulting Physician: Dr. Banks - Oncologist Returned Call: [phone] I discussed the case with the Dr. Banks - Oncology. She will go home on a proton pump inhibitor. Impression Primary Impression: Epigastric pain Scribe Attestation The scribe's documentation has been prepared under my direction and personally reviewed by me in its entirety. I confirm that the note above accurately reflects all work, treatment, procedures, and medical decision making performed by me. Departure Information Dispostion Home / Self-Care Prescriptions Pantoprazole (Protonix) 40 Mg Tab 40 MG PO DAILY, #30 TAB Prov: César Terrell M.D. 12/08/17 Referrals No Doctor, Assigned (PCP) Forms HOME CARE DOCUMENTATION FORM, IMPORTANT VISIT INFORMATION Patient Instructions My [facility] Additional Instructions Rest. Drink plenty of fluids Use Protonix once a day 40 mg mild diet. Follow-up with your doctor this week for recheck. Return if: Increasing pain, worsening of symptoms, fever or chills, any new problems or concerns.
--- NOTE | 2017-12-10 17:03 | Pharmacy Progress Note ---
ED Pharmacist Culture FollowUp Date of Service: Dec 10, 2017. Patient with low CFU counts of group B beta strep and gardnerella in urine culture. Per Dr. Hylton, if the patient is symptomatic, then we may treat. If not symptomatic, then suggest a repeat urine culture with PCP (patient on oral chemo). I called the patient who stated she was not having any urinary symptoms. I then recommended repeat urine culture (with PCP) and informed her to return to the ER if she develops symptoms. She acknowledged understanding of this plan.
== END 2017-12-08 15:48 | disposition home or self-care (01) ==
LOC: C.EDB 10:41
DX: R10.13 Epigastric pain (principal); C50.919 Malignant neoplasm of unspecified site of unspecified female breast; C79.51 Secondary malignant neoplasm of bone; M41.9 Scoliosis, unspecified; Z90.10 Acquired absence of unspecified breast and nipple; Z83.3 Family history of diabetes mellitus; Z82.49 Family history of ischemic heart disease and other diseases of the circulatory system; Z95.9 Presence of cardiac and vascular implant and graft, unspecified

== ENCOUNTER → 2017-12-30 | Outpatient (CLI) | payer BC, OTHER ==
[~2017-12-30] MED LIST changes: +PANT40TA PO
[2017-12-30 13:51] VITALS: BP 104/61; PULSE 72; TEMP 36.6; O2SAT 98
--- NOTE | 2017-12-30 15:54 | Radiation Oncology Follow-Up ---
Radiation Oncology Follow-Up Date of Visit Dec 30, 2017. Reason For Visit one month follow up Radiation Completion Date 12/01/17 Diagnosis (1) Breast cancer metastasized to bone Status: Acute Onset Date: 02/19/2017 Location: Metastasis to the thoracic and lumbar spine Histology Subtype: Ductal Stage: IV Permanent Comment: Self detected right breast mass Status post core needle biopsy 02/19/2017 revealing infiltrating ductal carcinoma of the central breast 9 o'clock position, 12:30 position as well as positive biopsy of the axilla Estrogen receptor positive, progesterone receptor negative and HER-2/rafaela negative FNA of right axillary node 03/05/2017 positive for metastatic adenocarcinoma Clinical stage T2 N1 M0 Neoadjuvant chemotherapy dose dense Adriamycin and cyclophosphamide 4 followed by dose dense Paclitaxol 4 Status post right mastectomy with sentinel lymph node biopsy and reconstruction with tissue grain and yeast plants supervisor 07/28/2017. Status post FNA L3 vertebral body 03/28/2017 positive for metastatic adenocarcinoma Status post completion of radiation therapy to the right chest wall, supraclavicular area, and axilla on November 24, 2017. She received 6640 cGy Status post completion of radiation therapy to the thoracic and lumbar spine. Treatment was completed December 01 2017. She received 2000 cGy to each area. Treatment given in 5 fractions. Last Edited By: Chika Gutierrez on Dec 09, 2017 11:04 History of Present Illness Ms. Gramajo self palpated a right breast mass which she initially noted while breast feeding. The patient presented to her primary care physician who ultimately recommended a mammogram and ultrasound of the right breast. She underwent a right breast mammogram and ultrasound on 02/17/2017 which revealed: "IMPRESSION: ACR BI-RADS CATEGORY 4C: MODERATE SUSPICION FOR MALIGNANCY, TARGETED ULTRASOUND ACR BI-RADS CATEGORY 4C: MODERATE SUSPICION FOR MALIGNANCY 1. Ultrasound guided core needle biopsy 2 is recommended in the right breast, for a dominant suspicious palpable mass with associated fine pleomorphic microcalcification in the 9:00 axis that measures approximately 4 cm, and another solid-appearing mass with associated clustered microcalcification in the 12:30 right breast that measures 1.5 cm, concerning for multicentric disease. 2. Ultrasound-guided core biopsy is also recommended for morphologically abnormal right axillary lymph node with a cortex measuring up to 1.2 cm." She underwent ultrasound guided biopsies of the right breast mass at 9:00, right breast mass in the 12:30 position and a right axillary lymph node on 02/19. The biopsy of the 9:00 lesion revealed invasive ductal carcinoma that was grade 2 and was estrogen receptor positive, progesterone receptor negative and HER-2 negative. The biopsy of the 12:30 lesion revealed invasive ductal carcinoma that was grade 1 and was estrogen receptor positive, progesterone receptor negative and HER-2 negative. The right axillary lymph node was positive for metastatic carcinoma. The patient underwent a PET/CT scan on 03/10/2017 which revealed: "IMPRESSION: 1. Multiple FDG avid right breast masses, including a dominant upper outer quadrant mass. The findings reflect multicentric right breast cancer. 2. Multiple moderately enlarged FDG avid right axillary lymph nodes consistent with galileo spread of disease. In addition, borderline enlarged right retropectoral lymph node suspicious for galileo spread of disease. 3. 1 cm FDG avid lytic lesion within the L3 vertebral body which is suspicious for a skeletal metastasis. An acute Schmorl's node could appear similar but is considered less likely. An MRI of the lumbar spine could be obtained for further evaluation. 4. Mild FDG uptake within the left transverse process of C7 which may reflect an additional skeletal metastasis." She had a MRI of the cervical spine on 03/14/2017 which revealed a 1 cm T2 hyperintense, T1 hypointense enhancing lesion within the left C7 transverse process. Her MRI of the thoracic spine on 03/27/2017 which revealed: "IMPRESSION: 1. 1 cm enhancing lesion within the left transverse process of C7 and 9 mm enhancing lesion within the right pedicle of T10 consistent with skeletal metastases. 2. No abnormal intracanalicular enhancement. The possible meningeal enhancement shown on MRI of the lumbar spine likely reflected normal vessels." The patient also had a MRI of the lumbar spine on 03/14/2017 which revealed: "IMPRESSION: 1. No evidence for disc herniation or spinal stenosis. 2. Probable metastatic deposit right posterior aspect L3 vertebral body 3. Possible 3 mm metastatic deposit right posterior aspect L2. 4. Potential meningeal metastatic deposit left lateral aspect spinal canal T10-T11. MRI of the thoracic spine is suggested as follow-up." The patient underwent a FNA biopsy of the L3 vertebral body on 03/28/2017 which confirmed metastatic carcinoma consistent with breast primary. The patient was treated with neoadjuvant ddAC/T chemotherapy underneath the supervision of Pablo Banks from 03/17/2017 to 06/23/2017. Dr. Banks also placed the patient on Zometa in April 2017 which is currently on hold. The patient subsequently underwent a right modified radical mastectomy followed by immediate reconstruction on 07/28/2017 at [facility]. We do not have the official pathology records however Dr. Banks's most recent follow-up notes document that the patient had multifocal invasive ductal carcinoma that measure 2 cm and 1.4 cm with negative margins and 4/9 axillary lymph nodes positive for metastatic disease with extracapsular extension noted ( we are in the process of obtaining the official pathology report). In the interim, the patient has had tamoxifen underneath the supervision of Dr. Pablo Banks. As per Dr. Banks's records, the plan is to treat the patient with Zoladex to initiate early menopause and then treat the patient with letrozole and RIbociclib (CDK 4/6 inhibitor). We are now being asked to evaluate the patient for consideration of radiation therapy. She first completed treatment to the chest wall, supraclavicular area, and axilla. Then had radiation therapy to the thoracic and lumbar spine. Treatments were completed December 01, 2017. Interim History She has been doing well over the past month. The skin irritation that occurred at the end of treatment resolved without difficulty. She has noted no masses or tenderness. She feels there is some tightness on range of motion of the right shoulder anteriorly. She has had no swelling of her arm. She did not experience any difficulty with skin changes from the treatment to her back. She had no complaints of dysphasia. There were no change in bowel habits. She developed a abscess of the skin located between her breasts. She was seen by dermatology and a punch biopsy was performed. This was negative for malignancy. It did show a MRSA infection. She has been on doxycycline and the infection has responded well. She had issues with shortness of breath and was evaluated for PE on December 06. A d-dimer was performed as well as a chest CT. There was no evidence of PE. The lungs were clear. She continues regular follow-up with medical oncology and gets Zometa monthly. She is on oral chemotherapy with Ribociclib. Allergies Coded Allergies: No Known Allergies (Verified , 12/08/17) Home Medications Scheduled Calcium Carbonate (Calcium 600), 600 MG PO DAILY Cholecalciferol (Vitamin D3), 1,000 UNITS PO QAM Letrozole (Femara), 2.5 MG PO QPM Pantoprazole (Protonix), 40 MG PO DAILY Ribociclib Succinate (Kisqali), 600 MG PO DAILY/UD Scheduled PRN Acetaminophen (Tylenol), 1,000 MG PO Q8 PRN for Pain Ondansetron Hcl (Zofran), 8 MG PO Q8 PRN for Nausea Prochlorperazine Maleate (Compazine), 10 MG PO Q6 PRN for Nausea or Vomiting Review of Systems Gastrointestinal: Symptoms: WNL Oral: Symptoms: No Problems Respiratory: Symptoms: WNL Urinary: Symptoms: WNL Skin: Other Skin Symptoms: See below notations Breast: Right Upper Arm Measurement: 26.0 Right Mid Arm Measurement: 24.5 Right Wrist Measurement: 16.3 Left Upper Arm Measurement: 25.0 Left Mid Arm Measurement: 24.0 Left Wrist Measurement: 16.0 Arm Dominence: Right Additional Notes: She completed a distress management report and answered "no" to all questions. Physical Exam Vital Signs Date Time Temp Pulse Resp B/P (MAP) Pulse Ox O2 Delivery O2 Flow Rate FiO2 12/30/17 13:51 36.6 72 16 104/61 98 ECOG Performance Status: 0 General Appearance: no apparent distress Eyes: normal inspection, EOMI ENT: normal ENT inspection, hearing grossly normal Neck: no adenopathy, thyroid normal Respiratory/Chest: lungs clear, no respiratory distress, no accessory muscle use Breast: Breast examination reveals bilateral implants. There is a healing wound in the center of the chest the medial aspect of the right implanted breast. There are no masses or tenderness and no axillary adenopathy. There is slight hyperpigmentation. Using the [place] score cosmesis she has a good outcome. The implanted breast showed no masses or tenderness and no axillary adenopathy. Cardiovascular: regular rate, rhythm, no gallop, no murmur Neurologic/Psychiatric: no motor/sensory deficits, alert, normal mood/affect Pain Management Patient Reports Pain: No Pain Management Plan She denies pain therefore requires no pain management. Laboratory Laboratory Results: not applicable Pathology Pathology Results: were reviewed, and pertinent findings noted in HPI Imaging Imaging Studies: were reviewed, and pertinent findings noted below Imaging Comments Patient: JEANETTE GRAMAJO Address1: [address] [place] [address] Rec: [id number] Address2: Acct ID: [id number] [facility] Zip: [place] [address] Date: 1990 Sex: F Room/Bed: Ref Phy: Pablo Banks M.D. SC: TENZIN Att Phy: Report #: [id number] Nereida Phy: RV. Marcum MD Test: CXPEA Admit Phy: In Flight Refueling Operator: CORWIN Interpreting Phy: Geronimo Trevino M.D. Diagnosis: CHEST PAIN, PAIN WHEN INHALE Ordering Phy: Odell Hylton D.O. Service Date: 12/06/17 Admit Date: 12/06/17 MNE: [id number] CONF: DICTATED BY: Geronimo Trevino M.D.]] CC: RV. Jossue, Odell Hart, Pablo Farley M.D. Endcc: [~ rep ct add3]] (CHEST FOR PE) ANGIO WITH CT DOSE: 228.73 mGy.cm HISTORY: Chest pain dyspnea TECHNIQUE: Multiaxial CT images of the chest were performed following the intravenous administration of contrast to evaluate the pulmonary arteries. Maximal intensity projection images were also obtained. A dose lowering technique was utilized adhering to the principles of ALARA. COMPARISON STUDY: 09/26/2017 FINDINGS: There is a normal caliber thoracic aorta with no evidence for dissection. There is no evidence for pulmonary embolus. No pleural effusions. No pneumothorax. The liver and spleen are unremarkable. No mediastinal or hilar lymphadenopathy. The central airways are patent. The lungs are clear. Soft tissue grain and yeast plants supervisor within the right breast. IMPRESSION: No evidence for pulmonary embolus. The lungs are clear.. Tissue grain and yeast plants supervisor within the right breast. No change from the prior study. The above report was generated using voice recognition software. It may contain grammatical, syntax or spelling errors. Electronically signed by: Geronimo Trevino M.D. 12/06/2017 9:55 PM Dictated Date/Time: 12/06/2017 9:54 PM Assessment & Plan Plan: Continue regular follow-up with medical oncology. She continues on the Zometa monthly and oral chemotherapy. She will complete the doxycycline for the MRSA infection. Recheck scanning per medical oncology. We discussed stretching exercises to help with tightness in the shoulder. She will be going to [facility] to follow-up on reconstructive surgery. We asked her to return to our office in 6 months. She may call if she has any questions or concerns in the interim. Assessment & Plan (Attending) I agree with note created by Chika Gutierrez PA-C. I reviewed the patient's chart and information with her. I have examined and evaluated the patient. I reviewed relevant clinical information and answered the patient's and/or family' s questions. MIRROR MACHINE FEEDER Total Time In Follow-Up I spent 20 minutes speaking to the patient in performing examination. I spent 15 minutes reviewing information and completing this note. AK Total Time (Attending) In Follow-Up I spent 15 minutes examining and counseling the patient. MIRROR MACHINE FEEDER Copy To RV. Marcum MD; Pablo Banks M.D. Problem Qualifiers (1) Breast cancer metastasized to bone: Laterality: right Qualified Codes: C50.911 - Malignant neoplasm of unspecified site of right female breast; C79.51 - Secondary malignant neoplasm of bone
== END | disposition home or self-care (01) ==
LOC: C.ONC 13:43
PROVIDERS: ATTEND Physician Assistant Medical
DX: Z08 Encounter for follow-up examination after completed treatment for malignant neoplasm (principal); Z92.3 Personal history of irradiation; Z85.3 Personal history of malignant neoplasm of breast

== ENCOUNTER 2018-01-26 07:12 | Emergency (ER) | payer BC, OTHER ==
[~2018-01-26] VITALS: Ht 162.6 cm; Wt 60.2 kg
[~2018-01-26 07:12] MED LIST changes: +PROC10TA PO; -PROC1TAB5 PO; -TRAM-10 PO
[2018-01-26 07:13] VITALS: TEMP 36.6; Ht 162.6 cm; Wt 60.2 kg
[2018-01-26 07:26] VITALS: O2SAT 96
[2018-01-26] MEDS ORDERED: SODIUM CHLORIDE 0.9% 1000ML 1,000 ML IV STA (07:27)
[2018-01-26] MEDS ORDERED: ONDANSETRON 8 MG/54 ML D5W IV ONE (07:30)
[2018-01-26 07:53] LABS: BASO % 0.2 %; BASO ABS # 0.01 K/uL (0-0.2); HEMATOCRIT 31.8 % (37-47); HEMOGLOBIN 11.1 g/dL (12.0-16.0); IG# 0.02 K/uL (0.00-0.02); LYMPH ABS # 0.06 K/uL (1.2-3.4); MEAN CELL VOLUME 95.5 fL (80-100); MEAN CORPUSCULAR HEMOGLOBIN 33.3 pg (25-34); MEAN CORPUSCULAR HGB CONC 34.9 g/dl (32-36); MEAN PLATELET VOLUME 8.6 fL (7.4-10.4); MONO % 1.1 %; MONO ABS # 0.07 K/uL (0.11-0.59); NEUT % 97.4 %; NEUT ABS # 6.12 K/uL (1.4-6.5); PLATELET COUNT 205 K/uL (130-400); RED CELL DISTRIBUTION WIDTH CV 12.6 % (11.5-14.5); RED CELL DISTRIBUTION WIDTH SD 43.1 fL (36.4-46.3); WHITE BLOOD COUNT 6.28 K/uL (4.8-10.8)
[2018-01-26] MEDS ORDERED: ONDANSETRON INJ 8 MG in DEXTROSE 5% 50ML 50 ML IV ONE (08:00)
[2018-01-26 08:10] LABS: ALBUMIN 3.5 gm/dl (3.4-5.0); CALCIUM 8.4 mg/dl (8.5-10.1); CREATININE 0.94 mg/dl (0.60-1.20); POTASSIUM 3.9 mmol/L (3.5-5.1)
[2018-01-26] MEDS ORDERED: HYDR-5688 PO (08:12)
[2018-01-26 08:13] LABS: TOTAL PROTEIN 7.5 gm/dl (6.4-8.2)
[2018-01-26 09:47] VITALS: BP 105/57; PULSE 108; O2SAT 95
--- NOTE | 2018-01-26 15:48 | EMERGENCY ROOM VISIT NOTE ---
History First contact with patient: 07:21 Chief Complaint: VOMITING Stated Complaint: N/V FEVER, CHILLS Nursing Triage Summary: pt reports nausea and vomitting since 0000. pt also reports fever and chills. pt reports she is currently on oral chemo for breast cancer with mets to spine. History of Present Illness The patient is a 27 year old female who presents to the Emergency Room with complaints of nausea, vomiting and watery diarrhea. The patient reports that her symptoms started around midnight. She also reports fevers and chills. She has been unable to keep any fluids down overnight. The patient does have Compazine at home for nausea, but also has not been able to keep it down. The patient is currently on oral chemotherapy for metastatic breast cancer. The patient did not check her temperature overnight. She reports that both of her daughters have had similar symptoms within the past 2 weeks. The patient reports generalized abdominal cramping, and rates her discomfort a 5 out of 10. She denies any headache, chest pain, shortness of breath, cough or urinary symptoms. She has not noticed any blood in her stool. Review of Systems HEENT: Denies dizziness, visual problems, hearing loss, tinnitus. Denies difficulty swallowing or oral lesions. PULMONARY: Denies cough, shortness of breath, sputum production or hemoptysis. CARDIOVASCULAR: Denies chest pain, palpitations, dyspnea on exertion, orthopnea or peripheral edema. GASTROINTESTINAL: See HPI. GENITOURINARY: Denies dysuria, frequency, urgency or nocturia. NEUROLOGIC: Denies history of epilepsy, CVA, TIA or chronic headaches. MUSCULOSKELETAL: Denies history of joint tenderness/swelling. SKIN: Denies rashes or lesions. PSYCHIATRIC: Denies history of depression or mental illness. ENDOCRINE: Denies history of diabetes or thyroid disorders. Past Medical/Surgical History Medical Problems: (1) Appendectomy (2) Breast cancer (3) Complicated (4) FUO (fever of unknown origin) (5) Gestational [-induced] hypertension without significant proteinuria , third trimester (6) Scoliosis Surgical Problems: (1) Hx of mastectomy Family History Cancer Diabetes mellitus Heart disease Hypertension Lung disease Social History Smoking Status: Never Smoker Alcohol Use: none Drug Use: none Marital Status: Housing Status: lives with family Occupation Status: employed Current/Historical Medications Scheduled Calcium Carbonate (Calcium 600), 600 MG PO DAILY Cholecalciferol (Vitamin D3), 1,000 UNITS PO QAM Letrozole (Femara), 2.5 MG PO QPM Pantoprazole (Protonix), 40 MG PO DAILY Ribociclib Succinate (Kisqali), 600 MG PO DAILY/UD Scheduled PRN Acetaminophen (Tylenol), 1,000 MG PO Q8 PRN for Pain Hydrocodone/Acetaminophen 5MG/325MG ([place] 5MG/325MG), 1 TABLET PO Q4 PRN for Pain Ondansetron Hcl (Zofran), 8 MG PO Q8 PRN for Nausea Prochlorperazine Maleate (Compazine), 10 MG PO Q6 PRN for Nausea or Vomiting Physical Exam Vital Signs Date Time Temp Pulse Resp B/P (MAP) Pulse Ox O2 Delivery O2 Flow Rate FiO2 01/26/18 09:47 108 18 105/57 95 Room Air 01/26/18 09:13 108 18 104/67 95 Room Air 01/26/18 08:02 106 18 106/64 99 Room Air 01/26/18 07:45 109 101/63 128 101/64 148 84/56 01/26/18 07:36 113 01/26/18 07:26 96 Room Air 01/26/18 07:13 36.6 128 20 99/68 99 Room Air Physical Exam CONSTITUTIONAL: Healthy and well nourished. Alert and oriented X 3 with positive affect. Patient appears mildly nauseated and generalized discomfort. HEENT: Normocephalic, atraumatic. Pupils equal, round and reactive. No scleral icterus or conjunctival injection/pallor. OROPHARYNX: Mucous membranes are dry. No tonsillar hypertrophy or exudates. NECK: Full active range of motion without discomfort. No JVD or carotid bruits. No nuchal rigidity. RESPIRATORY: Clear to auscultation bilaterally with no wheezing, crackles, rhonchi or stridor. CARDIOVASCULAR: Tachycardic with no murmurs, rubs or gallops. GASTROINTESTINAL: Bowel sounds present and hyperactive in all quadrants. Patient has generalized nonfocal tenderness to palpation of the abdomen. Negative CVA tenderness. Negative McBurney's point tenderness. No abdominal rigidity, guarding or rebound. MUSCULOSKELETAL: Full range of motion of all joints without discomfort. INTEGUMENTARY: No rash or other significant dermatologic conditions noted. HEMATOLOGIC: No ecchymosis or petechiae noted. NEUROLOGIC: No focal neurologic deficits noted. Medical Decision & Procedures Laboratory Results 01/26/18 07:45 Red Blood Count 3.33, Mean Corpuscular Volume 95.5, Mean Corpuscular Hemoglobin 33.3, Mean Corpuscular Hemoglobin Concent 34.9, Mean Platelet Volume 8.6, Neutrophils (%) (Auto) 97.4, Lymphocytes (%) (Auto) 1.0, Monocytes (%) (Auto) 1.1, Eosinophils (%) (Auto) 0.0, Basophils (%) (Auto) 0.2, Neutrophils # (Auto) 6.12, Lymphocytes # (Auto) 0.06, Monocytes # (Auto) 0.07, Eosinophils # (Auto) 0.00, Basophils # (Auto) 0.01 01/26/18 07:45 Test 01/26/18 07:24 01/26/18 07:45 01/26/18 07:49 Urine Color DK YELLOW Urine Appearance CLEAR (CLEAR) Urine pH 8.0 (4.5-7.5) Urine Specific [place] 1.026 (1.000-1.030) Urine Protein NEG (NEG) Urine Glucose (UA) NEG (NEG) Urine Ketones NEG (NEG) Urine Occult Blood NEG (NEG) Urine Nitrite NEG (NEG) Urine Bilirubin NEG (NEG) Urine Urobilinogen NEG (NEG) Urine Leukocyte Esterase TRACE (NEG) Urine WBC (Auto) 1-5 /hpf (0-5) Urine RBC (Auto) 0-4 /hpf (0-4) Urine Hyaline Casts (Auto) 5-10 /lpf (0-5) Urine Epithelial Cells (Auto) >30 /lpf (0-5) Urine Bacteria (Auto) NEG (NEG) Urine Renal Epithelial Cells /lpf (0-5) White Blood Count 6.28 K/uL (4.8-10.8) Red Blood Count 3.33 M/uL (4.2-5.4) Hemoglobin 11.1 g/dL (12.0-16.0) Hematocrit 31.8 % (37-47) Mean Corpuscular Volume 95.5 fL (80-100) Mean Corpuscular Hemoglobin 33.3 pg (25-34) Mean Corpuscular Hemoglobin Concent 34.9 g/dl (32-36) Platelet Count 205 K/uL (130-400) Mean Platelet Volume 8.6 fL (7.4-10.4) Neutrophils (%) (Auto) 97.4 % Lymphocytes (%) (Auto) 1.0 % Monocytes (%) (Auto) 1.1 % Eosinophils (%) (Auto) 0.0 % Basophils (%) (Auto) 0.2 % Neutrophils # (Auto) 6.12 K/uL (1.4-6.5) Lymphocytes # (Auto) 0.06 K/uL (1.2-3.4) Monocytes # (Auto) 0.07 K/uL (0.11-0.59) Eosinophils # (Auto) 0.00 K/uL (0-0.5) Basophils # (Auto) 0.01 K/uL (0-0.2) RDW Standard Deviation 43.1 fL (36.4-46.3) RDW Coefficient of Variation 12.6 % (11.5-14.5) Immature Granulocyte % (Auto) 0.3 % Immature Granulocyte # (Auto) 0.02 K/uL (0.00-0.02) Erythrocyte Sedimentation Rate 18 mm/hr (0-21) Anion Gap 7.0 mmol/L (3-11) Est Creatinine Clear Calc Drug Dose 79.1 ml/min Estimated GFR () 97.7 Estimated GFR (Non- 84.3 BUN/Creatinine Ratio 13.7 (10-20) Calcium Level 8.4 mg/dl (8.5-10.1) Total Bilirubin 0.5 mg/dl (0.2-1) Direct Bilirubin 0.1 mg/dl (0-0.2) Aspartate Amino Transf (AST/SGOT) 21 U/L (15-37) Alanine Aminotransferase (ALT/SGPT) 27 U/L (12-78) Alkaline Phosphatase 69 U/L (45-117) C-Reactive Protein 0.82 mg/dl (0-0.29) Total Protein 7.5 gm/dl (6.4-8.2) Albumin 3.5 gm/dl (3.4-5.0) Lipase 74 U/L (73-393) Bedside Lactic Acid Venous 2.70 mmol/L (0.90-1.70) The above labs were reviewed and were grossly normal except for bedside lactate which was mildly elevated. Sed rate, CRP and electrolytes are normal. Medications Administered Medications (Trade) Dose Ordered Sig/Sami Route Start Time Stop Time Status Last Admin Dose Admin Sodium Chloride 1,000 ml @ 999 mls/hr Q1H1M STAT IV 01/26/18 07:27 01/26/18 08:27 DC 01/26/18 07:50 999 MLS/HR Ondansetron HCl 8 mg/Dextrose 54 ml @ 216 mls/hr 0800 ONCE IV 01/26/18 08:00 01/26/18 08:14 DC 01/26/18 08:05 216 MLS/HR Heparin Sodium (Porcine) (Heparin 100 Unit/ml 5ml Flush) 5 ml STK-MED ONCE .ROUTE 01/26/18 10:02 01/26/18 10:03 DC 01/26/18 10:08 5 ML Procedure 1. IV hydration: The patient was administered normal saline 1 L bolus 2. IV medications: Zofran 8 mg IVP ED Course Patient history and physical exam were performed. Nurse's notes were reviewed. Vital signs were reviewed, showing a blood pressure 99/68. The patient was also orthostatic with orthostatic vital signs. The patient's pulse was 128 in triage. The patient is currently afebrile and has a normal O2 saturation on room air. IV access was established, and labs were drawn. The patient was hydrated with a liter normal saline, and received IV Zofran for nausea. Review of labs did not show any significant findings. The patient does have a elevated lactate, however has no leukocytosis, neutropenia, thrombocytopenia or fever. The patient reports significant reduction of her symptoms, and felt well enough for discharge home. The patient reports that she does have plenty of Compazine at home. She was encouraged to take this every 6-8 hours to prevent nausea. She was also given instructions on a clear liquid diet for the next several days, then advance diet as tolerated. Return to the emergency department for inability to remain hydrated or developing fever. Patient was happy with plan of care, and voiced understanding of all discharge instructions. Medical Decision Patient presents to the emergency department with primary complaint of nausea, vomiting and diarrhea. The patient reports that she has had these symptoms since midnight, and denies any other symptoms yesterday. Based on the acute onset, I suspect a viral gastroenteritis. The patient does currently take oral chemotherapeutic agents. She currently is not neutropenic or febrile. At this point, I do not feel that further advanced imaging studies or observation/ admission is needed. The patient will return for any worsening symptoms. [place] Drug Monitoring Program Search Results: patient reviewed within database, no issues identified Medication Reconcilliation Current Medication List: was personally reviewed by me Blood Pressure Screening Patient's blood pressure: Normal blood pressure Blood pressure disposition: Did not require urgent referral Impression Primary Impression: Gastroenteritis Additional Impression: Dehydration Departure Information Referrals RV. Marcum MD (PCP) Patient Instructions My [facility] Problem Qualifiers
== END 2018-01-26 10:09 | disposition home or self-care (01) ==
LOC: C.EDB 07:12 → C.EDA 10:09
DX: K52.9 Noninfective gastroenteritis and colitis, unspecified (principal); E86.0 Dehydration; C50.919 Malignant neoplasm of unspecified site of unspecified female breast; Z90.10 Acquired absence of unspecified breast and nipple

== ENCOUNTER 2018-02-08 10:46 | Emergency (ER) | payer BC, OTHER ==
[~2018-02-08] VITALS: Ht 162.6 cm; Wt 58.9 kg
[~2018-02-08 10:46] MED LIST changes: +HYDR-5688 PO
[2018-02-08 10:55] VITALS: Ht 162.6 cm; Wt 58.9 kg
--- NOTE | 2018-02-08 11:29 | EMERGENCY ROOM VISIT NOTE ---
History Report prepared by Antonio: Margoth Johnson Under the Supervision of: Dr. Devyn Blackmon M.D. First contact with patient: 11:04 Chief Complaint: VOMITING Stated Complaint: N/V GOOEY INCISION Nursing Triage Summary: pt reports vomiting starting last night. pt took compazine without relief. pt had bilateral breast reconstruction on january 13 [facility] in [place]. pt reports last friday she noted some yellow drainage at her insicion under her left breast. pt takes oral chemo for breast CA. History of Present Illness The patient is a 28 year old female who presents to the Emergency Room with complaints of vomiting and subjective fevers beginning last night. She also notes that she began having diarrhea last night at around 0400. She has chills but denies any urinary symptoms, melena, hematochezia, chest pain, SOB, vaginal bleeding or discharge, or chance of . The patient reports she had bilateral breast reconstruction on January 13, 2018 at [facility] in [place]. She states that last Friday, she noted some yellow drainage at the incision of her left breast. She currently takes oral chemo for her breast cancer. Tiffanie Marks is managing her care. Source of History: patient Onset: last night Position: other (stomach, left breast) Quality: other (vomiting) Timing: other (after bilateral breast reconstruction on January 13, 2018 ) Associated Symptoms: + chills, + diarrhea, No chest pain, No SOB, No melena , No hematochezia, No urinary symptoms Note: Positive yellow left breast drainage. Negative vaginal bleeding or discharge, or chance of Review of Systems See HPI for pertinent positives and negatives. A total of ten systems were reviewed and were otherwise negative. Past Medical & Surgical Medical Problems: (1) Appendectomy (2) Breast cancer (3) Complicated (4) FUO (fever of unknown origin) (5) Gestational [-induced] hypertension without significant proteinuria , third trimester (6) Scoliosis Surgical Problems: (1) Hx of mastectomy Family History Cancer Diabetes mellitus Heart disease Hypertension Lung disease Social History Smoking Status: Never Smoker Alcohol Use: none Drug Use: none Marital Status: Housing Status: lives with family Occupation Status: employed Current/Historical Medications Scheduled Calcium Carbonate (Calcium 600), 600 MG PO DAILY Cholecalciferol (Vitamin D3), 1,000 UNITS PO QAM Letrozole (Femara), 2.5 MG PO QPM Pantoprazole (Protonix), 40 MG PO DAILY Ribociclib Succinate (Kisqali), 600 MG PO DAILY/UD Scheduled PRN Acetaminophen (Tylenol), 1,000 MG PO Q8 PRN for Pain Hydrocodone/Acetaminophen 5MG/325MG ([place] 5MG/325MG), 1 TABLET PO Q4 PRN for Pain Ondansetron Hcl (Zofran), 8 MG PO Q8 PRN for Nausea Prochlorperazine Maleate (Compazine), 10 MG PO Q6 PRN for Nausea or Vomiting Allergies Coded Allergies: No Known Allergies (Verified , 02/08/18) Physical Exam Vital Signs Date Time Temp Pulse Resp B/P (MAP) Pulse Ox O2 Delivery O2 Flow Rate FiO2 02/08/18 14:23 119 16 119/70 98 Room Air 02/08/18 13:45 38.1 125 16 91/50 97 Room Air 02/08/18 12:22 109 20 96/51 99 Room Air 02/08/18 10:55 37.6 138 18 96/60 98 Room Air Physical Exam Physical Exam GENERAL: She is oriented to person, place, and time. She appears well- developed and well-nourished. She does not appear distressed. ____ HENT: Exam performed. Head: Normocephalic and atraumatic. Right Ear: External ear normal. No mastoid tenderness. Left Ear: External ear normal. No mastoid tenderness. Mouth/Throat: The oropharynx is clear and moist. No trismus in the jaw. No dental abscesses or uvula swelling. No oropharyngeal exudate or tonsillar abscesses. ____ EYES: Conjunctivae and EOM are normal. Pupils are equal, round, and reactive to light. Right eye exhibits no discharge. Left eye exhibits no discharge. No scleral icterus. ____ NECK: Normal range of motion. Neck supple. No JVD present. No spinous process tenderness present. No carotid bruit present. No rigidity. No tracheal deviation and normal range of motion present. No Brudzinski's sign and no Kernig 's sign noted. ____ CV: Tachycardic rate, regular rhythm, normal heart sounds and intact distal pulses. There is no peripheral edema. Palpable radial pulses bue. ____ PULM/CHEST: Effort normal and breath sounds normal. No respiratory distress. No stridor. She has no wheezes. She has no rales. 2 Chest Wall: cm ulcer under her left breast with some mild purulent discharge. Port in place. ABD: The abdomen is soft. Bowel sounds are normal. She has no distension. No mass is present. There is no tenderness. There is no rebound, no guarding, no Belcher's sign and no tenderness at McBurney's point. Rovsig negative MUSC/SKEL: Normal range of motion. There is no peripheral edema, tenderness or deformity. LYMPH: No cervical adenopathy. ____ NEURO: She is alert and oriented to person, place, and time. She has normal strength. No cranial nerve deficit or sensory deficit. Coordination and gait normal. GCS eye subscore is 4. GCS verbal subscore is 5. GCS motor subscore is 6. Cerebellar tests wnl. ____ SKIN: Skin is warm and dry. She is not diaphoretic. ____ PSYCH: She has a normal mood and affect. Her behavior is normal. Judgment and thought content normal. ____ Medical Decision & Procedures ER Provider Diagnostic Interpretation: Radiology results as stated below per my review and radiologist interpretation: PA CHEST RADIOGRAPH AND UPRIGHT AND SUPINE AP RADIOGRAPHS OF THE ABDOMEN CLINICAL HISTORY: Vomiting. COMPARISON STUDY: Chest CT December 06, 2017 and PET/CT July 07, 2017. FINDINGS: There are right axillary surgical clips and a left subclavian [id number]. Lungs are clear. No pneumothorax or pleural effusion is noted. Cardiac size is normal. Mediastinal contours are normal. There is mild S-shaped curvature of the thoracolumbar spine. There is contrast within the collecting systems, ureters and bladder from recent contrast-enhanced chest CT. There is no free air. The bowel gas pattern is normal. IMPRESSION: 1. No free air or evidence of bowel obstruction. 2. No acute cardiopulmonary findings. Electronically signed by: Kris Aden M.D. 02/08/2018 1:[address] OF THE CHEST WITH IV CONTRAST CLINICAL HISTORY: Evaluate for left breast implant abscess. Breast cancer. COMPARISON STUDY: Chest CT December 06, 2017. TECHNIQUE: Following IV administration of 93 mL of Optiray-320, helical axial images of the chest were obtained. Sagittal and coronal reconstructions were viewed as well as maximal intensity projections on an independent 3-D workstation. A dose lowering technique was utilized adhering to the principles of ALARA. CT DOSE: 195.69 mGy.cm FINDINGS: No enlarged axillary, mediastinal or hilar lymph nodes are present. A left subclavian [id number]-d-[id number] is in place. The size of the heart is normal. There is no pericardial effusion. There is no pneumothorax or pleural effusion. There has been interval development of a 1.7 cm bilobed irregular airspace opacity within the right lower lobe shown on image [address] of December 06, 2017. Otherwise, the lungs are clear. The central airways are patent. A right breast implant is noted. Interval postoperative findings within the left breast are also noted. Within the lower outer quadrant of the left breast, there is a 4.7 x 1.2 cm pocket of fluid without rim enhancement. Right adrenal nodule is unchanged and favors an adenoma. This was not FDG avid on prior PET/CT. The upper abdomen is otherwise unremarkable. IMPRESSION: 1. 4.7 x 1.2 cm pocket of fluid within the lower outer quadrant of the left breast. This is nonspecific in the postoperative setting but does not appear to represent an abscess given the lack of rim enhancement. 2. No thoracic lymphadenopathy. 3. 1.7 cm bilobed irregular right lower lobe opacity which is new since chest CT of December 06, 2017. Therefore, this likely reflects a minimal infectious process. However, short-term follow-up chest CT to ensure resolution is recommended. Electronically signed by: Kris Aden M.D. 02/08/2018 1:10 PM Laboratory Results 02/08/18 11:40 Red Blood Count 3.32, Mean Corpuscular Volume 94.6, Mean Corpuscular Hemoglobin 33.4, Mean Corpuscular Hemoglobin Concent 35.4, Mean Platelet Volume 8.1, Neutrophils (%) (Auto) 91.2, Lymphocytes (%) (Auto) 4.4, Monocytes (%) (Auto) 4.4, Eosinophils (%) (Auto) 0.0, Basophils (%) (Auto) 0.0, Neutrophils # (Auto) 1.25, Lymphocytes # (Auto) 0.06, Monocytes # (Auto) 0.06, Eosinophils # (Auto) 0.00, Basophils # (Auto) 0.00 02/08/18 11:40 Test 02/08/18 11:40 02/08/18 11:47 02/08/18 12:01 White Blood Count 1.37 K/uL (4.8-10.8) Red Blood Count 3.32 M/uL (4.2-5.4) Hemoglobin 11.1 g/dL (12.0-16.0) Hematocrit 31.4 % (37-47) Mean Corpuscular Volume 94.6 fL (80-100) Mean Corpuscular Hemoglobin 33.4 pg (25-34) Mean Corpuscular Hemoglobin Concent 35.4 g/dl (32-36) Platelet Count 127 K/uL (130-400) Mean Platelet Volume 8.1 fL (7.4-10.4) Neutrophils (%) (Auto) 91.2 % Lymphocytes (%) (Auto) 4.4 % Monocytes (%) (Auto) 4.4 % Eosinophils (%) (Auto) 0.0 % Basophils (%) (Auto) 0.0 % Neutrophils # (Auto) 1.25 K/uL (1.4-6.5) Lymphocytes # (Auto) 0.06 K/uL (1.2-3.4) Monocytes # (Auto) 0.06 K/uL (0.11-0.59) Eosinophils # (Auto) 0.00 K/uL (0-0.5) Basophils # (Auto) 0.00 K/uL (0-0.2) RDW Standard Deviation 49.1 fL (36.4-46.3) RDW Coefficient of Variation 14.3 % (11.5-14.5) Immature Granulocyte % (Auto) 0.0 % Immature Granulocyte # (Auto) 0.00 K/uL (0.00-0.02) Anion Gap 8.0 mmol/L (3-11) Est Creatinine Clear Calc Drug Dose 99.5 ml/min Estimated GFR () 129.6 Estimated GFR (Non- 111.8 BUN/Creatinine Ratio 22.6 (10-20) Lactic Acid Level 0.9 mmol/L (0.4-2.0) Calcium Level 8.0 mg/dl (8.5-10.1) Total Bilirubin 0.6 mg/dl (0.2-1) Direct Bilirubin 0.2 mg/dl (0-0.2) Aspartate Amino Transf (AST/SGOT) 17 U/L (15-37) Alanine Aminotransferase (ALT/SGPT) 22 U/L (12-78) Alkaline Phosphatase 54 U/L (45-117) Total Protein 7.5 gm/dl (6.4-8.2) Albumin 3.7 gm/dl (3.4-5.0) Lipase 57 U/L (73-393) Urine Color YELLOW Urine Appearance CLEAR (CLEAR) Urine pH 8.5 (4.5-7.5) Urine Specific [place] 1.024 (1.000-1.030) Urine Protein NEG (NEG) Urine Glucose (UA) NEG (NEG) Urine Ketones NEG (NEG) Urine Occult Blood NEG (NEG) Urine Nitrite NEG (NEG) Urine Bilirubin NEG (NEG) Urine Urobilinogen NEG (NEG) Urine Leukocyte Esterase NEG (NEG) Urine Test NEG (NEG) Laboratory results reviewed by me Medications Administered Medications (Trade) Dose Ordered Sig/Sami Route Start Time Stop Time Status Last Admin Dose Admin Sodium Chloride 1,000 ml @ 999 mls/hr Q1H1M STAT IV 02/08/18 11:30 02/08/18 12:30 DC 02/08/18 11:46 999 MLS/HR Ondansetron HCl (Zofran Inj) 4 mg NOW STAT IV 02/08/18 11:30 02/08/18 11:31 DC 02/08/18 11:45 4 MG Vancomycin HCl (Vancomycin 1gm Ed/Asu Omnicell) 1 gm NOW STAT IV 02/08/18 13:13 02/08/18 13:16 DC 02/08/18 14:55 1 GM Piperacillin Sod/ Tazobactam Sod (Zosyn Iv) 4.5 gm NOW STAT IV 02/08/18 13:13 02/08/18 13:16 DC 02/08/18 14:20 4.5 GM Sodium Chloride 1,000 ml @ 999 mls/hr Q1H1M IV 02/08/18 14:00 03/10/18 13:59 02/08/18 14:19 999 MLS/HR Acetaminophen (Tylenol Tab) 1,000 mg NOW STAT PO 02/08/18 13:57 02/08/18 13:58 DC 02/08/18 14:18 1,000 MG Ondansetron HCl (Zofran Inj) 4 mg NOW STAT IV 02/08/18 14:00 02/08/18 14:01 DC 02/08/18 14:06 4 MG ED Course 1124: The patient was evaluated in room C3. A complete history and physical exam was performed. 1130: Ordered Zofran Inj 4 mg IV, Sodium Chloride 1000 ml @ 999 mls/hr IV 1313: Ordered Zosyn Iv 4.5 gm IV, Vancomycin HCl 1 gm IV 1321: Labs show leukopenia 1.37. Hemoglobin and platelets are stable. Lactic acid 0.9. Renal profile within normal limits. CT does not show any fluid collection concerning for abscess. Does show possible pneumonia. 1322: I discussed the patient's case with Dr. Aleyda Vasquez, [facility] Hospitalist who thinks the patient might be better served where she had her breast surgery in [facility] in [place]. 1337: I discussed the case with Dr. Banks, the patients oncologist. He agrees the patient should be admitted to [facility] and receive Vanco and Zosyn for a possible pneumonia and will be on consult. Dr. Maynard will be re-paged. 1352: I discussed the patient's case with Dr. Aleyda Vasquez, [facility] Hospitalist. He will come evaluate the patient. 1357: Repeat vitals show the patient febrile at 38.1, tachycardic at 125. Blood pressure 91/50. Ordered Acetaminophen 1000 mg PO. Ordered Zofran Inj 4 mg IV, Sodium Chloride 1000 ml @ 999 mls/hr IV 1414: Dr. [facility] hospitalist came and evaluated the patient. He states that he does not feel comfortable with the patient staying at [facility] and recommend that the patient be transferred to facility that has possible breast surgeon, family is agreeable to go to [facility] as that is where she is receiving her cancer treatment. Repeat vitals show blood pressure 119/70, pulse of 119, satting 98% on room air. 1426: Discussed the patient's case with Dr. Vasquez, [facility] Hospitalist. The patient will be evaluated for further treatment and disposition in the ICU at [facility]. Medical Decision 1124: The patient was evaluated in room C3. A complete history and physical exam was performed. 1130: Ordered Zofran Inj 4 mg IV, Sodium Chloride 1000 ml @ 999 mls/hr IV 1313: Ordered Zosyn Iv 4.5 gm IV, Vancomycin HCl 1 gm IV 1321: Labs show leukopenia 1.37. Hemoglobin and platelets are stable. Lactic acid 0.9. Renal profile within normal limits. CT does not show any fluid collection concerning for abscess. Does show possible pneumonia. 1322: I discussed the patient's case with Dr. Aleyda Vasquez, [facility] Hospitalist who thinks the patient might be better served where she had her breast surgery in [facility] in [place]. 1337: I discussed the case with Dr. Banks, the [facility] oncologist. He agrees the patient should be admitted to [facility] and receive Vanco and Zosyn for a possible pneumonia and will be on consult. Dr. Maynard will be re-paged. 1352: I discussed the patient's case with Dr. Aleyda Vasquez, [facility] Hospitalist. He will come evaluate the patient. 1357: Repeat vitals show the patient febrile at 38.1, tachycardic at 125. Blood pressure 91/50. Ordered Acetaminophen 1000 mg PO. Ordered Zofran Inj 4 mg IV, Sodium Chloride 1000 ml @ 999 mls/hr IV 1414: Dr. [facility] hospitalist came and evaluated the patient. He states that he does not feel comfortable with the patient staying at [facility] and recommend that the patient be transferred to facility that has possible breast surgeon, family is agreeable to go to [facility] as that is where she is receiving her cancer treatment. Repeat vitals show blood pressure 119/70, pulse of 119, satting 98% on room air. 1426: Discussed the patient's case with Dr. Vasquez, [facility] Hospitalist. The patient will be evaluated for further treatment and disposition in the ICU at [facility]. Medication Reconcilliation Current Medication List: was personally reviewed by me Blood Pressure Screening Patient's blood pressure: Normal blood pressure Blood pressure disposition: Did not require urgent referral Consults Time Called: 1315 Consulting Physician: Dr. Aleyda Vasquez, [facility] Hospitalist Returned Call: 1322 I discussed the patient's case with Dr. Aleyda Vasquez, [facility] Hospitalist who thinks the patient might be better served where she had her breast surgery in [facility] in [place]. Additional Consults: Time Called: 1330 Consulted Physician: Dr. Banks, [facility] Oncologist Returned Call: 1337 Additional Comments: I discussed the case with Dr. Banks, the [facility] oncologist. He agrees the patient should be admitted to [facility] and receive Vanco and Zosyn for a possible pneumonia and will be on consult. Dr. Maynard will be re-paged. Time Called: 1340 Consulted Physician: Dr. Aleyda Vasquez, [facility] Hospitalist Returned Call: 1352 Additional Comments: I discussed the patient's case with Dr. Aleyda Vasquez, [facility] Hospitalist. He will come evaluate the patient. Impression Primary Impression: Sepsis Critical Care I have personally spent greater than 57 minutes of critical care time in the direct management of this patient. This includes bedside care, interpretation of diagnostic studies, and testing, discussion with consultants, patient, and family members, and other required patient management activities. This 57 minutes is in excess of all separately billable procedures. Scribe Attestation The scribe's documentation has been prepared under my direction and personally reviewed by me in its entirety. I confirm that the note above accurately reflects all work, treatment, procedures, and medical decision making performed by me. The chart was completed utilizing [employer] Speech voice recognition software. Grammatical errors, random word insertions, pronoun errors, and incomplete sentences are an occasional consequence of this system due to software limitations, ambient noise, and hardware issues. Any formal questions or concerns about the content, text, or information contained within the body of this dictation should be directly addressed to the physician for clarification. Departure Information Dispostion Transfer Acute Care Facility (ICU - Dr. Vasquez, [facility] Hospitalist ) Referrals RV. Marcum MD (PCP) Patient Instructions My [facility] Problem Qualifiers Primary Impression: Sepsis Sepsis type: sepsis due to unspecified organism Qualified Codes: A41.9 - Sepsis, unspecified organism
[2018-02-08] MEDS ORDERED: ONDANSETRON INJ 2 MG/ML 2 ML VIAL IV STA ×2 (11:30→14:00)
[2018-02-08] MEDS ORDERED: SODIUM CHLORIDE 0.9% 1000ML 1,000 ML IV STA (11:30)
[2018-02-08] MEDS ORDERED: OPTIRAY 320 IV PRN (11:45)
[2018-02-08 11:51] LABS: HEMATOCRIT 31.4 % (37-47); HEMOGLOBIN 11.1 g/dL (12.0-16.0); LYMPH % 4.4 %; LYMPH ABS # 0.06 K/uL (1.2-3.4); MEAN CELL VOLUME 94.6 fL (80-100); MEAN CORPUSCULAR HEMOGLOBIN 33.4 pg (25-34); MEAN CORPUSCULAR HGB CONC 35.4 g/dl (32-36); MEAN PLATELET VOLUME 8.1 fL (7.4-10.4); MONO % 4.4 %; MONO ABS # 0.06 K/uL (0.11-0.59); NEUT % 91.2 %; NEUT ABS # 1.25 K/uL (1.4-6.5); PLATELET COUNT 127 K/uL (130-400); RED CELL DISTRIBUTION WIDTH CV 14.3 % (11.5-14.5); RED CELL DISTRIBUTION WIDTH SD 49.1 fL (36.4-46.3); WHITE BLOOD COUNT 1.37 K/uL (4.8-10.8)
[2018-02-08 12:13] LABS: ALBUMIN 3.7 gm/dl (3.4-5.0); CREATININE 0.74 mg/dl (0.60-1.20); POTASSIUM 3.4 mmol/L (3.5-5.1); TOTAL PROTEIN 7.5 gm/dl (6.4-8.2)
--- NOTE | 2018-02-08 13:11 | DIAGNOSTIC IMAGING REPORT ---
CT OF THE CHEST WITH IV CONTRAST CLINICAL HISTORY: Evaluate for left breast implant abscess. Breast cancer. COMPARISON STUDY: Chest CT December 06, 2017. TECHNIQUE: Following IV administration of 93 mL of Optiray-320, helical axial images of the chest were obtained. Sagittal and coronal reconstructions were viewed as well as maximal intensity projections on an independent 3-D workstation. A dose lowering technique was utilized adhering to the principles of ALARA. CT DOSE: 195.69 mGy.cm FINDINGS: No enlarged axillary, mediastinal or hilar lymph nodes are present. A left subclavian Taocnk-h-Vdsi is in place. The size of the heart is normal. There is no pericardial effusion. There is no pneumothorax or pleural effusion. There has been interval development of a 1.7 cm bilobed irregular airspace opacity within the right lower lobe shown on image [address] of December 06, 2017. Otherwise, the lungs are clear. The central airways are patent. A right breast implant is noted. Interval postoperative findings within the left breast are also noted. Within the lower outer quadrant of the left breast, there is a 4.7 x 1.2 cm pocket of fluid without rim enhancement. Right adrenal nodule is unchanged and favors an adenoma. This was not FDG avid on prior PET/CT. The upper abdomen is otherwise unremarkable. IMPRESSION: 1. 4.7 x 1.2 cm pocket of fluid within the lower outer quadrant of the left breast. This is nonspecific in the postoperative setting but does not appear to represent an abscess given the lack of rim enhancement. 2. No thoracic lymphadenopathy. 3. 1.7 cm bilobed irregular right lower lobe opacity which is new since chest CT of December 06, 2017. Therefore, this likely reflects a minimal infectious process. However, short-term follow-up chest CT to ensure resolution is recommended. Electronically signed by: Kris Aden M.D. 02/08/2018 1:10 PM Dictated Date/Time: 02/08/2018 12:55 PM
[2018-02-08] MEDS ORDERED: VANCOMYCIN 1GM ED/ASU OMNICELL IV STA (13:13)
[2018-02-08] MEDS ORDERED: PIPERACILLIN/TAZOBACTAM 4.5 GM/100ML D5W IV STA (13:13)
--- NOTE | 2018-02-08 13:18 | DIAGNOSTIC IMAGING REPORT ---
PA CHEST RADIOGRAPH AND UPRIGHT AND SUPINE AP RADIOGRAPHS OF THE ABDOMEN CLINICAL HISTORY: Vomiting. COMPARISON STUDY: Chest CT December 06, 2017 and PET/CT July 07, 2017. FINDINGS: There are right axillary surgical clips and a left subclavian Ksyhvg-o-Ncbn. Lungs are clear. No pneumothorax or pleural effusion is noted. Cardiac size is normal. Mediastinal contours are normal. There is mild S-shaped curvature of the thoracolumbar spine. There is contrast within the collecting systems, ureters and bladder from recent contrast-enhanced chest CT. There is no free air. The bowel gas pattern is normal. IMPRESSION: 1. No free air or evidence of bowel obstruction. 2. No acute cardiopulmonary findings. Electronically signed by: Kris Aden M.D. 02/08/2018 1:16 PM Dictated Date/Time: 02/08/2018 1:15 PM
[2018-02-08] MEDS ORDERED: ACETAMINOPHEN 500 MG TAB PO STA (13:57)
[2018-02-08] MEDS ORDERED: SODIUM CHLORIDE 0.9% 1000ML 1,000 ML IV SCH (14:00)
--- NOTE | 2018-02-08 14:58 | Medical Consult ---
Consultation Date of Consultation: February 08, 2018. Attending Physician: Reason for Consultation: assist with decision making History of Present Illness 28 years old female with recent diagnosis of breast cancer status post mastectomy of left breast 2016, patient had a recent breast reconstruction surgery in [facility] and January 13, 2018. She presented to the ED with nausea vomiting and fever, mild diarrhea and purulent discharge coming from the incision site. Patient describes this fluid by being thick greenish and yellowish. Patient was found in the ED to have mild neutropenia CT scan chest revealed 4 cm fluid collection at the surgery site with no rim-enhancing. Also showed a . 1.7 cm bilobed irregular right lower lobe opacity. Past Medical/Surgical History Medical Problems: (1) Breast cancer Status: Acute (2) Dehydration Status: Acute (3) Gastroenteritis Status: Acute (4) H/O malignant neoplasm of breast Status: Acute (5) Left flank pain Status: Acute (6) Metastatic cancer Status: Acute (7) Nausea and vomiting Status: Acute (8) Neutropenic fever Status: Acute (9) Pneumonia Status: Acute (10) hemorrhage of vagina Status: Acute (11) Retained products of conception Status: Acute (12) Sepsis Status: Acute (13) Sepsis Status: Acute (14) UTI (urinary tract infection) Status: Acute (15) UTI (urinary tract infection) Status: Acute (16) Vomiting Status: Acute Family History Cancer Diabetes mellitus Heart disease Hypertension Lung disease Social History Smoking Status: Never Smoker Drug Use: none Marital Status: Housing Status: lives with family Occupation Status: employed Allergies Coded Allergies: No Known Allergies (Verified , 02/08/18) Current Inpatient Medications Current Inpatient Medications Medications (Trade) Dose Ordered Sig/Sami Route Start Time Stop Time Status Last Admin Dose Admin Ioversol (Optiray 320) 100 ml UD PRN IV 02/08/18 11:45 02/12/18 11:44 Sodium Chloride 1,000 ml @ 999 mls/hr Q1H1M IV 02/08/18 14:00 03/10/18 13:59 02/08/18 14:19 999 MLS/HR Review of Systems Constitutional: + fever, + chills, + weakness Abdomen: + diarrhea Physical Exam Date Time Temp Pulse Resp B/P (MAP) Pulse Ox O2 Delivery O2 Flow Rate FiO2 02/08/18 14:23 119 16 119/70 98 Room Air 02/08/18 13:45 38.1 125 16 91/50 97 Room Air 02/08/18 12:22 109 20 96/51 99 Room Air 02/08/18 10:55 37.6 138 18 96/60 98 Room Air Physical examination General patient appears to be comfortable, not in acute distress HEENT: Atraumatic , normocephalic /no jaundice /no pallor /anicteric /no dry mucous membrane /normal external ear inspection Neck: Supple /no swelling /central trach Heart: S1/S2 normal/regular rate and rhythm/no gallop /no rub /no murmur Lungs: Clear to auscultation bilaterally/normal chest with expansion/no rhonchi/ no rales/no wheezing/no use of accessory muscles of respiration Abdomen: Soft/nontender/no guarding/no rebound/no organomegaly/no pulsatile mass Musculoskeletal: No swelling/no edema/no tenderness/normal range of motion Neuro exam: Awake alert oriented 3/cranial nerves II through XII appear to be intact/sensation intact/moves all extremities/no abnormal movements Psychiatric evaluation: No depressed mood/normal affect Skin: No rash on exposed skin area/no erythema Extremity: Normal pulse/no pitting edema/no clubbing or cyanosis Endocrine/lymphatic: No obvious lymphadenopathy /no lymphedema Local examination of left breast was done in the presence of her mother. Patient does have clean and dry incision except the area of the incision below the nipple, which is erythematous with a 1 x 2 cm ulcer that has a dirty granulation tissue/greenish purulent dried discharge Laboratory Results Last 24 Hours Test 02/08/18 11:40 02/08/18 11:47 02/08/18 12:01 White Blood Count 1.37 K/uL Red Blood Count 3.32 M/uL Hemoglobin 11.1 g/dL Hematocrit 31.4 % Mean Corpuscular Volume 94.6 fL Mean Corpuscular Hemoglobin 33.4 pg Mean Corpuscular Hemoglobin Concent 35.4 g/dl Platelet Count 127 K/uL Mean Platelet Volume 8.1 fL Neutrophils (%) (Auto) 91.2 % Lymphocytes (%) (Auto) 4.4 % Monocytes (%) (Auto) 4.4 % Eosinophils (%) (Auto) 0.0 % Basophils (%) (Auto) 0.0 % Neutrophils # (Auto) 1.25 K/uL Lymphocytes # (Auto) 0.06 K/uL Monocytes # (Auto) 0.06 K/uL Eosinophils # (Auto) 0.00 K/uL Basophils # (Auto) 0.00 K/uL RDW Standard Deviation 49.1 fL RDW Coefficient of Variation 14.3 % Immature Granulocyte % (Auto) 0.0 % Immature Granulocyte # (Auto) 0.00 K/uL Sodium Level 139 mmol/L Potassium Level 3.4 mmol/L Chloride Level 105 mmol/L Carbon Dioxide Level 26 mmol/L Anion Gap 8.0 mmol/L Blood Urea Nitrogen 17 mg/dl Creatinine 0.74 mg/dl Est Creatinine Clear Calc Drug Dose 99.5 ml/min Estimated GFR () 129.6 Estimated GFR (Non- 111.8 BUN/Creatinine Ratio 22.6 Random Glucose 106 mg/dl Lactic Acid Level 0.9 mmol/L Calcium Level 8.0 mg/dl Total Bilirubin 0.6 mg/dl Direct Bilirubin 0.2 mg/dl Aspartate Amino Transf (AST/SGOT) 17 U/L Alanine Aminotransferase (ALT/SGPT) 22 U/L Alkaline Phosphatase 54 U/L Total Protein 7.5 gm/dl Albumin 3.7 gm/dl Lipase 57 U/L Urine Color YELLOW Urine Appearance CLEAR Urine pH 8.5 Urine Specific [place] 1.024 Urine Protein NEG Urine Glucose (UA) NEG Urine Ketones NEG Urine Occult Blood NEG Urine Nitrite NEG Urine Bilirubin NEG Urine Urobilinogen NEG Urine Leukocyte Esterase NEG Urine Test NEG NEG Assessment & Plan 28 years old female with recent diagnosis of breast cancer status post mastectomy of left breast 2017 July, patient had a recent breast reconstruction surgery in [facility] institution and January 13, 2018. She presented to the ED with nausea vomiting and fever, mild diarrhea and purulent discharge coming from the incision site. Patient describes this fluid by being thick greenish and yellowish. Assessment Sepsis present on admission Likely surgical site wound infection Fluid collection Within the lower outer quadrant of the left breast, possible abscess New onset 1.7 cm bilobed irregular right lower lobe opacity. Plan Patient presenting story of fever and thick purulent yellowish and greenish discharge from the surgical wound, together with her physical exam are very suggestive of surgical site infection. 4.5 cm fluid collection in lower outer quadrant of left breast could be an abscess despite of lack of rim enhancement. Even if it is not an abscess surgical wound infection still a possibility. The 1.7 cm bilobed irregular opacity on right lower lobe also has to be addressed. It is my recommendation that the patient will be handled in a facility that has breast surgeon, preferably the surgeon that performed the surgery. Discussed with patient and her mother will choose to go to [facility] as she receives her chemotherapy there.
[2018-02-08 15:26] VITALS: BP 90/45; PULSE 115; TEMP 38.1; O2SAT 98
== END 2018-02-08 15:44 | disposition short-term general hospital (02) ==
LOC: C.EDB 10:48 → C.EDC 15:44
DX: A41.9 Sepsis, unspecified organism (principal); C50.912 Malignant neoplasm of unspecified site of left female breast; D72.819 Decreased white blood cell count, unspecified; Z90.12 Acquired absence of left breast and nipple; Z79.899 Other long term (current) drug therapy

== ENCOUNTER → 2018-04-16 | Outpatient (CLI) | payer BC ==
[2018-04-16 11:09] LABS: ALBUMIN 3.8 gm/dl (3.4-5.0); ALKALINE PHOSPHATASE 63 U/L (45-117); ALT/SGPT 20 U/L (12-78); AST/SGOT 15 U/L (15-37); BLOOD UREA NITROGEN 15 mg/dl (7-18); CALCIUM 8.4 mg/dl (8.5-10.1); CARBON DIOXIDE 29 mmol/L (21-32); CREATININE 0.96 mg/dl (0.60-1.20); GLUCOSE 76 mg/dl (70-99); POTASSIUM 3.9 mmol/L (3.5-5.1); SODIUM 136 mmol/L (136-145); TOTAL PROTEIN 7.9 gm/dl (6.4-8.2)
[2018-04-16 11:15] LABS: HEMOGLOBIN 11.7 g/dL (12.0-16.0); MEAN CELL VOLUME 95.8 fL (80-100); MEAN CORPUSCULAR HGB CONC 34.4 g/dl (32-36); MEAN PLATELET VOLUME 9.1 fL (7.4-10.4); PLATELET COUNT 135 K/uL (130-400); RED CELL DISTRIBUTION WIDTH CV 13.5 % (11.5-14.5); RED CELL DISTRIBUTION WIDTH SD 46.7 fL (36.4-46.3); WHITE BLOOD COUNT 1.26 K/uL (4.8-10.8)
[2018-04-16 11:18] LABS: BASO % 1.6 %; BASO ABS # 0.02 K/uL (0-0.2); EOS % 1.6 %; EOS ABS # 0.02 K/uL (0-0.5); LYMPH % 13.5 %; LYMPH ABS # 0.17 K/uL (1.2-3.4); MONO % 7.9 %; NEUT % 75.4 %; NEUT ABS # 0.95 K/uL (1.4-6.5)
== END | disposition home or self-care (01) ==
LOC: C.LAB1850 09:49
PROVIDERS: ATTEND Physician Assistant
DX: Z90.11 Acquired absence of right breast and nipple (principal); C50.911 Malignant neoplasm of unspecified site of right female breast; R50.9 Fever, unspecified; R11.0 Nausea